=== PATIENT | male | born 1950 | race Caucasian/White ===

== ENCOUNTER 2017-09-22 14:00 | Outpatient (RCR) | payer MEDICARE, BC, SELFPAY ==
--- NOTE | 2017-08-24 14:53 | HP.PTEVAL_ITS ---
Patient's Visit Information EDWIN ODONNELL is a 66 year old M referred to Physical Therapy by Piyush LEDBETTER with a diagnosis of BACK PAIN. Date of Evaluation: 08/24/17 Physical Therapist: Edwin Cavazos, PT, - Visit Plan Frequency: 2x /Week Duration: 4 Weeks Plan: POSTURAL EX'S,DLS,LE STRENGTHENING,GENERAL CONDTIONING - Subjective Subjective: This 66 y/o male presents to physical therapy with back pain for about year ago. Patient lumbar pain and grossly pain in joints/muscles. Symptoms better with activity,moving ,walking,standing. Symptoms worse with inactivity, sitting. Patient pain affects symptoms at night. Denies parathesia/ tingling. Bowel/bladder. Patient pain control muscle atrophy. Patient has h/o being in PT due to pain. Then seen seen rheumotologist-methotraxate. Patient pain affects ADL'S and housework tasks.Bowel/bladder good.Patient has seen Dr Villarreal for pain injections hip /back. Patient states decrease endurance and fatigue. SOCAIL: . VOCATION: retired - Pain Bilateral Back Pain Intensity (Out of 10): 4 Pain Intensity Range: 10 - Objective POSTURE: mod thoracic kyphosis,trunk flexed foward. GAIT: foward posture trunk ,hips knee's slight flexed. NEURO: denies parathesia/tingling,redflexes L3-4, L4-5,L5-S1 1/3. MMT: quads/hams 4-/5,hip 3+/5,ankle 4/5. FLEXABILITY: hams min tight. LUMBAR ROM: flexion min/mod loss,extension severe,side glides mod. SYMMTRIES: align - Special Tests L/S Slump test left side: Negative L/S Slump test right side: Negative L/S Left Straight Leg Raise: Negative L/S Right Straight Leg Raise: Negative Lumbar Standing: Flexion - Mechanical Response: No effect Lumbar Standing: Flexion - Symptoms During Testing: Increases Lumbar Standing: Flexion - Symptoms After Testing: No worse Lumbar Standing: Extension - Mechanical Response: No effect Lumbar Standing: Extension - Symptoms During Testing: Increases Lumbar Standing: Extension - Symptoms After Testing: No worse - Goals Goal 1:: Patient to be Independant with HEP Goal Time Frame: 4-6 Weeks Goal 2:: Independant with posture for ADL'S Goal Time Frame: 4-6 Weeks Goal 3:: Decrease lumbar pain and pain grossly by 40 % or greater to improve function and ADL'S Goal Time Frame: 4-6 Weeks Goal 4:: Patient increase strength BLE by 1/2 grade to improve function with walking and stand. Goal Time Frame: 4-6 Weeks Goal 5:: Patient be able to perform ADL'S and housework tasks with min/mod limiations - Rehabilitation Potential Physical Therapy Diagnosis: This patient has multiple complexity issues with chronic lumbar pain and RA which has been recently diagnosed with pain grossly in joints/muscle along with atrophy . Pain affects daily activity and housework tasks with weakness. Rehabilitation Potential: Good - Anticipated Interventions Patient/Client Instruction: Educate patient on: Condition, Plan of Care For the Purpose of:: To decrease pain, To increase ROM, To improve muscle performance and motor function, To improve ability to perform ADL's, To increase tolerance to activity/condition/position, To improve performance and independence with ADL's, To improve ability of physical actions for home/ community/work/leisure, To improve gait and locomotor functions, To improve health of tissue, To decrease soft tissue restriction, To increase flexibility/ ROM, To improve health and function, To improve ability to perform tasks related to life management Therapeutic Exercise to Include: Strength training, Postural training, Flexibilty training, Dynamic Lumbar Stabilization Comment: BLE For the Purpose of:: To decrease pain, To increase ROM, To improve muscle performance and motor function, To improve ability to perform ADL's, To increase tolerance to activity/condition/position, To improve ability of physical actions for home/community/work/leisure, To improve health of tissue, To decrease soft tissue restriction, To increase flexibility/ROM, To improve health and function, To improve ability to perform tasks related to life management IF ES: Yes Cryotherapy (ice pack, ice massage): Yes Thermo therapy (hot pack): Yes Ultrasound (thermal/non thermal): Yes For the Purpose of:: To decrease pain, To improve nutrient delivery to tissue, To increase oxygenation perfusion, To improve health of tissue, To decrease soft tissue restriction Thank you for the opportunity to evaluate your patient. For Medicare and Medicare HMO plans, please review the plan of care and approve it. It will need to be FAXED BACK to us at [phone] for Medicare purposes. Please let me know if there are questions or concerns regarding this plan of care. Physician Signature: Date:
--- NOTE | 2017-09-22 14:26 | HP.PTDCSUM ---
HP - PT D/C Summary It has been my pleasure to treat EDWIN ODONNELL under orders from DR.ABASAL Leonides for the diagnosis of BACK PAIN for a total of 9 visit(s). Discharge Date: 09/22/17 Please see the following information for a summary of their discharge status. - Subjective Subjective: My symptoms have been missed .. Patient has lost weight passed month . Patient is on predisone. Patient ready to be d/c on own - Pain Bilateral Back Pain Intensity (Out of 10): 3 Bilateral Hip Pain Intensity (Out of 10): 1 Bilateral Shoulder Pain Intensity (Out of 10): 1 - Overall Improvement % Improvement: 30 - Objective Objective/Function: POSTURE: AMILD FOWARD POSTURE. GAIT: FOWARD POSTURE RECIPROCAL PATTERN ,. MMT: QUADS/HAMS 4/5,HIP 4-/5,ANKLE 4/5. LUMBAR ROM: FLEXION MIN LOSS,EXTENSION LOSS MOD /SEVERE,SIDE GLIDES MOD LOSS - Goals Goal 1:: Patient to be Independant with HEP Goal Progress: Goal Met Goal 2:: Independant with posture for ADL'S Goal Progress: Goal Met Goal 3:: Decrease lumbar pain and pain grossly by 40 % or greater to improve function and ADL'S Goal Progress: Progressing Goal 4:: Patient increase strength BLE by 1/2 grade to improve function with walking and stand. Goal Progress: Goal Met Goal 5:: Patient be able to perform ADL'S and housework tasks with min/mod limiations Goal Progress: Progressing - Plan Plan: D/C TO HOME - D/C Information Discharge Comments: HEP If there are questions or concerns regarding this patient's physical therapy, please feel free to call me at [phone]. Thank you for the referral of this patient. Sincerely, Edwin Cavazos, PT,
== END 2017-09-22 19:00 | disposition home or self-care (01) ==
LOC: PT 14:00
PROVIDERS: Family Provider Family Medicine; PCP Family Medicine; Visit Provider Anesthesiology Pain Medicine
DX: M54.9 Dorsalgia, unspecified (principal)
CPT/HCPCS: 97110; 97162

== ENCOUNTER → 2017-11-04 08:19 | Outpatient (CLI) | payer MEDICARE, BC, SELFPAY ==
[2017-11-04 11:24] LABS: Anion Gap 7 (5-15); BUN 15 mg/dL (7-18); BUN/Creat Ratio 15.8 RATIO (10-20); Calcium,Total 9.6 mg/dL (8.5-10.1); Chloride 100 mmol/L (98-107); Cholesterol 175 mg/dL (200); Creatinine, Serum 0.95 mg/dL (0.70-1.30); EST Glomerular Filtration Rate 84 mL/min (>60); Est Glom Filt Rate - Afr Amer 102 mL/min (>60); Glucose 100 mg/dL (74-106); High Density Lipoprotein 60 mg/dL; PSA,Total - Annual Screen 2.44 ng/mL (0.00-4.00); Potassium 4.2 mmol/L (3.5-5.1); Sodium Level 139 mmol/L (136-145); Thyroid Stim Hormone (TSH) 0.86 uIU/mL (0.358-3.74); Triglycerides 75 mg/dL; Very Low Density Lipoprotein 15 mg/dL (5-40)
== END ==
PROVIDERS: Family Provider Family Medicine; PCP Family Medicine; Visit Provider Family Medicine
DX: Z00.00 Encounter for general adult medical examination without abnormal findings (principal); Z12.5 Encounter for screening for malignant neoplasm of prostate
CPT/HCPCS: 36415; 80048; 80061; 82306; 84153; 84443; G0103

== ENCOUNTER → 2017-11-21 14:46 | Outpatient (CLI) | payer MEDICARE, BC, SELFPAY ==
[2017-11-21 15:37] LABS: Absolute Lymphocyte Count 1.18 X10^3/ul (0.83-4.51); Absolute Neutrophil Count 6.1 X10^3/uL (2.0-7.7); Basophil# 0.03 X10^3/uL; Basophil% 0.4 % (0-1); Eosinophils% 2.4 % (0-5); Hematocrit 45.1 % (40-54); Hemoglobin 14.7 g/dl (13.0-16.5); Lymphocyte # 1.18 X10^3/ul (4.0); Lymphocyte % 14.4 % (19-41); Mean Corp Hgb Conc 32.6 g/gl (32-36); Mean Corpuscular Volume 95.1 fL (80-94); Mean Platelet Vol. 9.4 fl (6.2-12.0); Monocyte# 0.68 X10^3/uL; Monocyte% 8.3 % (0-10); Neutrophil # 6.08 X10^3/uL (2.7-7.7); Neutrophil % 74.4 % (47-70); Platelet Count 267 K/mm3 (150-450); RBC Distribution Width CV 14.5 % (11.6-14.6); RBC Distribution Width SD 50.1 fl (35.1-43.9); Red Blood Count 4.74 M/mm3 (4.6-6.2); White Blood Count 8.2 K/mm3 (4.4-11.0)
[2017-11-21 15:45] LABS: POSITIVE COUNT NO; POSITIVE DIFFERENTIAL NO; POSITIVE MORPHOLOGY NO
[2017-11-21 16:06] LABS: BUN 16 mg/dL (7-18); Creatinine, Serum 0.98 mg/dL (0.70-1.30); Glucose 94 mg/dL (74-106)
[2017-11-21 16:07] LABS: ALB/GLOB Ratio 0.9 RATIO (0.9-2.4); AST(SGOT) 20 U/L (15-37); Alanine Aminotransfer ALT/SGPT 36 U/L (16-61); Albumin, Serum 3.7 g/dL (3.2-5.0); Alkaline Phosphatase 70 U/L (45-117); Anion Gap 7 (5-15); BUN/Creat Ratio 16.4 RATIO (10-20); Calcium,Total 9.4 mg/dL (8.5-10.1); Chloride 102 mmol/L (98-107); EST Glomerular Filtration Rate 81 mL/min (>60); Est Glom Filt Rate - Afr Amer 98 mL/min (>60); Globulin 3.9 g/dL (2.2-4.2); Potassium 4.2 mmol/L (3.5-5.1); Protein, Total 7.6 g/dL (6.4-8.2); Sodium Level 141 mmol/L (136-145)
== END ==
PROVIDERS: Family Provider Family Medicine; PCP Family Medicine; Visit Provider Internal Medicine Rheumatology
DX: M06.4 Inflammatory polyarthropathy (principal); Z79.899 Other long term (current) drug therapy; M21.40 Flat foot [pes planus] (acquired), unspecified foot; K58.9 Irritable bowel syndrome, unspecified; I10 Essential (primary) hypertension
CPT/HCPCS: 36415; 80053; 85025

== ENCOUNTER → 2018-01-03 15:37 | Outpatient (CLI) | payer MEDICARE, BC, SELFPAY ==
[2018-01-03 18:04] LABS: Amphetamine Urine VISTA NEGATIVE (<1000 ng/mL); Barbiturate Urine VISTA NEGATIVE (< 200 ng/mL); Benzodiazepine Urine VISTA NEGATIVE (< 200 ng/mL); Cocaine Urine VISTA NEGATIVE (< 300 ng/mL); Ecstacy Urine VISTA NEGATIVE (< 500 ng/mL); Methadone Urine VISTA NEGATIVE (< 300 ng/mL); PCP Urine VISTA NEGATIVE (< 25 ng/mL); THC Urine VISTA NEGATIVE (< 50 ng/mL); Vista UDS pH Range 6
== END ==
PROVIDERS: Family Provider Family Medicine; PCP Family Medicine; Visit Provider Anesthesiology Pain Medicine
DX: F11.20 Opioid dependence, uncomplicated (principal)
CPT/HCPCS: 80307

== ENCOUNTER → 2018-02-06 14:08 | Outpatient (CLI) | payer MEDICARE, BC, SELFPAY ==
[2018-02-06 16:00] LABS: Absolute Lymphocyte Count 1.17 X10^3/ul (0.83-4.51); Absolute Neutrophil Count 5.5 X10^3/uL (2.0-7.7); Basophil# 0.03 X10^3/uL; Basophil% 0.4 % (0-1); Eosinophil# 0.16 X10^3/uL; Eosinophils% 2.1 % (0-5); Hematocrit 44.3 % (40-54); Lymphocyte # 1.17 X10^3/ul (4.0); Lymphocyte % 15.6 % (19-41); Mean Corp Hgb Conc 33.9 g/gl (32-36); Mean Corpuscular Hgb 32.3 pg (27.0-32.0); Mean Corpuscular Volume 95.3 fL (80-94); Mean Platelet Vol. 9.6 fl (6.2-12.0); Monocyte# 0.65 X10^3/uL; Monocyte% 8.7 % (0-10); Neutrophil # 5.47 X10^3/uL (2.7-7.7); Neutrophil % 73.1 % (47-70); POSITIVE COUNT NO; POSITIVE DIFFERENTIAL NO; POSITIVE MORPHOLOGY NO; Platelet Count 282 K/mm3 (150-450); RBC Distribution Width SD 48.1 fl (35.1-43.9); Red Blood Count 4.65 M/mm3 (4.6-6.2); White Blood Count 7.5 K/mm3 (4.4-11.0)
[2018-02-06 16:13] LABS: AST(SGOT) 18 U/L (15-37); Alanine Aminotransfer ALT/SGPT 32 U/L (16-61); Albumin, Serum 3.8 g/dL (3.2-5.0); Alkaline Phosphatase 66 U/L (45-117); BUN 19 mg/dL (7-18); BUN/Creat Ratio 16.4 RATIO (10-20); Calcium,Total 9.2 mg/dL (8.5-10.1); Creatinine, Serum 1.16 mg/dL (0.70-1.30); EST Glomerular Filtration Rate 67 mL/min (>60); Est Glom Filt Rate - Afr Amer 80 mL/min (>60); Globulin 3.7 g/dL (2.2-4.2); Glucose 81 mg/dL (74-106); Protein, Total 7.5 g/dL (6.4-8.2)
[2018-02-06 16:14] LABS: Anion Gap 5 (5-15); Chloride 102 mmol/L (98-107); Potassium 4.2 mmol/L (3.5-5.1); Sodium Level 143 mmol/L (136-145)
== END ==
PROVIDERS: Family Provider Family Medicine; PCP Family Medicine; Visit Provider Internal Medicine Rheumatology
DX: M06.4 Inflammatory polyarthropathy (principal); Z79.899 Other long term (current) drug therapy; M21.40 Flat foot [pes planus] (acquired), unspecified foot; K58.9 Irritable bowel syndrome, unspecified; I10 Essential (primary) hypertension; M47.897 Other spondylosis, lumbosacral region
CPT/HCPCS: 36415; 80053; 85025

== ENCOUNTER 2018-03-14 06:57 | Day surgery (SDC) | payer MEDICARE, BC, SELFPAY ==
[2018-03-14] VITALS (7 sets, daily range): BP systolic 108–128; BP diastolic 57–79; PULSE 49–64; RESP 16; TEMP 36.6–37.3; O2SAT 97–100; BMI 20.2
--- NOTE | 2018-03-14 08:00 | COLBX_PTH ---
PATIENT: EDWIN ODONNELL LOC: EN U#:[id number] AGE/SX: 67/M ROOM: RE03/14/[address]: Dr. Munir Torres MD : 1950 BED: DIS: 03/14/2018 SPEC #: [id number] RECD: 03/14/18 12:23 STATUS: JERRY LEATHA #: [id number] ASH: 03/14/18 08:[address]: Munir Torres DEPT: SURGICAL PATHOLOGY RECD BY: Colt Hare ENTERED: 03/14/18 13:12 SP TYPE: COLON BX OTHR DR: Dr. Casimiro Duncan MD Tissues: Rectum, NOS Procedures: Surgery Specimen Level IV HEADER OPERATION: Colonoscopy, EGD PRE-OP DIAGNOSIS: Weight loss, constipation TISSUE SUBMITTED: Biopsy rectum MICROSCOPIC DIAGNOSIS Rectum, biopsy: Hyperplastic polyp. Additional fragments of colonic mucosa, no pathologic diagnosis. SJ:santino 03/15/18 MICROSCOPIC DESCRIPTION Slides are reviewed. GROSS DESCRIPTION Received in fixative is one container labeled with the patient's name and designated biopsy rectum. The specimen consists of multiple irregular fragments of light chicas soft tissue that in aggregate measure 0.8 x 0.3 x 0.1 cm. The specimen is totally submitted in one cassette. / SJ:santino 03/14/18 TC:1 CPT: 73467
--- NOTE | 2018-03-14 08:44 | OP.PCM_ITS ---
Problem List (1) Unintentional weight loss Status: Acute (2) Constipation Status: Acute Qualifiers: Constipation type: unspecified constipation type Qualified Code(s): K59.00 - Constipation, unspecified Report of Operation Date of Procedure: 03/14/18 Pre-Operative Diagnosis: 1. Constipation. 2 unintentional weight loss Post-Operative Diagnosis: 1. Normal EGD. 2. Irregular rectal mucosa Surgery/Procedure Performed:: 1. EGD. 2. Colonoscopy with biopsy Specimen's removed: Rectal biopsy Description of Procedure: The major risks and benefits associated with the procedure were explained to the patient in detail. The patient verbalized understanding and agreement with the same. The patient was then placed in the left lateral decubitus position. IV sedation was started by anesthesia. The endoscope was then advanced under direct visualization over the tongue, into the esophagus , stomach and duodenum. It was slowly withdrawn and the mucosa was carefully evaluated. Duodenal mucosal abnormalities were not visualized. Antegrade and retrograde views of the stomach were normal and did not reveal a hiatal hernia or ulceration. Gastric folds were normal. The scope was then withdrawn through the GE junction and careful examination did not demonstrate any mucosal abnormalities. No evidence of Perdomo's esophagus was apparent. Careful examination of the remainder of the esophagus was normal. The scope was then withdrawn from the patient. The patient was then turned for the colonoscopy portion of the procedure. A digital rectal exam was performed. This examination was within normal limits. A well-lubricated colonoscope was then inserted into the rectum and advanced under direct visualization to the level of the cecum. The bowel prep was good. The cecum was identified by both visual and anatomic landmarks. A photograph was taken of the end of the cecum. The scope was then fully withdrawn while examining the color, texture, anatomy and integrity of the mucosa from the cecum to the anal canal. The findings were consistent with normal colonic mucosa. Upon reaching the rectum the scope was retroflexed to examine the distal rectal vault. The patient's very distal end of the rectum appeared irregular and cold forceps biopsies were performed. The scope was then straightened and was completely retrieved upon exiting the anal canal and the procedure was terminated. The patient was then transferred to the recovery room in stable condition. Recommendations for follow up: 5 years due to family history
== END 2018-03-14 10:13 | disposition home or self-care (01) ==
LOC: EN 06:57 → AC 07:00
PROVIDERS: Family Provider Family Medicine; PCP Family Medicine; Visit Provider Surgery
PROC: 0DJD8ZZ Inspection of Lower Intestinal Tract, Via Natural or Artificial Opening Endoscopic (ICD-10-PCS; CPT 45378; principal; 2018-03-14 07:55)
DX: K62.1 Rectal polyp (principal); K58.1 Irritable bowel syndrome with constipation; R63.4 Abnormal weight loss; M10.9 Gout, unspecified; M06.9 Rheumatoid arthritis, unspecified; I10 Essential (primary) hypertension; F41.9 Anxiety disorder, unspecified; Z80.0 Family history of malignant neoplasm of digestive organs; Z79.82 Long term (current) use of aspirin; Z79.899 Other long term (current) drug therapy; Z87.891 Personal history of nicotine dependence
CPT/HCPCS: 43235; 45380; 88305; J7120

== ENCOUNTER → 2018-05-02 14:56 | Outpatient (CLI) | payer MEDICARE, BC, SELFPAY ==
[2018-05-02 16:25] LABS: Absolute Lymphocyte Count 1.07 X10^3/ul (0.83-4.51); Absolute Neutrophil Count 4.9 X10^3/uL (2.0-7.7); Basophil# 0.04 X10^3/uL; Basophil% 0.6 % (0-1); Eosinophil# 0.15 X10^3/uL; Eosinophils% 2.2 % (0-5); Lymphocyte # 1.07 X10^3/ul (4.0); Lymphocyte % 15.9 % (19-41); Mean Corp Hgb Conc 33.3 g/gl (32-36); Mean Corpuscular Hgb 32.5 pg (27.0-32.0); Mean Corpuscular Volume 97.6 fL (80-94); Mean Platelet Vol. 9.5 fl (6.2-12.0); Monocyte# 0.62 X10^3/uL; Monocyte% 9.2 % (0-10); Neutrophil # 4.85 X10^3/uL (2.7-7.7); Platelet Count 242 K/mm3 (150-450); RBC Distribution Width CV 14.4 % (11.6-14.6); RBC Distribution Width SD 51.2 fl (35.1-43.9); Red Blood Count 4.61 M/mm3 (4.6-6.2); White Blood Count 6.7 K/mm3 (4.4-11.0)
[2018-05-02 16:27] LABS: POSITIVE COUNT NO; POSITIVE DIFFERENTIAL NO; POSITIVE MORPHOLOGY NO
[2018-05-02 17:00] LABS: ALB/GLOB Ratio 1.1 RATIO (0.9-2.4); AST(SGOT) 21 U/L (15-37); Alanine Aminotransfer ALT/SGPT 35 U/L (16-61); Albumin, Serum 3.5 g/dL (3.2-5.0); Alkaline Phosphatase 52 U/L (45-117); Anion Gap 8 (5-15); BUN 17 mg/dL (7-18); Calcium,Total 9.2 mg/dL (8.5-10.1); Chloride 104 mmol/L (98-107); EST Glomerular Filtration Rate 79 mL/min (>60); Est Glom Filt Rate - Afr Amer 95 mL/min (>60); Globulin 3.3 g/dL (2.2-4.2); Glucose 79 mg/dL (74-106); Potassium 3.4 mmol/L (3.5-5.1); Protein, Total 6.8 g/dL (6.4-8.2); Sodium Level 144 mmol/L (136-145)
== END ==
PROVIDERS: Family Provider Family Medicine; PCP Family Medicine; Visit Provider Internal Medicine Rheumatology
DX: M06.4 Inflammatory polyarthropathy (principal); M21.40 Flat foot [pes planus] (acquired), unspecified foot; K58.9 Irritable bowel syndrome, unspecified; I10 Essential (primary) hypertension; M47.897 Other spondylosis, lumbosacral region; Z79.899 Other long term (current) drug therapy
CPT/HCPCS: 36415; 80053; 85025

== ENCOUNTER → 2018-05-08 13:33 | Outpatient (CLI) | payer MEDICARE, BC, SELFPAY ==
[2018-05-08 15:38] LABS: Absolute Lymphocyte Count 1.21 X10^3/ul (0.83-4.51); Basophil# 0.03 X10^3/uL; Basophil% 0.5 % (0-1); Eosinophil# 0.11 X10^3/uL; Eosinophils% 1.9 % (0-5); Hematocrit 44.5 % (40-54); Hemoglobin 15.7 g/dl (13.0-16.5); Lymphocyte # 1.21 X10^3/ul (4.0); Lymphocyte % 20.5 % (19-41); Mean Corp Hgb Conc 35.3 g/gl (32-36); Mean Corpuscular Hgb 34.1 pg (27.0-32.0); Mean Corpuscular Volume 96.5 fL (80-94); Mean Platelet Vol. 9.8 fl (6.2-12.0); Monocyte# 0.54 X10^3/uL; Monocyte% 9.1 % (0-10); Neutrophil # 4.01 X10^3/uL (2.7-7.7); Neutrophil % 67.8 % (47-70); Platelet Count 260 K/mm3 (150-450); RBC Distribution Width CV 14.4 % (11.6-14.6); RBC Distribution Width SD 49.2 fl (35.1-43.9); Red Blood Count 4.61 M/mm3 (4.6-6.2); White Blood Count 5.9 K/mm3 (4.4-11.0)
[2018-05-08 15:39] LABS: POSITIVE COUNT NO; POSITIVE MORPHOLOGY NO
[2018-05-08 15:48] LABS: Anion Gap 10 (5-15); BUN 14 mg/dL (7-18); BUN/Creat Ratio 14.8 RATIO (10-20); Calcium,Total 9.4 mg/dL (8.5-10.1); Chloride 101 mmol/L (98-107); Cholesterol 191 mg/dL (200); Creatinine, Serum 0.94 mg/dL (0.70-1.30); EST Glomerular Filtration Rate 84 mL/min (>60); Est Glom Filt Rate - Afr Amer 102 mL/min (>60); Glucose 81 mg/dL (74-106); High Density Lipoprotein 67 mg/dL; Potassium 3.9 mmol/L (3.5-5.1); Sodium Level 141 mmol/L (136-145); Triglycerides 93 mg/dL; Very Low Density Lipoprotein 19 mg/dL (5-40)
== END ==
PROVIDERS: Family Provider Family Medicine; PCP Family Medicine; Visit Provider Family Medicine
DX: I10 Essential (primary) hypertension (principal); R35.8 Other polyuria; M25.50 Pain in unspecified joint
CPT/HCPCS: 36415; 80048; 80061; 85025

== ENCOUNTER → 2018-07-25 13:05 | Outpatient (CLI) | payer MEDICARE, BC, SELFPAY ==
[2018-03-14 07:28] VITALS: BMI 20.2
[2018-07-25 13:48] LABS: Absolute Neutrophil Count 5.3 X10^3/uL (2.0-7.7); Basophil# 0.04 X10^3/uL; Basophil% 0.6 % (0-1); Eosinophil# 0.17 X10^3/uL; Eosinophils% 2.3 % (0-5); Hematocrit 46.1 % (40-54); Hemoglobin 15.7 g/dl (13.0-16.5); Lymphocyte % 16.6 % (19-41); Mean Corp Hgb Conc 34.1 g/gl (32-36); Mean Corpuscular Hgb 33.8 pg (27.0-32.0); Mean Corpuscular Volume 99.1 fL (80-94); Mean Platelet Vol. 9.2 fl (6.2-12.0); Monocyte# 0.54 X10^3/uL; Monocyte% 7.5 % (0-10); Neutrophil # 5.26 X10^3/uL (2.7-7.7); Neutrophil % 72.6 % (47-70); Platelet Count 253 K/mm3 (150-450); RBC Distribution Width CV 13.8 % (11.6-14.6); RBC Distribution Width SD 49.3 fl (35.1-43.9); Red Blood Count 4.65 M/mm3 (4.6-6.2); White Blood Count 7.2 K/mm3 (4.4-11.0)
[2018-07-25 13:49] LABS: POSITIVE COUNT NO; POSITIVE DIFFERENTIAL NO; POSITIVE MORPHOLOGY NO
[2018-07-25 14:14] LABS: ALB/GLOB Ratio 1.2 RATIO (0.9-2.4); AST(SGOT) 23 U/L (15-37); Alanine Aminotransfer ALT/SGPT 40 U/L (16-61); Albumin, Serum 4.1 g/dL (3.2-5.0); Alkaline Phosphatase 64 U/L (45-117); Anion Gap 5 (5-15); BUN 12 mg/dL (7-18); BUN/Creat Ratio 12.4 RATIO (10-20); Calcium,Total 9.4 mg/dL (8.5-10.1); Chloride 104 mmol/L (98-107); Creatinine, Serum 0.97 mg/dL (0.70-1.30); EST Glomerular Filtration Rate 82 mL/min (>60); Est Glom Filt Rate - Afr Amer 99 mL/min (>60); Globulin 3.4 g/dL (2.2-4.2); Glucose 99 mg/dL (74-106); Protein, Total 7.5 g/dL (6.4-8.2); Sodium Level 143 mmol/L (136-145)
== END ==
PROVIDERS: Family Provider Family Medicine; PCP Family Medicine; Referring Provider Internal Medicine Rheumatology; Visit Provider Internal Medicine Rheumatology
DX: M06.4 Inflammatory polyarthropathy (principal); Z79.899 Other long term (current) drug therapy; M21.40 Flat foot [pes planus] (acquired), unspecified foot; K58.9 Irritable bowel syndrome, unspecified; I10 Essential (primary) hypertension; M47.897 Other spondylosis, lumbosacral region
CPT/HCPCS: 36415; 80053; 85025

== ENCOUNTER → 2018-10-19 12:46 | Outpatient (CLI) | payer MEDICARE, BC, SELFPAY ==
[2018-10-19 14:07] LABS: Absolute Lymphocyte Count 1.06 X10^3/ul (0.83-4.51); Absolute Neutrophil Count 6.9 X10^3/uL (2.0-7.7); Basophil# 0.03 X10^3/uL; Basophil% 0.3 % (0-1); Eosinophil# 0.04 X10^3/uL; Eosinophils% 0.5 % (0-5); Hematocrit 48.5 % (40-54); Hemoglobin 16.4 g/dl (13.0-16.5); Lymphocyte # 1.06 X10^3/ul (4.0); Lymphocyte % 12.3 % (19-41); Mean Corp Hgb Conc 33.8 g/gl (32-36); Mean Corpuscular Hgb 32.8 pg (27.0-32.0); Mean Platelet Vol. 9.7 fl (6.2-12.0); Monocyte# 0.56 X10^3/uL; Monocyte% 6.5 % (0-10); Neutrophil % 80.2 % (47-70); Platelet Count 264 K/mm3 (150-450); RBC Distribution Width CV 13.5 % (11.6-14.6); RBC Distribution Width SD 46.3 fl (35.1-43.9); White Blood Count 8.6 K/mm3 (4.4-11.0)
[2018-10-19 14:08] LABS: POSITIVE COUNT NO; POSITIVE DIFFERENTIAL NO; POSITIVE MORPHOLOGY NO
[2018-10-19 14:30] LABS: ALB/GLOB Ratio 1.2 RATIO (0.9-2.4); AST(SGOT) 23 U/L (15-37); Alanine Aminotransfer ALT/SGPT 29 U/L (16-61); Alkaline Phosphatase 54 U/L (45-117); Anion Gap 8 (5-15); BUN 15 mg/dL (7-18); BUN/Creat Ratio 14.4 RATIO (10-20); Calcium,Total 9.1 mg/dL (8.5-10.1); Chloride 104 mmol/L (98-107); Creatinine, Serum 1.04 mg/dL (0.70-1.30); EST Glomerular Filtration Rate 75 mL/min (>60); Est Glom Filt Rate - Afr Amer 91 mL/min (>60); Globulin 3.2 g/dL (2.2-4.2); Glucose 94 mg/dL (74-106); Potassium 4.4 mmol/L (3.5-5.1); Protein, Total 7.2 g/dL (6.4-8.2); Sodium Level 141 mmol/L (136-145)
== END ==
PROVIDERS: Family Provider Family Medicine; PCP Family Medicine; Referring Provider Internal Medicine Rheumatology; Visit Provider Internal Medicine Rheumatology
DX: M06.4 Inflammatory polyarthropathy (principal); Z79.899 Other long term (current) drug therapy; M21.40 Flat foot [pes planus] (acquired), unspecified foot; K58.9 Irritable bowel syndrome, unspecified; I10 Essential (primary) hypertension; M47.897 Other spondylosis, lumbosacral region
CPT/HCPCS: 36415; 80053; 85025

== ENCOUNTER → 2019-01-05 12:24 | Outpatient (CLI) | payer MEDICARE, BC, SELFPAY ==
[2019-01-05 14:03] LABS: Absolute Lymphocyte Count 1.04 X10^3/ul (0.83-4.51); Absolute Neutrophil Count 4.6 X10^3/uL (2.0-7.7); Basophil# 0.03 X10^3/uL; Basophil% 0.5 % (0-1); Eosinophil# 0.09 X10^3/uL; Eosinophils% 1.4 % (0-5); Hematocrit 45.5 % (40-54); Hemoglobin 15.8 g/dl (13.0-16.5); Lymphocyte # 1.04 X10^3/ul (4.0); Lymphocyte % 16.5 % (19-41); Mean Corp Hgb Conc 34.7 g/gl (32-36); Mean Corpuscular Hgb 33.3 pg (27.0-32.0); Mean Corpuscular Volume 95.8 fL (80-94); Monocyte# 0.58 X10^3/uL; Monocyte% 9.2 % (0-10); Neutrophil # 4.55 X10^3/uL (2.7-7.7); Neutrophil % 72.2 % (47-70); RBC Distribution Width CV 13.5 % (11.6-14.6); RBC Distribution Width SD 47.1 fl (35.1-43.9); Red Blood Count 4.75 M/mm3 (4.6-6.2); White Blood Count 6.3 K/mm3 (4.4-11.0)
[2019-01-05 14:09] LABS: Mean Platelet Vol. 9.9 fl (6.2-12.0); POSITIVE COUNT NO; POSITIVE DIFFERENTIAL NO; POSITIVE MORPHOLOGY NO; Platelet Count 215 K/mm3 (150-450)
[2019-01-05 14:11] LABS: ALB/GLOB Ratio 1.1 RATIO (0.9-2.4); AST(SGOT) 20 U/L (15-37); Alanine Aminotransfer ALT/SGPT 26 U/L (16-61); Albumin, Serum 3.8 g/dL (3.2-5.0); Alkaline Phosphatase 58 U/L (45-117); Anion Gap 7 (5-15); BUN 16 mg/dL (7-18); BUN/Creat Ratio 14.8 RATIO (10-20); Calcium,Total 9.7 mg/dL (8.5-10.1); Chloride 102 mmol/L (98-107); Creatinine, Serum 1.08 mg/dL (0.70-1.30); EST Glomerular Filtration Rate 72 mL/min (>60); Est Glom Filt Rate - Afr Amer 87 mL/min (>60); Globulin 3.5 g/dL (2.2-4.2); Glucose 83 mg/dL (74-106); Potassium 4.2 mmol/L (3.5-5.1); Protein, Total 7.3 g/dL (6.4-8.2); Sodium Level 142 mmol/L (136-145)
== END ==
PROVIDERS: Family Provider Family Medicine; PCP Family Medicine; Referring Provider Internal Medicine Rheumatology; Visit Provider Internal Medicine Rheumatology
DX: M06.4 Inflammatory polyarthropathy (principal); Z79.899 Other long term (current) drug therapy; M21.40 Flat foot [pes planus] (acquired), unspecified foot; K58.9 Irritable bowel syndrome, unspecified; I10 Essential (primary) hypertension; M47.897 Other spondylosis, lumbosacral region
CPT/HCPCS: 36415; 80053; 85025

== ENCOUNTER → 2019-04-03 12:45 | Outpatient (CLI) | payer MEDICARE, BC, SELFPAY ==
[2018-03-14 07:28] VITALS: BMI 20.2
[2019-04-03 13:48] LABS: Absolute Neutrophil Count 4.8 X10^3/uL (2.0-7.7); Basophil# 0.05 X10^3/uL; Basophil% 0.7 % (0-1); Eosinophils% 1.4 % (0-5); Hematocrit 47.9 % (40-54); Hemoglobin 16.3 g/dL (13.0-16.5); Lymphocyte % 18.3 % (19-41); Mean Corpuscular Hgb 32.8 pg (27.0-32.0); Mean Corpuscular Volume 96.4 fL (80-94); Mean Platelet Vol. 9.3 fl (6.2-12.0); Monocyte# 0.81 X10^3/uL; Monocyte% 11.4 % (0-10); NRBC Flagged by Analyzer 0 % (0-5); Neutrophil % 67.8 % (47-70); Platelet Count 255 K/mm3 (150-450); RBC Distribution Width CV 13.4 % (11.6-14.6); RBC Distribution Width SD 47.3 fl (35.1-43.9); Red Blood Count 4.97 M/mm3 (4.6-6.2); White Blood Count 7.1 K/mm3 (4.4-11.0)
[2019-04-03 13:58] LABS: ALB/GLOB Ratio 1.1 RATIO (0.9-2.4); AST(SGOT) 21 U/L (15-37); Alanine Aminotransfer ALT/SGPT 29 U/L (16-61); Albumin, Serum 3.9 g/dL (3.2-5.0); Alkaline Phosphatase 59 U/L (45-117); Anion Gap 4 (5-15); BUN 15 mg/dL (7-18); BUN/Creat Ratio 14.3 RATIO (10-20); Calcium,Total 9.4 mg/dL (8.5-10.1); Chloride 106 mmol/L (98-107); Creatinine, Serum 1.05 mg/dL (0.70-1.30); EST Glomerular Filtration Rate 74 mL/min (>60); Est Glom Filt Rate - Afr Amer 90 mL/min (>60); Globulin 3.5 g/dL (2.2-4.2); Glucose 92 mg/dL (74-106); Potassium 3.9 mmol/L (3.5-5.1); Protein, Total 7.4 g/dL (6.4-8.2); Sodium Level 140 mmol/L (136-145)
== END ==
PROVIDERS: Family Provider Family Medicine; PCP Family Medicine; Referring Provider Internal Medicine Rheumatology; Visit Provider Internal Medicine Rheumatology
DX: M06.4 Inflammatory polyarthropathy (principal); Z79.899 Other long term (current) drug therapy; M21.40 Flat foot [pes planus] (acquired), unspecified foot; K58.9 Irritable bowel syndrome, unspecified; I10 Essential (primary) hypertension; M47.897 Other spondylosis, lumbosacral region
CPT/HCPCS: 36415; 80053; 85025

== ENCOUNTER → 2019-05-10 13:29 | Outpatient (CLI) | payer MEDICARE, BC, SELFPAY ==
[2018-03-14 07:28] VITALS: BMI 20.2
[2019-05-10 14:58] LABS: Cholesterol 181 mg/dL (200); High Density Lipoprotein 59 mg/dL; Triglycerides 71 mg/dL; Very Low Density Lipoprotein 14 mg/dL (5-40)
== END ==
PROVIDERS: Family Provider Family Medicine; PCP Family Medicine; Referring Provider Family Medicine; Visit Provider Family Medicine
DX: E55.9 Vitamin D deficiency, unspecified (principal); I10 Essential (primary) hypertension
CPT/HCPCS: 36415; 80061; 82306

== ENCOUNTER → 2019-07-02 13:24 | Outpatient (CLI) | payer MEDICARE, BC, SELFPAY ==
[2018-03-14 07:28] VITALS: BMI 20.2
[2019-07-02 14:34] LABS: Absolute Neutrophil Count 5.9 X10^3/uL (2.0-7.7); Basophil# 0.05 X10^3/uL; Basophil% 0.6 % (0-1); Eosinophil# 0.08 X10^3/uL; Hematocrit 47.2 % (40-54); Mean Corp Hgb Conc 33.9 g/dL (32-36); Mean Corpuscular Hgb 32.9 pg (27.0-32.0); Mean Corpuscular Volume 97.1 fL (80-94); Mean Platelet Vol. 9.6 fl (6.2-12.0); Monocyte# 0.79 X10^3/uL; Monocyte% 9.6 % (0-10); NRBC Flagged by Analyzer 0 % (0-5); Neutrophil # 5.89 X10^3/uL (2.7-7.7); Neutrophil % 71.4 % (47-70); Platelet Count 239 K/mm3 (150-450); RBC Distribution Width CV 13.3 % (11.6-14.6); RBC Distribution Width SD 47.4 fl (35.1-43.9); Red Blood Count 4.86 M/mm3 (4.6-6.2); White Blood Count 8.2 K/mm3 (4.4-11.0)
[2019-07-02 15:06] LABS: ALB/GLOB Ratio 1.2 RATIO (0.9-2.4); AST(SGOT) 22 U/L (15-37); Alanine Aminotransfer ALT/SGPT 39 U/L (16-61); Alkaline Phosphatase 52 U/L (45-117); Anion Gap 5 (5-15); BUN 14 mg/dL (7-18); Calcium,Total 9.2 mg/dL (8.5-10.1); Chloride 103 mmol/L (98-107); Creatinine, Serum 0.94 mg/dL (0.70-1.30); EST Glomerular Filtration Rate 85 mL/min (>60); Est Glom Filt Rate - Afr Amer 103 mL/min (>60); Globulin 3.3 g/dL (2.2-4.2); Glucose 90 mg/dL (74-106); Potassium 3.5 mmol/L (3.5-5.1); Protein, Total 7.3 g/dL (6.4-8.2); Sodium Level 138 mmol/L (136-145)
== END ==
PROVIDERS: Family Provider Family Medicine; PCP Family Medicine; Referring Provider Internal Medicine Rheumatology; Visit Provider Internal Medicine Rheumatology
DX: M06.4 Inflammatory polyarthropathy (principal); Z79.899 Other long term (current) drug therapy; M21.40 Flat foot [pes planus] (acquired), unspecified foot; K58.9 Irritable bowel syndrome, unspecified; I10 Essential (primary) hypertension; M47.897 Other spondylosis, lumbosacral region
CPT/HCPCS: 36415; 80053; 85025

== ENCOUNTER → 2019-09-25 12:45 | Outpatient (CLI) | payer MEDICARE, BC, SELFPAY ==
[2019-07-17 14:15] VITALS: BMI 20.2
[2019-09-25 14:00] LABS: Absolute Lymphocyte Count 1.35 X10^3/uL (0.83-4.51); Absolute Neutrophil Count 6.5 X10^3/uL (2.0-7.7); Basophil# 0.05 X10^3/uL; Basophil% 0.6 % (0-1); Eosinophil# 0.07 X10^3/uL; Eosinophils% 0.8 % (0-5); Hematocrit 49.4 % (40-54); Hemoglobin 16.9 g/dL (13.0-16.5); Lymphocyte # 1.35 X10^3/ul (4.0); Lymphocyte % 15.5 % (19-41); Mean Corp Hgb Conc 34.2 g/dL (32-36); Mean Corpuscular Hgb 33.3 pg (27.0-32.0); Mean Corpuscular Volume 97.4 fL (80-94); Mean Platelet Vol. 9.6 fl (6.2-12.0); NRBC Flagged by Analyzer 0 % (0-5); Neutrophil # 6.48 X10^3/uL (2.7-7.7); Neutrophil % 74.5 % (47-70); Platelet Count 252 K/mm3 (150-450); RBC Distribution Width CV 13.1 % (11.6-14.6); RBC Distribution Width SD 46.9 fl (35.1-43.9); Red Blood Count 5.07 M/mm3 (4.6-6.2); White Blood Count 8.7 K/mm3 (4.4-11.0)
[2019-09-25 14:37] LABS: ALB/GLOB Ratio 1.2 RATIO (0.9-2.4); AST(SGOT) 21 U/L (15-37); Alanine Aminotransfer ALT/SGPT 35 U/L (16-61); Albumin, Serum 4.1 g/dL (3.2-5.0); Alkaline Phosphatase 54 U/L (45-117); Anion Gap 4 (5-15); BUN 16 mg/dL (7-18); BUN/Creat Ratio 15.7 RATIO (10-20); Calcium,Total 9.8 mg/dL (8.5-10.1); Chloride 105 mmol/L (98-107); Creatinine, Serum 1.02 mg/dL (0.70-1.30); EST Glomerular Filtration Rate 77 mL/min (>60); Est Glom Filt Rate - Afr Amer 93 mL/min (>60); Globulin 3.3 g/dL (2.2-4.2); Glucose 88 mg/dL (74-106); Potassium 4.7 mmol/L (3.5-5.1); Protein, Total 7.4 g/dL (6.4-8.2); Sodium Level 142 mmol/L (136-145)
== END ==
PROVIDERS: PCP Family Medicine; Referring Provider Internal Medicine Rheumatology; Visit Provider Internal Medicine Rheumatology
DX: M06.4 Inflammatory polyarthropathy (principal); Z79.899 Other long term (current) drug therapy; M21.40 Flat foot [pes planus] (acquired), unspecified foot; K58.9 Irritable bowel syndrome, unspecified; I10 Essential (primary) hypertension; M47.897 Other spondylosis, lumbosacral region
CPT/HCPCS: 36415; 80053; 85025

== ENCOUNTER → 2019-12-19 13:08 | Outpatient (CLI) | payer MEDICARE, BC, SELFPAY ==
[2019-07-17 14:15] VITALS: BMI 20.2
[2019-12-19 15:36] LABS: Absolute Lymphocyte Count 1.03 X10^3/uL (0.83-4.51); Absolute Neutrophil Count 5.1 X10^3/uL (2.0-7.7); Basophil# 0.04 X10^3/uL; Basophil% 0.6 % (0-1); Eosinophil# 0.02 X10^3/uL; Eosinophils% 0.3 % (0-5); Hematocrit 49.4 % (40-54); Hemoglobin 16.4 g/dL (13.0-16.5); Lymphocyte # 1.03 X10^3/ul (4.0); Lymphocyte % 15.1 % (19-41); Mean Corp Hgb Conc 33.2 g/dL (32-36); Mean Corpuscular Hgb 32.3 pg (27.0-32.0); Mean Corpuscular Volume 97.2 fL (80-94); Mean Platelet Vol. 9.7 fl (6.2-12.0); Monocyte# 0.58 X10^3/uL; Monocyte% 8.5 % (0-10); NRBC Flagged by Analyzer 0 % (0-5); Neutrophil # 5.14 X10^3/uL (2.7-7.7); Neutrophil % 75.2 % (47-70); Platelet Count 262 K/mm3 (150-450); RBC Distribution Width CV 13.5 % (11.6-14.6); Red Blood Count 5.08 M/mm3 (4.6-6.2); White Blood Count 6.8 K/mm3 (4.4-11.0)
[2019-12-19 15:54] LABS: ALB/GLOB Ratio 1.2 RATIO (0.9-2.4); AST(SGOT) 24 U/L (15-37); Alanine Aminotransfer ALT/SGPT 37 U/L (16-61); Alkaline Phosphatase 54 U/L (45-117); Anion Gap 3 (5-15); BUN 19 mg/dL (7-18); BUN/Creat Ratio 18.1 RATIO (10-20); Calcium,Total 9.7 mg/dL (8.5-10.1); Chloride 105 mmol/L (98-107); Creatinine, Serum 1.05 mg/dL (0.70-1.30); EST Glomerular Filtration Rate 74 mL/min (>60); Est Glom Filt Rate - Afr Amer 90 mL/min (>60); Globulin 3.4 g/dL (2.2-4.2); Glucose 99 mg/dL (74-106); Potassium 4.8 mmol/L (3.5-5.1); Protein, Total 7.4 g/dL (6.4-8.2); Sodium Level 140 mmol/L (136-145)
== END ==
PROVIDERS: PCP Family Medicine; Referring Provider Internal Medicine Rheumatology; Visit Provider Internal Medicine Rheumatology
DX: M06.4 Inflammatory polyarthropathy (principal); Z79.899 Other long term (current) drug therapy; M21.40 Flat foot [pes planus] (acquired), unspecified foot; K58.9 Irritable bowel syndrome, unspecified; I10 Essential (primary) hypertension; M47.897 Other spondylosis, lumbosacral region
CPT/HCPCS: 36415; 80053; 85025

== ENCOUNTER → 2020-03-18 12:52 | Outpatient (CLI) | payer MEDICARE, BC, SELFPAY ==
[2019-07-17 14:15] VITALS: BMI 20.2
[2020-03-18 15:42] LABS: Absolute Lymphocyte Count 1.45 X10^3/uL (0.83-4.51); Absolute Neutrophil Count 4.5 X10^3/uL (2.0-7.7); Basophil# 0.05 X10^3/uL; Basophil% 0.7 % (0-1); Eosinophil# 0.11 X10^3/uL; Eosinophils% 1.6 % (0-5); Hematocrit 47.8 % (40-54); Hemoglobin 15.9 g/dL (13.0-16.5); Lymphocyte # 1.45 X10^3/ul (4.0); Lymphocyte % 20.9 % (19-41); Mean Corp Hgb Conc 33.3 g/dL (32-36); Mean Corpuscular Hgb 32.8 pg (27.0-32.0); Mean Corpuscular Volume 98.6 fL (80-94); Mean Platelet Vol. 9.9 fl (6.2-12.0); Monocyte% 11.5 % (0-10); NRBC Flagged by Analyzer 0 % (0-5); Neutrophil % 64.9 % (47-70); Platelet Count 267 K/mm3 (150-450); RBC Distribution Width CV 13.2 % (11.6-14.6); RBC Distribution Width SD 47.6 fl (35.1-43.9); Red Blood Count 4.85 M/mm3 (4.6-6.2); White Blood Count 6.9 K/mm3 (4.4-11.0)
[2020-03-18 16:22] LABS: ALB/GLOB Ratio 1.2 RATIO (0.9-2.4); AST(SGOT) 20 U/L (15-37); Alanine Aminotransfer ALT/SGPT 28 U/L (16-61); Alkaline Phosphatase 52 U/L (45-117); Anion Gap 4 (5-15); BUN 19 mg/dL (7-18); BUN/Creat Ratio 18.4 RATIO (10-20); Calcium,Total 9.1 mg/dL (8.5-10.1); Chloride 105 mmol/L (98-107); Creatinine, Serum 1.03 mg/dL (0.70-1.30); EST Glomerular Filtration Rate 76 mL/min (>60); Est Glom Filt Rate - Afr Amer 92 mL/min (>60); Globulin 3.3 g/dL (2.2-4.2); Glucose 86 mg/dL (74-106); Protein, Total 7.3 g/dL (6.4-8.2); Sodium Level 139 mmol/L (136-145)
== END ==
PROVIDERS: PCP Family Medicine; Referring Provider Internal Medicine Rheumatology; Visit Provider Internal Medicine Rheumatology
DX: M06.4 Inflammatory polyarthropathy (principal); Z79.899 Other long term (current) drug therapy; M21.40 Flat foot [pes planus] (acquired), unspecified foot; K58.9 Irritable bowel syndrome, unspecified; I10 Essential (primary) hypertension; M47.897 Other spondylosis, lumbosacral region
CPT/HCPCS: 36415; 80053; 85025

== ENCOUNTER → 2020-07-02 11:11 | Outpatient (CLI) | payer MEDICARE, BC, SELFPAY ==
[2019-07-17 14:15] VITALS: BMI 20.2
[2020-07-02 12:12] LABS: Absolute Lymphocyte Count 0.89 X10^3/uL (0.83-4.51); Absolute Neutrophil Count 4.7 X10^3/uL (2.0-7.7); Basophil# 0.04 X10^3/uL; Basophil% 0.6 % (0-1); Eosinophil# 0.08 X10^3/uL; Eosinophils% 1.3 % (0-5); Hematocrit 46.6 % (40-54); Hemoglobin 15.6 g/dL (13.0-16.5); Lymphocyte # 0.89 X10^3/ul (4.0); Mean Corp Hgb Conc 33.5 g/dL (32-36); Mean Corpuscular Hgb 32.8 pg (27.0-32.0); Mean Corpuscular Volume 97.9 fL (80-94); Mean Platelet Vol. 9.5 fl (6.2-12.0); Monocyte# 0.65 X10^3/uL; Monocyte% 10.2 % (0-10); NRBC Flagged by Analyzer 0 % (0-5); Neutrophil # 4.69 X10^3/uL (2.7-7.7); Neutrophil % 73.7 % (47-70); Platelet Count 247 K/mm3 (150-450); RBC Distribution Width CV 13.2 % (11.6-14.6); RBC Distribution Width SD 47.6 fl (35.1-43.9); Red Blood Count 4.76 M/mm3 (4.6-6.2); White Blood Count 6.4 K/mm3 (4.4-11.0)
[2020-07-02 13:04] LABS: ALB/GLOB Ratio 1.2 RATIO (0.9-2.4); AST(SGOT) 17 U/L (15-37); Alanine Aminotransfer ALT/SGPT 24 U/L (16-61); Albumin, Serum 3.8 g/dL (3.2-5.0); Alkaline Phosphatase 50 U/L (45-117); Anion Gap 4 (5-15); BUN 17 mg/dL (7-18); BUN/Creat Ratio 16.8 RATIO (10-20); Calcium,Total 9.5 mg/dL (8.5-10.1); Chloride 107 mmol/L (98-107); Creatinine, Serum 1.01 mg/dL (0.70-1.30); EST Glomerular Filtration Rate 77 mL/min (>60); Est Glom Filt Rate - Afr Amer 94 mL/min (>60); Globulin 3.1 g/dL (2.2-4.2); Glucose 90 mg/dL (74-106); Potassium 4.1 mmol/L (3.5-5.1); Protein, Total 6.9 g/dL (6.4-8.2); Sodium Level 141 mmol/L (136-145)
== END ==
PROVIDERS: PCP Family Medicine; Referring Provider Internal Medicine Rheumatology; Visit Provider Internal Medicine Rheumatology
DX: M06.4 Inflammatory polyarthropathy (principal); Z79.899 Other long term (current) drug therapy; M21.40 Flat foot [pes planus] (acquired), unspecified foot; K58.9 Irritable bowel syndrome, unspecified; I10 Essential (primary) hypertension; M47.897 Other spondylosis, lumbosacral region
CPT/HCPCS: 36415; 80053; 85025

== ENCOUNTER → 2020-09-29 13:38 | Outpatient (CLI) | payer MEDICARE, BC, SELFPAY ==
[2019-07-17 14:15] VITALS: BMI 20.2
[2020-09-29 15:13] LABS: Absolute Neutrophil Count 4.8 X10^3/uL (2.0-7.7); Basophil# 0.04 X10^3/uL; Basophil% 0.6 % (0-1); Eosinophil# 0.06 X10^3/uL; Eosinophils% 0.9 % (0-5); Hematocrit 48.8 % (40-54); Hemoglobin 16.3 g/dL (13.0-16.5); Lymphocyte % 14.2 % (19-41); Mean Corp Hgb Conc 33.4 g/dL (32-36); Mean Corpuscular Hgb 32.4 pg (27.0-32.0); Mean Platelet Vol. 9.6 fl (6.2-12.0); Monocyte# 0.59 X10^3/uL; Monocyte% 9.3 % (0-10); NRBC Flagged by Analyzer 0 % (0-5); Neutrophil # 4.75 X10^3/uL (2.7-7.7); Neutrophil % 74.7 % (47-70); Platelet Count 241 K/mm3 (150-450); RBC Distribution Width CV 12.9 % (11.6-14.6); RBC Distribution Width SD 46.1 fl (35.1-43.9); Red Blood Count 5.03 M/mm3 (4.6-6.2); White Blood Count 6.4 K/mm3 (4.4-11.0)
[2020-09-29 15:27] LABS: ALB/GLOB Ratio 1.2 RATIO (0.9-2.4); AST(SGOT) 21 U/L (15-37); Alanine Aminotransfer ALT/SGPT 29 U/L (16-61); Albumin, Serum 4.1 g/dL (3.2-5.0); Alkaline Phosphatase 58 U/L (45-117); Anion Gap 5 (5-15); BUN 16 mg/dL (7-18); BUN/Creat Ratio 16.1 RATIO (10-20); Calcium,Total 9.4 mg/dL (8.5-10.1); Chloride 105 mmol/L (98-107); Creatinine, Serum 0.99 mg/dL (0.70-1.30); EST Glomerular Filtration Rate 79 mL/min (>60); Est Glom Filt Rate - Afr Amer 96 mL/min (>60); Globulin 3.3 g/dL (2.2-4.2); Glucose 103 mg/dL (74-106); Potassium 4.6 mmol/L (3.5-5.1); Protein, Total 7.4 g/dL (6.4-8.2); Sodium Level 141 mmol/L (136-145)
== END ==
PROVIDERS: PCP Family Medicine; Referring Provider Internal Medicine Rheumatology; Visit Provider Internal Medicine Rheumatology
DX: M06.4 Inflammatory polyarthropathy (principal); Z79.899 Other long term (current) drug therapy; M21.40 Flat foot [pes planus] (acquired), unspecified foot; K58.9 Irritable bowel syndrome, unspecified; I10 Essential (primary) hypertension; M47.897 Other spondylosis, lumbosacral region
CPT/HCPCS: 36415; 80053; 85025

== ENCOUNTER → 2020-12-23 13:02 | Outpatient (CLI) | payer MEDICARE, BC, SELFPAY ==
[2019-07-17 14:15] VITALS: BMI 20.2
[2020-12-23 15:17] LABS: Absolute Lymphocyte Count 0.97 X10^3/uL (0.83-4.51); Absolute Neutrophil Count 4.3 X10^3/uL (2.0-7.7); Basophil# 0.06 X10^3/uL; Eosinophil# 0.08 X10^3/uL; Eosinophils% 1.3 % (0-5); Hematocrit 49.3 % (40-54); Hemoglobin 16.2 g/dL (13.0-16.5); Lymphocyte # 0.97 X10^3/ul (0.83-4.51); Lymphocyte % 16.2 % (19-41); Mean Corp Hgb Conc 32.9 g/dL (32-36); Mean Corpuscular Hgb 31.5 pg (27.0-32.0); Mean Corpuscular Volume 95.9 fL (80-94); Mean Platelet Vol. 9.7 fl (6.2-12.0); Monocyte# 0.58 X10^3/uL; Monocyte% 9.7 % (0-10); NRBC Flagged by Analyzer 0 % (0-5); Neutrophil # 4.27 X10^3/uL (2.7-7.7); Neutrophil % 71.6 % (47-70); Platelet Count 244 K/mm3 (150-450); Red Blood Count 5.14 M/mm3 (4.6-6.2)
[2020-12-23 16:32] LABS: ALB/GLOB Ratio 1.3 RATIO (0.9-2.4); AST(SGOT) 26 U/L (15-37); Alanine Aminotransfer ALT/SGPT 30 U/L (16-61); Albumin, Serum 4.1 g/dL (3.2-5.0); Alkaline Phosphatase 60 U/L (45-117); Anion Gap 7 (5-15); BUN 17 mg/dL (7-18); BUN/Creat Ratio 17.1 RATIO (10-20); Calcium,Total 9.3 mg/dL (8.5-10.1); Chloride 102 mmol/L (98-107); Creatinine, Serum 0.99 mg/dL (0.70-1.30); EST Glomerular Filtration Rate 79 mL/min (>60); Est Glom Filt Rate - Afr Amer 95 mL/min (>60); Globulin 3.2 g/dL (2.2-4.2); Glucose 95 mg/dL (74-106); Potassium 4.1 mmol/L (3.5-5.1); Protein, Total 7.3 g/dL (6.4-8.2); Sodium Level 139 mmol/L (136-145)
== END ==
PROVIDERS: PCP Family Medicine; Referring Provider Internal Medicine Rheumatology; Visit Provider Internal Medicine Rheumatology
DX: M06.4 Inflammatory polyarthropathy (principal); Z79.899 Other long term (current) drug therapy; M21.40 Flat foot [pes planus] (acquired), unspecified foot; K58.9 Irritable bowel syndrome, unspecified; I10 Essential (primary) hypertension; M47.897 Other spondylosis, lumbosacral region
CPT/HCPCS: 36415; 80053; 85025

== ENCOUNTER → 2021-03-26 14:44 | Outpatient (CLI) | payer MEDICARE, BC, SELFPAY ==
[2019-07-17 14:15] VITALS: BMI 20.2
[2021-03-26 18:39] LABS: Anion Gap 7 (5-15); BUN 19 mg/dL (7-18); BUN/Creat Ratio 17.9 RATIO (10-20); Calcium,Total 9.4 mg/dL (8.5-10.1); Chloride 102 mmol/L (98-107); Cholesterol 186 mg/dL (200); Creatinine, Serum 1.06 mg/dL (0.70-1.30); EST Glomerular Filtration Rate 73 mL/min (>60); Est Glom Filt Rate - Afr Amer 88 mL/min (>60); Glucose 92 mg/dL (74-106); High Density Lipoprotein 53 mg/dL; Potassium 4.4 mmol/L (3.5-5.1); Sodium Level 139 mmol/L (136-145); Triglycerides 128 mg/dL; Very Low Density Lipoprotein 26 mg/dL (5-40)
== END ==
PROVIDERS: PCP Family Medicine; Referring Provider Family Medicine; Visit Provider Family Medicine
DX: I10 Essential (primary) hypertension (principal)
CPT/HCPCS: 36415; 80048; 80061

== ENCOUNTER → 2021-03-30 12:04 | Outpatient (CLI) | payer MEDICARE, BC, SELFPAY ==
[2019-07-17 14:15] VITALS: BMI 20.2
[2021-03-30 15:33] LABS: Absolute Lymphocyte Count 1.37 X10^3/uL (0.83-4.51); Absolute Neutrophil Count 4.3 X10^3/uL (2.0-7.7); Basophil# 0.05 X10^3/uL; Basophil% 0.8 % (0-1); Eosinophils% 1.5 % (0-5); Hematocrit 47.7 % (40-54); Hemoglobin 16.3 g/dL (13.0-16.5); Lymphocyte # 1.37 X10^3/ul (0.83-4.51); Mean Corp Hgb Conc 34.2 g/dL (32-36); Mean Corpuscular Hgb 32.8 pg (27.0-32.0); Monocyte# 0.69 X10^3/uL; Monocyte% 10.6 % (0-10); NRBC Flagged by Analyzer 0 % (0-5); Neutrophil # 4.31 X10^3/uL (2.7-7.7); Neutrophil % 65.9 % (47-70); Platelet Count 251 K/mm3 (150-450); RBC Distribution Width CV 13.2 % (11.6-14.6); RBC Distribution Width SD 46.5 fl (35.1-43.9); Red Blood Count 4.97 M/mm3 (4.6-6.2); White Blood Count 6.5 K/mm3 (4.4-11.0)
[2021-03-30 15:48] LABS: ALB/GLOB Ratio 1.3 RATIO (0.9-2.4); AST(SGOT) 20 U/L (15-37); Alanine Aminotransfer ALT/SGPT 30 U/L (16-61); Albumin, Serum 4.1 g/dL (3.2-5.0); Alkaline Phosphatase 53 U/L (45-117); Anion Gap 6 (5-15); BUN 16 mg/dL (7-18); Calcium,Total 9.3 mg/dL (8.5-10.1); Chloride 103 mmol/L (98-107); Creatinine, Serum 0.94 mg/dL (0.70-1.30); EST Glomerular Filtration Rate 84 mL/min (>60); Est Glom Filt Rate - Afr Amer 101 mL/min (>60); Globulin 3.2 g/dL (2.2-4.2); Glucose 90 mg/dL (74-106); Potassium 3.7 mmol/L (3.5-5.1); Protein, Total 7.3 g/dL (6.4-8.2); Sodium Level 140 mmol/L (136-145)
== END ==
PROVIDERS: PCP Family Medicine; Referring Provider Internal Medicine Rheumatology; Visit Provider Internal Medicine Rheumatology
DX: M06.4 Inflammatory polyarthropathy (principal); Z79.899 Other long term (current) drug therapy; M21.40 Flat foot [pes planus] (acquired), unspecified foot; K58.9 Irritable bowel syndrome, unspecified; I10 Essential (primary) hypertension; M47.897 Other spondylosis, lumbosacral region; G30.9 Alzheimer's disease, unspecified
CPT/HCPCS: 36415; 80053; 85025

== ENCOUNTER → 2021-06-16 14:13 | Outpatient (CLI) | payer MEDICARE, BC, SELFPAY ==
[2021-06-16 17:34] LABS: Absolute Neutrophil Count 4.6 X10^3/uL (2.0-7.7); Basophil# 0.05 X10^3/uL; Basophil% 0.8 % (0-1); Eosinophil# 0.06 X10^3/uL; Hematocrit 46.1 % (40-54); Lymphocyte % 14.6 % (19-41); Mean Corp Hgb Conc 34.7 g/dL (32-36); Mean Corpuscular Hgb 33.8 pg (27.0-32.0); Mean Corpuscular Volume 97.3 fL (80-94); Monocyte# 0.56 X10^3/uL; Monocyte% 9.1 % (0-10); NRBC Flagged by Analyzer 0 % (0-5); Neutrophil # 4.58 X10^3/uL (2.7-7.7); Neutrophil % 74.3 % (47-70); Platelet Count 220 K/mm3 (150-450); RBC Distribution Width CV 12.9 % (11.6-14.6); RBC Distribution Width SD 45.8 fl (35.1-43.9); Red Blood Count 4.74 M/mm3 (4.6-6.2); White Blood Count 6.2 K/mm3 (4.4-11.0)
[2021-06-16 18:09] LABS: ALB/GLOB Ratio 1.2 RATIO (0.9-2.4); AST(SGOT) 21 U/L (15-37); Alanine Aminotransfer ALT/SGPT 27 U/L (16-61); Albumin, Serum 3.8 g/dL (3.2-5.0); Alkaline Phosphatase 47 U/L (45-117); Anion Gap 6 (5-15); BUN 18 mg/dL (7-18); BUN/Creat Ratio 17.5 RATIO (10-20); Calcium,Total 9.4 mg/dL (8.5-10.1); Chloride 102 mmol/L (98-107); Creatinine, Serum 1.03 mg/dL (0.70-1.30); EST Glomerular Filtration Rate 76 mL/min (>60); Est Glom Filt Rate - Afr Amer 91 mL/min (>60); Globulin 3.3 g/dL (2.2-4.2); Glucose 93 mg/dL (74-106); Potassium 5.1 mmol/L (3.5-5.1); Protein, Total 7.1 g/dL (6.4-8.2); Sodium Level 139 mmol/L (136-145)
== END ==
PROVIDERS: PCP Family Medicine; Referring Provider Internal Medicine Rheumatology; Visit Provider Internal Medicine Rheumatology
DX: M06.4 Inflammatory polyarthropathy (principal); Z79.899 Other long term (current) drug therapy; M21.40 Flat foot [pes planus] (acquired), unspecified foot; K58.9 Irritable bowel syndrome, unspecified; I10 Essential (primary) hypertension; M47.897 Other spondylosis, lumbosacral region; G30.9 Alzheimer's disease, unspecified
CPT/HCPCS: 36415; 80053; 85025

== ENCOUNTER 2021-09-21 13:46 | Outpatient (CLI) | payer MEDICARE, BC, SELFPAY ==
[2021-09-21 15:26] LABS: Absolute Lymphocyte Count 1.22 X10^3/uL (0.83-4.51); Absolute Neutrophil Count 5.1 X10^3/uL (2.0-7.7); Basophil# 0.05 X10^3/uL; Basophil% 0.7 % (0-1); Eosinophil# 0.05 X10^3/uL; Eosinophils% 0.7 % (0-5); Hematocrit 47.2 % (40-54); Hemoglobin 16.4 g/dL (13.0-16.5); Lymphocyte # 1.22 X10^3/ul (0.83-4.51); Lymphocyte % 17.5 % (19-41); Mean Corp Hgb Conc 34.7 g/dL (32-36); Mean Corpuscular Hgb 33.5 pg (27.0-32.0); Mean Corpuscular Volume 96.3 fL (80-94); Mean Platelet Vol. 9.8 fl (6.2-12.0); Monocyte% 8.6 % (0-10); NRBC Flagged by Analyzer 0 % (0-5); Neutrophil # 5.05 X10^3/uL (2.7-7.7); Neutrophil % 72.4 % (47-70); Platelet Count 277 K/mm3 (150-450); RBC Distribution Width CV 13.1 % (11.6-14.6); RBC Distribution Width SD 46.6 fl (35.1-43.9)
[2021-09-21 16:08] LABS: ALB/GLOB Ratio 1.2 RATIO (0.9-2.4); AST(SGOT) 22 U/L (15-37); Alanine Aminotransfer ALT/SGPT 31 U/L (16-61); Albumin, Serum 4.1 g/dL (3.2-5.0); Alkaline Phosphatase 55 U/L (45-117); Anion Gap 4 (5-15); BUN 17 mg/dL (7-18); Calcium,Total 9.5 mg/dL (8.5-10.1); Chloride 102 mmol/L (98-107); EST Glomerular Filtration Rate 78 mL/min (>60); Est Glom Filt Rate - Afr Amer 95 mL/min (>60); Globulin 3.3 g/dL (2.2-4.2); Glucose 104 mg/dL (74-106); Potassium 3.9 mmol/L (3.5-5.1); Protein, Total 7.4 g/dL (6.4-8.2); Sodium Level 137 mmol/L (136-145)
== END 2021-09-21 23:59 | disposition short-term general hospital (02) ==
PROVIDERS: PCP Family Medicine; Referring Provider Internal Medicine Rheumatology; Visit Provider Internal Medicine Rheumatology
DX: M06.4 Inflammatory polyarthropathy (principal); G30.9 Alzheimer's disease, unspecified; M21.40 Flat foot [pes planus] (acquired), unspecified foot; K58.9 Irritable bowel syndrome, unspecified; I10 Essential (primary) hypertension; M47.897 Other spondylosis, lumbosacral region; Z79.899 Other long term (current) drug therapy
CPT/HCPCS: 36415; 80053; 85025

== ENCOUNTER 2021-10-13 13:50 | Outpatient (CLI) | payer MEDICARE, BC, SELFPAY ==
[2021-10-13 17:44] LABS: Hematocrit 47.2 % (40-54); Hemoglobin 16.6 g/dL (13.0-16.5); Mean Corp Hgb Conc 35.2 g/dL (32-36); Mean Corpuscular Hgb 34.2 pg (27.0-32.0); Mean Corpuscular Volume 97.1 fL (80-94); Mean Platelet Vol. 9.6 fl (6.2-12.0); Platelet Count 238 K/mm3 (150-450); RBC Distribution Width CV 12.8 % (11.6-14.6); RBC Distribution Width SD 45.5 fl (35.1-43.9); Red Blood Count 4.86 M/mm3 (4.6-6.2); White Blood Count 5.6 K/mm3 (4.4-11.0)
[2021-10-13 18:25] LABS: ALB/GLOB Ratio 1.2 RATIO (0.9-2.4); AST(SGOT) 22 U/L (15-37); Alanine Aminotransfer ALT/SGPT 33 U/L (16-61); Alkaline Phosphatase 53 U/L (45-117); Anion Gap 5 (5-15); BUN 18 mg/dL (7-18); BUN/Creat Ratio 18.4 RATIO (10-20); Calcium,Total 9.3 mg/dL (8.5-10.1); Chloride 101 mmol/L (98-107); Creatinine, Serum 0.98 mg/dL (0.70-1.30); EST Glomerular Filtration Rate 80 mL/min (>60); Est Glom Filt Rate - Afr Amer 97 mL/min (>60); Globulin 3.2 g/dL (2.2-4.2); Glucose 95 mg/dL (74-106); Protein, Total 7.2 g/dL (6.4-8.2); Sodium Level 139 mmol/L (136-145); Thyroid Stim Hormone (TSH) 1.08 uIU/mL (0.358-3.74)
[2021-10-16 09:09] LABS: Endomysial Antibody IgA Negative (Negative)
[2021-10-16 10:09] LABS: Immunoglobulin A 113 mg/dL (61-437); t-Transglutaminase IgA <2 U/mL (0-3)
== END 2021-10-13 23:59 | disposition home or self-care (01) ==
LOC: MTLAB 13:55
PROVIDERS: PCP Family Medicine; Referring Provider Internal Medicine; Visit Provider Internal Medicine
DX: K52.9 Noninfective gastroenteritis and colitis, unspecified (principal); R63.4 Abnormal weight loss
CPT/HCPCS: 36415; 80053; 82784; 83516; 84443; 85027; 86255

== ENCOUNTER 2021-10-14 10:04 | Outpatient (CLI) | payer MEDICARE, BC, SELFPAY | END 2021-10-14 23:59 | disposition home or self-care (01) | PROVIDERS: PCP Family Medicine; Referring Provider Internal Medicine; Visit Provider Internal Medicine | DX: R63.4 Abnormal weight loss (principal) ==

== ENCOUNTER → 2021-10-22 16:42 | Outpatient (CLI) | payer MEDICARE, BC, SELFPAY ==
--- NOTE | 2021-10-22 16:54 | CT_ITS ---
EXAM: CT ABDOMEN AND PELVIS WITH INTRAVENOUS CONTRAST : 1950 CLINICAL INDICATION: ABN WT LOSS TECHNIQUE: Helically acquired images were obtained of the abdomen and pelvis with intravenous contrast. This CT exam was performed using one or more of the following dose reduction techniques: automated exposure control, adjustment of the mA and/or kV according to patient size, and/or use of iterative reconstruction technique. This report was created using [employer] report generation technology. CONTRAST: Oral Tamp; IV Readi-CAT Tamp; 100mL Isovue-300 COMPARISON: None. FINDINGS: LOWER THORAX: Unremarkable. Lung bases are clear. No cardiomegaly. No significant pericardial effusion. ABDOMEN: LIVER: Unremarkable. Homogeneous. No focal mass. GALLBLADDER AND BILE DUCTS: Unremarkable. No calcified gallstones. No gallbladder distention or wall edema. No intra- or extrahepatic biliary ductal dilation. PANCREAS: Unremarkable. No focal cystic or solid mass. SPLEEN: Unremarkable. Normal size without focal cystic or solid mass. ADRENALS: Unremarkable. No nodules. KIDNEYS AND URETERS: Nonobstructing calyceal stone in the right kidney. Normal renal size and position. STOMACH AND BOWEL: Unremarkable. No stomach or bowel distention. No focal inflammatory change. PELVIS: APPENDIX: No evidence of acute appendicitis. BLADDER: Unremarkable. REPRODUCTIVE: Unremarkable as visualized. No mass. ABDOMEN and PELVIS: INTRAPERITONEAL SPACE: Unremarkable. No ascites or other fluid collection. No free air. BONES/JOINTS: Unremarkable. No suspicious lytic or blastic abnormality. SOFT TISSUES: Unremarkable. No discrete abdominal or pelvic wall hernia. VASCULATURE: Unremarkable. Abdominal aorta is non-dilated. LYMPH NODES: Unremarkable. No enlarged lymph nodes. CT/Abdomen/Pelvis WITH Contrast IMPRESSION: No acute findings in the abdomen or pelvis. Individualized dose optimization techniques were used for this CT. at 0304 Reported and signed by: Edward Vincent MD Electronically Signed: Edward Vincent MD at 3:03 EST ,
== END ==
PROVIDERS: PCP Family Medicine
DX: R63.4 Abnormal weight loss (principal)
CPT/HCPCS: 74177; Q9967

== ENCOUNTER → 2021-12-16 | Outpatient (CLI) | payer MEDICARE, BC, SELFPAY ==
[2021-12-16 15:26] LABS: Absolute Lymphocyte Count 1.04 X10^3/uL (0.83-4.51); Absolute Neutrophil Count 3.9 X10^3/uL (2.0-7.7); Basophil# 0.05 X10^3/uL; Basophil% 0.9 % (0-1); Eosinophil# 0.08 X10^3/uL; Eosinophils% 1.4 % (0-5); Hematocrit 46.6 % (40-54); Hemoglobin 16.2 g/dL (13.0-16.5); Lymphocyte # 1.04 X10^3/ul (0.83-4.51); Lymphocyte % 18.2 % (19-41); Mean Corp Hgb Conc 34.8 g/dL (32-36); Mean Corpuscular Hgb 33.3 pg (27.0-32.0); Mean Corpuscular Volume 95.7 fL (80-94); Mean Platelet Vol. 9.8 fl (6.2-12.0); Monocyte% 10.5 % (0-10); NRBC Flagged by Analyzer 0 % (0-5); Neutrophil # 3.92 X10^3/uL (2.7-7.7); Neutrophil % 68.8 % (47-70); Platelet Count 241 K/mm3 (150-450); RBC Distribution Width CV 13.1 % (11.6-14.6); RBC Distribution Width SD 45.8 fl (35.1-43.9); Red Blood Count 4.87 M/mm3 (4.6-6.2); White Blood Count 5.7 K/mm3 (4.4-11.0)
[2021-12-16 15:40] LABS: ALB/GLOB Ratio 1.3 RATIO (0.9-2.4); AST(SGOT) 23 U/L (15-37); Alanine Aminotransfer ALT/SGPT 29 U/L (16-61); Albumin, Serum 4.1 g/dL (3.2-5.0); Alkaline Phosphatase 50 U/L (45-117); Anion Gap 4 (5-15); BUN 18 mg/dL (7-18); BUN/Creat Ratio 17.6 RATIO (10-20); Calcium,Total 9.2 mg/dL (8.5-10.1); Chloride 103 mmol/L (98-107); Creatinine, Serum 1.02 mg/dL (0.70-1.30); EST Glomerular Filtration Rate 76 mL/min (>60); Est Glom Filt Rate - Afr Amer 92 mL/min (>60); Globulin 3.1 g/dL (2.2-4.2); Glucose 103 mg/dL (74-106); Potassium 4.3 mmol/L (3.5-5.1); Protein, Total 7.2 g/dL (6.4-8.2); Sodium Level 139 mmol/L (136-145)
== END | disposition home or self-care (01) ==
LOC: MTLAB 11:24
PROVIDERS: PCP Family Medicine; Referring Provider Internal Medicine Rheumatology; Visit Provider Internal Medicine Rheumatology
DX: M06.4 Inflammatory polyarthropathy (principal); G30.9 Alzheimer's disease, unspecified; M21.40 Flat foot [pes planus] (acquired), unspecified foot; K58.9 Irritable bowel syndrome, unspecified; I10 Essential (primary) hypertension; M47.897 Other spondylosis, lumbosacral region
CPT/HCPCS: 36415; 80053; 85025

== ENCOUNTER → 2022-03-05 | Outpatient (CLI) | payer MEDICARE, BC, SELFPAY ==
[2022-03-05 15:18] LABS: Absolute Lymphocyte Count 1.18 X10^3/uL (0.83-4.51); Absolute Neutrophil Count 4.1 X10^3/uL (2.0-7.7); Basophil# 0.05 X10^3/uL; Basophil% 0.8 % (0-1); Eosinophil# 0.11 X10^3/uL; Eosinophils% 1.8 % (0-5); Hematocrit 45.9 % (40-54); Hemoglobin 15.8 g/dL (13.0-16.5); Lymphocyte # 1.18 X10^3/ul (0.83-4.51); Lymphocyte % 19.6 % (19-41); Mean Corp Hgb Conc 34.4 g/dL (32-36); Mean Corpuscular Hgb 33.9 pg (27.0-32.0); Mean Corpuscular Volume 98.5 fL (80-94); Mean Platelet Vol. 9.6 fl (6.2-12.0); Monocyte# 0.55 X10^3/uL; Monocyte% 9.1 % (0-10); NRBC Flagged by Analyzer 0 % (0-5); Neutrophil # 4.13 X10^3/uL (2.7-7.7); Neutrophil % 68.5 % (47-70); Platelet Count 226 K/mm3 (150-450); RBC Distribution Width CV 13.3 % (11.6-14.6); RBC Distribution Width SD 48.4 fl (35.1-43.9); Red Blood Count 4.66 M/mm3 (4.6-6.2)
[2022-03-05 15:42] LABS: ALB/GLOB Ratio 1.3 RATIO (0.9-2.4); AST(SGOT) 22 U/L (15-37); Alanine Aminotransfer ALT/SGPT 28 U/L (16-61); Albumin, Serum 3.9 g/dL (3.2-5.0); Alkaline Phosphatase 49 U/L (45-117); Anion Gap 5 (5-15); BUN 18 mg/dL (7-18); BUN/Creat Ratio 17.6 RATIO (10-20); Calcium,Total 9.5 mg/dL (8.5-10.1); Chloride 104 mmol/L (98-107); Creatinine, Serum 1.02 mg/dL (0.70-1.30); EST Glomerular Filtration Rate 76 mL/min (>60); Est Glom Filt Rate - Afr Amer 92 mL/min (>60); Glucose 88 mg/dL (74-106); Potassium 4.2 mmol/L (3.5-5.1); Protein, Total 6.9 g/dL (6.4-8.2); Sodium Level 140 mmol/L (136-145)
== END | disposition home or self-care (01) ==
LOC: MTLAB 12:34
PROVIDERS: PCP Family Medicine; Referring Provider Internal Medicine Rheumatology; Visit Provider Internal Medicine Rheumatology
DX: M06.4 Inflammatory polyarthropathy (principal); G30.9 Alzheimer's disease, unspecified; Z79.899 Other long term (current) drug therapy; M21.40 Flat foot [pes planus] (acquired), unspecified foot; K58.9 Irritable bowel syndrome, unspecified; I10 Essential (primary) hypertension; M47.897 Other spondylosis, lumbosacral region
CPT/HCPCS: 36415; 80053; 85025

== ENCOUNTER → 2022-05-19 | Outpatient (CLI) | payer MEDICARE, BC, SELFPAY ==
[2022-05-19 15:25] LABS: Absolute Lymphocyte Count 1.17 X10^3/uL (0.83-4.51); Basophil# 0.05 X10^3/uL; Basophil% 0.9 % (0-1); Eosinophil# 0.08 X10^3/uL; Eosinophils% 1.4 % (0-5); Hematocrit 47.1 % (40-54); Hemoglobin 16.4 g/dL (13.0-16.5); Lymphocyte # 1.17 X10^3/ul (0.83-4.51); Mean Corp Hgb Conc 34.8 g/dL (32-36); Mean Corpuscular Hgb 34.4 pg (27.0-32.0); Mean Corpuscular Volume 98.7 fL (80-94); Mean Platelet Vol. 9.6 fl (6.2-12.0); Monocyte# 0.51 X10^3/uL; Monocyte% 8.7 % (0-10); NRBC Flagged by Analyzer 0 % (0-5); Neutrophil # 4.03 X10^3/uL (2.7-7.7); Neutrophil % 68.7 % (47-70); Platelet Count 238 K/mm3 (150-450); RBC Distribution Width CV 13.2 % (11.6-14.6); Red Blood Count 4.77 M/mm3 (4.6-6.2); White Blood Count 5.9 K/mm3 (4.4-11.0)
[2022-05-19 15:51] LABS: ALB/GLOB Ratio 1.2 RATIO (0.9-2.4); AST(SGOT) 20 U/L (15-37); Alanine Aminotransfer ALT/SGPT 31 U/L (16-61); Albumin, Serum 3.9 g/dL (3.2-5.0); Alkaline Phosphatase 54 U/L (45-117); Anion Gap 6 (5-15); BUN 18 mg/dL (7-18); BUN/Creat Ratio 18.2 RATIO (10-20); Calcium,Total 9.6 mg/dL (8.5-10.1); Chloride 103 mmol/L (98-107); Creatinine, Serum 0.99 mg/dL (0.70-1.30); EST Glomerular Filtration Rate 79 mL/min (>60); Est Glom Filt Rate - Afr Amer 96 mL/min (>60); Globulin 3.3 g/dL (2.2-4.2); Glucose 100 mg/dL (74-106); Potassium 4.2 mmol/L (3.5-5.1); Protein, Total 7.2 g/dL (6.4-8.2); Sodium Level 140 mmol/L (136-145)
== END | disposition home or self-care (01) ==
PROVIDERS: PCP Family Medicine; Referring Provider Internal Medicine Rheumatology; Visit Provider Internal Medicine Rheumatology
DX: M06.4 Inflammatory polyarthropathy (principal); G30.9 Alzheimer's disease, unspecified; Z79.899 Other long term (current) drug therapy; M21.40 Flat foot [pes planus] (acquired), unspecified foot; K58.9 Irritable bowel syndrome, unspecified; I10 Essential (primary) hypertension; M47.897 Other spondylosis, lumbosacral region
CPT/HCPCS: 36415; 80053; 85025

== ENCOUNTER → 2022-07-28 | Outpatient (CLI) | payer MEDICARE, BC, SELFPAY ==
[2022-07-28 18:03] LABS: Anion Gap 3 (5-15); BUN 20 mg/dL (7-18); BUN/Creat Ratio 19.4 RATIO (10-20); Calcium,Total 9.9 mg/dL (8.5-10.1); Chloride 101 mmol/L (98-107); Cholesterol 207 mg/dL (200); Creatinine, Serum 1.03 mg/dL (0.70-1.30); EST Glomerular Filtration Rate 75 mL/min (>60); Est Glom Filt Rate - Afr Amer 91 mL/min (>60); Glucose 91 mg/dL (74-106); High Density Lipoprotein 84 mg/dL; Potassium 4.2 mmol/L (3.5-5.1); Sodium Level 140 mmol/L (136-145); Triglycerides 82 mg/dL; Very Low Density Lipoprotein 16 mg/dL (5-40)
== END | disposition home or self-care (01) ==
LOC: MTLAB 14:36
PROVIDERS: PCP Family Medicine; Referring Provider Family Medicine; Visit Provider Family Medicine
DX: I10 Essential (primary) hypertension (principal)
CPT/HCPCS: 36415; 80048; 80061

== ENCOUNTER → 2022-08-10 | Outpatient (CLI) | payer MEDICARE, BC, SELFPAY ==
[2022-08-10 15:29] LABS: Absolute Lymphocyte Count 1.29 X10^3/uL (0.83-4.51); Absolute Neutrophil Count 3.4 X10^3/uL (2.0-7.7); Basophil# 0.05 X10^3/uL; Basophil% 0.9 % (0-1); Eosinophil# 0.08 X10^3/uL; Eosinophils% 1.5 % (0-5); Hematocrit 47.2 % (40-54); Hemoglobin 16.6 g/dL (13.0-16.5); Lymphocyte # 1.29 X10^3/ul (0.83-4.51); Lymphocyte % 23.8 % (19-41); Mean Corp Hgb Conc 35.2 g/dL (32-36); Mean Corpuscular Hgb 33.7 pg (27.0-32.0); Mean Corpuscular Volume 95.9 fL (80-94); Mean Platelet Vol. 9.4 fl (6.2-12.0); Monocyte# 0.56 X10^3/uL; Monocyte% 10.3 % (0-10); NRBC Flagged by Analyzer 0 % (0-5); Neutrophil # 3.43 X10^3/uL (2.7-7.7); Neutrophil % 63.3 % (47-70); Platelet Count 231 K/mm3 (150-450); RBC Distribution Width CV 13.4 % (11.6-14.6); RBC Distribution Width SD 47.8 fl (35.1-43.9); Red Blood Count 4.92 M/mm3 (4.6-6.2); White Blood Count 5.4 K/mm3 (4.4-11.0)
[2022-08-10 15:43] LABS: ALB/GLOB Ratio 1.4 RATIO (0.9-2.4); AST(SGOT) 25 U/L (15-37); Alanine Aminotransfer ALT/SGPT 43 U/L (16-61); Alkaline Phosphatase 51 U/L (45-117); Anion Gap 7 (5-15); BUN 22 mg/dL (7-18); BUN/Creat Ratio 24.2 RATIO (10-20); Calcium,Total 9.6 mg/dL (8.5-10.1); Chloride 101 mmol/L (98-107); Creatinine, Serum 0.91 mg/dL (0.70-1.30); EST Glomerular Filtration Rate 87 mL/min (>60); Est Glom Filt Rate - Afr Amer 105 mL/min (>60); Globulin 2.9 g/dL (2.2-4.2); Glucose 78 mg/dL (74-106); Protein, Total 6.9 g/dL (6.4-8.2); Sodium Level 141 mmol/L (136-145)
== END | disposition home or self-care (01) ==
LOC: MTLAB 12:40
PROVIDERS: PCP Family Medicine; Referring Provider Internal Medicine Rheumatology; Visit Provider Internal Medicine Rheumatology
DX: M06.4 Inflammatory polyarthropathy (principal); I10 Essential (primary) hypertension; Z79.899 Other long term (current) drug therapy
CPT/HCPCS: 36415; 80053; 85025

== ENCOUNTER → 2022-11-02 | Outpatient (CLI) | payer MEDICARE, BC, SELFPAY ==
[2022-11-02 15:04] LABS: Absolute Lymphocyte Count 1.68 X10^3/uL (0.83-4.51); Absolute Neutrophil Count 4.2 X10^3/uL (2.0-7.7); Basophil# 0.06 X10^3/uL; Basophil% 0.9 % (0-1); Eosinophil# 0.08 X10^3/uL; Eosinophils% 1.2 % (0-5); Hematocrit 49.1 % (40-54); Hemoglobin 16.5 g/dL (13.0-16.5); Lymphocyte # 1.68 X10^3/ul (0.83-4.51); Lymphocyte % 24.9 % (19-41); Mean Corp Hgb Conc 33.6 g/dL (32-36); Mean Platelet Vol. 9.6 fl (6.2-12.0); Monocyte# 0.69 X10^3/uL; Monocyte% 10.2 % (0-10); NRBC Flagged by Analyzer 0 % (0-5); Neutrophil # 4.22 X10^3/uL (2.7-7.7); Neutrophil % 62.4 % (47-70); Platelet Count 229 K/mm3 (150-450); RBC Distribution Width CV 13.9 % (11.6-14.6); RBC Distribution Width SD 51.5 fl (35.1-43.9); Red Blood Count 4.86 M/mm3 (4.6-6.2); White Blood Count 6.8 K/mm3 (4.4-11.0)
[2022-11-02 15:35] LABS: ALB/GLOB Ratio 1.2 RATIO (0.9-2.4); AST(SGOT) 28 U/L (15-37); Alanine Aminotransfer ALT/SGPT 50 U/L (16-61); Albumin, Serum 3.9 g/dL (3.2-5.0); Alkaline Phosphatase 57 U/L (45-117); Anion Gap 4 (5-15); BUN 20 mg/dL (7-18); BUN/Creat Ratio 20.9 RATIO (10-20); Calcium,Total 9.9 mg/dL (8.5-10.1); Chloride 103 mmol/L (98-107); Creatinine, Serum 0.96 mg/dL (0.70-1.30); EST Glomerular Filtration Rate 82 mL/min (>60); Est Glom Filt Rate - Afr Amer 99 mL/min (>60); Globulin 3.3 g/dL (2.2-4.2); Glucose 89 mg/dL (74-106); Potassium 4.2 mmol/L (3.5-5.1); Protein, Total 7.2 g/dL (6.4-8.2); Sodium Level 140 mmol/L (136-145)
== END | disposition home or self-care (01) ==
LOC: MTLAB 13:34
PROVIDERS: PCP Family Medicine; Referring Provider Internal Medicine Rheumatology; Visit Provider Internal Medicine Rheumatology
DX: M06.4 Inflammatory polyarthropathy (principal); G30.9 Alzheimer's disease, unspecified; Z79.899 Other long term (current) drug therapy; M21.40 Flat foot [pes planus] (acquired), unspecified foot; K58.9 Irritable bowel syndrome, unspecified; I10 Essential (primary) hypertension; M47.897 Other spondylosis, lumbosacral region
CPT/HCPCS: 36415; 80053; 85025

== ENCOUNTER → 2023-01-26 | Outpatient (CLI) | payer MEDICARE, BC, SELFPAY ==
[2023-01-26 15:47] LABS: Absolute Lymphocyte Count 1.52 X10^3/uL (0.83-4.51); Basophil# 0.07 X10^3/uL; Basophil% 1.1 % (0-1); Eosinophil# 0.08 X10^3/uL; Eosinophils% 1.3 % (0-5); Hematocrit 49.8 % (40-54); Hemoglobin 16.4 g/dL (13.0-16.5); Lymphocyte # 1.52 X10^3/ul (0.83-4.51); Lymphocyte % 24.2 % (19-41); Mean Corp Hgb Conc 32.9 g/dL (32-36); Mean Corpuscular Hgb 33.1 pg (27.0-32.0); Mean Corpuscular Volume 100.6 fL (80-94); Mean Platelet Vol. 9.5 fl (6.2-12.0); Monocyte# 0.63 X10^3/uL; NRBC Flagged by Analyzer 0 % (0-5); Neutrophil # 3.96 X10^3/uL (2.7-7.7); Neutrophil % 62.9 % (47-70); Platelet Count 256 K/mm3 (150-450); RBC Distribution Width CV 13.2 % (11.6-14.6); RBC Distribution Width SD 48.9 fl (35.1-43.9); Red Blood Count 4.95 M/mm3 (4.6-6.2); White Blood Count 6.3 K/mm3 (4.4-11.0)
[2023-01-26 15:59] LABS: ALB/GLOB Ratio 1.2 RATIO (0.9-2.4); AST(SGOT) 26 U/L (15-37); Alanine Aminotransfer ALT/SGPT 34 U/L (16-61); Alkaline Phosphatase 55 U/L (45-117); Anion Gap 5 (5-15); BUN 20 mg/dL (7-18); BUN/Creat Ratio 18.2 RATIO (10-20); Calcium,Total 10.1 mg/dL (8.5-10.1); Chloride 105 mmol/L (98-107); EST Glomerular Filtration Rate 70 mL/min (>60); Est Glom Filt Rate - Afr Amer 84 mL/min (>60); Globulin 3.4 g/dL (2.2-4.2); Glucose 98 mg/dL (74-106); Potassium 4.2 mmol/L (3.5-5.1); Protein, Total 7.4 g/dL (6.4-8.2); Sodium Level 140 mmol/L (136-145)
== END | disposition home or self-care (01) ==
LOC: MTLAB 13:46
PROVIDERS: PCP Family Medicine; Referring Provider Internal Medicine Rheumatology; Visit Provider Internal Medicine Rheumatology
DX: M06.4 Inflammatory polyarthropathy (principal); Z79.899 Other long term (current) drug therapy
CPT/HCPCS: 36415; 80053; 85025

== ENCOUNTER → 2023-04-27 | Outpatient (CLI) | payer MEDICARE, BC, SELFPAY ==
[2023-04-27 15:17] LABS: Absolute Lymphocyte Count 1.53 X10^3/uL (0.83-4.51); Absolute Neutrophil Count 4.5 X10^3/uL (2.0-7.7); Basophil# 0.08 X10^3/uL; Basophil% 1.1 % (0-1); Eosinophils% 1.4 % (0-5); Hematocrit 47.4 % (40-54); Hemoglobin 15.7 g/dL (13.0-16.5); Lymphocyte # 1.53 X10^3/ul (0.83-4.51); Mean Corp Hgb Conc 33.1 g/dL (32-36); Mean Corpuscular Volume 105.6 fL (80-94); Mean Platelet Vol. 9.6 fl (6.2-12.0); Monocyte# 0.76 X10^3/uL; Monocyte% 10.9 % (0-10); NRBC Flagged by Analyzer 0 % (0-5); Neutrophil # 4.46 X10^3/uL (2.7-7.7); Neutrophil % 64.2 % (47-70); Platelet Count 264 K/mm3 (150-450); RBC Distribution Width CV 15.8 % (11.6-14.6); RBC Distribution Width SD 61.6 fl (35.1-43.9); Red Blood Count 4.49 M/mm3 (4.6-6.2)
[2023-04-27 16:39] LABS: ALB/GLOB Ratio 1.2 RATIO (0.9-2.4); AST(SGOT) 30 U/L (15-37); Alanine Aminotransfer ALT/SGPT 40 U/L (16-61); Alkaline Phosphatase 63 U/L (45-117); Anion Gap 8 (5-15); BUN 20 mg/dL (7-18); Calcium,Total 9.5 mg/dL (8.5-10.1); Chloride 103 mmol/L (98-107); EST Glomerular Filtration Rate 78 mL/min (>60); Est Glom Filt Rate - Afr Amer 94 mL/min (>60); Globulin 3.3 g/dL (2.2-4.2); Glucose 82 mg/dL (74-106); Potassium 3.5 mmol/L (3.5-5.1); Protein, Total 7.3 g/dL (6.4-8.2); Sodium Level 139 mmol/L (136-145)
== END | disposition home or self-care (01) ==
LOC: MTLAB 11:04
PROVIDERS: PCP Family Medicine; Referring Provider Internal Medicine Rheumatology; Visit Provider Internal Medicine Rheumatology
DX: M06.4 Inflammatory polyarthropathy (principal); Z79.899 Other long term (current) drug therapy
CPT/HCPCS: 36415; 80053; 85025

== ENCOUNTER → 2023-05-06 | Outpatient (CLI) | payer MEDICARE, BC, SELFPAY ==
[2023-05-06 17:42] LABS: Absolute Lymphocyte Count 1.11 X10^3/uL (0.83-4.51); Absolute Neutrophil Count 3.8 X10^3/uL (2.0-7.7); Basophil# 0.05 X10^3/uL; Basophil% 0.9 % (0-1); Eosinophil# 0.11 X10^3/uL; Hematocrit 45.3 % (40-54); Hemoglobin 15.1 g/dL (13.0-16.5); Lymphocyte # 1.11 X10^3/ul (0.83-4.51); Lymphocyte % 20.1 % (19-41); Mean Corp Hgb Conc 33.3 g/dL (32-36); Mean Corpuscular Volume 105.1 fL (80-94); Mean Platelet Vol. 9.1 fl (6.2-12.0); NRBC Flagged by Analyzer 0 % (0-5); Neutrophil # 3.75 X10^3/uL (2.7-7.7); Neutrophil % 67.8 % (47-70); Platelet Count 214 K/mm3 (150-450); RBC Distribution Width CV 14.9 % (11.6-14.6); RBC Distribution Width SD 58.7 fl (35.1-43.9); Red Blood Count 4.31 M/mm3 (4.6-6.2); White Blood Count 5.5 K/mm3 (4.4-11.0)
[2023-05-06 18:27] LABS: ALB/GLOB Ratio 1.2 RATIO (0.9-2.4); AST(SGOT) 28 U/L (15-37); Alanine Aminotransfer ALT/SGPT 43 U/L (16-61); Albumin, Serum 3.7 g/dL (3.2-5.0); Alkaline Phosphatase 62 U/L (45-117); Anion Gap 5 (5-15); BUN 18 mg/dL (7-18); BUN/Creat Ratio 21.5 RATIO (10-20); Calcium,Total 9.3 mg/dL (8.5-10.1); Chloride 105 mmol/L (98-107); Creatinine, Serum 0.84 mg/dL (0.70-1.30); EST Glomerular Filtration Rate 95 mL/min (>60); Est Glom Filt Rate - Afr Amer 115 mL/min (>60); Globulin 3.2 g/dL (2.2-4.2); Glucose 77 mg/dL (74-106); Potassium 4.2 mmol/L (3.5-5.1); Protein, Total 6.9 g/dL (6.4-8.2); Sodium Level 141 mmol/L (136-145)
== END | disposition home or self-care (01) ==
LOC: MTLAB 14:54
PROVIDERS: PCP Family Medicine; Referring Provider Family Medicine; Visit Provider Family Medicine
DX: K92.1 Melena (principal)
CPT/HCPCS: 36415; 80053; 85025

== ENCOUNTER → 2023-07-22 | Outpatient (CLI) | payer MEDICARE, BC, SELFPAY ==
[2023-07-22 15:29] LABS: Absolute Lymphocyte Count 1.56 X10^3/uL (0.83-4.51); Absolute Neutrophil Count 3.6 X10^3/uL (2.0-7.7); Basophil# 0.07 X10^3/uL; Basophil% 1.2 % (0-1); Eosinophil# 0.09 X10^3/uL; Eosinophils% 1.5 % (0-5); Hematocrit 47.2 % (40-54); Hemoglobin 15.5 g/dL (13.0-16.5); Lymphocyte # 1.56 X10^3/ul (0.83-4.51); Lymphocyte % 26.3 % (19-41); Mean Corp Hgb Conc 32.8 g/dL (32-36); Mean Corpuscular Hgb 33.4 pg (27.0-32.0); Mean Corpuscular Volume 101.7 fL (80-94); Mean Platelet Vol. 9.5 fl (6.2-12.0); Monocyte# 0.58 X10^3/uL; Monocyte% 9.8 % (0-10); NRBC Flagged by Analyzer 0 % (0-5); Neutrophil # 3.61 X10^3/uL (2.7-7.7); Neutrophil % 60.9 % (47-70); POSITIVE MORPHOLOGY YES; Platelet Count 246 K/mm3 (150-450); RBC Distribution Width CV 14.3 % (11.6-14.6); RBC Distribution Width SD 53.8 fl (35.1-43.9); Red Blood Count 4.64 M/mm3 (4.6-6.2); White Blood Count 5.9 K/mm3 (4.4-11.0)
[2023-07-22 15:36] LABS: Differential Indicated SCAN CRITERIA MET
[2023-07-22 15:48] LABS: ALB/GLOB Ratio 1.2 RATIO (0.9-2.4); AST(SGOT) 22 U/L (15-37); Alanine Aminotransfer ALT/SGPT 34 U/L (16-61); Albumin, Serum 3.6 g/dL (3.2-5.0); Alkaline Phosphatase 53 U/L (45-117); Anion Gap 2 (5-15); BUN 18 mg/dL (7-18); BUN/Creat Ratio 18.8 RATIO (10-20); Calcium,Total 9.4 mg/dL (8.5-10.1); Chloride 105 mmol/L (98-107); Creatinine, Serum 0.96 mg/dL (0.70-1.30); EST Glomerular Filtration Rate 82 mL/min (>60); Est Glom Filt Rate - Afr Amer 99 mL/min (>60); Globulin 3.1 g/dL (2.2-4.2); Glucose 78 mg/dL (74-106); Potassium 4.1 mmol/L (3.5-5.1); Protein, Total 6.7 g/dL (6.4-8.2); Sodium Level 140 mmol/L (136-145)
[2023-07-22 16:09] LABS: Atypical Lymphocyte 1+ %; Platelet Estimate ADEQUATE (ADEQ)
[2023-07-22 16:10] LABS: Anisocytosis 1+; Macrocytosis 1+; Red Cell Morphology N CHROM NORMAL (NORM C&C)
== END | disposition home or self-care (01) ==
LOC: MTLAB 13:21
PROVIDERS: PCP Family Medicine; Referring Provider Internal Medicine Rheumatology; Visit Provider Internal Medicine Rheumatology
DX: M06.4 Inflammatory polyarthropathy (principal); Z79.899 Other long term (current) drug therapy
CPT/HCPCS: 36415; 80053; 85025

== ENCOUNTER 2023-09-15 21:38 | Inpatient (IN) | payer MEDICARE, BC, SELFPAY ==
[2023-09-15] VITALS (10 sets, daily range): BP systolic 79–126; BP diastolic 54–69; PULSE 55–72; RESP 13–23; TEMP 37.1; O2SAT 93–98; BMI 19.8
--- NOTE | 2023-09-15 22:05 | EDS_ITS ---
HPI History of Present Illness Chief Complaint: Fall Detail of Chief Complaint: Right hip pain. Unable to ambulate. Onset/Context/Timing Onset: Today Mechanism/Context: Blunt Injury and Fall Location of pain/injuries: Right hip Quality of Pain: Sharp Current Severity: Moderate Maximum Severity: Moderate Associated Symptoms Associated Symptoms: Positive for Inability to ambulate; Negative for Parasthesias, Weakness, Loss of function, Loss of consciousness or Amnesia Narrative Narrative: 73-year-old male history of dementia, rheumatoid arthritis and hypertension. Today he was out doing something with his tractor and his snowplow when he fell injuring his right hip. He was found down on the ground by a neighbor. He was unable to stand. He does not believe he had any LOC or hit his head. He is on no blood thinners. And when he can eventually get him up to use the chair to move him and then brought him in the emergency department. He has no prior hip surgery or history. Also says he has some mild right parasternal chest discom fort from the fall. Was not having chest pain prior to the accident. Patient does have dementia and is somewhat a limited informant and no one else saw exactly what happened. He is accompanied by his . Prior similar symptoms: No Recent Illness/Hospitalization: No [facility] Medical History (Updated 09/16/23 @ 00:[address] Rick Munguia MD) Alzheimer disease COPD (chronic obstructive pulmonary disease) Gout Hemorrhoids HTN (hypertension) Rheumatoid arthritis Weight loss Home Medications aspirin 81 mg chewable tablet 81 mg PO DAILY@0800 03/24/14 [History Last Taken 03/08/18] metoprolol tartrate 25 mg tablet 25 mg PO BID 03/24/14 [History Last Taken 03/13/18 21:00 25 MG] cholecalciferol (vitamin D3) 25 mcg (1,000 unit) tablet 1,000 unit PO DAILY 10/29/16 [History Last Taken Unknown] docusate sodium 100 mg capsule 100 mg PO DAILY 06/17/17 [History Last Taken Unknown] folic acid 1 mg tablet 2 mg PO DAILY 06/17/17 [History Last Taken Unknown] leucovorin calcium 15 mg tablet 15 mg PO Q7D 06/17/17 [History Last Taken Unknown] methotrexate sodium 2.5 mg tablet 7.5 mg PO Q7D 06/17/17 [History Last Taken Unknown] hydroxychloroquine 200 mg tablet 200 mg PO QDAY 02/14/18 [History Last Taken Unknown] donepezil 23 mg tablet 23 mg PO DAILY 09/15/23 [History Last Taken Unknown] Allergy/AdvReac Type Severity Reaction Status Date / Time No Known Allergies Allergy Verified 09/15/23 22:10 Family History (Updated 09/15/23 @ 22:[address] Alma Alonzo MD) Father Colon cancer CVA (cerebral vascular accident) Hypertension Heart disease Sister CAD (coronary artery disease) Hypertension Heart disease Mother Cancer Surgical History Hx of tonsillectomy S/P colonoscopy Social History (Updated 09/15/23 @ 22:[address] Alma Alonzo MD) household members: spouse Smoking Status: Former smoker alcohol intake: never substance use type: does not use ROS ROS ED ROS Narrative Denies recent illness. Denies fever. Denies vomiting. Review of Systems ROS Unobtainable: Denies due to encephalopathy Constitutional Constitutional ED: Denies chills or fever(s) Eyes Eyes: Denies blurry vision ENT ENT ED: Denies ear pain Cardiovascular Cardiovascular: Denies chest pain or palpitations Respiratory/Chest Respiratory/Chest: Denies cough, dyspnea or dyspnea on exertion Gastrointestinal Gastrointestinal: Denies abdominal pain Genitourinary Genitourinary ED: Denies dysuria or hematuria Musculoskeletal Musculoskeletal: Denies arthralgias or back pain Integumentary Denies abscess Neurologic Neurologic: Denies headache(s) Psychiatric Psychiatric: Denies anxiety Endocrine Endocrinology: Denies cold intolerance Hematologic/Lymphatic Hematologic/Lymphatic: Denies easy bleeding or easy bruising Allergic/Immunologic Allergic/Immunologic ED: Denies mouth swelling EXAM Physical Exam Narrative Exam Narrative: Well-appearing 73-year-old male. bedside. Initial blood pressure 79/54 prior to receiving any treatment for that they rechecked in [facility] room was 119/62. H EENT exam pupils round reactive light. No signs of trauma to his face. Moist mucous membranes. Scalp nontender no hematoma. Neck and C-spine nontender. Lungs clear to auscultation bilaterally. Heart regular rhythm rate about 70 no murmur. Chest wall and ribs are nontender except for very defined area about the size of a dime just to the right parasternal area. There is no bruising there is no crepitance or subcu air. There is no signs of any trauma. Rib cage otherwise unremarkable. Abdomen soft nontender. Normal bowel sounds no peritoneal signs. No pulsatile mass. Pelvic girdle is intact. Right hip is shortened and tenderness to the right hip.Internally rotated. Minimal pain with range of motion. Right knee lower leg ankle foot nontender. Left lower extremity nontender. Back nontender no signs of trauma. Neurologically he is a little confused with dementia but he does know he is in the hospital he does know giving multiple-choice to the August. Also guessed it was 10/11/2023 and he knew the [facility]. Const Vital Signs: 09/15/23 21:40 09/15/23 22:21 09/15/23 22:34 Temperature 98.8 F Temperature Source Temporal Pulse Rate 72 65 Respiratory Rate 16 18 Respiratory Effort Normal Respiratory Depth Normal Respiratory Pattern Normal Blood Pressure 79/54 L 110/63 Blood Pressure Mean 62 78 Pulse Ox 93 94 Oxygen Delivery Method Room Air Room Air Room Air Positive well nourished and well developed; Negative for obese, cachectic, contractures or unkempt General Appearance ED: well developed and NAD; Negative for unkempt, cachectic or contractures Nutritional Appearance: Negative for cachectic or obese HEENT atraumatic; Negative for trauma or tenderness Eyes PERRL and EOMs intact bilaterally General Eye ED: Negative for other Neck full ROM General: Negative for tenderness Chest Wall inspection of chest normal; Negative for palpation of chest normal Chest Narrative: Minimal tenderness just to the right of the sternum. No signs of trauma or bruising. No subcu air or crepitance. No bony deformity. Resp normal respiratory effort and clear to auscultation bilaterally Effort and Inspection: Negative for pain with movement Auscultation: Negative for rales, rhonchi or wheezes Cardio regular rhythm, S1 normal heart sound, S2 normal heart sound and no murmurs Jugular Venous Distention: Negative for other Palpation: Negative for palpable S3 Rate: regular rate GI normal to inspection, nondistended, normoactive bowel sounds, non-tender, non- distended and no masses Inspection: Negative for abdominal distention Auscultation: normoactive bowel sounds Palpation: soft; Negative for tender or guarding Back/Spine normal to inspection and no thoracic nor lumbar tenderness General Back: Negative for CVA tenderness Thoracic Spine / Upper Back: Negative for thoracic spinal tenderness Extremity normal to inspection and full ROM Extremity Narrative: Except right hip tender. Right hip internally rotated and shortened. From the knee down is nontender. Left lower extremity is unremarkable. Upper extremities have normal range of motion and strength. General Extremety ED: Yes tenderness; Negative for deformity or edema General Extremity: Negative for deformity or edema Neuro oriented x3, moves all extremities and no focal motor deficits Swapna Coma Scale: document GCS findings Spontaneous Obeys Commands Oriented 15 Sensorium / Orientation: alert, oriented to person, oriented to place and oriented to time Motor Exam: strength 5/5 throughout Psych mental status grossly normal and thought process normal Appearance: Negative for unkempt Attitude: No agitated Mood & Affect: Negative for depressed, anxious or tearful Skin no rashes or lesions noted, no wounds, skin turgor normal and no jaundice Rashes: No rashes noted Trauma: Negative for abrasion Wounds: Negative for wounds noted MDM MDM MDM Narrative Medical decision making narrative: 73-year-old man fell using his tractor and his snowplow may have broken his right hip. X-rays and labs are being obtained. Repeat exam patient doing well at 12:05 AM. He is awake alert and talking. He can lift either leg. His both legs straight in bed. There is no longer any shortening or rotation of the right hip. Is no deformity. I have gone over his x-ray and labs of both he and his . CT of the hip shows inferior and superior pubic rami fractures on the right. Questionable acetabular fracture. A CT of the pelvis is being obtained. That be checked out to the overnight physician. Patient is good to be admitted by our hospitalist. He is unable to walk due to the discomfort in his right hip and pelvis. If the CAT scan would show an acetabular fracture that may cause a change in plan due to treatment options. History & Record Review Discussion w/independent historian: Patient Additional record(s) reviewed:: Prior inpatient record, Prior outpatient record, Prior ED visit, Prior labs and No prior records Lab Data Attestation: I reviewed the patient's lab results. Lab results narrative: CBC shows an elevated white count of 16.5. H&H of 15 and 44. Platelets 186. Chemistries show sodium 139 with a gap of 7. Normal BUN of 17 and creatinine of 1. Glucose 126. Chest, pelvis and right hip plain films are negative. Awaiting CT of the hip and femur. Labs: Laboratory Results - last 24 hr 09/15/23 09/15/23 09/15/23 22:13 22:50 23:22 WBC 16.5 H RBC 4.57 L Hgb 15.2 Hct 44.8 MCV 98.0 H MCH 33.3 H MCHC 33.9 RDW Std Deviation 50.7 H RDW Coeff of Narciso 14.2 Plt Count 186 MPV 10.0 Immature Gran % (Auto) 0.800 Neut % (Auto) 88.9 H Lymph % (Auto) 3.6 L Snyder % (Auto) 6.2 Eos % (Auto) 0.1 Baso % (Auto) 0.4 Absolute Neuts (auto) 14.7 H Absolute Lymphs (auto) 0.59 L Nucleated RBC % 0 Differential Comment SCANNED PT Cancelled Cancelled 14.4 INR Cancelled Cancelled 1.1 APTT Cancelled Cancelled 31.0 Sodium 139 Potassium 3.5 Chloride 103 Carbon Dioxide 29.0 Anion Gap 7 BUN 17 Creatinine 1.01 Estim Creat Clear Calc 62.08 Est GFR (MDRD) Af Amer 93 Est GFR (MDRD) Non-Af 77 BUN/Creatinine Ratio 16.8 Glucose 126 H Calcium 10.0 Blood Type Cancelled O POSITIVE Antibody Screen Cancelled NEGATIVE Radiography Chest X-Ray - ED: 1 View, 2 View and Read by ED Physician Diagnostic Testing: Clinical Impression(s) from Imaging Studies Chest X-Ray 09/15/23 22:30 IMPRESSION: There are findings consistent with COPD. There is no evidence of acute chest disease.. Electronically Signed: Renan Ravi MD at 22:49 EST , Hip/Pelvis X-Ray 09/15/23 22:30 IMPRESSION: Normal x-ray examination of the pelvis and hip. Electronically Signed: Renan Ravi MD at 22:50 EST , Lower Extremity CT 09/15/23 22:45 IMPRESSION: Acute pelvic fractures including the right superior and inferior pubic rami, which may extend to the acetabulum. Recommend dedicated CT pelvis with thin section images for complete evaluation. Electronically Signed: Shanon Lockett MD at 0:25 EST Reading Location ID and State: [address] [place] [address] Tel , Service support , Chest x-ray, 2 views, interpreted by myself and the radiologist shows no acute abnormality. Normal cardiac silhouette. Chronic changes. No pneumothorax. No effusions. Pelvis and right hip x-ray multiple views interpreted both by myself the radiologist shows no acute fracture or dislocation of either the hip nor the pelvis. Rhythm Strip Rhythm Strip: Sinus Rhythm Rate: 67 Ectopy: None EKG Initial EKG: Attestation: I personally reviewed and interpreted this EKG as follows: Interpretation: Sinus Rhythm and No Acute Injury Pattern Comments: Normal sinus rhythm rate of 67 no acute signs of AK or dysrhythmia. Low voltage. Prior EKG tracings: not available for review Discharge Plan Triage Chief Complaint: Fall ED Provider: Rick Munguia Dx/Rx/DC Orders Clinical Impression: History of dementia, Closed fracture of pubic ramus, Unable to ambulate, Fall Prescriptions: No Action hydroxychloroquine 200 mg tablet 200 mg PO QDAY aspirin 81 MG tablet,chewable 81 mg PO DAILY@0800 metoprolol tartrate 25 MG tablet 25 mg PO BID cholecalciferol (vitamin D3) 1,000 UNIT tablet 1,000 unit PO DAILY donepezil 23 mg tablet 23 mg PO DAILY Patient Comments: take 1 tablet by mouth once daily leucovorin calcium 15 MG tablet 15 mg PO Q7D methotrexate sodium 2.5 MG tablet 7.5 mg PO Q7D docusate sodium 100 MG capsule 100 mg PO DAILY folic acid 1 MG tablet 2 mg PO DAILY Primary Care Provider: Casimiro Duncan Referrals: Casimiro Duncan MD [Primary Care Provider] - Disposition Disposition: Acute Care Hospital [facility]
--- OUTSIDE RECORDS SUMMARY | 2023-09-15 22:08 | XMS RPT_ITS | CCD ---
Author Name Unknown Address [address] [place] [address] Organization [facility] Care Team Providers Care Lamp Replacer Name Role Phone Keli Young Unavailable Unavailable Munir Torres MD Unavailable [phone] Casimiro Duncan Unavailable Unavailable Unavailable Tom Muñoz Attending Unavailable Dakota, Dr. Casimiro Mathew Primary Care Unavail able Dakota, Dr. Casimiro Mathew Referring Unavail Tom Oropeza Admitting Unavailable Unavailable Unavailable Dr. Casimiro Duncan Primary Care Unavail able Dakota, Dr. Casimiro Mathew Referring Unavail able Wanda, Dr. Tom Giraldo Attending Unavailable Casmiiro Duncan MD Primary Care Provider Un available Medications Completed/Discontinued Medications Medication Drug Class(es) Dates Sig (Normalized) Sig (Original) amylase 162685 unt / lipase 36895 unt / protease 105154 unt delayed release oral capsule (4 sources) Start: 10-29-2021 Zenpep [id number] UNIT Oral Capsule Delayed Release Particles Take 1 capsules with meals and 1 with snacks Quantity: 120 Refills: 11 Ordered: 31-Dec-2022 Tom Muñoz DO Start : 29-Oct-2021 Active aspirin 81 mg oral tablet (7 sources) Platelet Aggregation Inhibitor, Nonsteroidal Anti-inflammatory Drug Start: 06-13-2017 take 1 tablet by mouth once daily ADULT ASPIRIN EC LOW STRENGTH 81 MG TBEC One tablet by mouth daily ASPIRIN [id number] Munir Torres MD Problems Active Problems Problem Classification Problem Date Documented Da te Episodic/Chronic Anal and rectal conditions (1 source) Rectal prolapse; Translations: [Rectal prolapse] Episodic Diverticulosis and diverticulitis (2 sources) Diverticulosis of large intestine without perforation or abscess without bleeding; Translations: [Diverticulosis of large intestine] Onset: 11-23-2022 11-26-2022 Chronic Essential hypertension (9 sources) Hypertensive disorder; Translations: [Benign essential hypertension] Onset: 06-13-2017 06-13-2017 Chronic Gastrointestinal hemorrhage (5 sources) Rectal hemorrhage; Translations: [Hemorrhage of rectum and anus] Episodic Gout and other crystal arthropathies (2 sources) Gout; Translations: [Gout, unspecified] Onset: 06-13-2017 06-13-2017 Chronic Noninfectious gastroenteritis (5 sources) Chronic diarrhea; Translations: [Diarrhea] Episodic Nutritional deficiencies (5 sources) Vitamin D deficiency; Translations: [Unspecified vitamin D deficiency] Chronic Other aftercare (1 source) 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; Translations: [FPC (current) use of aspirin] Onset: 11-23-2022 Episodic Other aftercare (1 source) Long-term current use of aspirin; Translations: [FPC (current) use of aspirin] 11-26-2022 Episodic Other and unspecified benign neoplasm (1 source) Personal history of colonic polyps; Translations: [Personal history of colonic polyps] Onset: 11-23-2022 Episodic Other and unspecified benign neoplasm (1 source) History of polyp of colon; Translations: [Personal history of colonic polyps] 11-26-2022 Episodic Other gastrointestinal disorders (6 sources) Irritable bowel syndrome; Translations: [Irritable bowel syndrome] 11-26-2022 Chronic Other gastrointestinal disorders (1 source) Irritable bowel syndrome without diarrhea; Translations: [Irritable bowel syndrome without diarrhea] Onset: 11-23-2022 Chronic Other nutritional; endocrine; and metabolic disorders (5 sources) Abnormal weight loss; Translations: [Loss of weight] Episodic Other screening for suspected conditions (not mental disorders or infectious disease) (3 sources) Encounter for screening for malignant neoplasm of colon; Translations: [Patient encounter status] Onset: 11-23-2022 11-26-2022 Episodic Pancreatic disorders (not diabetes) (4 sources) Secondary pancreatic insufficiency; Translations: [Other specified diseases of pancreas] Episodic Rheumatoid arthritis and related disease (4 sources) Rheumatoid arthritis; Translations: [Rheumatoid arthritis, unspecified] Onset: 06-13-2017 06-13-2017 Chronic Past or Other Problems Problem Classification Problem Date Documented Da te Episodic/Chronic Hemorrhoids (2 sources) Hemorrhoids; Translations: [Unspecified hemorrhoids] Onset: 06-13-2017 06-13-2017 Episodic Other gastrointestinal disorders (2 sources) Chronic constipation; Translations: [Other constipation] Onset: 06-13-2017 06-13-2017 Episodic Other nutritional; endocrine; and metabolic disorders (2 sources) Weight loss; Translations: [Abnormal weight loss] Onset: 06-13-2017 06-13-2017 Episodic Residual codes; unclassified (2 sources) Early satiety; Translations: [Early satiety] Onset: 06-13-2017 06-13-2017 Episodic Spondylosis; intervertebral disc disorders; other back problems (2 sources) Backache; Translations: [Dorsalgia, unspecified] Onset: 06-13-2017 06-13-2017 Episodic Results Test Name Value Interpretation Reference Range Facil ity Vital Signs Date Time Vital Sign Value Performing Clinician Facility 01-24-2023 13:30-0400 Body height 179.07 cm Casimiro Duncan Work Phone: [facility] Work Phone: 01-24-2023 13:30-0400 Body mass index (BMI) [Ratio] 20.69 kg/m2 Casimiro Duncan Work Phone: [facility] Work Phone: 01-24-2023 13:30-0400 Body surface area Derived from formula 1.84 m2 Casimiro Duncan Work Phone: [facility] Work Phone: 01-24-2023 13:30-0400 Body weight 66.34 kg Casimiro Duncan Work Phone: [facility] Work Phone: 10-12-2021 14:25-0500 Body height 179.07 cm Casimiro Duncan Work Phone: [facility] Work Phone: 10-12-2021 14:25-0500 Body mass index (BMI) [Ratio] 20.09 kg/m2 Casimiro Duncan Work Phone: [facility] Work Phone: 10-12-2021 14:25-0500 Body surface area Derived from formula 1.81 m2 Casimiro Pooja Duncan Work Phone: [facility] Work Phone: 10-12-2021 14:25-0500 Body weight 64.41 kg Casimiro Patton Duncan Work Phone: [facility] Work Phone: 10-12-2021 14:25-0500 Diastolic blood pressure 80 mm[Hg] Casimiro Pooja Duncan Work Phone: [facility] Work Phone: 10-12-2021 14:25-0500 Systolic blood pressure 120 mm[Hg] Casimiro Duncan Work Phone: [facility] Work Phone: 06-13-2017 15:57-0400 BMI (Body Mass Index) 19.7 kg/m2 Munir Torres MD [facility] Work Phone: 06-13-2017 15:57-0400 Body Temperature 97.9 [degF] Munir Torres MD [facility] Work Phone: 06-13-2017 15:57-0400 BP Diastolic 96 mm[Hg] Munir Torres MD [facility] Work Phone: 06-13-2017 15:57-0400 BP Systolic 153 mm[Hg] Munir Torres MD [facility] Work Phone: 06-13-2017 15:57-0400 Height 182.88 cm Munir Torres MD [facility] Work Phone: 06-13-2017 15:57-0400 Pulse (Heart Rate) 77 /min Munir Torres MD [facility] Work Phone: 06-13-2017 15:57-0400 Respiratory Rate 18 /min Munir Torres MD [facility] Work Phone: 06-13-2017 15:57-0400 Weight 65.91 kg Munir Torres MD [facility] Work Phone: Encounters Encounter Date Encounter Type Care Provider Facility Start: 04-21-2023 AUDIT Casimiro Duncan Work Phone: [facility] Work Phone: Start: 01-24-2023 Office outpatient vi sit 15 minutes Casimiro Duncan Work Phone: [facility] Work Phone: Start: 01-24-[address] Casimiro Duncan Facility:[id number] Start: 12-31-2022 AUDIT Casimiro Duncan Work Phone: [facility] Work Phone: Start: 11-23-2022 End: 11-23-2022 ambulatory Tom Muñoz Facility:[id number] Start: 11-23-2022 End: 11-23-2022 Subsequent hospital visit by physician Tom Muñoz DO Work Phone: [facility] Procedures Date Procedure Procedure Detail Performing Clinician Start: 11-23-2022 Colonoscopy stoma dx including collj spec spx Casimiro Duncan MD Start: 11-23-2022 Colonoscopy Tom rodrigues DO Work Phone: Colonoscopic polypectomy Yesika david Duncan Work Phone: Colonoscopy Casimiro Duncan Work Phone: Plan of Treatment Date Care Activity Detail Author Start: 11-23-2032 Screening for malignant neoplasm of colon [facility] Start: 04-22-2023 Influenza vaccination Influenza Vaccine (#1) [facility] Start: 01-24-2023 FUV, Provider: Tom Muñoz, Status: Pen, Time: 1:15 PM FUV, Provider: Tom Muñoz, Status: Pen, Time: 1:15 PM -[facility] Work Phone: Start: 06-24-2017 End: 06-24-2017 Appointment Appointment [facility] Work Phone: Start: 06-13-2017 End: 06-13-2017 Appointment Appointment [facility] Work Phone: Start: 06-13-2017 End: 06-14-2017 Colonoscopy flx dx w/collj spec when pfrmd Colonoscopy [facility] [employer] Work Phone: Start: 06-13-2017 End: 06-14-2017 Egd transoral biopsy single/multiple Upper gastrointestinal endoscopy; with biopsy [facility] [employer] Work Phone: Start: 2014 Pneumococcal Vaccine: 65+ Years (1 - PCV) Pneumococcal Vaccine: 65+ Years (1 - PCV) [facility] Start: 1999 Zoster Vaccines (1 of 2) Zoster Vaccines (1 of 2) [facility] Start: 1971 DTaP/Tdap/Td Vaccines (1 - Tdap) DTaP/Tdap/Td Vaccines (1 - Tdap) [facility] Start: 1967 Hepatitis C screening Hepatitis C Screening [facility] Start: 03[birth year]05-1950 COVID-19 Vaccine (#1) COVID-19 Vaccine (#1) [facility] Start: 1950 Lipid panel Lipid Panel [facility] Start: 1950 Screening for malignant neoplasm of colon [facility] Start: 1950 Yearly Adult Physical Yearly Adult Physical [facility] Payers Date Payer Category Payer Private Health Insurance [id number] 2014 Medicare [id number] 1950 Unknown [id number] 1950 Unknown [id number] Unknown Social History Date Type Detail Facility Never a smoker Never a smoker -[facility] Work Phone: Tobacco smoking status VTIS Tobacco smoking consumption unknown [facility] Work Phone: Start: 1950 Sex Assigned At Not on file [facility] Work Phone: Gender identity Not on file [facility] Work Phone: Colonoscopy 02-06-2023 Note Date & Type Note Facility 02-06-2023 Note Patient Name: Edwin Odonnell Procedure Date: 11/23/2022 8:41 AM Date of : 1950 Admit Type: Outpatient Site: [facility] Proc 1 Ethnicity: Not or Race: White Attending MD: Tom Muñoz DO, [id number] Procedure: Colonoscopy Indications: Surveillance: Personal history of colonic polyps (unknown histology) on last colonoscopy more than 5 years ago Providers: Tom Muñoz DO (Doctor), Kajal Lemon RN (Nurse), Kelsey Leal RN (Nurse), Ewa Maradiaga, [employer] Referring: Casimiro Duncan Medicines: Midazolam 2.5 mg IV, Meperidine 50 mg IV, Glucagon 1 mg IV Complications: No immediate complications. Procedure: Pre-Anesthesia Assessment: - Prior to the procedure, a History and Physical was performed, and patient medications and allergies were reviewed. The patient is competent. The risks and benefits of the procedure and the sedation options and risks were discussed with the patient. All questions were answered and informed consent was obtained. Patient identification and proposed procedure were verified by the physician in the pre-procedure area. Mental Status Examination: alert and oriented. Airway Examination: normal oropharyngeal airway and neck mobility. Respiratory Examination: clear to auscultation. CV Examination: normal. Prophylactic Antibiotics: The patient does not require prophylactic antibiotics. Prior Anticoagulants: The patient has taken no anticoagulant or antiplatelet agents. ASA Grade Assessment: II - A patient with mild systemic disease. After reviewing the risks and benefits, the patient was deemed in satisfactory condition to undergo the procedure. The anesthesia plan was to use moderate sedation / analgesia (conscious sedation). Immediately prior to administration of medications, the patient was re-assessed for adequacy to receive sedatives. The heart rate, respiratory rate, oxygen saturations, blood pressure, adequacy of pulmonary ventilation, and response to care were monitored throughout the procedure. The physical status of the patient was re-assessed after the procedure. After I obtained informed consent, the scope was passed under direct vision. Throughout the procedure, the patient's blood pressure, pulse, and oxygen saturations were monitored continuously. The pediatric colonoscope was introduced through the anus and advanced to the terminal ileum, with identification of the appendiceal orifice and IC valve. The colonoscopy was performed without difficulty. The patient tolerated the procedure well. The quality of the bowel preparation was excellent. The terminal ileum, ileocecal valve, appendiceal orifice, and rectum were photographed. Findings: The perianal and digital rectal examinations were normal. Pertinent negatives include normal sphincter tone and no palpable rectal lesions. The terminal ileum appeared normal. The sigmoid colon, descending colon and transverse colon revealed moderately excessive looping. Multiple small-mouthed diverticula were found in the sigmoid colon and descending colon. Moderate Sedation: Moderate (conscious) sedation was administered by the nurse and supervised by the endoscopist. The following parameters were monitored: oxygen saturation, heart rate, blood pressure, and response to care. Total physician intraservice time was 22 minutes. Estimated Blood Loss: Estimated blood loss: none. Impression: - The examined portion of the ileum was normal. - There was significant looping of the colon. - Diverticulosis in the sigmoid colon and in the descending colon. - No specimens collected. Recommendation: - Patient has a contact number available for (more content not included)... [employer]ATION - History of Present illness Narrative 11-20-2022 Note Date & Type Note Facility 11-20-2022 History of Present illness Narrative Dank is seen today in follow-up. He is known to me from prior evaluation underwent colonoscopy November of this year for polyp surveillance. After colonoscopy admits that his diarrhea was worsening. He states about 3-4 vertical bowel movements 30 to 40 minutes after meal the only way he can get out of the house with his if he does not eat weather outside. He denies any bloating no rectal bleeding colonoscopy was unremarkable however biopsies were not taken to exclude microscopic colitis.He denies any bloating no rectal bleeding weight is stable. He does have known pancreatic insufficiency for which she is currently taking Zenpep. He can identify no food triggers for his symptoms. 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 Resection was complete and performed on 1 past. He has had no rectal bleeding but has been suffering from chronic refractory diarrhea for approximately 18 months with a 24 pound weight loss in 2 years. He admits to wake up in the morning probably have to have a bowel movement and will have several more bowel movements throughout the morning by noon is better but if eats lunch she will have 2 or 3 more bowel movements. Until is having 8-12 bowel movements daily. Stool is loose foamy floats on top of the toilet but then at times is dense and sinks. He denies any rectal bleeding but has noticed some mucus. is began monitoring his diet and noticed that he was drinking whole milk since quitting whole milk his diarrhea is somewhat improved but is not put on any more weight. He continues to have 6-8 bowel movements daily again which are better by afternoon. He denies any fevers, chills or night sweats. He is on chronic immune suppression for arthritis with Humira. He follows with rheumatology in [place]. [facility] [address] Work Phone: Evaluation note Note Date & Type Note Facility documented in this encounter [facility] Work Phone: Chief Complaint FUV in office today for weight loss, fecal frequency after eating, patient states Dr. Sandoval wanted patient to be seen to discuss a possible diet.FUV for diarrhea/ loose stools at least 3 times daily x several years. Last colonoscopy was 11/23/2022. Family History Unknown Family Member Name Dates Details Family history of malignant neoplasm of colon: Father(V16.0, Z80.0) Status:Active Unknown Family Member Name Dates Details Family history of malignant neoplasm of colon: Father(V16.0, Z80.0) Status:Active Unknown Family Member Name Dates Details Family history of malignant neoplasm of colon: Father(V16.0, Z80.0) Status:Active Unknown Family Member Name Dates Details Family history of malignant neoplasm of colon: Father(V16.0, Z80.0) Status:Active Unknown Family Member Name Dates Details Family history of malignant neoplasm of colon: Father(V16.0, Z80.0) Status:Active Summary Purpose Advance Directives No Advanced Directives Records FoundNo Advanced Directives Records FoundNo Advanced Directives Records Found Additional Source Comments (unrecognized sect ion and content) No Status Records FoundNo Status Records FoundNo Status Records Found INFORMATION SOURCE (unrecogn ized section and content) DATE CREATED AUTHOR AUTHOR'S ORGANIZ ATION 01/31/2023 [facility] DATE CREATED AUTHOR AUTHOR'S ORGANIZ ATION 01/31/2023 [employer] Reason for Visit (unrecogniz ed section and content) Care Teams (unrecognized sec tion and content) FOR RECORDS PERTAINING TO PATIENTS WHO ARE OR HAVE BEEN ENROLLED IN A CHEMICAL DEPENDENCY/SUBSTANCEABUSE PROGRAM, SOME INFORMATION MAY BE OMITTED. This clinical summary was aggregated from multiple sources. Caution should be exercised in using it in the provision of clinical care. This summary normalizes information from multiple sources, and as a consequence, information in this document may materially change the coding, format and clinical context of patient data. In addition, data may be omitted in some cases. CLINICAL DECISIONS SHOULD BE BASED ON THE PRIMARY CLINICAL RECORDS. [facility] [employer] provides no warranty or guarantee of the accuracy or completeness of information in this document.
[2023-09-15 22:28] LABS: Absolute Lymphocyte Count 0.59 X10^3/uL (0.83-4.51); Absolute Neutrophil Count 14.7 X10^3/uL (2.0-7.7); Basophil# 0.06 X10^3/uL; Basophil% 0.4 % (0-1); Eosinophil# 0.01 X10^3/uL; Eosinophils% 0.1 % (0-5); Hematocrit 44.8 % (40-54); Hemoglobin 15.2 g/dL (13.0-16.5); Lymphocyte # 0.59 X10^3/ul (0.83-4.51); Lymphocyte % 3.6 % (19-41); Mean Corp Hgb Conc 33.9 g/dL (32-36); Mean Corpuscular Hgb 33.3 pg (27.0-32.0); Monocyte# 1.02 X10^3/uL; Monocyte% 6.2 % (0-10); NRBC Flagged by Analyzer 0 % (0-5); Neutrophil # 14.72 X10^3/uL (2.7-7.7); Neutrophil % 88.9 % (47-70); POSITIVE DIFFERENTIAL YES; Platelet Count 186 K/mm3 (150-450); RBC Distribution Width CV 14.2 % (11.6-14.6); RBC Distribution Width SD 50.7 fl (35.1-43.9); Red Blood Count 4.57 M/mm3 (4.6-6.2); White Blood Count 16.5 K/mm3 (4.4-11.0)
--- NOTE | 2023-09-15 22:30 | RAD_ITS ---
STUDY: X-RAY - PELVIS AND RIGHT HIP REASON FOR EXAM: Male, 73 years old. trauma TECHNIQUE: 3 views of the pelvis and hip. COMPARISON: None. FINDINGS: There is a non-specific bowel gas pattern. Normal visualized soft tissue structures. Normal bilateral iliac wings, sacroiliac joints and visualized sacrum. Normal bilateral superior and inferior pubic rami. Normal pubic symphysis. Normal bilateral ischial tuberosities. Normal visualized femoral head. Normal acetabulum. Normal hip joint. RAD/HIP, UNI W/ Pelvis 2-3 Views IMPRESSION: Normal x-ray examination of the pelvis and hip. Electronically Signed: Renan Ravi MD at 22:50 EST ,
--- NOTE | 2023-09-15 22:30 | RAD_ITS ---
STUDY: X-RAY CHEST REASON FOR EXAM: Male, 73 years old. trauma TECHNIQUE: Frontal and lateral views of the chest. COMPARISON: None. FINDINGS: There is hyperinflation of the lungs consistent with chronic obstructive lung disease (COPD). No infiltrates. No effusions. There is no demonstrated pleural abnormality. Normal size heart. Normal mediastinum and cheryl. Normal visualized pulmonary arteries. There is atherosclerotic calcification of the aortic arch with tortuosity. There are diffuse degenerative changes of the visualized thoracic spine. Mild levoconvex scoliosis. Normal visualized ribs, clavicles, and shoulders. There is no demonstrated abnormality of the visualized soft tissue structures of the upper abdomen. RAD/Chest PA and Lateral IMPRESSION: There are findings consistent with COPD. There is no evidence of acute chest disease.. Electronically Signed: Renan Ravi MD at 22:49 EST ,
--- NOTE | 2023-09-15 22:45 | CT_ITS ---
EXAM: CT Lower Extremity W/O Contrast Injection RIGHT HISTORY: right hip injury. NO fx seen on plain film TECHNIQUE: Axial images obtained from just above the hip through the knee without IV contrast. Sagittal and coronal reformats were provided. IV Contrast: None.. RADIATION DOSAGE (If Supplied By Facility): CTDIvol = ( 12.09 ) mGy, DLP = ( 751.85 ) mGycm Individualized dose optimization techniques were used for this CT. COMPARISON: X-rays right hip and pelvis earlier same day. LIMITATIONS: None. FINDINGS: Acute fracture of the right superior pubic ramus laterally, which may extend into the medial aspect of the acetabulum. Comminuted fracture of the right inferior pubic ramus nondisplaced. Associated soft tissue hematoma right obturator internus muscle and obturator externus muscle, and along the right pelvic sidewall. The right ilium/iliac wing and sacroiliac joint not completely included in the scan. No femur fracture. The femoral head and femoral neck appear intact. No dislocation at the hip or knee. CT/Extremity Lower without Contra IMPRESSION: Acute pelvic fractures including the right superior and inferior pubic rami, which may extend to the acetabulum. Recommend dedicated CT pelvis with thin section images for complete evaluation. Electronically Signed: Shanon Lockett MD at 0:25 EST ,
[2023-09-15 22:47] LABS: Differential Indicated SCAN CRITERIA MET
[2023-09-15 22:52] LABS: Anion Gap 7 (5-15); BUN 17 mg/dL (7-18); BUN/Creat Ratio 16.8 RATIO (10-20); Chloride 103 mmol/L (98-107); Creatinine, Serum 1.01 mg/dL (0.70-1.30); EST Glomerular Filtration Rate 77 mL/min (>60); Est Glom Filt Rate - Afr Amer 93 mL/min (>60); Estimated Creatinine Clearance 62.08 ml/min; Glucose 126 mg/dL (74-106); Potassium 3.5 mmol/L (3.5-5.1); Sodium Level 139 mmol/L (136-145)
[2023-09-15 23:06] LABS: Differential Comment SCANNED
[2023-09-15 23:52] LABS: International Normalized Ratio 1.1; Prothrombin Time (Protime)PT. 14.4 SECONDS (11.7-14.9)
[2023-09-16] VITALS (12 sets, daily range): BP systolic 88–127; BP diastolic 51–74; PULSE 55–66; RESP 16–28; TEMP 36.4–36.8; O2SAT 94–100; BMI 20.3; BMI 20.4
--- NOTE | 2023-09-16 00:32 | CT_ITS ---
EXAM: CT Pelvis W/O Contrast Injection HISTORY: Pubic rami fx eval for possible acetabular fx s/p TECHNIQUE: Axial images obtained through the pelvis without IV contrast. Sagittal and coronal reformats were provided. IV Contrast: None.. RADIATION DOSAGE (If Supplied By Facility): CTDIvol = ( 12.61 ) mGy, DLP = ( 393.50 ) mGycm Individualized dose optimization techniques were used for this CT. COMPARISON: CT right lower extremity earlier. LIMITATIONS: None. FINDINGS: Acute fracture of the right superior pubic ramus mid to lateral aspect, nondisplaced. The fracture does not appear to extend to the acetabulum. Comminuted fracture of the right inferior pubic ramus mildly displaced. The femoral heads are normal in contour. No dislocation of hips. No other fracture identified. The sacroiliac joints are symmetric. The pubic symphysis is not widened. Degenerative changes at the lower lumbar spine with minimal anterolisthesis at L4-5. Calculus in the right kidney lower pole partially included. There is mild hematoma along the right obturator internus muscle and pelvic sidewall, and right obturator externus muscle adjacent to the fractures. Small left inguinal hernia contains a short segment of small bowel. Small right inguinal hernia contains the superior lateral corner of the urinary bladder, and fat, no bowel. No associated stranding in the hernia sacs. CT/Pelvis without IV Contrast IMPRESSION: Acute right superior and inferior pubic rami fractures. No extension to the acetabulum. Associated mild hematoma along the right pelvis. Bilateral inguinal hernias containing bladder on the right, small bowel on the left, without evidence of complication. Electronically Signed: Shanon Lockett MD at 1:23 EST ,
--- NOTE | 2023-09-16 00:49 | HP.PCM.HOS_ITS ---
HPI - General General Date of Admission: 09/16/23 Date of Service: 09/16/23 Chief Complaint: Fall, R hip pain, unable to walk. HPI Narrative The patient is a 73 y/o M w/ PMHx: Alzheimer's dementia with unclear behavioral disturbance history, Rheumatoid arthritis on MTX/hydroxychloroquine, HTN, Gout, Former tobacco use who presents to the [facility] ED on 09/15/23 with history of unfortunate mechanical fall reportedly out working on his tractor with a snowplow when he unfortunately fell onto his right hip found down on the ground by his neighbor with inability to stand with no reported LOC and not on any blood thinners eventually able to be moved but was unable to bear weight with significant pain prompting ED evaluation. Patient prior to his mechanical fall was in stable health with no issues with any chest pain as he did report some ri ght parasternal discomfort following his fall but this is reproducible with palpation of the region and suspected secondary to injury with his fall. Workup in the ED included T98.8, heart rate 72, BP initially 79/54 with most recent repeat 110/63, respiratory rate 16, 94% on room air, CBC WBC 16.5, hemoglobin 15.2, platelet 196 with left shift and lymphopenia, coags unremarkable, BMP with glucose 126 otherwise unremarkable, type and screen already initiated per ED physician, chest x-ray with COPD type changes with no acute cardiopulmonary findings otherwise, plain film of the right hip and pelvi additional workup in the ED included CBC with WBC 3.3, M18.4, platelet 224 without differential performed, CT right lower extremity with an acute pelvic fracture including the 6 right superior and inferior pubic rami which extends into the acetabulum, pending CT pelvis upon evaluation, EKG with sinus rhythm with no acute evidence of ischemia. [facility] Medical History Alzheimer disease COPD (chronic obstructive pulmonary disease) Gout Hemorrhoids HTN (hypertension) Rheumatoid arthritis Weight loss Home Medications aspirin 81 mg chewable tablet 81 mg PO DAILY@0800 03/24/14 [History Last Taken 03/08/18] metoprolol tartrate 25 mg tablet 25 mg PO BID 03/24/14 [History Last Taken 03/13/18 21:00 25 MG] cholecalciferol (vitamin D3) 25 mcg (1,000 unit) tablet 1,000 unit PO DAILY 10/29/16 [History Last Taken Unknown] docusate sodium 100 mg capsule 100 mg PO DAILY 06/17/17 [History Last Taken Unknown] folic acid 1 mg tablet 2 mg PO DAILY 06/17/17 [History Last Taken Unknown] leucovorin calcium 15 mg tablet 15 mg PO Q7D 06/17/17 [History Last Taken Unknown] methotrexate sodium 2.5 mg tablet 7.5 mg PO Q7D 06/17/17 [History Last Taken U nknown] hydroxychloroquine 200 mg tablet 200 mg PO QDAY 02/14/18 [History Last Taken Unknown] donepezil 23 mg tablet 23 mg PO DAILY 09/15/23 [History Last Taken Unknown] Allergy/AdvReac Type Severity Reaction Status Date / Time No Known Allergies Allergy Verified 09/15/23 22:10 Family History Father Colon cancer CVA (cerebral vascular accident) Hypertension Heart disease Sister CAD (coronary artery disease) Hypertension Heart disease Mother Cancer Surgical History Hx of tonsillectomy S/P colonoscopy Social History household members: spouse Smoking Status: Former smoker alcohol intake: never substance use type: does not use ROS ROS Narrative Admission Review of Systems: CONSTITUTIONAL: No weight loss, fever, chills, + weakness or fatigue. HEENT: Eyes: No visual loss, blurred vision, double vision or yellow sclerae. Ears, Nose, Throat: No hearing loss, sneezing, congestion, runny nose or sore throat. SKIN: No rash or itching, lesions, wounds except + occasional abrasion, staged ecchymoses. CARDIOVASCULAR: + Reproducible discomfort in the chest status post fall otherwise no chest pressure or chest discomfort, palpitations, edema, orthopnea, syncopal events. RESPIRATORY: No shortness of breath, cough or sputum, wheezing, hemoptysis. GASTROINTESTINAL: No anorexia, nausea, vomiting or diarrhea, abdominal pain, melena, BRBPR. GENITOURINARY: No dysuria, frequency, urgency or retention. NEUROLOGICAL: + Chronic cognitive impairment with underlying Alzheimer's disease. No headache, dizziness, syncope, paralysis, ataxia, numbness or tingling in the extremities, focal weakness, change in bowel or bladder control, seizure. MUSCULOSKELETAL: + muscle, back pain, joint pain or stiffness. HEMATOLOGIC: No anemia. + Easy bleeding/bruising. LYMPHATICS: No enlarged nodes. No history of splenectomy. PSYCHIATRIC: No history of depression or anxiety. ENDOCRINOLOGIC: No reports of sweating, cold or heat intolerance. No polyuria or polydipsia. ALLERGIES: No history of asthma, hives, eczema or rhinitis. Vital Signs Vital Signs Vital Signs: 09/15/23 21:40 09/15/23 22:21 09/15/23 22:34 Temperature 98.8 F Temperature Source Temporal Pulse Rate 72 65 Respiratory Rate 16 18 Respiratory Effort Normal Respiratory Depth Normal Respiratory Pattern Normal Blood Pressure 79/54 L 110/63 Blood Pressure Mean 62 78 Pulse Ox 93 94 Oxygen Delivery Method Room Air Room Air Room Air 09/16/23 00:39 09/15/23 22:55 09/15/23 23:00 Temperature 98.2 F Temperature Source Pulse Rate 58 L 58 L Respiratory Rate 16 19 H Respiratory Effort Respiratory Depth Respiratory Pattern Blood Pressure 109/61 Blood Pressure Mean 76 Pulse Ox 95 98 Oxygen Delivery Method 09/15/23 23:10 09/15/23 23:15 09/15/23 23:20 Temperature Temperature Source Pulse Rate 62 55 L 59 L Respiratory Rate 20 H 13 18 Respiratory Effort Respiratory Depth Respiratory Pattern Blood Pressure 117/59 L Blood Pressure Mean 76 Pulse Ox 96 97 96 Oxygen Delivery Method 09/15/23 23:30 09/15/23 23:45 09/15/23 23:50 Temperature Temperature Source Pulse Rate 61 62 Respiratory Rate 23 H 19 H Respiratory Effort Respiratory Depth Respiratory Pattern Blood Pressure 120/63 126/69 H Blood Pressure Mean 79 86 Pulse Ox 98 96 Oxygen Delivery Method 09/16/23 00:00 09/16/23 00:10 09/16/23 00:15 Temperature Temperature Source Pulse Rate 62 58 L 59 L Respiratory Rate 22 H 19 H 17 Respiratory Effort Respiratory Depth Respiratory Pattern Blood Pressure 113/62 109/63 Blood Pressure Mean 69 72 Pulse Ox 94 95 Oxygen Delivery Method Room Air 09/16/23 00:20 09/16/23 00:30 Temperature Temperature Source Pulse Rate 62 Respiratory Rate 28 H Respiratory Effort Respiratory Depth Respiratory Pattern Blood Pressure 126/54 H Blood Pressure Mean 65 Pulse Ox 98 Oxygen Delivery Method Room Air Weight Weight: 150 lb 12.739 oz Body Mass Index (BMI) 19.8 Physical Exam Narrative Physical Examination: General: Awake, alert, oriented to self, place and recent events but is intermittently confused and this is likely chronic with underlying dementia, remains cooperative, laying in the ED bed, ongoing right hip discomfort status post recent fall. Skin: Normal color, normal turgor, no icterus, no cyanosis except for occasional abrasion, staged ecchymoses. HEENT: AT/NC, EOMI, PERRLA, mildly dry MM, no carotid bruits or JVD noted. Lungs: Mildly diminished, greater bases, appropriate effort, no rales, ronchi or wheezing. Heart: Regular rate and rhythm; no gallop, rub audible. Abdomen: Soft, NTTP, ND, mildly hyperactive BS, no HSM. Extremities: No cyanosis, no clubbing, see skin, status post fall with right hip fracture with right hip internally rotated and shortened. Neurological: Patient awake, alert, oriented as noted, cognitive function decreased baseline with underlying dementia and suspect he is currently baseline intact; pupils equally reactive to light and accommodation, cranial nerves grossly normal, moving all 4 extremities except expected limitation right lower extremity given recent fall with hip fracture, strength accordingly severely globally decreased. Psychiatric: Affect appears fatigued, no acute evidence of depressive or anxiety feelings. Results Lab / Micro Data 09/15/23 22:13 09/15/23 22:13 Labs: Laboratory Results - last 24 hr 09/15/23 22:13: WBC 16.5 H, RBC 4.57 L, Hgb 15.2, Hct 44.8, MCV 98.0 H, MCH 33.3 H, MCHC 33.9, RDW Std Deviation 50.7 H, RDW Coeff of Narciso 14.2, Plt Count 186, MPV 10.0, Immature Gran % (Auto) 0.800, Neut % (Auto) 88.9 H, Lymph % (Auto) 3.6 L, Terry % (Auto) 6.2, Eos % (Auto) 0.1, Baso % (Auto) 0.4, Absolute Neuts (auto) 14.7 H, Absolute Lymphs (auto) 0.59 L, Nucleated RBC % 0, Differential Comment SCANNED, PT Cancelled, INR Cancelled, APTT Cancelled, Sodium 139, Potassium 3.5, Chloride 103, Carbon Dioxide 29.0, Anion Gap 7, BUN 17, Creatinine 1.01, Estim Creat Clear Calc 62.08, Est GFR (MDRD) Af Amer 93, Est GFR (MDRD) Non-Af 77, BUN/Creatinine Ratio 16.8, Glucose 126 H, Calcium 10.0, Blood Type Cancelled, Antibody Screen Cancelled 09/15/23 22:50: PT Cancelled, INR Cancelled, APTT Cancelled 09/15/23 23:22: PT 14.4, INR 1.1, APTT 31.0, Blood Type O POSITIVE, Antibody Screen NEGATIVE Rhythm Strip Rhythm Strip: Sinus Rhythm Rate: 67 Ectopy: None Imagaing Radiology Impression Chest X-Ray 09/15/23 22:30 IMPRESSION: There are findings consistent with COPD. There is no evidence of acute chest disease.. Electronically Signed: Renan Ravi MD at 22:49 EST , Hip/Pelvis X-Ray 09/15/23 22:30 IMPRESSION: Normal x-ray examination of the pelvis and hip. Electronically Signed: Renan Ravi MD at 22:50 EST , Lower Extremity CT 09/15/23 22:45 IMPRESSION: Acute pelvic fractures including the right superior and inferior pubic rami, which may extend to the acetabulum. Recommend dedicated CT pelvis with thin section images for complete evaluation. Electronically Signed: Shanon Lockett MD at 0:25 EST , Assessment & Plan Assessment/Plan (1) Closed fracture of pubic ramus: (2) Unable to ambulate: (3) Fall: PLAN: Plan The patient is a 73 y/o M w/ PMHx: Alzheimer's dementia with unclear behavioral disturbance history, Rheumatoid arthritis on MTX/hydroxychloroquine, HTN, Gout, Former tobacco use who presents to the [facility] ED on 09/15/23 with history of unfortunate mechanical fall reportedly out working on his tractor with a snowplow when he unfortunately fell onto his right hip found down on the ground by his neighbor with inability to stand with no reported LOC and not on any blood thinners eventually able to be moved but was unable to bear weight with significant pain prompting ED evaluation. #1. General debility, right hip pain s/p mechanical fall w/ acute pelvic fractures including the right superior and inferior pubic rami possibly extending into the acetabulum: Pending CT pelvis upon admission with planned call to Orthopedic surgery per ED once obtained to assist in delineating surgical needs versus non-operative management. Will admit to MS, maintain NPO status until assure surgical needs, pre-operative espinosa placement if necessary, monitor I/Os, frequent positioning, fall precautions, pain, anti-emetic regimen. Given location of fracture unclear if surgical intervention will be an options, likely non-operable but will await surgery evaluation. Will continue bedrest pending CT pelvis and Orthopedic surgery evaluation/recommendations and if nonoperative and they are amenable then initiate PT/OT following evaluation. CM consulted for discharge planning. Per NSQIP patient with mild to moderate risk given underlying history for perioperative event but given health status prior to injury with no issues with chest discomfort or dyspnea and highly active despite underlying comorbidities agreed to progression to OR with labs and EKG reviewed with no concerning acute findings. Again, still uncertain if operative intervention will be needed, awaiting CT pelvis. #2. Alzheimer's dementia with unclear behavioral disturbance history: We will continue patient home donepezil regimen, complicates presentation, maintain on fall precautions, PT/OT/case management consulted for discharge planning. #3. Hypertension: Continue home regimen including metoprolol, PRN hydralazine. #4. Rheumatoid arthritis: Patient per previous records on methotrexate, hydroxychloroquine with continued folic acid supplementation and prednisone low- dose as needed, clarifying to be certain. #5. Gout: Per review of current list does not appear to be on any chronic regimen, continue to to evaluate outpatient. #6. Former tobacco use: Encourage continued tobacco cessation. #7. DVT prophylaxis: SCDs, hold chemoprophylaxis for planned operative intervention. #8. CODE status: Patient HCPOA is his who is present and living will is currently in place. Discussed CODE status at length including difference between FULL code, DNR-CCA and DNR-CC status. Following discussions about the differences in these status, requested Full Code status. Advanced Care Planning Face to Face Time: 16 minutes. Charges/Coding Visit Charges Inpatient E&M: 45465 Init Hosp L3 Procedures Hospitalists Procedures: 81944 Advncd Care Plan 30 Min
--- OUTSIDE RECORDS SUMMARY | 2023-09-16 00:55 | XMS RPT_ITS | CCD ---
Author Name Unknown Address [address] [place] [address] Organization [facility] Care Team Providers Care Migrant Leader Name Role Phone Keli Young Unavailable Unavailable Munir Torres MD Unavailable [phone] Casimiro Duncan Unavailable Unavailable Unavailable Tom Muñoz Attending Unavailable Dakota, Dr. Casimiro Mathew Primary Care Unavail able Dakota, Dr. Casimiro Mathew Referring Unavail Tom Oropeza Admitting Unavailable Unavailable Unavailable Dr. Casimiro Duncan Primary Care Unavail able Dakota, Dr. Casimiro Mathew Referring Unavail able Wanda, Dr. 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; Translations: [[facility] (current) use of aspirin] Onset: 11-23-2022 Episodic Other aftercare (1 source) Long-term current use of aspirin; Translations: [[facility] (current) use of aspirin] 11-26-2022 Episodic Other [...] height 179.07 cm Casimiro Duncan Work Phone: [facility] Work Phone: 01-24-2023 13:30-0400 Body mass index (BMI) [Ratio] 20.69 kg/m2 Casimiro Duncan Work Phone: [facility] Work Phone: 01-24-2023 13:30-0400 Body surface area Derived from formula 1.84 m2 Casimiro Duncan Work Phone: [facility] Work Phone: 01-24-2023 13:30-0400 Body weight 66.34 kg Casimiro Duncan Work Phone: [facility] Work Phone: 10-12-2021 14:25-0500 Body height 179.07 cm Casimiro Duncan Work Phone: [facility] Work Phone: 10-12-2021 14:25-0500 Body mass index (BMI) [Ratio] 20.09 kg/m2 Casimiro Duncan Work Phone: [facility] Work Phone: 10-12-2021 14:25-0500 Body surface area Derived from formula 1.81 m2 Casimiro Pooja Duncan Work Phone: [facility] Work Phone: 10-12-2021 14:25-0500 Body weight 64.41 kg Casimiro Patton Duncan Work Phone: [facility] Work Phone: 10-12-2021 14:25-0500 Diastolic blood pressure 80 mm[Hg] Casimiro Pooja Duncan Work Phone: [facility] Work Phone: 10-12-2021 14:25-0500 Systolic blood pressure 120 mm[Hg] Casimiro Duncan Work Phone: [facility] Work Phone: 06-13-2017 15:57-0400 BMI (Body Mass Index) 19.7 kg/m2 Munir Torres MD [facility] Work Phone: 06-13-2017 15:57-0400 Body Temperature 97.9 [degF] Munir Torres MD [facility] Work Phone: 06-13-2017 15:57-0400 BP Diastolic 96 mm[Hg] Munir Torres MD [facility] Work Phone: 06-13-2017 15:57-0400 BP Systolic 153 mm[Hg] Munir Torres MD [facility] Work Phone: 06-13-2017 15:57-0400 Height 182.88 cm Munir Torres MD [facility] Work Phone: 06-13-2017 15:57-0400 Pulse (Heart Rate) 77 /min Munir Torres MD [facility] [place] Work Phone: 06-13-2017 15:57-0400 Respiratory Rate 18 /min Munir Torres MD [facility] Work Phone: 06-13-2017 15:57-0400 Weight 65.91 kg Munir Torres MD [facility] Work Phone: Encounters Encounter Date Encounter Type Care Provider Facility Start: 04-21-2023 AUDIT Casimiro Duncan Work Phone: [facility] Work Phone: Start: 01-24-2023 Office outpatient vi sit 15 minutes Casimiro Duncan Work Phone: [facility] Work Phone: Start: 01-24-[address] Casimiro Duncan Facility:[id number] Start: 12-31-2022 AUDIT Casimiro Duncan Work Phone: [facility] Work Phone: Start: 11-23-2022 End: 11-23-2022 ambulatory Tom Muñoz Facility:[id number] Start: 11-23-2022 End: 11-23-2022 Subsequent hospital visit by physician Tom Muñoz DO Work Phone: [facility] Procedures Date Procedure Procedure Detail Performing Clinician Start: 11-23-2022 Colonoscopy stoma dx including collj spec spx Casimiro Duncan MD Start: 11-23-2022 Colonoscopy Tom rodrigues DO Work Phone: Colonoscopic polypectomy Yesika david Duncan Work Phone: Colonoscopy Casimiro Duncan Work Phone: Plan of Treatment Date Care Activity Detail Author Start: 11-23-2032 Screening for malignant neoplasm of colon [facility] Start: 04-22-2023 Influenza vaccination Influenza Vaccine (#1) [facility] Start: 01-24-2023 FUV, Provider: Tom Muñoz, Status: Pen, Time: 1:15 PM FUV, Provider: Tom Muñoz, Status: Pen, Time: 1:15 PM -[facility] Work Phone: Start: 06-24-2017 End: 06-24-2017 Appointment Appointment [facility] [place] Work Phone: Start: 06-13-2017 End: 06-13-2017 Appointment Appointment [facility] Work Phone: Start: 06-13-2017 End: 06-14-2017 Colonoscopy flx dx w/collj spec when pfrmd Colonoscopy [facility] [place] Work Phone: Start: 06-13-2017 End: 06-14-2017 Egd transoral biopsy single/multiple Upper gastrointestinal endoscopy; with biopsy [facility] [place] Work Phone: Start: 2014 Pneumococcal Vaccine: 65+ Years (1 - PCV) Pneumococcal Vaccine: 65+ Years (1 - PCV) [facility] Start: 1999 Zoster Vaccines (1 of 2) Zoster Vaccines (1 of 2) [facility] Start: 1971 DTaP/Tdap/Td Vaccines (1 - Tdap) DTaP/Tdap/Td Vaccines (1 - Tdap) [facility] Start: 1967 Hepatitis C screening Hepatitis C Screening [facility] Start: 03-05-1951 COVID-19 Vaccine (#1) COVID-19 Vaccine (#1) [facility] Start: 1950 Lipid panel Lipid Panel [facility] Start: 1950 Screening for malignant neoplasm of colon [facility] Start: 1950 Yearly Adult Physical Yearly Adult Physical [facility] Payers Date Payer Category Payer Private Health Insurance [id number] 2014 Medicare [id number] 1950 Unknown [id number] 1950 Unknown [id number] Unknown Social History Date Type Detail Facility Never a smoker Never a smoker -[facility] Work Phone: Tobacco smoking status ARIS Tobacco smoking consumption unknown [facility] Work Phone: Start: 1950 Sex Assigned At Not on file [facility] Work Phone: Gender identity Not on file [facility] Work Phone: Colonoscopy 02-06-2023 Note Date & Type Note Facility 02-06-2023 Note Patient Name: Edwin Odonnell Procedure Date: 11/23/2022 8:41 AM Date of : 1950 Admit Type: Outpatient Site: [facility] Proc 1 Ethnicity: Not or Race: White Attending MD: Tom Muñoz DO, [id number] Procedure: Colonoscopy Indications: Surveillance: Personal history of colonic polyps (unknown histology) on last colonoscopy more than 5 years ago Providers: Tom Muñoz DO (Doctor), Kajal Lemon RN (Nurse), Kelsey Lael RN (Nurse), Ewa Maradiaga, Senior Advisor Referring: Casimiro Duncan Medicines: Midazolam 2.5 mg [...] identify no food triggers for his symptoms. -[facility] [address] Work Phone: History of Present illness Narrative [...] with Humira. He follows with rheumatology in [place]. [facility] [address] Work Phone: Evaluation note Note Date & Type Note Facility documented in this encounter [facility] Work Phone: Chief Complaint [facility] in [...] DATE CREATED AUTHOR AUTHOR'S ORGANIZ ATION 01/31/2023 Advanced Patient Care Reason for Visit (unrecogniz ed section and [...] BE BASED ON THE PRIMARY CLINICAL RECORDS. [facility] provides no warranty or guarantee of the accuracy or completeness of information in this document.
--- OUTSIDE RECORDS SUMMARY | 2023-09-16 01:04 | XMS RPT_ITS | CCD ---
Author Name Unknown Address [address] [place] [address] Organization [facility] Care Team Providers Care C S S Representative Name Role Phone Keli Young Unavailable Unavailable Munir Torres MD Unavailable Casimiro Duncan Unavailable Unavailable Unavailable Tom Muñoz Attending Unavailable Dakota, Dr. Casimiro Mathew Primary Care Unavail able Dakota, Dr. Casimiro Mathew Referring Unavail Tom Oropeza Admitting Unavailable Unavailable Unavailable Dr. Casimiro Duncan Primary Care Unavail able Dakota, Dr. Casimiro Mathew Referring Unavail able Wanda, Dr. 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; Translations: [intermediate (current) use of aspirin] Onset: 11-23-2022 Episodic Other aftercare (1 source) Long-term current use of aspirin; Translations: [intermediate (current) use of aspirin] 11-26-2022 Episodic Other [...] height 179.07 cm Casimiro Duncan Work Phone: [facility] Work Phone: 01-24-2023 13:30-0400 Body mass index (BMI) [Ratio] 20.69 kg/m2 Casimiro Duncan Work Phone: [facility] Work Phone: 01-24-2023 13:30-0400 Body surface area Derived from formula 1.84 m2 Casimiro Duncan Work Phone: [facility] Work Phone: 01-24-2023 13:30-0400 Body weight 66.34 kg Casimiro Duncan Work Phone: [facility] Work Phone: 10-12-2021 14:25-0500 Body height 179.07 cm Casimiro Duncan Work Phone: [facility] Work Phone: 10-12-2021 14:25-0500 Body mass index (BMI) [Ratio] 20.09 kg/m2 Casimiro Duncan Work Phone: [facility] Work Phone: 10-12-2021 14:25-0500 Body surface area Derived from formula 1.81 m2 Casimiro Pooja Duncan Work Phone: [facility] Work Phone: 10-12-2021 14:25-0500 Body weight 64.41 kg Casimiro Patton Duncan Work Phone: [facility] Work Phone: 10-12-2021 14:25-0500 Diastolic blood pressure 80 mm[Hg] Casimiro Pooja Duncan Work Phone: [facility] Work Phone: 10-12-2021 14:25-0500 Systolic blood pressure 120 mm[Hg] Casimiro Duncan Work Phone: [facility] Work Phone: 06-13-2017 15:57-0400 BMI (Body Mass Index) 19.7 kg/m2 Munir Torres MD [facility] Work Phone: 06-13-2017 15:57-0400 Body Temperature 97.9 [degF] Munir Torres MD [facility] Work Phone: 06-13-2017 15:57-0400 BP Diastolic 96 mm[Hg] Munir Torres MD [facility] Work Phone: 06-13-2017 15:57-0400 BP Systolic 153 mm[Hg] Munir Torres MD [facility] Work Phone: 06-13-2017 15:57-0400 Height 182.88 cm Munir Torres MD [facility] Work Phone: 06-13-2017 15:57-0400 Pulse (Heart Rate) 77 /min Munir Torres MD [facility] Work Phone: 06-13-2017 15:57-0400 Respiratory Rate 18 /min Munir Torres MD [facility] Work Phone: 06-13-2017 15:57-0400 Weight 65.91 kg Munir Torres MD [facility] Work Phone: Encounters Encounter Date Encounter Type Care Provider Facility Start: 04-21-2023 AUDIT Casimiro Duncan Work Phone: [facility] Work Phone: Start: 01-24-2023 Office outpatient vi sit 15 minutes Casimiro Duncan Work Phone: [facility] Work Phone: Start: 01-24-[address] Casimiro Dnucan Facility:[id number] Start: 12-31-2022 AUDIT Casimiro Duncan Work Phone: [facility] Work Phone: Start: 11-23-2022 End: 11-23-2022 ambulatory Tom Muñoz Facility:[id number] Start: 11-23-2022 End: 11-23-2022 Subsequent hospital visit by physician Tom Muñoz DO Work Phone: [facility] Procedures Date Procedure Procedure Detail Performing Clinician Start: 11-23-2022 Colonoscopy stoma dx including collj spec spx Casimiro Duncan MD Start: 11-23-2022 Colonoscopy Tom rodrigues DO Work Phone: Colonoscopic polypectomy Yesika david Duncan Work Phone: Colonoscopy Casimiro Duncan Work Phone: Plan of Treatment Date Care Activity Detail Author Start: 11-23-2032 Screening for malignant neoplasm of colon [facility] Start: 04-22-2023 Influenza vaccination Influenza Vaccine (#1) [facility] Start: 01-24-2023 FUV, Provider: Tom Muñoz, Status: Pen, Time: 1:15 PM FUV, Provider: Tom Muñoz, Status: Pen, Time: 1:15 PM -[facility] Work Phone: Start: 06-24-2017 End: 06-24-2017 Appointment Appointment [facility] Work Phone: Start: 06-13-2017 End: 06-13-2017 Appointment Appointment [facility] Work Phone: Start: 06-13-2017 End: 06-14-2017 Colonoscopy flx dx w/collj spec when pfrmd Colonoscopy [facility] Work Phone: Start: 06-13-2017 End: 06-14-2017 Egd transoral biopsy single/multiple Upper gastrointestinal endoscopy; with biopsy [facility] Work Phone: Start: 2014 Pneumococcal Vaccine: 65+ Years (1 - PCV) Pneumococcal Vaccine: 65+ Years (1 - PCV) [facility] Start: 1999 Zoster Vaccines (1 of 2) Zoster Vaccines (1 of 2) [facility] Start: 1971 DTaP/Tdap/Td Vaccines (1 - Tdap) DTaP/Tdap/Td Vaccines (1 - Tdap) [facility] Start: 1967 Hepatitis C screening Hepatitis C Screening [facility] Start: 03-05-1951 COVID-19 Vaccine (#1) COVID-19 Vaccine (#1) [facility] Start: 1950 Lipid panel Lipid Panel [facility] Start: 1950 Screening for malignant neoplasm of colon [facility] Start: 1950 Yearly Adult Physical Yearly Adult Physical [facility] Payers Date Payer Category Payer Private Health Insurance [id number] 2014 Medicare [id number] 1950 Unknown [id number] 1950 Unknown [id number] Unknown Social History Date Type Detail Facility Never a smoker Never a smoker -[facility] Work Phone: Tobacco smoking status PRIS Tobacco smoking consumption unknown [facility] Work Phone: Start: 1950 Sex Assigned At Not on file [facility] Work Phone: Gender identity Not on file [facility] osCounts include [facility] beds at the [facility] Work Phone: Colonoscopy 02-06-2023 Note Date & Type Note Facility 02-06-2023 Note Patient Name: Edwin Odonnell Procedure Date: 11/23/2022 8:41 AM Date of : 1950 Admit Type: Outpatient Site: [facility] Proc 1 Ethnicity: Not or Race: White Attending MD: Tom Muñoz DO, [id number] Procedure: Colonoscopy Indications: Surveillance: Personal history of colonic polyps (unknown histology) on last colonoscopy more than 5 years ago Providers: Tom Muñoz DO (Doctor), Kajal Lemon RN (Nurse), Kelsey Leal RN (Nurse), Ewa Maradiaga, Media Producer Referring: Casimiro Duncan Medicines: Midazolam 2.5 mg [...] identify no food triggers for his symptoms. -[facility] [address] Work Phone: History of Present illness Narrative [...] with Humira. He follows with rheumatology in [place]. [facility] [address] Work Phone: Evaluation note Note Date & Type Note Facility documented in this encounter [facility] Work Phone: Chief Complaint FUV in [...] DATE CREATED AUTHOR AUTHOR'S ORGANIZ ATION 01/31/2023 [facility] DATE CREATED AUTHOR AUTHOR'S ORGANIZ ATION 01/31/2023 [employer] Reason for Visit (unrecogniz ed section and [...] BE BASED ON THE PRIMARY CLINICAL RECORDS. [facility] [employer] provides no warranty or guarantee of the accuracy or completeness of information in this document.
--- OUTSIDE RECORDS SUMMARY | 2023-09-16 01:11 | XMS RPT_ITS | CCD ---
Author Name Unknown Address [address] [place] [address] Organization [facility] Care Team Providers Care Geothermal Technician Name Role Phone Keli Young Unavailable Unavailable Munir Torres MD Unavailable [phone] Casimiro Duncan Unavailable Unavailable Unavailable Tom Muñoz [...] Class(es) Dates Sig (Normalized) Sig (Original) amylase 180550 unt / lipase 09012 unt / protease [id number] unt delayed release oral capsule (4 sources) Start: 10-29-2021 Zenpep [id number] UNIT Oral Capsule Delayed Release Particles Take [...] TBEC One tablet by mouth daily ASPIRIN [id number] Munir Torrse MD Problems Active Problems Problem Classification Problem [...] deficiency] Chronic Other aftercare (1 source) 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; Translations: [USP (current) use of aspirin] Onset: 11-23-2022 Episodic Other aftercare (1 source) Long-term current use of aspirin; Translations: [USP (current) use of aspirin] 11-26-2022 Episodic Other [...] height 179.07 cm Casimiro Duncan Work Phone: [facility] Work Phone: 01-24-2023 13:30-0400 Body mass index (BMI) [Ratio] 20.69 kg/m2 Casimiro Duncan Work Phone: [facility] Work Phone: 01-24-2023 13:30-0400 Body surface area Derived from formula 1.84 m2 Casimiro Duncan Work Phone: [facility] Work Phone: 01-24-2023 13:30-0400 Body weight 66.34 kg Casimiro Duncan Work Phone: [facility] Work Phone: 10-12-2021 14:25-0500 Body height 179.07 cm Casimiro Duncan Work Phone: [facility] Work Phone: 10-12-2021 14:25-0500 Body mass index (BMI) [Ratio] 20.09 kg/m2 Casimiro Duncan Work Phone: [facility] Work Phone: 10-12-2021 14:25-0500 Body surface area Derived from formula 1.81 m2 Casimiro Pooja Duncan Work Phone: [facility] Work Phone: 10-12-2021 14:25-0500 Body weight 64.41 kg Casimiro Patton Duncan Work Phone: [facility] Work Phone: 10-12-2021 14:25-0500 Diastolic blood pressure 80 mm[Hg] Casimiro Pooja Duncan Work Phone: [facility] Work Phone: 10-12-2021 14:25-0500 Systolic blood pressure 120 mm[Hg] Casimiro Duncan Work Phone: [facility] Work Phone: 06-13-2017 15:57-0400 BMI (Body Mass Index) 19.7 kg/m2 Munir Torres MD [facility] Work Phone: 06-13-2017 15:57-0400 Body Temperature 97.9 [degF] Munir Torres MD [facility] Work Phone: 06-13-2017 15:57-0400 BP Diastolic 96 mm[Hg] Munir Torres MD [facility] Work Phone: 06-13-2017 15:57-0400 BP Systolic 153 mm[Hg] Munir Torres MD [facility] Work Phone: 06-13-2017 15:57-0400 Height 182.88 cm Munir Torres MD [facility] Work Phone: 06-13-2017 15:57-0400 Pulse (Heart Rate) 77 /min Munir Torres MD [facility] Work Phone: 06-13-2017 15:57-0400 Respiratory Rate 18 /min Munir Torres MD [facility] Work Phone: 06-13-2017 15:57-0400 Weight 65.91 kg Munir Torres MD [facility] Work Phone: Encounters Encounter Date Encounter Type Care Provider Facility Start: 04-21-2023 AUDIT Casimiro Duncan Work Phone: [facility] Work Phone: Start: 01-24-2023 Office outpatient vi sit 15 minutes Casimiro Duncan Work Phone: [facility] Work Phone: Start: 01-24-[address] Casimiro Duncan Facility:[id number] Start: 12-31-2022 AUDIT Casimiro Duncan Work Phone: [facility] Work Phone: Start: 11-23-2022 End: 11-23-2022 ambulatory Tom Muñoz Facility:[id number] Start: 11-23-2022 End: 11-23-2022 Subsequent hospital visit by physician Tom Muñoz DO Work Phone: [facility] Procedures Date Procedure Procedure Detail Performing Clinician Start: 11-23-2022 Colonoscopy stoma dx including collj spec spx Casimiro Duncan MD Start: 11-23-2022 Colonoscopy Tom rodrigues DO Work Phone: Colonoscopic polypectomy Yesika david Duncan Work Phone: Colonoscopy Casimiro Duncan Work Phone: Plan of Treatment Date Care Activity Detail Author Start: 11-23-2032 Screening for malignant neoplasm of colon [facility] Start: 04-22-2023 Influenza vaccination Influenza Vaccine (#1) [facility] Start: 01-24-2023 FUV, Provider: Tom Muñoz, Status: Pen, Time: 1:15 PM FUV, Provider: Tom Muñoz, Status: Pen, Time: 1:15 PM -[facility] Work Phone: Start: 06-24-2017 End: 06-24-2017 Appointment Appointment [facility] Work Phone: Start: 06-13-2017 End: 06-13-2017 Appointment Appointment [facility] Work Phone: Start: 06-13-2017 End: 06-14-2017 Colonoscopy flx dx w/collj spec when pfrmd Colonoscopy [facility] Work Phone: Start: 06-13-2017 End: 06-14-2017 Egd transoral biopsy single/multiple Upper gastrointestinal endoscopy; with biopsy [facility] Work Phone: Start: 2014 Pneumococcal Vaccine: 65+ Years (1 - PCV) Pneumococcal Vaccine: 65+ Years (1 - PCV) [facility] Start: 1999 Zoster Vaccines (1 of 2) Zoster Vaccines (1 of 2) [facility] Start: 1971 DTaP/Tdap/Td Vaccines (1 - Tdap) DTaP/Tdap/Td Vaccines (1 - Tdap) [facility] Start: 1967 Hepatitis C screening Hepatitis C Screening [facility] Start: 03-05-1951 COVID-19 Vaccine (#1) COVID-19 Vaccine (#1) [facility] Start: 1950 Lipid panel Lipid Panel [facility] Start: 1950 Screening for malignant neoplasm of colon [facility] Start: 1949 Yearly Adult Physical Yearly Adult Physical [facility] Payers Date Payer Category Payer Private Health Insurance [id number] 2014 Medicare [id number] 1950 Unknown [id number] 1950 Unknown [id number] Unknown Social History Date Type Detail Facility Never a smoker Never a smoker -[facility] Work Phone: Tobacco smoking status VTIS Tobacco smoking consumption unknown [facility] Work Phone: Start: 1950 Sex Assigned At Not on file [facility] Work Phone: Gender identity Not on file [facility]: [facility]oscopy 02-06-2023 Note Date & Type Note Facility 02-06-2023 Note Patient Name: Edwin Odonnell Procedure Date: 11/23/2022 8:41 AM Date of : 1950 Admit Type: Outpatient Site: [facility] Proc 1 Ethnicity: Not or Race: White Attending MD: Tom Muñoz DO, [id number] Procedure: Colonoscopy Indications: Surveillance: Personal history of colonic polyps (unknown histology) on last colonoscopy more than 5 years ago Providers: Tom Muñoz DO (Doctor), Kajal Lemon RN (Nurse), Kelsey Leal RN (Nurse), Ewa Maradiaga, Outside Repairer Special Referring: Casimiro Duncan Medicines: Midazolam 2.5 mg [...] identify no food triggers for his symptoms. -[facility] [address] Work Phone: History of Present illness Narrative [...] with Humira. He follows with rheumatology in [place]. [facility] [place] [address] Work Phone: Evaluation note Note Date & Type Note Facility documented in this encounter [facility] Work Phone: Chief Complaint FUV in office [...] DATE CREATED AUTHOR AUTHOR'S ORGANIZ ATION 01/31/2023 [facility] DATE CREATED AUTHOR AUTHOR'S ORGANIZ ATION 01/31/2023 [facility] Reason for Visit (unrecogniz ed section and [...] BE BASED ON THE PRIMARY CLINICAL RECORDS. [facility] [employer] provides no warranty or guarantee of the accuracy or completeness of information in this document.
[2023-09-16] MEDS: Acetaminophen 325 MG Tablet 650 MG PO ×2 (02:34→14:37)
[2023-09-16] MEDS: oxyCODONE 5 MG Tablet PO ×2 (02:34→14:38)
[2023-09-16] MEDS: 0.9% Normal Saline (1000mL) 1,000 ML 75 ML IV (02:40)
[2023-09-16 04:58] LABS: Absolute Lymphocyte Count 0.58 X10^3/uL (0.83-4.51); Absolute Neutrophil Count 8.4 X10^3/uL (2.0-7.7); Basophil# 0.01 X10^3/uL; Basophil% 0.1 % (0-1); Hematocrit 38.7 % (40-54); Hemoglobin 13.2 g/dL (13.0-16.5); Lymphocyte # 0.58 X10^3/ul (0.83-4.51); Lymphocyte % 5.9 % (19-41); Mean Corp Hgb Conc 34.1 g/dL (32-36); Mean Corpuscular Volume 96.8 fL (80-94); Mean Platelet Vol. 9.3 fl (6.2-12.0); Monocyte# 0.73 X10^3/uL; Monocyte% 7.5 % (0-10); NRBC Flagged by Analyzer 0 % (0-5); POSITIVE DIFFERENTIAL YES; Platelet Count 158 K/mm3 (150-450); RBC Distribution Width CV 14.2 % (11.6-14.6); RBC Distribution Width SD 49.6 fl (35.1-43.9); White Blood Count 9.8 K/mm3 (4.4-11.0)
[2023-09-16 05:04] LABS: Differential Indicated SCAN CRITERIA MET
[2023-09-16 05:31] LABS: ALB/GLOB Ratio 1.2 RATIO (0.9-2.4); AST(SGOT) 30 U/L (15-37); Alanine Aminotransfer ALT/SGPT 39 U/L (16-61); Albumin, Serum 3.2 g/dL (3.2-5.0); Alkaline Phosphatase 54 U/L (45-117); Anion Gap 4 (5-15); BUN 18 mg/dL (7-18); BUN/Creat Ratio 20.1 RATIO (10-20); Calcium,Total 8.9 mg/dL (8.5-10.1); Chloride 105 mmol/L (98-107); EST Glomerular Filtration Rate 88 mL/min (>60); Est Glom Filt Rate - Afr Amer 107 mL/min (>60); Estimated Creatinine Clearance 63.76 ml/min; Globulin 2.7 g/dL (2.2-4.2); Glucose 143 mg/dL (74-106); Potassium 3.8 mmol/L (3.5-5.1); Protein, Total 5.9 g/dL (6.4-8.2); Sodium Level 140 mmol/L (136-145)
[2023-09-16 05:49] LABS: Differential Comment SCANNED
[2023-09-16] MEDS: Folic Acid 1 MG Tablet 2 MG PO (11:12)
[2023-09-16] MEDS: Hydroxychloroquine 200 MG Tablet PO (11:12)
[2023-09-16] MEDS: Docusate Sodium 100 MG Capsule PO (11:13)
[2023-09-16] MEDS: Cholecalciferol (VIT D3) 25 MCG TABLET (1,000 UNITS) PO (11:13)
--- NOTE | 2023-09-16 11:25 | CASEMGMT ---
Addendum entered by Perla Rios 09/16/23 14:55: A local list of in network [facility] agencies printed via [employer] and given to the pt incase the pt is able chooses to go this route vs SNF. Original Note: IRMA ROBB Assessment Face to Face with patient for initial transition planning/care coordination assessment. IRMA ROBB introduced self and role at [facility], pt voices understanding. Pt is A&Ox4 and is resting comfortably in chair and is calm. Pt at bedside. Care providers, pharmacy, and demographics verified. Admitting dx: Fall, Pubic Rami Fx LACE Strata: 2 PCP: Dakota Specialists: Lori () Preferred Pharmacy: [facility] Insurance: [facility] [place] Prescription Benefit: Denies LNOK: Namrata Jimenez (W) Living Arrangements: Pt lives with his in a 2 story home with a basement with 3 steps to enter. Pt states he stays on the main level as it is a FFSU. Handrails to upstairs and none to the basement. Pt states they are looking into getting a ramp built for entrance into the home. ADLs/IADLs: States normally ind with ADLs and the helps with IADLs Transportation: Pt normally drive and the drives DME: States uses a cane at home. Shower has grab bars. Lift chair. Denies all other DME. HHC/SNF: Denies history. Pt?s goal/ plan: Pt 6 click=8 at this time. Pt goal is to progress through therapy and get well enough to DC home with his . However he states he is would be willing to go to a SNF if needed. NITIN Rudolph updated. Will monitor progress with therapy to clarify needs. Maikol Rios RN, CM
[2023-09-16] MEDS: 0.9% Normal Saline (1000mL) 1,000 ML 125 ML IV (14:30)
--- NOTE | 2023-09-16 15:03 | PCM.PROGNOTE ---
Subjective Subjective Patient seen and examined. He had no active complaints. Pain was well controlled when he lay still. Review of systems is otherwise negative. Objective Data Objective Data Vital Signs: Vital Signs Temp Pulse Resp BP Pulse Ox O2 Del Method 98.1 F 66 18 127/65 H 100 Room Air 09/16/23 14:35 09/16/23 14:35 09/16/23 14:35 09/16/23 14:35 09/16/23 14:35 09/16/23 14:35 Oxygen Delivery Method Room Air Weight: 138 lb 0.15 oz Body Mass Index (BMI) 20.4 Intake & Output: Intake and Output for Last 24 Hours 09/14/23 09/15/23 09/16/23 23:59 23:59 23:59 Intake Total 1400.0 / 1400.0 Output Total 350 / 350 Balance 1050.0 / 1050.0 Lab / Micro Data 09/16/23 04:30 09/16/23 04:30 Labs: Laboratory Results - last 24 hr 09/15/23 22:13: WBC 16.5 H, RBC 4.57 L, Hgb 15.2, Hct 44.8, MCV 98.0 H, MCH 33.3 H, MCHC 33.9, RDW Std Deviation 50.7 H, RDW Coeff of Narciso 14.2, Plt Count 186, MPV 10.0, Immature Gran % (Auto) 0.800, Neut % (Auto) 88.9 H, Lymph % (Auto) 3.6 L, [place] % (Auto) 6.2, Eos % (Auto) 0.1, Baso % (Auto) 0.4, Absolute Neuts (auto) 14.7 H, Absolute Lymphs (auto) 0.59 L, Nucleated RBC % 0, Differential Comment SCANNED, PT Cancelled, INR Cancelled, APTT Cancelled, Sodium 139, Potassium 3.5, Chloride 103, Carbon Dioxide 29.0, Anion Gap 7, BUN 17, Creatinine 1.01, Estim Creat Clear Calc 62.08, Est GFR (MDRD) Af Amer 93, Est GFR (MDRD) Non-Af 77, BUN/Creatinine Ratio 16.8, Glucose 126 H, Calcium 10.0, Blood Type Cancelled, Antibody Screen Cancelled 09/15/23 22:50: PT Cancelled, INR Cancelled, APTT Cancelled 09/15/23 23:22: PT 14.4, INR 1.1, APTT 31.0, Blood Type O POSITIVE, Antibody Screen NEGATIVE 09/16/23 04:30: WBC 9.8, RBC 4.00 L, Hgb 13.2, Hct 38.7 L, MCV 96.8 H, MCH 33.0 H, MCHC 34.1, RDW Std Deviation 49.6 H, RDW Coeff of Narciso 14.2, Plt Count 158, MPV 9.3, Immature Gran % (Auto) 0.500, Neut % (Auto) 86.0 H, Lymph % (Auto) 5.9 L, [place] % (Auto) 7.5, Eos % (Auto) 0.0, Baso % (Auto) 0.1, Absolute Neuts (auto) 8.4 H, Absolute Lymphs (auto) 0.58 L, Nucleated RBC % 0, Differential Comment SCANNED, Sodium 140, Potassium 3.8, Chloride 105, Carbon Dioxide 31.0, Anion Gap 4 L, BUN 18, Creatinine 0.90, Estim Creat Clear Calc 63.76, Est GFR (MDRD) Af Amer 107, Est GFR (MDRD) Non-Af 88, BUN/Creatinine Ratio 20.1 H, Glucose 143 H, Calcium 8.9, Total Bilirubin 1.00, AST 30, ALT 39, Alkaline Phosphatase 54, Total Protein 5.9 L, Albumin 3.2, Globulin 2.7, Albumin/Globulin Ratio 1.2 Radiography Diagnostic Testing: Radiology Impression Chest X-Ray 09/15/23 22:30 IMPRESSION: There are findings consistent with COPD. There is no evidence of acute chest disease.. Electronically Signed: Renan Ravi MD at 22:49 EST , Hip/Pelvis X-Ray 09/15/23 22:30 IMPRESSION: Normal x-ray examination of the pelvis and hip. Electronically Signed: Renan Ravi MD at 22:50 EST , Lower Extremity CT 09/15/23 22:45 IMPRESSION: Acute pelvic fractures including the right superior and inferior pubic rami, which may extend to the acetabulum. Recommend dedicated CT pelvis with thin section images for complete evaluation. Electronically Signed: Shanon Lockett MD at 0:25 EST Reading Location ID and State: [facility] / [place] Tel , Service support , Pelvis CT 09/16/23 00:32 IMPRESSION: Acute right superior and inferior pubic rami fractures. No extension to the acetabulum. Associated mild hematoma along the right pelvis. Bilateral inguinal hernias containing bladder on the right, small bowel on the left, without evidence of complication. Electronically Signed: Shanon Lockett MD at 1:23 EST , Rhythm Strip Rhythm Strip: Sinus Rhythm Rate: 67 Ectopy: None Physical Exam Const alert, oriented x3 and no apparent distress General Appearance: cooperative HEENT normocephalic, head/scalp atraumatic, moist oral mucous membranes and oropharynx normal Eyes PERRL and EOMs intact bilaterally Neck no lymphadenopathy and supple Lymph Lymphatic: no lymphadenopathy noted and no lymphedema noted Resp normal respiratory effort, normal air movement and clear to auscultation bilaterally Cardio regular rate, regular rhythm, S1 normal heart sound, S2 normal heart sound and no murmurs GI normal to inspection, nondistended, normoactive bowel sounds, soft to palpation, non-tender and non-distended Extremity normal capillary refill, no clubbing, cyanosis or edema and no calf tenderness General Extremity: no tenderness to palpation of joints or extremities Skin General Skin Exam: no breakdown Neuro CN's II-XII intact bilaterally, no focal motor deficits, no sensory deficits noted and deep tendon reflexes 2+ bilaterally Motor Exam: strength 5/5 throughout Psych thought process normal Mood & Affect: flat affect Assessment & Plan Assessment/Plan (1) Fall: (2) Closed fracture of pubic ramus: PLAN: Plan #Pubic rami fracture due to mechanical fall Patient states he was trying to use a small plow and fell down with snowplow landing on him. He was unable to get up on his own. imaging showed acute pelvic fractures of the right superior and inferior pubic rami extending to the acetabulum Discussed with Dr. Rios of orthopedic surgery, no need for surgical intake. Patient for conservative management, to ambulate with a walker and to be seen by orthopedics in about 6 weeks. PT OT on board. On p.o. Tylenol and oxycodone as well as IV morphine as needed for pain. Fall precautions. 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 #Hypertension: On metoprolol. IV hydralazine as needed. #Rheumatoid arthritis: On methotrexate and hydroxychloroquine together with folic acid. DVT prophylaxis: SCDs Charges/Coding Visit Charges Inpatient E&M: 33133 Subs Hosp L2
--- NOTE | 2023-09-16 16:30 | CASEMGMT ---
Social Work SW received phone call from pt's Namrata who states pt is not able to return home at this time and feels pt will benefit from short term rehab. Pt's requesting TCU. A list of SNF providers including quality and resource use data and consistent with the patient?s preferred geographic region, medical needs, and insurance network were left in pt room from the [facility] Guide. Referral made to TCU. SW to follow up on Tuesday with determination of acceptance. Plan: TCU, pending acceptance [facility]
[2023-09-16] MEDS: Menthol/Lanolin/Calamine/Znox 113 GM Tube 1 APPLIC TOPICAL ×2 (18:38→20:03)
[2023-09-16] MEDS: DONEPEZIL HCL 23 MG PO (20:01)
[2023-09-17 02:00] VITALS: BP 123/63; PULSE 74; RESP 16; TEMP 37.1; O2SAT 94
[2023-09-17 06:00] VITALS: BMI 20.3
[2023-09-17 07:29] LABS: Absolute Lymphocyte Count 0.95 X10^3/uL (0.83-4.51); Absolute Neutrophil Count 6.6 X10^3/uL (2.0-7.7); Basophil# 0.02 X10^3/uL; Basophil% 0.2 % (0-1); Eosinophil# 0.04 X10^3/uL; Eosinophils% 0.5 % (0-5); Hematocrit 39.2 % (40-54); Hemoglobin 13.1 g/dL (13.0-16.5); Lymphocyte # 0.95 X10^3/ul (0.83-4.51); Lymphocyte % 11.3 % (19-41); Mean Corp Hgb Conc 33.4 g/dL (32-36); Mean Corpuscular Hgb 32.8 pg (27.0-32.0); Mean Platelet Vol. 9.8 fl (6.2-12.0); Monocyte# 0.74 X10^3/uL; Monocyte% 8.8 % (0-10); NRBC Flagged by Analyzer 0 % (0-5); Neutrophil # 6.61 X10^3/uL (2.7-7.7); Neutrophil % 78.7 % (47-70); Platelet Count 143 K/mm3 (150-450); RBC Distribution Width CV 14.2 % (11.6-14.6); RBC Distribution Width SD 51.6 fl (35.1-43.9); White Blood Count 8.4 K/mm3 (4.4-11.0)
[2023-09-17 07:59] LABS: Anion Gap 1 (5-15); BUN 16 mg/dL (7-18); BUN/Creat Ratio 22.1 RATIO (10-20); Chloride 108 mmol/L (98-107); Creatinine, Serum 0.72 mg/dL (0.70-1.30); EST Glomerular Filtration Rate 113 mL/min (>60); Est Glom Filt Rate - Afr Amer 136 mL/min (>60); Glucose 102 mg/dL (74-106); Potassium 3.3 mmol/L (3.5-5.1); Sodium Level 139 mmol/L (136-145)
[2023-09-17 08:12] VITALS: O2SAT 94
[2023-09-17 08:20] VITALS: BP 139/83; PULSE 78; RESP 16; TEMP 36.7; O2SAT 95
[2023-09-17] MEDS: Folic Acid 1 MG Tablet 2 MG PO (08:47)
[2023-09-17] MEDS: Ensure Plus High Protein 120 ML LIQUID PO (08:47)
[2023-09-17] MEDS: Docusate Sodium 100 MG Capsule PO (08:47)
[2023-09-17] MEDS: Cholecalciferol (VIT D3) 25 MCG TABLET (1,000 UNITS) PO (08:47)
[2023-09-17] MEDS: DONEPEZIL HCL 23 MG PO (08:47)
[2023-09-17] MEDS: Hydroxychloroquine 200 MG Tablet PO (08:47)
[2023-09-17] MEDS: Menthol/Lanolin/Calamine/Znox 113 GM Tube 1 APPLIC TOPICAL ×4 (08:47→23:00)
[2023-09-17] MEDS: Aspirin 81 MG TAB.CHEW PO (08:50)
[2023-09-17] MEDS: Enoxaparin 40 MG/0.4 ML Syringe SC (08:50)
[2023-09-17] MEDS: Acetaminophen 325 MG Tablet 650 MG PO (08:50)
[2023-09-17] MEDS: Potassium Chloride Oral Tablet 20 MEQ 40 MEQ PO (08:50)
--- NOTE | 2023-09-17 10:50 | PN_ITS ---
Subjective Subjective Patient seen and examined. He had no active complaints. Pain was well controlled when he was laying still. Review of systems is otherwise negative. He is awaiting placement. Objective Data Objective Data Vital Signs: Vital Signs Temp Pulse Resp BP Pulse Ox O2 Del Method 98.1 F 78 16 139/83 H 95 Room Air 09/17/23 08:20 09/17/23 08:20 09/17/23 08:20 09/17/23 08:20 09/17/23 08:20 09/17/23 08:20 Oxygen Delivery Method Room Air Weight: 137 lb 9.095 oz Body Mass Index (BMI) 20.3 Intake & Output: Intake and Output for Last 24 Hours 09/15/23 09/16/23 09/17/23 23:59 23:59 23:59 Intake Total 2750.0 / 2750.0 Output Total 550 / 550 Balance 2200.0 / 2200.0 Lab / Micro Data 09/17/23 06:17 09/17/23 06:17 Labs: Laboratory Results - last 24 hr 09/17/23 06:17: WBC 8.4, RBC 4.00 L, Hgb 13.1, Hct 39.2 L, MCV 98.0 H, MCH 32.8 H, MCHC 33.4, RDW Std Deviation 51.6 H, RDW Coeff of Narciso 14.2, Plt Count 143 L, MPV 9.8, Immature Gran % (Auto) 0.500, Neut % (Auto) 78.7 H, Lymph % (Auto) 11.3 L, [place] % (Auto) 8.8, Eos % (Auto) 0.5, Baso % (Auto) 0.2, Absolute Neuts (auto) 6.6, Absolute Lymphs (auto) 0.95, Nucleated RBC % 0, Sodium 139, Potassium 3.3 L , Chloride 108 H, Carbon Dioxide 30.0, Anion Gap 1 L, BUN 16, Creatinine 0.72, Estim Creat Clear Calc 71.50, Est GFR (MDRD) Af Amer 136, Est GFR (MDRD) Non-Af 113, BUN/Creatinine Ratio 22.1 H, Glucose 102, Calcium 9.0 Rhythm Strip Rhythm Strip: Sinus Rhythm Rate: 67 Ectopy: None Physical Exam Const alert, oriented x3 and no apparent distress General Appearance: cooperative HEENT normocephalic, head/scalp atraumatic, moist oral mucous membranes and oropharynx normal Eyes PERRL and EOMs intact bilaterally Neck no lymphadenopathy and supple Lymph Lymphatic: no lymphadenopathy noted and no lymphedema noted Resp normal respiratory effort, normal air movement and clear to auscultation bilaterally Cardio regular rate, regular rhythm, S1 normal heart sound, S2 normal heart sound and no murmurs GI normal to inspection, nondistended, normoactive bowel sounds, soft to palpation, non-tender and non-distended Extremity normal capillary refill, no clubbing, cyanosis or edema and no calf tenderness General Extremity: no tenderness to palpation of joints or extremities Skin General Skin Exam: no breakdown Neuro CN's II-XII intact bilaterally, no focal motor deficits, no sensory deficits noted and deep tendon reflexes 2+ bilaterally Motor Exam: strength 5/5 throughout and general weakness Psych thought process normal Mood & Affect: flat affect Assessment & Plan Assessment/Plan (1) Fall: (2) Closed fracture of pubic ramus: PLAN: Plan #Pubic rami fracture due to mechanical fall * Patient states he was trying to use a small plow and fell down with snowplow landing on him. * He was unable to get up on his own. * imaging showed acute pelvic fractures of the right superior and inferior pubic rami extending to the acetabulum * Discussed with Dr. Rios of orthopedic surgery, no need for surgical intake. Patient for conservative management, to ambulate with a walker and to be seen by orthopedics in about 6 weeks. * PT OT on board. On p.o. Tylenol and oxycodone as well as IV morphine as needed for pain. * Fall precautions. 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 #Hypertension: On metoprolol. IV hydralazine as needed. #Thrombocytopenia: platelets are 143 today. Was previously 158. Will monitor. If it drops any more, will consider deseeding Lovenox. #Rheumatoid arthritis: On methotrexate and hydroxychloroquine together with folic acid. DVT prophylaxis: SCDs Disposition: awaiting placement Charges/Coding Visit Charges Inpatient E&M: 45874 Subs Hosp L2
[2023-09-17] MEDS: 0.9% Saline Lock 10 ML Syringe IV (14:16)
[2023-09-17] MEDS: Ondansetron 4 MG/2 ML Vial IV (14:16)
[2023-09-17 16:00] VITALS: BP 136/78; PULSE 66; RESP 16; TEMP 36.5; O2SAT 97
[2023-09-17] MEDS: Folic Acid 1 MG Tablet PO (17:47)
[2023-09-17 20:35] VITALS: BP 149/76; PULSE 73; RESP 16; TEMP 36.8; O2SAT 97
[2023-09-18 04:30] VITALS: BP 144/72; PULSE 79; RESP 16; TEMP 36.8; O2SAT 97
[2023-09-18 06:00] VITALS: BMI 19.8
[2023-09-18 06:13] LABS: Absolute Lymphocyte Count 1.13 X10^3/uL (0.83-4.51); Absolute Neutrophil Count 5.6 X10^3/uL (2.0-7.7); Basophil# 0.04 X10^3/uL; Basophil% 0.5 % (0-1); Eosinophil# 0.06 X10^3/uL; Eosinophils% 0.8 % (0-5); Hematocrit 40.9 % (40-54); Hemoglobin 13.9 g/dL (13.0-16.5); Lymphocyte # 1.13 X10^3/ul (0.83-4.51); Lymphocyte % 14.9 % (19-41); Mean Corpuscular Hgb 33.7 pg (27.0-32.0); Mean Platelet Vol. 9.8 fl (6.2-12.0); Monocyte% 9.2 % (0-10); NRBC Flagged by Analyzer 0 % (0-5); Neutrophil # 5.63 X10^3/uL (2.7-7.7); Neutrophil % 74.1 % (47-70); Platelet Count 147 K/mm3 (150-450); RBC Distribution Width CV 14.2 % (11.6-14.6); RBC Distribution Width SD 51.2 fl (35.1-43.9); Red Blood Count 4.13 M/mm3 (4.6-6.2); White Blood Count 7.6 K/mm3 (4.4-11.0)
[2023-09-18 06:29] LABS: Anion Gap 1 (5-15); BUN 16 mg/dL (7-18); BUN/Creat Ratio 18.6 RATIO (10-20); Calcium,Total 9.1 mg/dL (8.5-10.1); Chloride 106 mmol/L (98-107); Creatinine, Serum 0.86 mg/dL (0.70-1.30); EST Glomerular Filtration Rate 93 mL/min (>60); Est Glom Filt Rate - Afr Amer 112 mL/min (>60); Estimated Creatinine Clearance 64.88 ml/min; Glucose 97 mg/dL (74-106); Potassium 3.3 mmol/L (3.5-5.1); Sodium Level 138 mmol/L (136-145)
[2023-09-18 07:33] VITALS: O2SAT 93
[2023-09-18] MEDS: Folic Acid 1 MG Tablet PO ×2 (09:51→16:51)
[2023-09-18] MEDS: Docusate Sodium 100 MG Capsule PO (09:52)
[2023-09-18] MEDS: Menthol/Lanolin/Calamine/Znox 113 GM Tube 1 APPLIC TOPICAL ×4 (09:52→20:02)
[2023-09-18] MEDS: Ensure Plus High Protein 120 ML LIQUID PO ×2 (09:52→13:21)
[2023-09-18] MEDS: Enoxaparin 40 MG/0.4 ML Syringe SC (09:52)
[2023-09-18] MEDS: Hydroxychloroquine 200 MG Tablet PO (09:53)
[2023-09-18] MEDS: Cholecalciferol (VIT D3) 25 MCG TABLET (1,000 UNITS) PO (09:53)
[2023-09-18] MEDS: DONEPEZIL HCL 23 MG PO (09:53)
[2023-09-18] MEDS: Potassium Chloride Oral Tablet 20 MEQ 60 MEQ PO (09:56)
[2023-09-18 09:58] VITALS: BP 150/87; PULSE 75; RESP 16; TEMP 36.6; O2SAT 99
--- NOTE | 2023-09-18 11:03 | PN_ITS ---
Subjective Subjective Patient seen and examined. He had no complaints. Review of systems is otherwise negative. He is awaiting placement. Objective Data Objective Data Vital Signs: Vital Signs Temp Pulse Resp BP Pulse Ox O2 Del Method 97.9 F 75 16 150/87 H 99 Room Air 09/18/23 09:58 09/18/23 09:58 09/18/23 09:58 09/18/23 09:58 09/18/23 09:58 09/18/23 09:58 Oxygen Delivery Method Room Air Weight: 134 lb 3.012 oz Body Mass Index (BMI) 19.8 Intake & Output: Intake and Output for Last 24 Hours 09/16/23 09/17/23 09/18/23 23:59 23:59 23:59 Intake Total 2750.0 / 2750.0 400 / 400 Output Total 550 / 550 Balance 2200.0 / 2200.0 400 / 400 Lab / Micro Data 09/18/23 05:34 09/18/23 05:34 Labs: Laboratory Results - last 24 hr 09/18/23 05:34: WBC 7.6, RBC 4.13 L, Hgb 13.9, Hct 40.9, MCV 99.0 H, MCH 33.7 H, MCHC 34.0, RDW Std Deviation 51.2 H, RDW Coeff of Narciso 14.2, Plt Count 147 L, MPV 9.8, Immature Gran % (Auto) 0.500, Neut % (Auto) 74.1 H, Lymph % (Auto) 14.9 L, [place] % (Auto) 9.2, Eos % (Auto) 0.8, Baso % (Auto) 0.5, Absolute Neuts (auto) 5.6, Absolute Lymphs (auto) 1.13, Nucleated RBC % 0, Sodium 138, Potassium 3.3 L , Chloride 106, Carbon Dioxide 31.0, Anion Gap 1 L, BUN 16, Creatinine 0.86, Estim Creat Clear Calc 64.88, Est GFR (MDRD) Af Amer 112, Est GFR (MDRD) Non-Af 93, BUN/Creatinine Ratio 18.6, Glucose 97, Calcium 9.1 Rhythm Strip Rhythm Strip: Sinus Rhythm Rate: 67 Ectopy: None Physical Exam Const alert and no apparent distress Constitutional Narrative: episodic confusion General Appearance: cooperative HEENT normocephalic, head/scalp atraumatic, moist oral mucous membranes and oropharynx normal Eyes PERRL and EOMs intact bilaterally Neck no lymphadenopathy and supple Lymph Lymphatic: no lymphadenopathy noted and no lymphedema noted Resp normal respiratory effort, normal air movement and clear to auscultation bilaterally Cardio regular rate, regular rhythm, S1 normal heart sound, S2 normal heart sound and no murmurs GI normal to inspection, nondistended, normoactive bowel sounds, soft to palpation, non-tender and non-distended Extremity normal capillary refill, no clubbing, cyanosis or edema and no calf tenderness General Extremity: no tenderness to palpation of joints or extremities Skin General Skin Exam: no breakdown Neuro CN's II-XII intact bilaterally, no focal motor deficits, no sensory deficits noted and deep tendon reflexes 2+ bilaterally Motor Exam: strength 5/5 throughout and general weakness Psych thought process normal Mood & Affect: flat affect Assessment & Plan Assessment/Plan (1) Fall: (2) Closed fracture of pubic ramus: PLAN: Plan #Pubic rami fracture due to mechanical fall * Patient states he was trying to use a small plow and fell down with snowplow landing on him. * imaging showed acute pelvic fractures of the right superior and inferior pubic rami extending to the acetabulum * Discussed with Dr. Rios of orthopedic surgery, no need for surgical intake. Patient for conservative management, to ambulate with a walker and to be seen by orthopedics in about 6 weeks. * PT OT on board. On p.o. Tylenol and oxycodone as well as IV morphine as needed for pain. * Fall precautions. 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 #Hypertension: On metoprolol. IV hydralazine as needed. #Thrombocytopenia: platelets are 147 today. Was previously 143 yesterday. Will monitor. #Rheumatoid arthritis: On methotrexate and hydroxychloroquine together with folic acid. DVT prophylaxis: SCDs Disposition: awaiting placement Charges/Coding Visit Charges Inpatient E&M: 14056 Subs Hosp L2
[2023-09-18 16:57] VITALS: BP 144/83; PULSE 64; RESP 16; TEMP 36.6; O2SAT 100
[2023-09-18 22:00] VITALS: BP 125/74; PULSE 66; RESP 16; TEMP 37.2; O2SAT 96
[2023-09-19 04:00] VITALS: BP 128/79; PULSE 74; RESP 15; TEMP 36.8; O2SAT 96
[2023-09-19 04:36] LABS: Absolute Lymphocyte Count 1.08 X10^3/uL (0.83-4.51); Absolute Neutrophil Count 5.1 X10^3/uL (2.0-7.7); Basophil# 0.06 X10^3/uL; Basophil% 0.9 % (0-1); Eosinophil# 0.09 X10^3/uL; Eosinophils% 1.3 % (0-5); Hematocrit 42.1 % (40-54); Hemoglobin 14.4 g/dL (13.0-16.5); Lymphocyte # 1.08 X10^3/ul (0.83-4.51); Lymphocyte % 15.3 % (19-41); Mean Corp Hgb Conc 34.2 g/dL (32-36); Mean Corpuscular Hgb 33.2 pg (27.0-32.0); Mean Platelet Vol. 9.4 fl (6.2-12.0); Monocyte# 0.65 X10^3/uL; Monocyte% 9.2 % (0-10); NRBC Flagged by Analyzer 0 % (0-5); Neutrophil # 5.12 X10^3/uL (2.7-7.7); Neutrophil % 72.7 % (47-70); POSITIVE MORPHOLOGY YES; Platelet Count 184 K/mm3 (150-450); RBC Distribution Width SD 49.2 fl (35.1-43.9); Red Blood Count 4.34 M/mm3 (4.6-6.2)
[2023-09-19 05:02] LABS: Differential Indicated SCAN CRITERIA MET
[2023-09-19 06:13] LABS: Anion Gap 1 (5-15); BUN 15 mg/dL (7-18); BUN/Creat Ratio 18.1 RATIO (10-20); Calcium,Total 9.7 mg/dL (8.5-10.1); Chloride 105 mmol/L (98-107); Creatinine, Serum 0.83 mg/dL (0.70-1.30); EST Glomerular Filtration Rate 97 mL/min (>60); Est Glom Filt Rate - Afr Amer 117 mL/min (>60); Estimated Creatinine Clearance 67.22 ml/min; Glucose 101 mg/dL (74-106); Potassium 4.1 mmol/L (3.5-5.1); Sodium Level 137 mmol/L (136-145)
[2023-09-19 07:12] LABS: Reactive Lymphocyte 1+
[2023-09-19] MEDS: Cholecalciferol (VIT D3) 25 MCG TABLET (1,000 UNITS) PO (09:25)
[2023-09-19] MEDS: Hydroxychloroquine 200 MG Tablet PO (09:25)
[2023-09-19] MEDS: DONEPEZIL HCL 23 MG PO (09:26)
[2023-09-19] MEDS: Menthol/Lanolin/Calamine/Znox 113 GM Tube 1 APPLIC TOPICAL ×3 (09:26→16:20)
[2023-09-19] MEDS: Enoxaparin 40 MG/0.4 ML Syringe SC (09:26)
[2023-09-19] MEDS: Docusate Sodium 100 MG Capsule PO (09:26)
[2023-09-19] MEDS: Aspirin 81 MG TAB.CHEW PO (09:26)
[2023-09-19 09:29] VITALS: BP 123/70; PULSE 88; RESP 16; TEMP 36.8; O2SAT 98
[2023-09-19] MEDS: Folic Acid 1 MG Tablet PO ×2 (09:34→16:21)
--- NOTE | 2023-09-19 11:51 | PN.HOSP_ITS ---
Subjective Subjective Doing well, no issues overnight Objective Data Objective Data Vital Signs: Vital Signs Temp Pulse Resp BP Pulse Ox O2 Del Method 98.2 F 88 16 123/70 H 98 Room Air 09/19/23 09:09/19/23 09:29 09/19/23 09:29 09/19/23 09:29 09/19/23 09:29 09/19/23 09:29 Oxygen Delivery Method Room Air Weight: 134 lb 3.012 oz Body Mass Index (BMI) 19.8 Intake & Output: Intake and Output for Last 24 Hours 09/18/23 09/19/23 09/20/23 03:59 03:59 03:59 Intake Total 400 / 400 Balance 400 / 400 Lab / Micro Data 09/19/23 04:08 09/19/23 04:08 Labs: Laboratory Results - last 24 hr 09/19/23 04:08: WBC 7.0, RBC 4.34 L, Hgb 14.4, Hct 42.1, MCV 97.0 H, MCH 33.2 H, MCHC 34.2, RDW Std Deviation 49.2 H, RDW Coeff of Narciso 14.0, Plt Count 184, MPV 9.4, Immature Gran % (Auto) 0.600, Neut % (Auto) 72.7 H, Lymph % (Auto) 15.3 L, [place] % (Auto) 9.2, Eos % (Auto) 1.3, Baso % (Auto) 0.9, Absolute Neuts (auto) 5.1, Absolute Lymphs (auto) 1.08, Nucleated RBC % 0, Reactive Lymphocytes 1+, Sodium 137, Potassium 4.1, Chloride 105, Carbon Dioxide 31.0, Anion Gap 1 L, BUN 15, Creatinine 0.83, Estim Creat Clear Calc 67.22, Est GFR (MDRD) Af Amer 117, Est GFR (MDRD) Non-Af 97, BUN/Creatinine Ratio 18.1, Glucose 101, Calcium 9.7 Rhythm Strip Rhythm Strip: Sinus Rhythm Rate: 67 Ectopy: None Physical Exam Narrative General: Alert, Cooperative, No apparent distress HEENT: Atraumatic, PERRLA, EOMI, Normocephalic Oral: Moist Mucosa Neck: Supple, No JVD Lungs: Diminished, Normal air movement, No rhonchi, No wheeze, No rales Cardiovascular: Regular rate, Regular Rhythm, Normal S1, Normal S2, No murmurs Abdomen: Soft, Non Tender, Non-Distended, No Hepato-splenomegaly Extremities: No edema, Capillary Refill Less than 3 Seconds Skin: No rashes, No breakdown Musculoskeletal: No Tenderness to Palpation of Joints or Extremities Neurological: No focal neurological deficits, Motor Exam 5/5 strength throughout, Sensory exam intact to light touch and pain Psych/Mental Status: Flat Assessment & Plan Assessment/Plan (1) Fall: (2) Closed fracture of pubic ramus: PLAN: Plan #Pubic rami fracture due to mechanical fall * Patient states he was trying to use a small plow and fell down with snowplow landing on him. * imaging showed acute pelvic fractures of the right superior and inferior pubic rami extending to the acetabulum * Discussed with Dr. Rios of orthopedic surgery, no need for surgical intake. Patient for conservative management, to ambulate with a walker and to be seen by orthopedics in about 6 weeks. * PT OT on board. On p.o. Tylenol and oxycodone as well as IV morphine as needed for pain. * Fall precautions. 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 #Hypertension: On metoprolol. IV hydralazine as needed. #Thrombocytopenia: platelets are 147 today. Was previously 143 yesterday. Will monitor. #Rheumatoid arthritis: On methotrexate and hydroxychloroquine together with folic acid. DVT: SCDs Charges/Coding Visit Charges Inpatient E&M: 24065 Subs Hosp L2
--- NOTE | 2023-09-19 14:24 | TREXTCAR_ITS ---
Diet Diet Order/Speech Therapy: 09/16/23 08:32 Diet: Regular - General Is pt able to select menu?: No Diet Comments: NPO except sip water with meds Routine Orders/Code Status Routine Lab Work: CBC and BMP Code Status: Full Code Wound(s) GENERALIZED: Wound Type: SCRATCHES & SCRAPES LUZ BUTTOCKS: Wound Type: Pressure Injury RIGHT FINGERS: Wound Type: SCABBED AREAS Therapies Weight Bearing: Weight bearing as tolerated Physical Therapy: Eval and Treat Occupational Therapy: Eval and Treat Problem/Diagnosis (1) Fall: Status: Acute Code(s): W19.XXXA - Unspecified fall, initial encounter (2) Closed fracture of pubic ramus: Status: Acute Code(s): S32.599A - Other specified fracture of unspecified pubis, initial encounter for closed fracture Plan #Pubic rami fracture due to mechanical fall * Patient states he was trying to use a small plow and fell down with snowplow landing on him. * imaging showed acute pelvic fractures of the right superior and inferior pubic rami extending to the acetabulum * Discussed with Dr. Rios of orthopedic surgery, no need for surgical intake. Patient for conservative management, to ambulate with a walker and to be seen by orthopedics in about 6 weeks. * PT OT on board. On p.o. Tylenol and oxycodone as well as IV morphine as needed for pain. * Fall precautions. 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 #Hypertension: On metoprolol. IV hydralazine as needed. #Thrombocytopenia: platelets are 147 today. Was previously 143 yesterday. Will monitor. #Rheumatoid arthritis: On methotrexate and hydroxychloroquine together with folic acid. DVT: SCDs Allergies/Procedures Done in Hospital Allergies No Known Allergies Allergy (Verified 09/15/23 22:10) Procedures: None Type of Care/Length of Stay Estimated LOS: Convalescent Care Less Than 30 days Type of Care Needed: Skilled Rehab Potential: Good Prognosis: Good Additional Orders/Day of Discharge Day of Discharge: 09/19/23 Discharge Plan Admission Admit Date/Time: 09/16/23 00:53 Attending Provider: Ranjit Gutierrez Primary Care Provider: Casimiro Duncan Consulting Providers: Alma Alonzo; Kindra Turner Discharge Orders/Prescriptions Prescriptions: Continued hydroxychloroquine 200 mg tablet 200 mg PO QDAY aspirin 81 MG tablet,chewable 81 mg PO QODAY metoprolol tartrate 25 MG tablet 25 mg PO BID cholecalciferol (vitamin D3) 1,000 UNIT tablet 1,000 unit PO DAILY donepezil 23 mg tablet 23 mg PO DAILY Patient Comments: take 1 tablet by mouth once daily leucovorin calcium 15 MG tablet 15 mg PO Q7D Patient Comments: TAKES ON TUESDAY MORNING methotrexate sodium 2.5 MG tablet 7.5 mg PO Q7D Patient Comments: TAKES ON TUESDAY WITH LUNCH docusate sodium 100 MG capsule 100 mg PO DAILY folic acid 1 MG tablet 1 mg PO BID Referrals / Follow Up: Casimiro Duncan MD [Primary Care Provider] - Disposition Disposition (needs filled in before D/C Order can be placed): Longterm Facility
--- NOTE | 2023-09-19 14:39 | DS.PCM_ITS ---
Providers Date of Admission: 09/16/23 Primary Care Physician: Dr. Casimiro Duncan MD Reason For Visit: FALL, PUBIC RAMI FX, ? ACETABULAR INVOLVEMENT Diagnosis Discharge Diagnosis (1) Fall: Status: Acute Code(s): W19.XXXA - Unspecified fall, initial encounter (2) Closed fracture of pubic ramus: Status: Acute Code(s): S32.599A - Other specified fracture of unspecified pubis, initial encounter for closed fracture Medications at Discharge Home Medications aspirin 81 mg chewable tablet 81 mg PO QODAY blood thinner 03/24/14 metoprolol tartrate 25 mg tablet 25 mg PO BID htn 03/24/14 cholecalciferol (vitamin D3) 25 mcg (1,000 unit) tablet 1,000 unit PO DAILY vitamin 10/29/16 docusate sodium 100 mg capsule 100 mg PO DAILY stool softener 06/17/17 folic acid 1 mg tablet 1 mg PO BID vitamin 06/17/17 leucovorin calcium 15 mg tablet 15 mg PO Q7D RA 06/17/17 methotrexate sodium 2.5 mg tablet 7.5 mg PO Q7D ra 06/17/17 hydroxychloroquine 200 mg tablet 200 mg PO QDAY ra 02/14/18 donepezil 23 mg tablet 23 mg PO DAILY dementia 09/15/23 Hospital Course Operations None Procedures None Summary of Care Provided Minutes Spent on Discharge: 34 Hospital Course: Per HPI: The patient is a 73 y/o M w/ PMHx: Alzheimer's dementia with unclear behavioral disturbance history, Rheumatoid arthritis on MTX/hydroxychloroquine, HTN, Gout, Former tobacco use who presents to the [facility] ED on 09/15/23 with history of unfortunate mechanical fall reportedly out working on his tractor with a snowplow when he unfortunately fell onto his right hip found down on the ground by his neighbor with inability to stand with no reported LOC and not on any blood thinners eventually able to be moved but was unable to bear weight with significant pain prompting ED evaluation. Patient prior to his mechanical fall was in stable health with no issues with any chest pain as he did report some right parasternal discomfort following his fall but this is reproducible with palpation of the region and suspected secondary to injury with his fall. Workup in the ED included T98.8, heart rate 72, BP initially 79/54 with most recent repeat 110/63, respiratory rate 16, 94% on room air, CBC WBC 16.5, hemoglobin 15.2, platelet 196 with left shift and lymphopenia, coags unremarkable, BMP with glucose 126 otherwise unremarkable, type and screen already initiated per ED physician, chest x-ray with COPD type changes with no acute cardiopulmonary findings otherwise, plain film of the right hip and pelvi additional workup in the ED included CBC with WBC 3.3, M18.4, platelet 224 without differential performed, CT right lower extremity with an acute pelvic fracture including the 6 right superior and inferior pubic rami which extends into the acetabulum, pending CT pelvis upon evaluation, EKG with sinus rhythm with no acute evidence of ischemia. Hospital course: 1. Pubic rami fracture secondary to mechanical fall?73-year-old male with a history of Alzheimer's dementia presented to the hospital after mechanical fall. He was found to have a pubic ramus fracture. This was nonoperative. PT/OT was consulted and recommended SNF on discharge. He has not been requiring any significant pain management while here and his last oral narcotic was on 16 September. I discussed with him and his the plan for discharge today his expressed understanding of the risk benefits of going to the [place] [facility] and would like to go today. 2. Alzheimer's dementia, hypertension, rheumatoid arthritis are chronic medical conditions which complicate his care. His home medications were continued where appropriate Weight / BMI Weight Weight: 134 lb 3.012 oz Body Mass Index (BMI) 19.8 ABG / Lab / Microbiology Data 09/19/23 04:08 09/19/23 04:08 Laboratory: Laboratory Results - last 24 hr 09/19/23 04:08: WBC 7.0, RBC 4.34 L, Hgb 14.4, Hct 42.1, MCV 97.0 H, MCH 33.2 H, MCHC 34.2, RDW Std Deviation 49.2 H, RDW Coeff of Narciso 14.0, Plt Count 184, MPV 9.4, Immature Gran % (Auto) 0.600, Neut % (Auto) 72.7 H, Lymph % (Auto) 15.3 L, Don[place]han % (Auto) 9.2, Eos % (Auto) 1.3, Baso % (Auto) 0.9, Absolute Neuts (auto) 5.1, Absolute Lymphs (auto) 1.08, Nucleated RBC % 0, Reactive Lymphocytes 1+, Sodium 137, Potassium 4.1, Chloride 105, Carbon Dioxide 31.0, Anion Gap 1 L, BUN 15, Creatinine 0.83, Estim Creat Clear Calc 67.22, Est GFR (MDRD) Af Amer 117, Est GFR (MDRD) Non-Af 97, BUN/Creatinine Ratio 18.1, Glucose 101, Calcium 9.7 Meaningful Use Info Meaningful Use Diagnoses (Choose all that apply): None applicable Discharge Plan Admission Admit Date/Time: 09/16/23 00:53 Attending Provider: Ranjit Gutierrez Primary Care Provider: Casimiro Duncan Consulting Providers: Alma Alonzo; Kindra Turner Discharge Orders/Prescriptions Prescriptions: Continued hydroxychloroquine 200 mg tablet 200 mg PO QDAY aspirin 81 MG tablet,chewable 81 mg PO QODAY metoprolol tartrate 25 MG tablet 25 mg PO BID cholecalciferol (vitamin D3) 1,000 UNIT tablet 1,000 unit PO DAILY donepezil 23 mg tablet 23 mg PO DAILY Patient Comments: take 1 tablet by mouth once daily leucovorin calcium 15 MG tablet 15 mg PO Q7D Patient Comments: TAKES ON TUESDAY MORNING methotrexate sodium 2.5 MG tablet 7.5 mg PO Q7D Patient Comments: TAKES ON TUESDAY WITH LUNCH docusate sodium 100 MG capsule 100 mg PO DAILY folic acid 1 MG tablet 1 mg PO BID Referrals / Follow Up: Casimiro Duncan MD [Primary Care Provider] - Disposition Disposition (needs filled in before D/C Order can be placed): [facility] Facility Charges/Coding Visit Charges Inpatient E&M: 26167 Disch Hosp >30min
--- NOTE | 2023-09-19 14:41 | PHA.DC.MR.R ---
Pharmacy [place] Med Reconciliation Pharmacy Service has performed discharge medication reconciliation for this patient. The patient's discharge medication list was reviewed for discrepancies and discrepancies were resolved. Medications at Discharge Home Medications aspirin 81 mg chewable tablet 81 mg PO QODAY blood thinner 03/24/14 metoprolol tartrate 25 mg tablet 25 mg PO BID htn 03/24/14 cholecalciferol (vitamin D3) 25 mcg (1,000 unit) tablet 1,000 unit PO DAILY vitamin 10/29/16 docusate sodium 100 mg capsule 100 mg PO DAILY stool softener 06/17/17 folic acid 1 mg tablet 1 mg PO BID vitamin 06/17/17 leucovorin calcium 15 mg tablet 15 mg PO Q7D RA 06/17/17 methotrexate sodium 2.5 mg tablet 7.5 mg PO Q7D ra 06/17/17 hydroxychloroquine 200 mg tablet 200 mg PO QDAY ra 02/14/18 donepezil 23 mg tablet 23 mg PO DAILY dementia 09/15/23
[2023-09-19 16:00] VITALS: BP 124/82; PULSE 83; RESP 16; TEMP 36.8; O2SAT 96
== END 2023-09-19 17:56 | disposition skilled nursing facility (03) | DRG 536 ==
LOC: ED 09-16 00:43 → MS3 09-16 01:00
PROVIDERS: Student in an Organized Health Care Education/Training Program; Admitting Provider Family Medicine; Emergency Provider Emergency Medicine; PCP Family Medicine; Visit Provider Family Medicine
DX: S32.82XA Multiple fractures of pelvis without disruption of pelvic ring, initial encounter for closed fracture (principal); F02.818 Dementia in other diseases classified elsewhere, unspecified severity, with other behavioral disturbance; D69.6 Thrombocytopenia, unspecified; G30.9 Alzheimer's disease, unspecified; J44.9 Chronic obstructive pulmonary disease, unspecified; M06.9 Rheumatoid arthritis, unspecified; I10 Essential (primary) hypertension; K40.20 Bilateral inguinal hernia, without obstruction or gangrene, not specified as recurrent; M10.9 Gout, unspecified; W19.XXXA Unspecified fall, initial encounter; Z87.891 Personal history of nicotine dependence; Z80.0 Family history of malignant neoplasm of digestive organs; N50.1 Vascular disorders of male genital organs; Z79.82 Long term (current) use of aspirin
CPT/HCPCS: 36415; 71046; 72192; 73502; 73700; 80048; 80053; 85025; 85610; 85730; 86850; 86900; 86901; 93005; 94668; 97116; 97162; 97166; 97530; 97535; 99284; J7030; A4216; J2405

== ENCOUNTER 2023-09-19 18:00 | Inpatient (IN) | payer MEDICARE, BC, SELFPAY ==
--- OUTSIDE RECORDS SUMMARY | 2023-09-19 18:09 | XMS RPT_ITS | CCD ---
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) use of aspirin; Translations: [assisted (current) use of aspirin] Onset: 11-23-2022 Episodic Other aftercare (1 source) Long-term current use of aspirin; Translations: [assisted (current) use of aspirin] 11-26-2022 Episodic Other [...] height 179.07 cm Casimiro Duncan Work Phone: [facility] [place] Work Phone: 01-24-2023 13:30-0400 Body mass index (BMI) [Ratio] 20.69 kg/m2 Casimiro Duncan Work Phone: [facility] [place] Work Phone: 01-24-2023 13:30-0400 Body surface area Derived from formula 1.84 m2 Casimiro Duncan Work Phone: [facility] Work Phone: 01-24-2023 13:30-0400 Body weight 66.34 kg Casimiro Duncan Work Phone: [facility] [facility] Work Phone: 10-12-2021 14:25-0500 Body height 179.07 cm Casimiro Duncan Work Phone: [facility] Work Phone: 10-12-2021 14:25-0500 Body mass index (BMI) [Ratio] 20.09 kg/m2 Casimiro Duncan Work Phone: [facility] [facility] Work Phone: 10-12-2021 14:25-0500 Body surface area Derived from formula 1.81 m2 Casimiro Pooja Duncan Work Phone: [facility] Work Phone: 10-12-2021 14:25-0500 Body weight 64.41 kg Casimiro Patton Duncan Work Phone: [facility] Work Phone: 10-12-2021 14:25-0500 Diastolic blood pressure 80 mm[Hg] Casimiro Pooja Duncan Work Phone: [facility] Work Phone: 10-12-2021 14:25-0500 Systolic blood pressure 120 mm[Hg] Casimiro Duncan Work Phone: [facility] Work Phone: 06-13-2017 15:57-0400 BMI (Body Mass Index) 19.7 kg/m2 Munir Torres MD [facility] Work Phone: 06-13-2017 15:57-0400 Body Temperature 97.9 [degF] Munir Torres MD [facility] Work Phone: 06-13-2017 15:57-0400 BP Diastolic 96 mm[Hg] Munir Torres MD [facility] Work Phone: 06-13-2017 15:57-0400 BP Systolic 153 mm[Hg] Munir Torres MD [facility] Work Phone: 06-13-2017 15:57-0400 Height 182.88 cm Munir Torres MD [facility] Work Phone: 06-13-2017 15:57-0400 Pulse (Heart Rate) 77 /min Munir Torres MD [facility] Work Phone: 06-13-2017 15:57-0400 Respiratory Rate 18 /min Munir Torres MD [facility] Work Phone: 06-13-2017 15:57-0400 Weight 65.91 kg Munir Torres MD [facility] Work Phone: Encounters Encounter Date Encounter Type Care Provider Facility Start: 04-21-2023 AUDIT Casimiro Duncan Work Phone: [facility] Work Phone: Start: 01-24-2023 Office outpatient vi sit 15 minutes Casimiro Duncan Work Phone: [facility] Work Phone: Start: 01-24-[address] Casimiro Duncan Facility:[id number] Start: 12-31-2022 AUDIT Casimiro Duncan Work Phone: [facility] Work Phone: Start: 11-23-2022 End: 11-23-2022 ambulatory Tom Muñoz Facility:[id number] Start: 11-23-2022 End: 11-23-2022 Subsequent hospital visit by physician Tom Muñoz DO Work Phone: [facility] Procedures Date Procedure Procedure Detail Performing Clinician Start: 11-23-2022 Colonoscopy stoma dx including collj spec spx Casimiro Duncan MD Start: 11-23-2022 Colonoscopy Tom rodrigues DO Work Phone: Colonoscopic polypectomy Yesika david Duncan Work Phone: Colonoscopy Casimiro Duncan Work Phone: Plan of Treatment Date Care Activity Detail Author Start: 11-23-2032 Screening for malignant neoplasm of colon [facility] Start: 04-22-2023 Influenza vaccination Influenza Vaccine (#1) [facility] Start: 01-24-2023 FUV, Provider: Tom Muñoz, Status: Pen, Time: 1:15 PM FUV, Provider: Tom Muñoz, Status: Pen, Time: 1:15 PM -[facility] [facility] Work Phone: Start: 06-24-2017 End: 06-24-2017 Appointment Appointment [facility] Work Phone: Start: 06-13-2017 End: 06-13-2017 Appointment Appointment [facility] Work Phone: Start: 06-13-2017 End: 06-14-2017 Colonoscopy flx dx w/collj spec when pfrmd Colonoscopy [facility] Work Phone: Start: 06-13-2017 End: 06-14-2017 Egd transoral biopsy single/multiple Upper gastrointestinal endoscopy; with biopsy [facility] Work Phone: Start: 2014 Pneumococcal Vaccine: 65+ Years (1 - PCV) Pneumococcal Vaccine: 65+ Years (1 - PCV) [facility] Start: 1999 Zoster Vaccines (1 of 2) Zoster Vaccines (1 of 2) [facility] Start: 1971 DTaP/Tdap/Td Vaccines (1 - Tdap) DTaP/Tdap/Td Vaccines (1 - Tdap) [facility] Start: 1967 Hepatitis C screening Hepatitis C Screening [facility] Start: 03[birth year]05-1950 COVID-19 Vaccine (#1) COVID-19 Vaccine (#1) [facility] Start: 1950 Lipid panel Lipid Panel [facility] Start: 1950 Screening for malignant neoplasm of colon [facility] Start: 1950 Yearly Adult Physical Yearly Adult Physical [facility] Payers Date Payer Category Payer Private Health Insurance [id number] 2014 Medicare [id number] 1950 Unknown [id number] 1950 Unknown [id number] Unknown Social History Date Type Detail Facility Never a smoker Never a smoker -[facility] Work Phone: Tobacco smoking status VTIS Tobacco smoking consumption unknown [facility] Work Phone: Start: 1950 Sex Assigned At Not on file [facility] Work Phone: Gender identity Not on file [facility] Work Phone: Colonoscopy 02-06-2023 Note Date & Type Note Facility 02-06-2023 Note Patient Name: Edwin Odonnell Procedure Date: 11/23/2022 8:41 AM Date of : 1950 Admit Type: Outpatient Site: [facility] Proc 1 Ethnicity: Not or Race: White Attending MD: Tom Muñoz DO, [id number] Procedure: Colonoscopy Indications: Surveillance: Personal history of colonic polyps (unknown histology) on last colonoscopy more than 5 years ago Providers: Tom Muñoz DO (Doctor), Kajal Lemon RN (Nurse), Kelsey Leal RN (Nurse), Ewa Maradiaga, Door Captain Referring: Casimiro Duncan Medicines: Midazolam 2.5 mg [...] triggers for his symptoms. -[facility] [address] Work Phone: History of Present illness Narrative [...] with Humira. He follows with rheumatology in [place]. [facility] [address] Work Phone: Evaluation note Note Date & Type Note Facility documented in this encounter [facility] Work Phone: Chief Complaint [facility]UV [...] DATE CREATED AUTHOR AUTHOR'S ORGANIZ ATION 01/31/2023 [facility] DATE CREATED AUTHOR AUTHOR'S ORGANIZ ATION 01/31/2023 [employer] Reason for Visit (unrecogniz ed section and [...] BE BASED ON THE PRIMARY CLINICAL RECORDS. [facility] [employer] provides no warranty or guarantee of the accuracy or completeness of information in this document.
[2023-09-19 18:29] VITALS: BP 111/62; PULSE 74; PULSE 78; RESP 18; TEMP 36.1; O2SAT 95; O2SAT 98; BMI 19.5
--- NOTE | 2023-09-19 19:41 | HP.PCM_ITS ---
HPI - General General Date of Admission: 09/19/23 Date of Service: 09/20/23 Chief Complaint: Here for rehabilitation. HPI Narrative 09/15/2023 EDWIN ODONNELL, is a 73 Male who presents to [facility] ED with fall, right hip pain, unable to walk. 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 Found down by neighbor, unable to stand, no LOC, no head injury. Right hip pain, right chest pain. CT hip shows inferior, superior pubic rami fracture on right. Unable to walk. CT negative for right hip fracture. 09/16/2023 Admit to Hospital. Consult Orthopedics, PT/OT, for right pelvic fracture. 09/16/2023 Pain controlled at rest. Dr. Rios recommended no surgery for right pelvic fracture. PT/OT for debility. Tylenol, Oxycodone, Morphine IV for pain. 09/17/2023 Pain well controlled. Await placement. 09/18/2023, Await placement. 09/19/2023 No new issues. 09/19/2023 Admit to TCU with debility, here for rehabilitation, strengthening, prior to discharge home with . [facility] Medical History (Updated 09/19/23 @ 19:[address] Chon Zaman MD) Alzheimer disease COPD (chronic obstructive pulmonary disease) Gout Hemorrhoids HTN (hypertension) Rheumatoid arthritis Weight loss Home Medications aspirin 81 mg chewable tablet 81 mg PO QODAY blood thinner 03/24/14 [History Last Taken 09/17/23] metoprolol tartrate 25 mg tablet 25 mg PO BID htn 03/24/14 [History Last Taken 03/13/18 21:00 25 MG] cholecalciferol (vitamin D3) 25 mcg (1,000 unit) tablet 1,000 unit PO DAILY vitamin 10/29/16 [History Last Taken Unknown] docusate sodium 100 mg capsule 100 mg PO DAILY stool softener 06/17/17 [History Last Taken Unknown] folic acid 1 mg tablet 1 mg PO BID vitamin 06/17/17 [History Last Taken 09/17/23] leucovorin calcium 15 mg tablet 15 mg PO Q7D RA 06/17/17 [History Last Taken Unknown] methotrexate sodium 2.5 mg tablet 7.5 mg PO Q7D ra 06/17/17 [History Last Taken Unknown] hydroxychloroquine 200 mg tablet 200 mg PO QDAY ra 02/14/18 [History Last Taken Unknown] donepezil 23 mg tablet 23 mg PO DAILY dementia 09/15/23 [History Last Taken Unknown] Allergy/AdvReac Type Severity Reaction Status Date / Time No Known Allergies Allergy Verified 09/15/23 22:10 Family History Father Colon cancer CVA (cerebral vascular accident) Hypertension Heart disease Sister CAD (coronary artery disease) Hypertension Heart disease Mother Cancer Surgical History Hx of tonsillectomy S/P colonoscopy Social History household members: spouse Smoking Status: Former smoker alcohol intake: never substance use type: does not use ROS Constitutional Constitutional: Denies chills, fever(s) or weight gain ENT HEENT: Denies headache(s), nasal congestion or nasal discharge Cardiovascular Cardiovascular: Denies chest pain or palpitations Respiratory/Chest Respiratory/Chest: Denies cough, excessive phlegm production or shortness of breath with exertion Gastrointestinal Gastrointestinal: Denies abdominal pain, nausea or vomiting Genitourinary Genitourinary: Denies dysuria Musculoskeletal Musculoskeletal: Denies joint pain or joint swelling Integumentary Integumentary: Denies rash or wounds Neurologic Neurologic: Denies focal weakness, numbness or tingling Psychiatric Psychiatric: Denies anxiety, auditory hallucinations, depression, homicidal ideation or suicidal ideation Vital Signs Vital Signs Vital Signs: 09/19/23 18:29 Temperature 97 F L Temperature Source Temporal Pulse Rate 78 Respiratory Rate 18 Blood Pressure 111/62 Blood Pressure Mean 78 Blood Pressure Source Monitor Blood Pressure Position Semi-Fowlers Blood Pressure Location Right Arm Pulse Ox 98 Oxygen Delivery Method Room Air Weight Weight: 63.503 kg Body Mass Index (BMI) 19.5 Physical Exam Const alert General Appearance: cooperative HEENT normocephalic Eyes PERRL and EOMs intact bilaterally Neck supple, no JVD and no carotid bruits Resp normal respiratory effort, normal air movement and clear to auscultation bila terally Cardio regular rate and regular rhythm GI normal to inspection, nondistended, normoactive bowel sounds, non-tender and non-distended Extremity normal capillary refill General Extremity: Negative for edema Skin no rashes or lesions noted General Skin Exam: no breakdown Psych affect normal Appearance: appropriate Results Lab / Micro Data 09/20/23 05:29 09/20/23 05:29 Assessment & Plan Assessment/Plan (1) Debility: (2) Fall: (3) Closed fracture of pubic ramus: (4) Alzheimer disease: (5) Rheumatoid arthritis: (6) HTN (hypertension): (7) COPD (chronic obstructive pulmonary disease): (8) Gout: PLAN: Plan 73 year old male with below past medical history hospitalized for right pelvic fracture after fall, no surgery recommended, admitted to TCU with debility, here for rehabilitation, strengthening, prior to discharge home with . * Debility - PT/OT. * Pain - Tylenol 1000mg q6 prn pain (1-3), Tramadol 50mg q6 prn pain (4-5), Oxycodone 5mg q4 prn pain (6-10). * Bowel - Miralax 17gm daily, senna/colace 2 tablets bid, Magnesium citrate 300ml daily prn. * Adult immunization - Administer pneumonia vaccine, covid vaccine, flu vaccine as appropriate. * DVT prophylaxis - Lovenox 40mg sc daily. * CV prophylaxis - Aspirin 81mg every other day. * Vitamin D deficiency - D3 25mcg daily. * Alzheimer Disease - Donepezil 10mg daily. * Rheumatoid arthritis - Plaquenil 200mg daily, MTX 20mg qweek, Leucovorin 15mg qweek, Plaquenil 200mg daily, Folic acid 1mg bid. * Hypertension - Metoprolol 25mg bid.
[2023-09-19 22:08] VITALS: BP 123/68; PULSE 74
[2023-09-19] MEDS: Senna/Docusate Sodium 1 Tablet 2 TABLET PO (22:08)
[2023-09-19] MEDS: Metoprolol Tartrate 25 MG Tablet PO (22:08)
[2023-09-19] MEDS: Polyethylene Glycol 3350 17 GM PACKET PO (22:08)
[2023-09-20] MEDS: traMADol 50 MG Tablet PO (00:19)
[2023-09-20 05:51] LABS: Absolute Lymphocyte Count 1.51 X10^3/uL (0.83-4.51); Absolute Neutrophil Count 4.4 X10^3/uL (2.0-7.7); Basophil# 0.06 X10^3/uL; Basophil% 0.9 % (0-1); Eosinophils% 1.4 % (0-5); Hematocrit 40.8 % (40-54); Hemoglobin 13.7 g/dL (13.0-16.5); Lymphocyte # 1.51 X10^3/ul (0.83-4.51); Lymphocyte % 21.6 % (19-41); Mean Corp Hgb Conc 33.6 g/dL (32-36); Mean Corpuscular Hgb 33.3 pg (27.0-32.0); Mean Platelet Vol. 9.3 fl (6.2-12.0); Monocyte# 0.91 X10^3/uL; NRBC Flagged by Analyzer 0 % (0-5); Neutrophil # 4.38 X10^3/uL (2.7-7.7); Neutrophil % 62.5 % (47-70); POSITIVE MORPHOLOGY YES; Platelet Count 183 K/mm3 (150-450); RBC Distribution Width CV 14.3 % (11.6-14.6); RBC Distribution Width SD 51.1 fl (35.1-43.9); Red Blood Count 4.12 M/mm3 (4.6-6.2)
--- NOTE | 2023-09-20 06:14 | NURSING ---
Pt had multiple episodes of agitation this shift confused about where he is at and what he is doing here. It is difficult to redirect pt; multiple interventions attempted with effective result for short period of time only. Pt was awake for most of the shift.
[2023-09-20 06:19] LABS: Anion Gap 3 (5-15); BUN 21 mg/dL (7-18); BUN/Creat Ratio 30.1 RATIO (10-20); Calcium,Total 9.1 mg/dL (8.5-10.1); Chloride 103 mmol/L (98-107); EST Glomerular Filtration Rate 118 mL/min (>60); Est Glom Filt Rate - Afr Amer 142 mL/min (>60); Estimated Creatinine Clearance 72.76 ml/min; Glucose 101 mg/dL (74-106); Sodium Level 135 mmol/L (136-145)
[2023-09-20 06:21] LABS: Differential Indicated SCAN CRITERIA MET
[2023-09-20 08:44] LABS: Differential Comment SCANNED; Reactive Lymphocyte 1+
[2023-09-20 08:54] VITALS: BP 125/56; PULSE 75
[2023-09-20] MEDS: Metoprolol Tartrate 25 MG Tablet PO ×2 (08:54→23:06)
[2023-09-20] MEDS: Enoxaparin 40 MG/0.4 ML Syringe SC (08:54)
[2023-09-20] MEDS: Hydroxychloroquine 200 MG Tablet PO (08:54)
[2023-09-20] MEDS: Polyethylene Glycol 3350 17 GM PACKET PO (08:55)
[2023-09-20] MEDS: Senna/Docusate Sodium 1 Tablet 2 TABLET PO ×2 (08:55→23:06)
[2023-09-20] MEDS: Cholecalciferol (VIT D3) 25 MCG TABLET (1,000 UNITS) PO (08:55)
[2023-09-20] MEDS: Folic Acid 1 MG Tablet PO ×2 (08:58→17:05)
--- NOTE | 2023-09-20 09:14 | NURSING ---
Spoke with Dr. Duncan's office. All vaccines they have on file are already in chart. Patient confused, will ask about patient getting pneumonia and covid vaccines when she comes to visit.
--- NOTE | 2023-09-20 09:24 | PCM.PN.DRR ---
Documented by User: Román Britton 09/20/23 09:51 TCU RX Drug Regimen Review Subjective/Objective Subjective/Objective: Subjective: TCU admission note. 73 year old male with below past medical history hospitalized for right pelvic fracture after fall, no surgery recommended, admitted to TCU with debility, here for rehabilitation, strengthening, prior to discharge home with . Objective: Allergies No Known Allergies Allergy (Verified 09/15/23 22:10) Current Medications Generic Name Dose Route Start Last Admin Trade Name Freq PRN Reason Stop Dose Admin Acetaminophen 1,000 mg 09/19/23 19:51 Acetaminophen 500 Mg Tablet PO Q6H PRN PRN Pain Score 1-3 Aspirin 81 mg 09/21/23 08:00 Aspirin 81 Mg Tab.Chew PO QODAY@0800 [facility] Cholecalciferol 25 mcg 09/20/23 10:00 09/20/23 08:55 Cholecalciferol (Vit D3) 25 Mcg Tablet (1,000 Units) PO 25 mcg DAILY ISAIAS Administration Donepezil HCl 10 mg 09/19/23 22:00 Donepezil Hcl 10 Mg Tablet PO QHS [facility] Enoxaparin Sodium 40 mg 09/20/23 08:00 09/20/23 08:54 Enoxaparin 40 Mg/0.4 Ml Syringe SC 40 mg DAILY@0800 [facility] Administration Folic Acid 1 mg 09/20/23 08:00 09/20/23 08:58 Folic Acid 1 Mg [facility] Administration Hydroxychloroquine Sulfate 200 mg 09/20/23 08:00 09/20/23 08:54 Hydroxychloroquine 200 Mg Tablet PO [facility] Administration Leucovorin Calcium 15 mg 09/22/23 10:00 Leucovorin 15 Mg Tablet PO Q7D [facility] Lorazepam 0.5 mg 09/20/23 07:40 Lorazepam 0.5 Mg Tablet PO Q6H PRN PRN ANXIETY/RESTLESSNESS/SLEEP Magnesium Citrate 300 ml 09/19/23 19:51 Magnesium Citrate 300 Ml PO DAILY PRN Constipation Methotrexate 20 mg 09/21/23 10:00 Methotrexate 2.5 Mg Tablet PO Q7D [facility] Metoprolol Tartrate 25 mg 09/19/23 22:00 09/20/23 08:54 Metoprolol Tartrate 25 Mg Tablet PO 25 mg BID [facility] Administration Protocol Oxycodone HCl 5 mg 09/19/23 19:51 Oxycodone 5 Mg Tablet PO Q4H PRN PRN Pain Score 6-10 Polyethylene Glycol 17 gm 09/19/23 20:00 09/20/23 08:55 Polyethylene Glycol 3350 17 Gm Packet PO 17 gm DAILY ISAIAS Administration Senna/Docusate Sodium 2 tablet 09/19/23 22:00 09/20/23 08:55 Senna/Docusate Sodium 1 Tablet PO 2 tablet BID ISAIAS Administration Tramadol HCl 50 mg 09/19/23 19:51 09/20/23 00:19 Tramadol 50 Mg Tablet PO 50 mg Q6H PRN PRN Administration Pain Score 4-5 Tuberculin PPD 0.1 ml 09/27/23 10:00 Tuberculin,Purif.Prot.Deriv. 50 Tu/Ml Vial ID 09/27/23 10:01 X1 ONE Tuberculin PPD 0.1 ml 09/20/23 10:00 Tuberculin,Purif.Prot.Deriv. 50 Tu/Ml Vial ID 09/20/23 10:01 X1 ONE Problem List (Updated 09/19/23 @ 19:[address] Chon Zaman MD) Gout (Acute) COPD (chronic obstructive pulmonary disease) (Chronic) HTN (hypertension) (Chronic) Rheumatoid arthritis (Acute) Alzheimer disease (Acute) Debility (Acute) Fall (Acute) Closed fracture of pubic ramus (Acute) Vital Signs Temp Pulse Resp BP Pulse Ox O2 Del Method 97 F L 75 18 125/56 H 95 Room Air 09/19/23 18:29 09/20/23 08:54 09/19/23 18:29 09/20/23 08:54 09/19/23 18:29 09/19/23 18:29 Oxygen Delivery Method Room Air Weight: 63.503 kg Body Mass Index (BMI) 19.5 Sodium 135 mmol/L (136-145) L 09/20/23 05:29 Potassium 4.0 mmol/L (3.5-5.1) 09/20/23 05:29 Chloride 103 mmol/L (98-107) 09/20/23 05:29 Carbon Dioxide 29.0 mmol/L (21.0-32.0) 09/20/23 05:29 Anion Gap 3 (5-15) L 09/20/23 05:29 BUN 21 mg/dL (7-18) H 09/20/23 05:29 Creatinine 0.70 mg/dL (0.70-1.30) 09/20/23 05:29 Est GFR (MDRD) Af Amer 142 mL/min (>60) 09/20/23 05:29 Est GFR (MDRD) Non-Af 118 mL/min (>60) 09/20/23 05:29 BUN/Creatinine Ratio 30.1 RATIO (10-20) H 09/20/23 05:29 Glucose 101 mg/dL (74-106) 09/20/23 05:29 Assessment/Plan: 1. Pain: acetaminophen 1000 mg PO Q6H PRN pain (1-3), tramadol 50 mg PO Q6H PRN pain (4-5), oxycodone 5 mg PO Q4H PRN pain (6-10). The patient has used 1 dose of PRN tramadol and no doses of PRN acetaminophen or oxycodone so far this admission. Please continue to monitor for pain, LFTs (AST/ALT = 30/39 U/L on 09/16/23), renal function (serum creatinine = 0.70 mg/dL with creatinine clearance ~ 73 mL/min on 09/20/23), for respiratory depression, drowsiness, dizziness, syncope/ataxia/falls, and for constipation. 2. Bowel: polyethylene glycol 17 grams PO daily, senna/docusate 2 tabs PO BID, magnesium citrate 300 mL PO daily PRN constipation. The patient has not received any doses of PRN magnesium citrate so far this admission and the patient's last bowel movement was 09/20/23. Please continue to monitor for diarrhea, constipation, PRN medication usage, and bowel movements. 3. DVT prophylaxis: enoxaparin 40 mg SC daily. Please continue to monitor for s/s of a DVT such as pain/erythema/swelling in an extremity, for s/s of bleeding/excessive bruising, renal function (serum creatinine = 0.70 mg/dL with creatinine clearance ~ 73 mL/min on 09/20/23), hemoglobin levels (Hgb = 13.7 g/dL on 09/20/23), platelet count (plt = 183 K/mm3 on 09/20/23). 4. CV prophylaxis: aspirin 81 mg PO every other day. Please continue to monitor for chest pain, GI distress with aspirin administration, for bleeding/excessive bruising, and platelet count (plt = 183 K/mm3 on 09/20/23). 5. Rheumatoid arthritis: folic acid 1 mg PO BID with meals, hydroxychloroquine 200 mg PO daily, leucovorin 15 mg every week, methotrexate 20 mg every week. Please continue to monitor for pain in joints, blood glucose readings (BG = 101 mg/dL on 09/20/23), retinopathy, for fatigue, lethargy, alopecia, dermatitis, nausea, diarrhea, anorexia, constipation, for s/s of SJS or TENs, hemoglobin levels (Hgb = 13.7 g/dL on 09/20/23), white blood cell counts (WBC = 7.0 K/mm3 on 09/20/23), platelet count (Plt = 183 K/mm3 on 09/20/23), renal function (serum creatinine = 0.70 mg/dL with creatinine clearance ~ 73 mL/min on 09/20/23), and hepatotoxicity (AST/ALT = 30/39 U/L on 09/16/23). 6. Hypertension: metoprolol tartrate 25 mg PO BID. Please continue to monitor blood pressures (recent range = 111-150/56-87 mmHg), heart rates (recent range = 66-88 beats/min), and for fatigue. The patient's blood pressures have been a bit elevated over the past several days, please consider either increasing the patient's metoprolol tartrate to 37.5 mg PO BID, or consider changing the patient to carvedilol 6.25 mg PO BID, as the alpha blocking component of carvedilol will likely do a better job of controlling the patients blood pressures. 7. Vitamin D deficiency: cholecalciferol 25 mcg PO daily. Please continue to monitor for s/s of vitamin D deficiency, as well as vitamin D levels (vitamin D = 46.0 on 05/10/19). Please consider ordering a vitamin D level as the patient has not had one for several years. 8. Alzheimer disease: donepezil 23 mg PO daily. Please continue to monitor for dementia, for diarrhea, nausea, insomnia, and hypertension. Assessment/Plan for indications treated with psychotropic medications: 1. Agitation/anxiety/restlessness/sleep (per nursing notes and PRN reason): lorazepam 0.5 mg PO Q6H PRN. Please continue to monitor for agitation/insomnia, as well as drowsiness, syncope/ataxia/falls, and respiratory depression. Medical chart and medication regimen reviewed. The following medication irregularities or issues were identified: 1. Hypertension: metoprolol tartrate 25 mg PO BID. The patient's blood pressures have been a bit elevated over the past several days, please consider either increasing the patient's metoprolol tartrate to 37.5 mg PO BID, or consider changing the patient to carvedilol 6.25 mg PO BID, as the alpha blocking component of carvedilol will likely do a better job of controlling the patients blood pressures. 2. Vitamin D deficiency: cholecalciferol 25 mcg PO daily. Please consider ordering a vitamin D level as the patient has not had one for several years. Date Date of Note:: 09/20/23 Documented by User: Dr. Chon Zaman MD 09/20/23 09:54 TCU RX Drug Regimen Review Provider Comments Provider responsibility Provider Comments to Recommendations by Pharmacy: Agree
[2023-09-20] MEDS: Tuberculin,Purif.prot.deriv. 50 TU/ML Vial 0.100000000000000006 ML ID (10:51)
[2023-09-20 13:27] VITALS: BMI 18.6
--- NOTE | 2023-09-20 14:30 | CHAPLAIN ---
Type of Pastoral Visit _x__ Initial Visit ___ Follow-up Visit ___ On-call Visit ___ General Patient Visit ___ Spiritual Assessment ___ Family Conference ___ Bereavement ___ Rapid Response ___ Code Blue ___ Other (describe below) Pastoral Care Referral From _x__ Patient _x__ Family ___ Nurse ___ Physician ___ Infrastructure Solutions Architect ___ Hplc Chemist ___ Other (describe below) Sacrament/Intervention _x__ Active listening ___ Anointing ___ Confucianist ___ Bereavement ___ Communion _x__ Savanna exploration ___ _x__ Life review _x__ Prayer ___ Reconciliation ___ Sacrament of Sick _x__ Supportive presence ___ Wedding ___ Other (describe below) Pastoral Comments patient is eating his lunch but continues during conversation; spouse is also in the room and interactive in conversation with pt and this coiler; pt describes what happened that he was injured; pt reports on progress and current status; pt hopes to be able to go home within a reasonable time; pt and spouse are both positive about the experience so far; pt welcomes a prayer and says that is what I need ;
[2023-09-20 15:28] VITALS: BP 122/66; PULSE 70; RESP 12; TEMP 36.5; O2SAT 97
--- NOTE | 2023-09-20 18:07 | NURSING ---
Namrata request no PN vaccine given during stay on TCU.
[2023-09-20 20:36] VITALS: RESP 17
[2023-09-20 23:06] VITALS: BP 132/76; PULSE 69
[2023-09-20] MEDS: DONEPEZIL HCL 23 MG PO (23:06)
--- NOTE | 2023-09-21 07:54 | NS ---
MST score = 6
[2023-09-21] MEDS: Aspirin 81 MG TAB.CHEW PO (07:57)
[2023-09-21] MEDS: Folic Acid 1 MG Tablet PO ×2 (07:57→17:01)
[2023-09-21] MEDS: Hydroxychloroquine 200 MG Tablet PO (07:57)
[2023-09-21] MEDS: Enoxaparin 40 MG/0.4 ML Syringe SC (07:57)
[2023-09-21 07:58] VITALS: BP 140/71; PULSE 74
[2023-09-21] MEDS: Methotrexate 2.5 MG Tablet 20 MG PO (07:58)
[2023-09-21] MEDS: Metoprolol Tartrate 25 MG Tablet PO ×2 (07:58→20:53)
[2023-09-21] MEDS: Polyethylene Glycol 3350 17 GM PACKET PO (07:59)
[2023-09-21] MEDS: Cholecalciferol (VIT D3) 25 MCG TABLET (1,000 UNITS) PO (07:59)
[2023-09-21] MEDS: Senna/Docusate Sodium 1 Tablet 2 TABLET PO ×2 (07:59→20:53)
[2023-09-21 08:44] LABS: Vitamin D,25 Hydroxy 40.8 ng/mL
--- NOTE | 2023-09-21 11:32 | NURSING ---
Tufting Machine Fixer Note; Activity Asset: Zainab Tobin has stated he has Alzheimer and needs reminders of daily activities and when having a conversation to give him time to get out what he wants to say. He prefers to be called Dank . When talking with Dank he was not aware of what was currently going on but was able to recall a lot of his time in the and meeting his . He enjoys reading the newspaper and visiting w/others. He did want word search and other things to help keep his mind from wonder so I gave him a bunch of things he can work on, on his own time. His will visit daily and staff will remind him of daily activities and respect hi right to say no. He also welcomes visits from the physician pediatrician and therapy dog.
[2023-09-21 14:10] VITALS: BP 127/83; PULSE 59; RESP 14; TEMP 36.7; O2SAT 98
--- NOTE | 2023-09-21 16:38 | NURSING ---
Patient and Namrata made aware of positive Covid patient and that patient will be tested in the AM of 09/22. and patient request he does receive covid booster while on TCU. Deny further questions at this time.
[2023-09-21 20:53] VITALS: BP 144/78; PULSE 76
[2023-09-21] MEDS: DONEPEZIL HCL 23 MG PO (20:53)
[2023-09-21] MEDS: Menthol/Lanolin/Calamine/Znox 113 GM Tube 1 APPLIC TOPICAL (21:01)
[2023-09-22] MEDS: Folic Acid 1 MG Tablet PO ×2 (08:29→16:31)
[2023-09-22] MEDS: Enoxaparin 40 MG/0.4 ML Syringe SC (08:29)
[2023-09-22] MEDS: Menthol/Lanolin/Calamine/Znox 113 GM Tube 1 APPLIC TOPICAL ×2 (08:29→20:29)
[2023-09-22] MEDS: Hydroxychloroquine 200 MG Tablet PO (08:29)
[2023-09-22 08:30] VITALS: PULSE 68
[2023-09-22] MEDS: leucovorin 15 MG Tablet PO (08:30)
[2023-09-22] MEDS: Metoprolol Tartrate 25 MG Tablet PO ×2 (08:30→20:27)
[2023-09-22] MEDS: Cholecalciferol (VIT D3) 25 MCG TABLET (1,000 UNITS) PO (08:31)
--- NOTE | 2023-09-22 08:37 | CASEMGMT ---
Addendum entered by Rhea Kasper 09/23/23 09:38: returned call. SW completed assessment. Educated to Medicare benefit. confirmed pt's cognition has declined and has become agitated. SW noted a ST order was entered to see if pt would be agreeable to work with ST on cognitive tasks. appreciative. SW noted, depending on physical abilities, for pt to DC home sooner than later d/t change of environment. Inquired about support system. stated son lives in [place] and dtr lives in [place], however, both are aware of pt's condition and dtr might be in town next week. SW encouraged their support and participation in next week's POC mtg. Suggested have additional assistance in the home for the transition home at DC. educated to nonskilled BEADER TENDER and skilled HHC. agreeable. SW to provide further details and resources in the POC mtg, per 's request. also stated pt should no longer be driving, as pt was driving months prior. SW confirmed, the Dr is restricting further driving privileges. became emotional but agrees. SW assured this worker will assist during pt's stay and for DC planning. appreciative. Original Note: Social Work Pt is poor historian and not oriented - cannot complete initial assessment with pt. Multiple attempts to complete with while visiting pt, but unsuccessful. SW left VM with . Rhea Kasper, LISHA SURGICAL ELASTIC KNITTER
[2023-09-22] MEDS: COVID VAC 23-24(12UP)(ANDU)/PF 50 MCG/0.5 ML SYRINGE IM (12:44)
[2023-09-22 16:00] VITALS: BP 136/73; PULSE 70; RESP 15; TEMP 36.8; O2SAT 97
[2023-09-22] MEDS: LORazepam 0.5 MG Tablet PO (20:26)
[2023-09-22 20:27] VITALS: BP 121/72; PULSE 75
[2023-09-22] MEDS: DONEPEZIL HCL 23 MG PO (20:28)
[2023-09-22] MEDS: Senna/Docusate Sodium 1 Tablet 2 TABLET PO (20:28)
[2023-09-22 20:36] VITALS: BP 121/72; PULSE 75; RESP 16
[2023-09-23] MEDS: Hydroxychloroquine 200 MG Tablet PO (09:32)
[2023-09-23] MEDS: Enoxaparin 40 MG/0.4 ML Syringe SC (09:32)
[2023-09-23] MEDS: Aspirin 81 MG TAB.CHEW PO (09:32)
[2023-09-23] MEDS: Folic Acid 1 MG Tablet PO ×2 (09:32→17:00)
[2023-09-23] MEDS: Cholecalciferol (VIT D3) 25 MCG TABLET (1,000 UNITS) PO (09:33)
[2023-09-23] MEDS: Polyethylene Glycol 3350 17 GM PACKET PO (09:33)
[2023-09-23] MEDS: Senna/Docusate Sodium 1 Tablet 2 TABLET PO ×2 (09:33→21:16)
[2023-09-23] MEDS: Menthol/Lanolin/Calamine/Znox 113 GM Tube 1 APPLIC TOPICAL ×2 (09:33→21:15)
[2023-09-23 09:36] VITALS: BP 115/73; PULSE 79
[2023-09-23] MEDS: Metoprolol Tartrate 25 MG Tablet PO ×2 (09:36→21:18)
[2023-09-23 16:00] VITALS: BP 116/76; PULSE 78; RESP 16; TEMP 36.8; O2SAT 93
[2023-09-23] MEDS: Doxepin Hydrochloride 10 MG Capsule PO (21:16)
[2023-09-23] MEDS: DONEPEZIL HCL 23 MG PO (21:16)
[2023-09-23 21:18] VITALS: PULSE 78
[2023-09-23] MEDS: LORazepam 0.5 MG Tablet PO (21:30)
[2023-09-23] MEDS: Acetaminophen 500 MG Tablet 1000 MG PO (21:36)
[2023-09-24 09:28] VITALS: BP 131/66; PULSE 84; RESP 16; O2SAT 97
[2023-09-24 09:30] VITALS: PULSE 84
[2023-09-24] MEDS: Enoxaparin 40 MG/0.4 ML Syringe SC (09:30)
[2023-09-24] MEDS: Metoprolol Tartrate 25 MG Tablet PO ×2 (09:30→23:06)
[2023-09-24] MEDS: Folic Acid 1 MG Tablet PO ×2 (09:31→17:53)
[2023-09-24] MEDS: Cholecalciferol (VIT D3) 25 MCG TABLET (1,000 UNITS) PO (09:31)
[2023-09-24] MEDS: Hydroxychloroquine 200 MG Tablet PO (09:31)
[2023-09-24] MEDS: Senna/Docusate Sodium 1 Tablet 2 TABLET PO ×2 (09:31→23:05)
[2023-09-24] MEDS: Polyethylene Glycol 3350 17 GM PACKET PO (09:32)
[2023-09-24] MEDS: Menthol/Lanolin/Calamine/Znox 113 GM Tube 1 APPLIC TOPICAL ×2 (09:34→23:07)
[2023-09-24 13:31] VITALS: TEMP 36.7
[2023-09-24] MEDS: DONEPEZIL HCL 23 MG PO (23:04)
[2023-09-24 23:06] VITALS: BP 130/74; PULSE 67
[2023-09-24] MEDS: Doxepin Hydrochloride 10 MG Capsule PO (23:06)
--- NOTE | 2023-09-25 05:48 | NURSING ---
Donepezil sent from pharmacy after supply received. Pt's personal supply will need to be sent home w/ spouse. Will report to oncoming nurse.
[2023-09-25] MEDS: Cholecalciferol (VIT D3) 25 MCG TABLET (1,000 UNITS) PO (08:08)
[2023-09-25] MEDS: Senna/Docusate Sodium 1 Tablet 2 TABLET PO ×2 (08:08→22:10)
[2023-09-25] MEDS: Aspirin 81 MG TAB.CHEW PO (08:08)
[2023-09-25 08:09] VITALS: PULSE 85
[2023-09-25] MEDS: Hydroxychloroquine 200 MG Tablet PO (08:09)
[2023-09-25] MEDS: Folic Acid 1 MG Tablet PO ×2 (08:09→16:39)
[2023-09-25] MEDS: Metoprolol Tartrate 25 MG Tablet PO ×2 (08:09→22:09)
[2023-09-25] MEDS: Polyethylene Glycol 3350 17 GM PACKET PO (08:09)
[2023-09-25] MEDS: Menthol/Lanolin/Calamine/Znox 113 GM Tube 1 APPLIC TOPICAL ×2 (08:10→22:10)
[2023-09-25] MEDS: Enoxaparin 40 MG/0.4 ML Syringe SC (08:10)
[2023-09-25 08:17] VITALS: BP 123/68; PULSE 85; RESP 16; O2SAT 99
[2023-09-25 10:00] VITALS: PULSE 69; RESP 16; O2SAT 98
[2023-09-25 11:20] VITALS: TEMP 36.5
[2023-09-25 22:09] VITALS: BP 126/70; PULSE 66
[2023-09-25] MEDS: DONEPEZIL HCL 23 MG PO (22:09)
[2023-09-25 23:00] VITALS: BP 146/75; PULSE 66; RESP 16; TEMP 36.4
[2023-09-25] MEDS: LORazepam 0.5 MG Tablet PO (23:58)
--- NOTE | 2023-09-26 08:57 | NURSING ---
Gas Leak Tester Note; MDS for 09/26/2023 Complete
[2023-09-26] MEDS: Cholecalciferol (VIT D3) 25 MCG TABLET (1,000 UNITS) PO (09:00)
[2023-09-26] MEDS: Polyethylene Glycol 3350 17 GM PACKET PO (09:00)
[2023-09-26] MEDS: Hydroxychloroquine 200 MG Tablet PO (09:00)
[2023-09-26] MEDS: Senna/Docusate Sodium 1 Tablet 2 TABLET PO ×2 (09:00→22:00)
[2023-09-26 09:01] VITALS: BP 114/63; PULSE 76
[2023-09-26] MEDS: Folic Acid 1 MG Tablet PO ×2 (09:01→18:37)
[2023-09-26] MEDS: Enoxaparin 40 MG/0.4 ML Syringe SC (09:01)
[2023-09-26] MEDS: Metoprolol Tartrate 25 MG Tablet PO ×2 (09:01→22:04)
[2023-09-26] MEDS: Menthol/Lanolin/Calamine/Znox 113 GM Tube 1 APPLIC TOPICAL ×2 (09:02→22:00)
--- NOTE | 2023-09-26 15:59 | NURSING ---
Pt chair alarm sounded and this nurse, RUBBER TESTER and BACK LINE COOK's ran to pt's room and pt found on floor with foot of chair up. Call light was within reach and not used. Per pt he was looking at the window then hit his head. Pt A&Ox1 at baseline. VS BP 148/64 Pulse 72 SpO2 99% RA Temp 98.0 temporal. Pt LEFT PEERL 3mm Right eye Sluggish and 2mm. Right side of cheek noted to be red and swollen. Pt transferred by this nurse, RUBBER TESTER and 2 BACK LINE COOK's back in to chair. Ice given to pt. Pt brought out to nursing station. Dr. Zaman updated N.O. for CT of head without contrast and Neuro Checks added. Pt's called and updated. Dysem added to chair. JEANNETTE updated.
[2023-09-26 16:00] VITALS: BP 121/73; PULSE 79; RESP 16; TEMP 37.1; O2SAT 97
--- NOTE | 2023-09-26 16:49 | CASEMGMT ---
Social Work BIMS (10/06) and PHQ-2 had no responses. Rhea Kasper. COOK HOUSE LABORER BUS PERSON DISHWASHER
[2023-09-26] MEDS: LORazepam 0.5 MG Tablet PO (21:59)
[2023-09-26] MEDS: Doxepin Hydrochloride 10 MG Capsule PO (22:00)
[2023-09-26] MEDS: DONEPEZIL HCL 23 MG PO (22:01)
[2023-09-26 22:04] VITALS: BP 124/66; PULSE 62
[2023-09-26 22:08] VITALS: BP 124/66; PULSE 62
[2023-09-27 06:02] LABS: Absolute Lymphocyte Count 1.25 X10^3/uL (0.83-4.51); Absolute Neutrophil Count 3.2 X10^3/uL (2.0-7.7); Basophil# 0.05 X10^3/uL; Basophil% 0.9 % (0-1); Eosinophil# 0.15 X10^3/uL; Eosinophils% 2.8 % (0-5); Hematocrit 37.2 % (40-54); Hemoglobin 12.5 g/dL (13.0-16.5); Lymphocyte # 1.25 X10^3/ul (0.83-4.51); Lymphocyte % 23.6 % (19-41); Mean Corp Hgb Conc 33.6 g/dL (32-36); Mean Corpuscular Hgb 33.3 pg (27.0-32.0); Mean Corpuscular Volume 99.2 fL (80-94); Mean Platelet Vol. 8.9 fl (6.2-12.0); Monocyte# 0.57 X10^3/uL; Monocyte% 10.8 % (0-10); NRBC Flagged by Analyzer 0 % (0-5); Neutrophil # 3.24 X10^3/uL (2.7-7.7); Neutrophil % 61.1 % (47-70); POSITIVE MORPHOLOGY YES; Platelet Count 345 K/mm3 (150-450); RBC Distribution Width CV 14.9 % (11.6-14.6); RBC Distribution Width SD 53.7 fl (35.1-43.9); Red Blood Count 3.75 M/mm3 (4.6-6.2); White Blood Count 5.3 K/mm3 (4.4-11.0)
[2023-09-27 06:26] LABS: Anion Gap 1 (5-15); BUN 20 mg/dL (7-18); BUN/Creat Ratio 17.9 RATIO (10-20); Calcium,Total 9.1 mg/dL (8.5-10.1); Chloride 102 mmol/L (98-107); Creatinine, Serum 1.12 mg/dL (0.70-1.30); EST Glomerular Filtration Rate 68 mL/min (>60); Est Glom Filt Rate - Afr Amer 82 mL/min (>60); Estimated Creatinine Clearance 49.67 ml/min; Glucose 89 mg/dL (74-106); Potassium 4.1 mmol/L (3.5-5.1); Sodium Level 136 mmol/L (136-145)
[2023-09-27 07:13] LABS: Differential Comment SCANNED; Differential Indicated SCAN CRITERIA MET; Reactive Lymphocyte 1+
[2023-09-27] MEDS: Hydroxychloroquine 200 MG Tablet PO (07:45)
[2023-09-27] MEDS: Cholecalciferol (VIT D3) 25 MCG TABLET (1,000 UNITS) PO (07:45)
[2023-09-27] MEDS: Aspirin 81 MG TAB.CHEW PO (07:45)
[2023-09-27] MEDS: Folic Acid 1 MG Tablet PO ×2 (07:45→18:25)
[2023-09-27 07:46] VITALS: PULSE 81
[2023-09-27] MEDS: Polyethylene Glycol 3350 17 GM PACKET PO (07:46)
[2023-09-27] MEDS: Metoprolol Tartrate 25 MG Tablet PO ×2 (07:46→22:23)
[2023-09-27] MEDS: Senna/Docusate Sodium 1 Tablet 2 TABLET PO ×2 (07:46→22:23)
[2023-09-27] MEDS: Menthol/Lanolin/Calamine/Znox 113 GM Tube 1 APPLIC TOPICAL ×2 (07:47→22:24)
[2023-09-27] MEDS: Enoxaparin 40 MG/0.4 ML Syringe SC (07:47)
[2023-09-27] MEDS: Tuberculin,Purif.prot.deriv. 50 TU/ML Vial 0.100000000000000006 ML ID (09:59)
[2023-09-27 10:34] VITALS: BP 127/74; PULSE 81; RESP 18; TEMP 36.5; O2SAT 98
[2023-09-27] MEDS: LORazepam 0.5 MG Tablet PO ×2 (14:20→22:22)
[2023-09-27 16:35] VITALS: BMI 18.6
[2023-09-27 22:23] VITALS: BP 123/71; PULSE 64
[2023-09-27] MEDS: DONEPEZIL HCL 23 MG PO (22:23)
[2023-09-27] MEDS: Doxepin Hydrochloride 10 MG Capsule PO (22:24)
[2023-09-27 22:36] VITALS: BP 123/71; PULSE 64
[2023-09-27 23:49] VITALS: RESP 15
[2023-09-28 07:56] VITALS: BP 121/74; PULSE 70; RESP 20; TEMP 36.5; O2SAT 99
[2023-09-28] MEDS: Folic Acid 1 MG Tablet PO ×2 (08:41→17:43)
[2023-09-28] MEDS: Enoxaparin 40 MG/0.4 ML Syringe SC (08:42)
[2023-09-28] MEDS: Hydroxychloroquine 200 MG Tablet PO (08:43)
[2023-09-28] MEDS: Menthol/Lanolin/Calamine/Znox 113 GM Tube 1 APPLIC TOPICAL ×2 (08:44→20:20)
[2023-09-28 08:46] VITALS: BP 121/74; PULSE 70
[2023-09-28] MEDS: Metoprolol Tartrate 25 MG Tablet PO ×2 (08:46→20:17)
[2023-09-28] MEDS: Methotrexate 2.5 MG Tablet 20 MG PO (08:47)
[2023-09-28] MEDS: Senna/Docusate Sodium 1 Tablet 2 TABLET PO ×2 (08:48→20:17)
[2023-09-28] MEDS: Polyethylene Glycol 3350 17 GM PACKET PO (08:48)
[2023-09-28] MEDS: Cholecalciferol (VIT D3) 25 MCG TABLET (1,000 UNITS) PO (08:49)
--- NOTE | 2023-09-28 09:10 | CASEMGMT ---
Social Work IDT met with patient, and dtr for care plan meeting. Discussed patient's progress in PT/OT/ST/SN. Educated to Medicare benefit and copay coverage. IDT recommending hands-on 24/7 care and concerned about pt returning home without that additional professional assistance. The is unable to care for pt at this LOC. Stressed the importance of hiring additional assistance. did state she volunteers and Tuesday mornings, which she can stop. SW noted should be able to do extracurricular activities at her leisure. Offered [place] or SNF, but acknowledged pt may improve returning to his own environment. Pt and want to pt at home as well. SW provided and educated resources for TRAVELING AUDITOR list and [place] services. Dtr expressed understanding and will assist with DC planning. SW recommended contacting agencies and will plan for DC in the next week or two, to have pt return home without delay. Pt is using a FWW that he was not using prior and does not own one. SW offered to coordinate at [place]. stated her friend may have one and will let this worker know. SW to also coordinate skilled HHC services at [place]. Will continue to follow for DC planning. Rhea Kasper, LISHA DRUG REGULATORY AFFAIRS SPECIALIST
[2023-09-28 15:38] VITALS: BP 113/60; PULSE 72; RESP 16; TEMP 36.6; O2SAT 96
[2023-09-28] MEDS: Ensure Plus High Protein 120 ML LIQUID PO ×2 (17:43→20:16)
[2023-09-28 20:17] VITALS: BP 137/69; PULSE 70
[2023-09-28] MEDS: DONEPEZIL HCL 23 MG PO (20:17)
[2023-09-28] MEDS: Doxepin Hydrochloride 10 MG Capsule PO (20:18)
[2023-09-29] MEDS: Ensure Plus High Protein 120 ML LIQUID PO ×4 (05:01→20:25)
[2023-09-29 05:57] LABS: Hematocrit 38.9 % (40-54); Hemoglobin 12.8 g/dL (13.0-16.5)
[2023-09-29 08:28] VITALS: BP 106/60; PULSE 68; RESP 15; TEMP 36.8; O2SAT 98
[2023-09-29] MEDS: Aspirin 81 MG TAB.CHEW PO (08:31)
[2023-09-29] MEDS: Folic Acid 1 MG Tablet PO ×2 (08:31→17:18)
[2023-09-29] MEDS: Enoxaparin 40 MG/0.4 ML Syringe SC (08:31)
[2023-09-29] MEDS: Menthol/Lanolin/Calamine/Znox 113 GM Tube 1 APPLIC TOPICAL ×2 (08:32→20:32)
[2023-09-29] MEDS: leucovorin 15 MG Tablet PO (08:32)
[2023-09-29] MEDS: Hydroxychloroquine 200 MG Tablet PO (08:32)
[2023-09-29 08:33] VITALS: PULSE 68
[2023-09-29] MEDS: Metoprolol Tartrate 25 MG Tablet PO ×2 (08:33→20:25)
[2023-09-29] MEDS: Senna/Docusate Sodium 1 Tablet 2 TABLET PO ×2 (08:33→20:25)
[2023-09-29] MEDS: Polyethylene Glycol 3350 17 GM PACKET PO (08:33)
[2023-09-29] MEDS: Cholecalciferol (VIT D3) 25 MCG TABLET (1,000 UNITS) PO (08:33)
--- NOTE | 2023-09-29 08:42 | MDS.RN ---
Information for the mds was obtained from review of the clinical record, interview of resident, staff, and direct observation of resident's care.
[2023-09-29 20:25] VITALS: BP 115/66; PULSE 65
[2023-09-29] MEDS: Doxepin Hydrochloride 10 MG Capsule PO (20:25)
[2023-09-29] MEDS: DONEPEZIL HCL 23 MG PO (20:25)
[2023-09-30] MEDS: Ensure Plus High Protein 120 ML LIQUID PO ×3 (06:07→16:40)
[2023-09-30 08:38] VITALS: BP 123/61; PULSE 67
[2023-09-30] MEDS: Polyethylene Glycol 3350 17 GM PACKET PO (08:38)
[2023-09-30] MEDS: Folic Acid 1 MG Tablet PO ×2 (08:38→16:40)
[2023-09-30] MEDS: Metoprolol Tartrate 25 MG Tablet PO ×2 (08:38→21:38)
[2023-09-30] MEDS: Hydroxychloroquine 200 MG Tablet PO (08:38)
[2023-09-30] MEDS: Senna/Docusate Sodium 1 Tablet 2 TABLET PO ×2 (08:38→21:39)
[2023-09-30] MEDS: Cholecalciferol (VIT D3) 25 MCG TABLET (1,000 UNITS) PO (08:39)
[2023-09-30] MEDS: Enoxaparin 40 MG/0.4 ML Syringe SC (08:39)
[2023-09-30] MEDS: Menthol/Lanolin/Calamine/Znox 113 GM Tube 1 APPLIC TOPICAL ×2 (08:39→22:53)
--- NOTE | 2023-09-30 12:18 | CASEMGMT ---
Social Work SW phoned to follow up on DC plans. Dtr answered home phone as is volunteering this morning. Dtr unsure of final plan, but knows will most likely take pt home. noted she is not comfortable with having someone in her home 14/03, but is agreeable to hiring some help. SW expressed understanding and noted these are IDTs recommendations. SW answered dtrs questions. to attend therapy sessions as routinely scheduled. SW requested contact his worker early next week to finalize DC plans. dtr agreeable. SW will continue to follow. Rhea Kasper, LISHA ALLENW
[2023-09-30 15:17] VITALS: BP 111/62; PULSE 70; RESP 16; TEMP 37.1; O2SAT 96
[2023-09-30 21:38] VITALS: BP 127/71; PULSE 70
[2023-09-30] MEDS: Doxepin Hydrochloride 10 MG Capsule PO (21:39)
[2023-09-30] MEDS: DONEPEZIL HCL 23 MG PO (21:39)
[2023-10-01] MEDS: Ensure Plus High Protein 120 ML LIQUID PO ×4 (04:54→21:04)
[2023-10-01 08:12] LABS: Hematocrit 41.5 % (40-54); Hemoglobin 13.9 g/dL (13.0-16.5)
[2023-10-01] MEDS: Hydroxychloroquine 200 MG Tablet PO (09:19)
[2023-10-01] MEDS: Aspirin 81 MG TAB.CHEW PO (09:19)
[2023-10-01] MEDS: Folic Acid 1 MG Tablet PO ×2 (09:19→17:10)
[2023-10-01] MEDS: Enoxaparin 40 MG/0.4 ML Syringe SC (09:19)
[2023-10-01] MEDS: Menthol/Lanolin/Calamine/Znox 113 GM Tube 1 APPLIC TOPICAL ×2 (09:19→21:04)
[2023-10-01 09:20] VITALS: BP 119/72; PULSE 67
[2023-10-01] MEDS: Polyethylene Glycol 3350 17 GM PACKET PO (09:20)
[2023-10-01] MEDS: Metoprolol Tartrate 25 MG Tablet PO ×2 (09:20→21:05)
[2023-10-01] MEDS: Senna/Docusate Sodium 1 Tablet 2 TABLET PO ×2 (09:20→21:05)
[2023-10-01] MEDS: Cholecalciferol (VIT D3) 25 MCG TABLET (1,000 UNITS) PO (09:20)
[2023-10-01 15:44] VITALS: BP 126/79; PULSE 71; RESP 16; TEMP 36.6; O2SAT 99
[2023-10-01 21:05] VITALS: BP 118/68; PULSE 61
[2023-10-01] MEDS: DONEPEZIL HCL 23 MG PO (21:06)
[2023-10-01] MEDS: Doxepin Hydrochloride 10 MG Capsule PO (21:06)
[2023-10-02] MEDS: Folic Acid 1 MG Tablet PO ×2 (08:42→17:09)
[2023-10-02] MEDS: Enoxaparin 40 MG/0.4 ML Syringe SC (08:42)
[2023-10-02] MEDS: Hydroxychloroquine 200 MG Tablet PO (08:43)
[2023-10-02 08:44] VITALS: BP 109/59; PULSE 60
[2023-10-02] MEDS: Cholecalciferol (VIT D3) 25 MCG TABLET (1,000 UNITS) PO (08:44)
[2023-10-02] MEDS: Polyethylene Glycol 3350 17 GM PACKET PO (08:44)
[2023-10-02] MEDS: Senna/Docusate Sodium 1 Tablet 2 TABLET PO ×2 (08:44→22:58)
[2023-10-02] MEDS: Metoprolol Tartrate 25 MG Tablet PO ×2 (08:44→22:58)
[2023-10-02] MEDS: Menthol/Lanolin/Calamine/Znox 113 GM Tube 1 APPLIC TOPICAL ×2 (08:54→22:57)
[2023-10-02] MEDS: Ensure Plus High Protein 120 ML LIQUID PO ×3 (12:13→22:57)
[2023-10-02 14:55] VITALS: BP 111/62; PULSE 68; RESP 20; TEMP 36.6; O2SAT 98
[2023-10-02 22:58] VITALS: BP 130/67; PULSE 69
[2023-10-02] MEDS: DONEPEZIL HCL 23 MG PO (22:59)
[2023-10-02] MEDS: Doxepin Hydrochloride 10 MG Capsule PO (22:59)
[2023-10-03 08:52] VITALS: BP 100/67; PULSE 71
[2023-10-03 09:56] VITALS: PULSE 60
[2023-10-03] MEDS: Cholecalciferol (VIT D3) 25 MCG TABLET (1,000 UNITS) PO (09:56)
[2023-10-03] MEDS: Metoprolol Tartrate 25 MG Tablet PO ×2 (09:56→21:04)
[2023-10-03] MEDS: Hydroxychloroquine 200 MG Tablet PO (09:56)
[2023-10-03] MEDS: Enoxaparin 40 MG/0.4 ML Syringe SC (09:56)
[2023-10-03] MEDS: Polyethylene Glycol 3350 17 GM PACKET PO (09:56)
[2023-10-03] MEDS: Aspirin 81 MG TAB.CHEW PO (09:56)
[2023-10-03] MEDS: Senna/Docusate Sodium 1 Tablet 2 TABLET PO ×2 (09:56→21:04)
[2023-10-03] MEDS: Menthol/Lanolin/Calamine/Znox 113 GM Tube 1 APPLIC TOPICAL ×2 (09:57→21:06)
[2023-10-03] MEDS: Folic Acid 1 MG Tablet PO ×2 (10:00→17:14)
[2023-10-03] MEDS: Ensure Plus High Protein 120 ML LIQUID PO ×3 (12:50→21:04)
[2023-10-03 13:03] VITALS: BP 106/60; PULSE 60; RESP 18; TEMP 36.2; O2SAT 97
--- NOTE | 2023-10-03 15:46 | CASEMGMT ---
Addendum entered by Rhea Kasper 10/04/23 09:40: provided choices of HHC: 1. [facility], 2. [facility], 3. [facility] SW phoned referral to [facility]. Original Note: Social Work SW spoke with pt's present in room. stated she has hired an THEATRE MANAGER 8a-11a 3-5 days/wk. Discussed setting DC date. agreeable to DC 10/08. stated pt has FWW and no preference for skilled HHC agency. SW offered printed list of skilled HHC agencies with quality and resource data via [employer] guide. accepted list and will notify this worker of choices. IDT updated. Plan: DC home with and THEATRE MANAGER 10/08, HHC PT/OT/ST/NITIN. LISHA HorneW
--- NOTE | 2023-10-03 19:08 | PCM.DC.SUM ---
Providers Date of Admission: 09/19/23 Primary Care Physician: Dr. Casimiro Duncan MD Reason For Visit: FALL/PUBIC RAMI FRACTURE Diagnosis Discharge Diagnosis (1) Debility: Status: Acute Code(s): R53.81 - Other malaise (2) Fall: Status: Acute Code(s): W19.XXXA - Unspecified fall, initial encounter (3) Closed fracture of pubic ramus: Status: Acute Code(s): S32.599A - Other specified fracture of unspecified pubis, initial encounter for closed fracture (4) Alzheimer disease: Status: Acute Code(s): G30.9 - Alzheimer's disease, unspecified; F02.80 - Dementia in other diseases classified elsewhere, unspecified severity, without behavioral disturbance, psychotic disturbance, mood disturbance, and anxiety (5) Rheumatoid arthritis: Status: Acute Code(s): M06.9 - Rheumatoid arthritis, unspecified (6) HTN (hypertension): Status: Chronic Code(s): I10 - Essential (primary) hypertension (7) COPD (chronic obstructive pulmonary disease): Status: Chronic Code(s): J44.9 - Chronic obstructive pulmonary disease, unspecified (8) Gout: Status: Acute Code(s): M10.9 - Gout, unspecified Plan 73 year old male with below past medical history hospitalized for right pelvic fracture after fall, no surgery recommended, admitted to TCU with debility, here for rehabilitation, strengthening, prior to discharge home with . Debility - PT/OT. Pain - Tylenol 1000mg q6 prn pain (1-3), Tramadol 50mg q6 prn pain (4-5), Oxycodone 5mg q4 prn pain (6-10). Bowel - Miralax 17gm daily, senna/colace 2 tablets bid, Magnesium citrate 300ml daily prn. Adult immunization - Administer pneumonia vaccine, covid vaccine, flu vaccine as appropriate. DVT prophylaxis - Lovenox 40mg sc daily. CV prophylaxis - Aspirin 81mg every other day. Vitamin D deficiency - D3 25mcg daily. Alzheimer Disease - Donepezil 10mg daily. Rheumatoid arthritis - Plaquenil 200mg daily, MTX 20mg qweek, Leucovorin 15mg qweek, Plaquenil 200mg daily, Folic acid 1mg bid. Hypertension - Metoprolol 25mg bid. Medications at Discharge Home Medications metoprolol tartrate 25 mg tablet 25 mg PO BID htn 03/24/14 cholecalciferol (vitamin D3) 25 mcg (1,000 unit) tablet 1,000 unit PO DAILY vitamin 10/29/16 folic acid 1 mg tablet 1 mg PO BID vitamin 06/17/17 leucovorin calcium 15 mg tablet 15 mg PO Q7D RA 06/17/17 donepezil 23 mg tablet 23 mg PO DAILY dementia 09/15/23 aspirin 81 mg chewable tablet 81 mg PO QODAY@0800 #0 tabs 10/03/23 hydroxychloroquine 200 mg tablet 200 mg PO DAILYCM #0 tabs 10/03/23 methotrexate sodium 2.5 mg tablet 20 mg (8 x 2.5 mg) PO Q7D #0 tabs 10/03/23 Hospital Course Operations None Procedures None Summary of Care Provided Minutes Spent on Discharge: 35 Hospital Course: 73 year old male with below past medical history hospitalized for right pelvic fracture after fall, no surgery recommended, admitted to TCU with debility, here for rehabilitation, strengthening, prior to discharge home with . DC home with and [facility] 10/08, [facility] PT/OT/ST/SW. Physical Exam Const alert General Appearance: cooperative HEENT normocephalic Eyes PERRL and EOMs intact bilaterally Neck supple, no JVD and no carotid bruits Resp normal respiratory effort, normal air movement and clear to auscultation bilaterally Cardio regular rate and regular rhythm GI normal to inspection, nondistended, normoactive bowel sounds, non-tender and non-distended Extremity normal capillary refill General Extremity: Negative for edema Skin no rashes or lesions noted General Skin Exam: no breakdown Psych affect normal Appearance: appropriate Weight / BMI Weight Weight: 60.237 kg Body Mass Index (BMI) 18.6 ABG / Lab / Microbiology Data 10/01/23 06:59 09/27/23 05:29 Microbiology: Microbiology 10/03/23 08:10 Nasal Secretion SARS-CoV-2 Antigen (Rapid) - Final 09/29/23 04:55 Nasal Secretion SARS-CoV-2 Antigen (Rapid) - Final 09/26/23 02:00 Nasal Secretion SARS-CoV-2 Antigen (Rapid) - Final 09/22/23 06:03 Nasal Secretion SARS-CoV-2 Antigen (Rapid) - Final D/C Instructions Discharge Diet: No restrictions Discharge Activity: Return to Normal Activity, May Shower and Use Walker Weight Bearing Status: Weight bearing as tolerated Call your doctor if you observe: Fever of 101 or Higher, Inability to urinate, Inability to have a bowel movement, Shortness of breath, Dizziness, Fainting spells, Swelling in the ankles, Chest pain and Uncontrolled pain Additional Instructions: DC home with and [employer] 10/08, [facility] PT/OT/ST/SW. Please Follow Up With: [facility] When: As scheduled. Meaningful Use Info Meaningful Use Diagnoses (Choose all that apply): None applicable Discharge Plan Admission Admit Date/Time: 09/19/23 18:00 Primary Reason for Your Visit: Debility. Attending Provider: Chon Zaman Chi Primary Care Provider: Casimiro Duncan Instructions Additional Instructions / Restrictions: DC home with and [facility] 10/08, [facility] PT/OT/ST/SW. Discharge Orders/Prescriptions Prescriptions: New methotrexate sodium 2.5 mg Tablet 20 mg PO Q7D Qty: 0 0RF aspirin 81 mg Tablet,Chewable 81 mg PO QODAY@0800 Qty: 0 0RF hydroxychloroquine 200 mg Tablet 200 mg PO DAILYCM Qty: 0 0RF Continued metoprolol tartrate 25 MG tablet 25 mg PO BID cholecalciferol (vitamin D3) 1,000 UNIT tablet 1,000 unit PO DAILY donepezil 23 mg tablet 23 mg PO DAILY Patient Comments: take 1 tablet by mouth once daily leucovorin calcium 15 MG tablet 15 mg PO Q7D Patient Comments: TAKES ON TUESDAY MORNING folic acid 1 MG tablet 1 mg PO BID Discontinued hydroxychloroquine 200 mg tablet 200 mg PO QDAY aspirin 81 MG tablet,chewable 81 mg PO QODAY methotrexate sodium 2.5 MG tablet 7.5 mg PO Q7D Patient Comments: TAKES ON TUESDAY WITH LUNCH docusate sodium 100 MG capsule 100 mg PO DAILY Referrals / Follow Up: Casimiro Duncan MD [Primary Care Provider] - 10/14/23 2:30 pm Bobby Rios MD [Med Staff - Active Staff] - ( to schedule appointment) Disposition Disposition (needs filled in before D/C Order can be placed): Home Health Service
[2023-10-03 21:04] VITALS: BP 127/64; PULSE 67
[2023-10-03] MEDS: Doxepin Hydrochloride 10 MG Capsule PO (21:04)
[2023-10-03] MEDS: DONEPEZIL HCL 23 MG PO (21:28)
[2023-10-04] MEDS: Ensure Plus High Protein 120 ML LIQUID PO ×4 (05:33→20:12)
[2023-10-04 06:02] LABS: Absolute Lymphocyte Count 1.33 X10^3/uL (0.83-4.51); Absolute Neutrophil Count 3.1 X10^3/uL (2.0-7.7); Basophil# 0.08 X10^3/uL; Basophil% 1.5 % (0-1); Eosinophil# 0.17 X10^3/uL; Eosinophils% 3.3 % (0-5); Hematocrit 40.8 % (40-54); Hemoglobin 13.4 g/dL (13.0-16.5); Lymphocyte # 1.33 X10^3/ul (0.83-4.51); Lymphocyte % 25.4 % (19-41); Mean Corp Hgb Conc 32.8 g/dL (32-36); Mean Corpuscular Hgb 33.3 pg (27.0-32.0); Mean Corpuscular Volume 101.5 fL (80-94); Mean Platelet Vol. 8.8 fl (6.2-12.0); Monocyte# 0.58 X10^3/uL; Monocyte% 11.1 % (0-10); NRBC Flagged by Analyzer 0 % (0-5); Neutrophil # 3.05 X10^3/uL (2.7-7.7); Neutrophil % 58.3 % (47-70); POSITIVE MORPHOLOGY YES; Platelet Count 350 K/mm3 (150-450); RBC Distribution Width CV 15.3 % (11.6-14.6); RBC Distribution Width SD 56.6 fl (35.1-43.9); Red Blood Count 4.02 M/mm3 (4.6-6.2); White Blood Count 5.2 K/mm3 (4.4-11.0)
[2023-10-04 06:07] LABS: Differential Indicated SCAN CRITERIA MET
[2023-10-04 06:34] LABS: Reactive Lymphocyte 2+
[2023-10-04 06:39] LABS: Anion Gap 4 (5-15); BUN 16 mg/dL (7-18); Chloride 105 mmol/L (98-107); EST Glomerular Filtration Rate 78 mL/min (>60); Est Glom Filt Rate - Afr Amer 94 mL/min (>60); Estimated Creatinine Clearance 55.22 ml/min; Glucose 88 mg/dL (74-106); Sodium Level 141 mmol/L (136-145)
[2023-10-04] MEDS: Hydroxychloroquine 200 MG Tablet PO (08:04)
[2023-10-04] MEDS: Enoxaparin 40 MG/0.4 ML Syringe SC (08:04)
[2023-10-04] MEDS: Folic Acid 1 MG Tablet PO ×2 (08:04→17:20)
[2023-10-04] MEDS: Menthol/Lanolin/Calamine/Znox 113 GM Tube 1 APPLIC TOPICAL ×2 (08:04→20:16)
[2023-10-04 08:05] VITALS: BP 127/68; PULSE 63
[2023-10-04] MEDS: Senna/Docusate Sodium 1 Tablet 2 TABLET PO ×2 (08:05→20:12)
[2023-10-04] MEDS: Cholecalciferol (VIT D3) 25 MCG TABLET (1,000 UNITS) PO (08:05)
[2023-10-04] MEDS: Metoprolol Tartrate 25 MG Tablet PO ×2 (08:05→20:12)
[2023-10-04] MEDS: Polyethylene Glycol 3350 17 GM PACKET PO (08:05)
[2023-10-04 14:56] VITALS: BP 118/63; PULSE 56; RESP 16; TEMP 36.7; O2SAT 96
[2023-10-04 15:02] VITALS: BMI 42.0
[2023-10-04 19:56] VITALS: PULSE 66; RESP 16; O2SAT 96
[2023-10-04 20:12] VITALS: BP 112/62; PULSE 66
[2023-10-04] MEDS: DONEPEZIL HCL 23 MG PO (20:12)
[2023-10-04] MEDS: Doxepin Hydrochloride 10 MG Capsule PO (20:12)
[2023-10-05] MEDS: Ensure Plus High Protein 120 ML LIQUID PO ×4 (05:49→20:09)
[2023-10-05 06:00] VITALS: RESP 16
[2023-10-05] MEDS: Aspirin 81 MG TAB.CHEW PO (08:40)
[2023-10-05] MEDS: Enoxaparin 40 MG/0.4 ML Syringe SC (08:40)
[2023-10-05] MEDS: Folic Acid 1 MG Tablet PO ×2 (08:40→17:31)
[2023-10-05] MEDS: Hydroxychloroquine 200 MG Tablet PO (08:41)
[2023-10-05] MEDS: Menthol/Lanolin/Calamine/Znox 113 GM Tube 1 APPLIC TOPICAL ×2 (08:43→20:18)
[2023-10-05] MEDS: Polyethylene Glycol 3350 17 GM PACKET PO (08:43)
[2023-10-05 08:46] VITALS: PULSE 68
[2023-10-05] MEDS: Cholecalciferol (VIT D3) 25 MCG TABLET (1,000 UNITS) PO (08:46)
[2023-10-05] MEDS: Senna/Docusate Sodium 1 Tablet 2 TABLET PO ×2 (08:46→20:09)
[2023-10-05] MEDS: Metoprolol Tartrate 25 MG Tablet PO ×2 (08:46→20:09)
[2023-10-05] MEDS: Methotrexate 2.5 MG Tablet 20 MG PO (08:47)
[2023-10-05 14:18] VITALS: BMI 19.2
[2023-10-05 20:09] VITALS: BP 120/61; PULSE 65
[2023-10-05] MEDS: Doxepin Hydrochloride 10 MG Capsule PO (20:10)
[2023-10-05] MEDS: DONEPEZIL HCL 23 MG PO (20:10)
[2023-10-06] MEDS: Ensure Plus High Protein 120 ML LIQUID PO ×3 (05:45→17:09)
--- NOTE | 2023-10-06 08:35 | RAD_ITS ---
STUDY: X-RAY - PELVIS AND RIGHT HIP REASON FOR EXAM: Male, 73 years old. R hip pain TECHNIQUE: 3 views of the pelvis and hip. COMPARISON: Comparison is made with prior study dated March 15, 2024. FINDINGS: There is a non-specific bowel gas pattern. Normal visualized soft tissue structures. Normal bilateral iliac wings, sacroiliac joints and visualized sacrum. Normal bilateral superior and inferior pubic rami. There is narrowing with sclerosis of the pubic symphysis. Normal bilateral ischial tuberosities. Normal visualized femoral head. Normal acetabulum. There is mild articular joint space narrowing of the hip. RAD/HIP, UNI W/ Pelvis 2-3 Views IMPRESSION: Mild degree of the joint space narrowing of the right hip. Electronically Signed: Aman Rollins MD at 12:15 EST ,
[2023-10-06 09:09] VITALS: PULSE 69
[2023-10-06] MEDS: Hydroxychloroquine 200 MG Tablet PO (09:09)
[2023-10-06] MEDS: Metoprolol Tartrate 25 MG Tablet PO ×2 (09:09→21:20)
[2023-10-06] MEDS: Senna/Docusate Sodium 1 Tablet 2 TABLET PO ×2 (09:09→21:19)
[2023-10-06] MEDS: Folic Acid 1 MG Tablet PO ×2 (09:09→17:09)
[2023-10-06] MEDS: Menthol/Lanolin/Calamine/Znox 113 GM Tube 1 APPLIC TOPICAL ×2 (09:10→21:18)
[2023-10-06] MEDS: Cholecalciferol (VIT D3) 25 MCG TABLET (1,000 UNITS) PO (09:10)
[2023-10-06] MEDS: leucovorin 15 MG Tablet PO (09:10)
[2023-10-06] MEDS: Enoxaparin 40 MG/0.4 ML Syringe SC (09:10)
[2023-10-06] MEDS: Polyethylene Glycol 3350 17 GM PACKET PO (09:11)
[2023-10-06 13:58] VITALS: BP 109/60; PULSE 65; RESP 16; TEMP 37.1; O2SAT 98
--- NOTE | 2023-10-06 15:02 | MDS.RN ---
Pain interview for mds completed.
[2023-10-06 20:06] VITALS: PULSE 80; RESP 18; O2SAT 96
[2023-10-06] MEDS: DONEPEZIL HCL 23 MG PO (21:19)
[2023-10-06] MEDS: Doxepin Hydrochloride 10 MG Capsule PO (21:19)
[2023-10-06 21:20] VITALS: BP 121/61; PULSE 61
--- NOTE | 2023-10-07 03:52 | NURSING ---
Written communication left for Dr. Zaman review this AM regarding CT scan results. Patient denies pain this shift, no distress observed or reported. No c/o GI distress. Call light in reach. Personal alarm in place and functioning properly per order.
[2023-10-07 04:29] VITALS: PULSE 71; RESP 14; O2SAT 99
[2023-10-07] MEDS: 0.9% Saline Lock 10 ML Syringe IV (05:41)
[2023-10-07] MEDS: Aspirin 81 MG TAB.CHEW PO (08:06)
[2023-10-07] MEDS: Folic Acid 1 MG Tablet PO ×2 (08:06→17:05)
[2023-10-07] MEDS: Polyethylene Glycol 3350 17 GM PACKET PO (08:07)
[2023-10-07] MEDS: Senna/Docusate Sodium 1 Tablet 2 TABLET PO ×2 (08:07→22:05)
[2023-10-07] MEDS: Menthol/Lanolin/Calamine/Znox 113 GM Tube 1 APPLIC TOPICAL ×2 (08:07→22:08)
[2023-10-07] MEDS: Cholecalciferol (VIT D3) 25 MCG TABLET (1,000 UNITS) PO (08:07)
[2023-10-07] MEDS: Hydroxychloroquine 200 MG Tablet PO (08:07)
[2023-10-07] MEDS: Enoxaparin 40 MG/0.4 ML Syringe SC (08:07)
[2023-10-07 09:19] VITALS: BP 94/57; PULSE 62
[2023-10-07 10:00] VITALS: BP 94/57; PULSE 62
[2023-10-07] MEDS: Ensure Plus High Protein 120 ML LIQUID PO ×2 (11:39→17:05)
--- NOTE | 2023-10-07 18:08 | CASEMGMT ---
Social Work BIMS (10/06) and PHQ-2 () completed for MDS assessment LISHA Horne WELLNESS NURSE
[2023-10-07] MEDS: Doxepin Hydrochloride 10 MG Capsule PO (22:05)
[2023-10-07 22:07] VITALS: BP 119/68; PULSE 64
[2023-10-07] MEDS: Metoprolol Tartrate 25 MG Tablet PO (22:07)
[2023-10-07] MEDS: DONEPEZIL HCL 23 MG PO (22:08)
[2023-10-08 06:02] VITALS: PULSE 60; RESP 16; O2SAT 97
[2023-10-08] MEDS: Hydroxychloroquine 200 MG Tablet PO (09:27)
[2023-10-08] MEDS: Folic Acid 1 MG Tablet PO (09:27)
[2023-10-08] MEDS: Menthol/Lanolin/Calamine/Znox 113 GM Tube 1 APPLIC TOPICAL (09:27)
[2023-10-08] MEDS: Enoxaparin 40 MG/0.4 ML Syringe SC (09:27)
[2023-10-08 09:28] VITALS: BP 113/70; PULSE 73
[2023-10-08] MEDS: Metoprolol Tartrate 25 MG Tablet PO (09:28)
[2023-10-08] MEDS: Senna/Docusate Sodium 1 Tablet 2 TABLET PO (09:28)
[2023-10-08] MEDS: Polyethylene Glycol 3350 17 GM PACKET PO (09:28)
[2023-10-08] MEDS: Cholecalciferol (VIT D3) 25 MCG TABLET (1,000 UNITS) PO (09:28)
== END 2023-10-08 11:20 | disposition home health service (06) | DRG 561 ==
PROVIDERS: Admitting Provider Family Medicine Geriatric Medicine; PCP Family Medicine; Referring Provider Family Medicine Geriatric Medicine; Visit Provider Family Medicine Geriatric Medicine
DX: S32.511D Fracture of superior rim of right pubis, subsequent encounter for fracture with routine healing (principal); E55.9 Vitamin D deficiency, unspecified; F02.80 Dementia in other diseases classified elsewhere, unspecified severity, without behavioral disturbance, psychotic disturbance, mood disturbance, and anxiety; J44.9 Chronic obstructive pulmonary disease, unspecified; G30.9 Alzheimer's disease, unspecified; M06.9 Rheumatoid arthritis, unspecified; I10 Essential (primary) hypertension; F32.A Depression, unspecified; W19.XXXD Unspecified fall, subsequent encounter; F41.9 Anxiety disorder, unspecified; Z87.891 Personal history of nicotine dependence; Z79.82 Long term (current) use of aspirin; Z79.899 Other long term (current) drug therapy; G47.00 Insomnia, unspecified; Z23 Encounter for immunization
CPT/HCPCS: 36415; 73502; 80048; 82306; 85014; 85018; 85025; 87811; 90480; 92507; 92523; 97110; 97116; 97129; 97130; 97162; 97166; 97530; 97535; 97802; 91322; A4216; J8610

== ENCOUNTER → 2023-09-26 | Outpatient (CLI) | payer MEDICARE, BC, SELFPAY ==
--- NOTE | 2023-09-26 16:35 | CT_ITS ---
INDICATION: Trauma, head injury EXAMINATION: CT BRAIN - CT Head or Brain W/O Contrast Injection TECHNIQUE: Multiple axial images were obtained of the head without intravenous contrast. A radiation dose optimization technique was used for this scan. IV Contrast dosage and agent: None. COMPARISON: 03/24/2014 FINDINGS: BRAIN PARENCHYMA: No intra- or extra-axial hemorrhage. No evidence of acute infarct. No intracranial mass or mass effect. There is preservation of the peraza/white matter interface. Posterior fossa structures are unremarkable. Volume loss with low attenuation of the periventricular white matter typical of chronic small vessel disease. CSF SPACES: Appropriate for age. No hydrocephalus. Basal cisterns are patent. CALVARIUM, SKULL BASE, PARANASAL SINUSES AND MASTOID AIR CELLS: Clear. No discrete lytic or blastic abnormalities. CT/Brain/Head without Contrast IMPRESSION: Volume loss with chronic white matter changes. No acute intracranial findings. Electronically Signed: Andrez Alvarado MD at 17:31 EST ,
--- NOTE | 2023-09-26 18:41 | MRI_ITS ---
STUDY: MRI BRAIN WITHOUT CONTRAST REASON FOR EXAM: Male, 73 years old. Trauma, fell, hit head TECHNIQUE: Multiplanar multisequence imaging of the brain was performed without the administration of intravenous contrast. COMPARISON: Noncontrast head CT same date FINDINGS: The ventricles, cisterns, and sulci are prominent consistent with age-related volume loss. There is no restricted diffusion to suggest acute ischemia or infarction. No succeptibility artifict to suggest intracranial hemorrhage or mineralization. Major intracranial signal voids are preserved. There is scattered high T2/FLAIR signal seen in the periventricular deep white matter. There is no midline shift, mass effect, or extra axial fluid collections are seen. No CP angle or IAC mass is seen. The orbits are unremarkable. The sella turcica and craniovertebral junction are within normal limits. The visualized paranasal sinuses are clear. Right otomastoiditis. MRI/Brain without Contrast IMPRESSION: Volume loss with chronic microvascular ischemic changes. No intracranial hemorrhage, acute infarct, or space occupying lesion seen on this noncontrast MRI of the brain. Electronically Signed: Andrez Alvarado MD at 20:15 EST ,
== END | disposition home or self-care (01) ==
PROVIDERS: PCP Family Medicine; Referring Provider Family Medicine Geriatric Medicine; Visit Provider Family Medicine Geriatric Medicine
DX: S09.90XA Unspecified injury of head, initial encounter (principal); W17.89XA Other fall from one level to another, initial encounter
CPT/HCPCS: 70450; 70551

== ENCOUNTER → 2023-10-06 | Outpatient (CLI) | payer MEDICARE, BC, SELFPAY ==
--- NOTE | 2023-10-06 21:10 | CT_ITS ---
EXAM: CT ABDOMEN AND PELVIS WITH INTRAVENOUS CONTRAST CLINICAL INDICATION: left inguinal hernia TECHNIQUE: Helically acquired images were obtained of the abdomen and pelvis with intravenous contrast. CTDIvol = ( 12.56 ) mGy, DLP = ( 463.13 ) mGycm This CT exam was performed using one or more of the following dose reduction techniques: automated exposure control, adjustment of the mA and/or kV according to patient size, and/or use of iterative reconstruction technique. CONTRAST: IV 100mL Isovue-370 COMPARISON: No relevant prior studies available. FINDINGS: LOWER THORAX: Mild subsegmental atelectasis in the posterior lower lobes, right worse than left. No cardiomegaly. No significant pericardial effusion. ABDOMEN: LIVER: Unremarkable. Homogeneous. No focal mass. GALLBLADDER AND BILE DUCTS: Unremarkable. No calcified gallstones. No gallbladder distention or wall edema. No intra- or extrahepatic biliary ductal dilation. PANCREAS: Unremarkable. No focal cystic or solid mass. SPLEEN: Unremarkable. Normal size without focal cystic or solid mass. ADRENALS: Unremarkable. No nodules. KIDNEYS AND URETERS: Small renal cysts bilaterally. No obstructive uropathy. No other renal abnormalities. Normal renal size and position. STOMACH AND BOWEL: Small left inguinal hernia with a knuckle of small bowel extending into the hernia defect. No associated ischemic change. Stool throughout the colon but no colitis or diverticulitis or bowel obstruction. PELVIS: APPENDIX: No evidence of acute appendicitis. BLADDER: Unremarkable. REPRODUCTIVE: Unremarkable as visualized. No mass. ABDOMEN and PELVIS: INTRAPERITONEAL SPACE: Unremarkable. No ascites or other fluid collection. No free air. BONES/JOINTS: Healing superior and inferior right pubic rami fractures and healing fracture of the right anterior acetabulum. Grade 1 degenerative anterolisthesis of L4 on L5. Moderate anterior wedge compression fracture of the L1 vertebral body appears acute or subacute. There is associated mild retropulsion of the posterior superior wall into the central canal resulting in mild central canal narrowing. No suspicious lytic or blastic abnormality. No significant foraminal stenosis. SOFT TISSUES: Small fat-containing right inguinal hernia. VASCULATURE: Unremarkable. Abdominal aorta is non-dilated. LYMPH NODES: Unremarkable. No enlarged lymph nodes. CT/Abdomen/Pelvis WITH Contrast IMPRESSION: 1. Small left inguinal hernia with a knuckle of small bowel extending into the hernia defect. No associated ischemic change. 2. Healing superior and inferior right pubic rami fractures and healing fracture of the right anterior acetabulum. Electronically Signed: Enrrique Barry MD at 22:58 EST ,
== END | disposition home or self-care (01) ==
LOC: CT 18:41
PROVIDERS: PCP Family Medicine; Visit Provider Family Medicine Geriatric Medicine
DX: K40.90 Unilateral inguinal hernia, without obstruction or gangrene, not specified as recurrent (principal)
CPT/HCPCS: 74177; Q9967; A4216

== ENCOUNTER → 2023-10-24 | Outpatient (CLI) | payer MEDICARE, BC, SELFPAY ==
[2023-10-24 17:34] LABS: Absolute Lymphocyte Count 1.45 X10^3/uL (0.83-4.51); Absolute Neutrophil Count 4.1 X10^3/uL (2.0-7.7); Basophil# 0.09 X10^3/uL; Basophil% 1.4 % (0-1); Eosinophil# 0.17 X10^3/uL; Eosinophils% 2.6 % (0-5); Hematocrit 45.3 % (40-54); Hemoglobin 14.9 g/dL (13.0-16.5); Lymphocyte # 1.45 X10^3/ul (0.83-4.51); Lymphocyte % 22.3 % (19-41); Mean Corp Hgb Conc 32.9 g/dL (32-36); Mean Corpuscular Hgb 33.2 pg (27.0-32.0); Mean Corpuscular Volume 100.9 fL (80-94); Mean Platelet Vol. 9.2 fl (6.2-12.0); Monocyte# 0.64 X10^3/uL; Monocyte% 9.8 % (0-10); NRBC Flagged by Analyzer 0 % (0-5); Neutrophil # 4.12 X10^3/uL (2.7-7.7); Neutrophil % 63.3 % (47-70); POSITIVE MORPHOLOGY YES; Platelet Count 228 K/mm3 (150-450); RBC Distribution Width CV 14.6 % (11.6-14.6); RBC Distribution Width SD 54.5 fl (35.1-43.9); Red Blood Count 4.49 M/mm3 (4.6-6.2); White Blood Count 6.5 K/mm3 (4.4-11.0)
[2023-10-24 17:40] LABS: Differential Indicated SCAN CRITERIA MET
[2023-10-24 18:06] LABS: Differential Comment SCANNED
[2023-10-24 18:37] LABS: ALB/GLOB Ratio 1.1 RATIO (0.9-2.4); AST(SGOT) 19 U/L (15-37); Alanine Aminotransfer ALT/SGPT 33 U/L (16-61); Albumin, Serum 3.4 g/dL (3.2-5.0); Alkaline Phosphatase 115 U/L (45-117); Anion Gap 5 (5-15); BUN 15 mg/dL (7-18); BUN/Creat Ratio 15.7 RATIO (10-20); Calcium,Total 9.3 mg/dL (8.5-10.1); Chloride 104 mmol/L (98-107); Creatinine, Serum 0.95 mg/dL (0.70-1.30); EST Glomerular Filtration Rate 82 mL/min (>60); Est Glom Filt Rate - Afr Amer 99 mL/min (>60); Globulin 3.2 g/dL (2.2-4.2); Glucose 78 mg/dL (74-106); Potassium 3.9 mmol/L (3.5-5.1); Protein, Total 6.6 g/dL (6.4-8.2); Sodium Level 139 mmol/L (136-145)
--- OUTSIDE RECORDS SUMMARY | 2023-10-24 19:53 | XMS RPT_ITS | CCD ---
Author Name Unknown Address [address] [place] [address] Organization [facility] Care Team Providers Care Compensation Consultant Name Role Phone Keli Young Unavailable Unavailable [...] Class(es) Dates Sig (Normalized) Sig (Original) amylase 795419 unt / lipase 71206 unt / protease 148728 unt delayed release oral capsule (4 sources) Start: 10-29-2021 Zenpep [id number] UNIT Oral Capsule Delayed Release Particles Take [...] TBEC One tablet by mouth daily ASPIRIN [id number] Munir Torres MD Problems Active Problems Problem [...] D deficiency] Chronic Other aftercare (1 source) detention (current) use of aspirin; Translations: [roasterman (current) use of aspirin] Onset: 11-23-2022 Episodic Other aftercare (1 source) Long-term current use of aspirin; Translations: [roasterman (current) use of aspirin] 11-26-2022 Episodic Other [...] height 179.07 cm Casimiro Duncan Work Phone: [facility] [facility] Work Phone: 01-24-2023 13:30-0400 Body mass index (BMI) [Ratio] 20.69 kg/m2 Casimiro Duncan Work Phone: [facility] [facility] Work Phone: 01-24-2023 13:30-0400 Body surface area Derived from formula 1.84 m2 Casimiro Duncan Work Phone: [facility] [facility] Work Phone: 01-24-2023 13:30-0400 Body weight 66.34 kg Casimiro Duncan Work Phone: [facility] [facility] Work Phone: 10-12-2021 14:25-0500 Body height 179.07 cm Casimiro Duncan Work Phone: [facility] [facility] Work Phone: 10-12-2021 14:25-0500 Body mass index (BMI) [Ratio] 20.09 kg/m2 Casimiro Duncan Work Phone: [facility] [facility] Work Phone: 10-12-2021 14:25-0500 Body surface area Derived from formula 1.81 m2 Casimiro Pooja Duncan Work Phone: [facility] [facility] Work Phone: 10-12-2021 14:25-0500 Body weight 64.41 kg Casimiro Patton Duncan Work Phone: [facility] [facility] Work Phone: 10-12-2021 14:25-0500 Diastolic blood pressure 80 mm[Hg] Casimiro Pooja Duncan Work Phone: [facility] [facility] Work Phone: 10-12-2021 14:25-0500 Systolic blood pressure 120 mm[Hg] Casimiro Duncan Work Phone: [facility] [facility] Work Phone: [...] Munir Torres MD [facility] Work Phone: 06-13-2017 15:57-0400 Respiratory Rate 18 /min Munir Torres MD [facility] Work Phone: 06-13-2017 15:57-0400 Weight 65.91 kg Munir Torres MD [facility] Work Phone: Encounters Encounter Date Encounter Type Care Provider Facility Start: 04-21-2023 AUDIT Casimiro Duncan Work Phone: [facility] [facility] Work Phone: Start: 01-24-2023 Office outpatient vi sit 15 minutes Casimiro Duncan Work Phone: [facility] [facility] Work Phone: Start: 01-24-[address] Casimiro Duncan Facility:[id number] Start: 12-31-2022 AUDIT Casimiro Duncan Work Phone: [facility] [facility] Work Phone: Start: 11-23-2022 End: 11-23-2022 ambulatory Tom Muñoz Facility:[id number] Start: 11-23-2022 End: 11-23-2022 Subsequent hospital visit by physician Tom Muñoz DO Work Phone: [facility] Procedures Date Procedure Procedure Detail Performing Clinician Start: 11-23-2022 Colonoscopy stoma dx including collj spec spx Casimiro Duncan MD Start: 11-23-2022 Colonoscopy Tom rodrigues DO Work Phone: Colonoscopic polypectomy Yesika david Duncan Work Phone: Colonoscopy Casimiro Duncan Work Phone: Plan of Treatment Date Care Activity Detail Author Start: 11-23-2032 Screening for malignant neoplasm of colon [facility] Start: 04-22-2023 Influenza vaccination Influenza Vaccine (#1) [facility] Start: 01-24-2023 FUV, Provider: Tom Muñoz, Status: Pen, Time: 1:15 PM FUV, Provider: Tom Muñoz, Status: Pen, Time: 1:15 PM -[facility] [facility] Work Phone: Start: 06-24-2017 End: 06-24-2017 Appointment Appointment [facility] Work Phone: Start: 06-13-2017 End: 06-13-2017 Appointment Appointment [facility] Work Phone: Start: 06-13-2017 End: 06-14-2017 Colonoscopy flx dx w/collj spec when pfrmd Colonoscopy [facility] Work Phone: Start: 06-13-2017 End: 06-14-2017 Egd transoral biopsy single/multiple Upper gastrointestinal endoscopy; with biopsy [facility] Work Phone: Start: 2014 Pneumococcal Vaccine: 65+ Years (1 - PCV) Pneumococcal Vaccine: 65+ Years (1 - PCV) [facility] Start: 1999 Zoster Vaccines (1 of 2) Zoster Vaccines (1 of 2) [facility] Start: 1971 DTaP/Tdap/Td Vaccines (1 - Tdap) DTaP/Tdap/Td Vaccines (1 - Tdap) [facility] Start: 1967 Hepatitis C screening Hepatitis C Screening [facility] Start: 03-05-1950 COVID-19 Vaccine (#1) COVID-19 Vaccine (#1) [facility] Start: 1950 Lipid panel Lipid Panel [facility] Start: 1950 Screening for malignant neoplasm of colon [facility] Start: 1950 Yearly Adult Physical Yearly Adult Physical [facility] Payers Date Payer Category Payer Private Health Insurance [id number] 2014 Medicare [id number] 1950 Unknown [id number] 1950 Unknown [id number] Unknown Social History Date Type Detail Facility Never a smoker Never a smoker -[facility] Work Phone: Tobacco smoking status VTIS Tobacco smoking consumption unknown [facility] Work Phone: Start: 1950 Sex Assigned At Not on file [facility] Work Phone: Gender identity Not on file [facility] Work Phone: Colonoscopy 02-06-2023 Note Date & Type Note Facility 02-06-2023 Note Patient Name: Edwin Odonnell Procedure Date: 11/23/2022 8:41 AM Date of : 1950 Admit Type: Outpatient Site: [facility] Proc 1 Ethnicity: Not or Race: White Attending MD: Tom Muñoz DO, [id number] Procedure: Colonoscopy Indications: Surveillance: Personal history of colonic polyps (unknown histology) on last colonoscopy more than 5 years ago Providers: Tom Muñoz DO (Doctor), Kajal Lemon RN (Nurse), Kelsey Leal RN (Nurse), Ewa Maradiaga, Building Maintenance Worker Referring: Casimiro Duncan Medicines: Midazolam 2.5 mg [...] identify no food triggers for his symptoms. -[facility] [address] Work Phone: History of Present illness Narrative [...] with Humira. He follows with rheumatology in [place]. [facility] [place] [address] Work Phone: Evaluation note Note Date & Type Note Facility documented in this encounter [facility] Work Phone: Chief Complaint FUV in office [...] DATE CREATED AUTHOR AUTHOR'S ORGANIZ ATION 01/31/2023 [facility] DATE CREATED AUTHOR AUTHOR'S ORGANIZ ATION 01/31/2023 [employer] Reason for Visit (unrecogniz ed section and [...] BE BASED ON THE PRIMARY CLINICAL RECORDS. [facility] [employer] provides no warranty or guarantee of the accuracy or completeness of information in this document.
== END | disposition home or self-care (01) ==
LOC: MTLAB 16:22
PROVIDERS: PCP Family Medicine; Referring Provider Internal Medicine Rheumatology; Visit Provider Internal Medicine Rheumatology
DX: M06.4 Inflammatory polyarthropathy (principal); Z79.899 Other long term (current) drug therapy
CPT/HCPCS: 36415; 80053; 85025

== ENCOUNTER → 2023-11-14 | Outpatient (CLI) | payer MEDICARE, BC, SELFPAY ==
--- NOTE | 2023-11-14 16:01 | RAD_ITS ---
INDICATION: RIB PAIN EXAMINATION/TECHNIQUE: X-RAY - XR Ribs Unilateral Min 2 Views COMPARISON: No relevant prior comparison study available FINDINGS: SOFT TISSUES: No soft tissue swelling or gas. BONES: No displaced fracture. No sclerotic or destructive changes observed. VISUALIZED LUNGS: Clear. No pneumothorax. RAD/Ribs Unil 2V No CXR IMPRESSION: No evidence of displaced rib fracture. Electronically Signed: Dick Woods MD at 12:26 EDT ,
--- NOTE | 2023-11-14 16:15 | RAD_ITS ---
STUDY: X-RAY CHEST REASON FOR EXAM: Male, 73 years old. RIGHT RIB PAIN TECHNIQUE: PA and lateral views of the chest. COMPARISON: 09/15/2023 FINDINGS: The lungs are clear and expanded. There is no demonstrated pleural abnormality. Normal size heart. Normal mediastinum and cheryl. Normal visualized pulmonary arteries. Normal visualized aortic arch and descending thoracic aorta. There is a levoscoliosis of the thoracic spine. Normal visualized ribs, clavicles, and shoulders. There is no demonstrated abnormality of the visualized soft tissue structures of the upper abdomen. RAD/Chest PA and Lateral IMPRESSION: No active disease. Electronically Signed: Jeremías Forbes MD at 0:04 EDT ,
== END | disposition home or self-care (01) ==
LOC: MTRAD 16:00
PROVIDERS: PCP Family Medicine; Referring Provider Family Medicine; Visit Provider Family Medicine
DX: R07.81 Pleurodynia (principal)
CPT/HCPCS: 71046; 71100

== ENCOUNTER 2023-12-05 09:42 | Inpatient (IN) | payer MEDICARE, BC, SELFPAY ==
[2023-12-05] VITALS (7 sets, daily range): BP systolic 134–148; BP diastolic 64–90; PULSE 64–87; RESP 14–18; TEMP 21.2–37; O2SAT 95–99; BMI 21.6; BMI 20.8
--- NOTE | 2023-12-05 10:05 | EKG12_ITS ---
Test Reason : FALL Blood Pressure : / mmHG Vent. Rate : 067 BPM Atrial Rate : 067 BPM P-R Int : 166 ms QRS Dur : 082 ms QT Int : 406 ms P-R-T Axes : 058 007 073 degrees QTc Int : 429 ms Normal sinus rhythm Low voltage QRS Septal infarct (cited on or before 15-SEP-2023) Abnormal ECG Confirmed by NATE POTTS, JENNA ([id number]), senior editor DASIA MAJANO ([id number]) on 12/06/2023 8:22:08 AM Referred By: Confirmed By:JENNA SULLIVAN MD
--- NOTE | 2023-12-05 10:06 | CT_ITS ---
STUDY: CT ABDOMEN AND PELVIS WITH CONTRAST REASON FOR EXAM: Male, 73 years old. Abdominal pain, distention. Decreased appetite. RADIATION DOSAGE (If Supplied By Facility): CTDIvol = ( 11.33 ) mGy, DLP = ( 678.68 ) mGycm TECHNIQUE: Transaxial images were obtained from the dome of the diaphragm to the symphysis pubis without oral contrast. IV 100mL Isovue-300 was administered. Sagittal and coronal images were reconstructed. Individualized dose optimization techniques were used for this CT. COMPARISON: Comparison is made with prior study dated October 06, 2023. FINDINGS: Small bilateral pleural effusions with bibasilar atelectasis and/or infiltrates more prominent on the right side. Coronary artery calcification. 8 mm cyst seen in the anterior right lobe of the liver. The gallbladder is contracted. Normal spleen. Normal pancreas. Normal bilateral adrenal glands. 1.6 cm cyst in the upper lateral aspect of the right kidney. There is a 5.9 mm nonobstructive calculus in the lower pole calyx. Moderate degree of right hydronephrosis. Moderate hydronephrosis of the left kidney. Normal visualized stomach. Normal small intestine. Normal colon. The appendix is visualized and appears normal. There is diffuse atherosclerotic calcification of the abdominal aorta and its major visceral branches, without a demonstrated aneurysm. Normal inferior vena cava. Normal retroperitoneum. There is a markedly distended urinary bladder. There is enlargement of the prostate gland. The prostate measures 4.8 cm x 4.3 cm. Small right hydrocele. Normal abdominal wall. 50% loss of height of the superior endplate of the L1 vertebrae. CT/Abdomen/Pelvis W IV Cont ONLY IMPRESSION: Marked degree of distention of the urinary bladder with bilateral hydronephrosis. Nonobstructive calculus in the lower pole calyx of the right kidney. Electronically Signed: Aman Rollins MD at 11:20 EDT ,
--- NOTE | 2023-12-05 10:07 | EDS_ITS ---
HPI History of Present Illness Chief Complaint: General Illness Detail of Chief Complaint: Decreased p.o. intake and frequent falls, weakness Informant: patient and spouse/S.O. Narrative Narrative: Patient presents via EMS from home. Patient has had frequent falls last week fell 3 times. Last fall was 2 days ago when try to get him off the toilet and he fell onto the ground so she had to call the squad help him back up. Patient also not able to eat. States that he has not had much in the way of solid food for about a week. He ate small amount of salmon 2 days ago. Try to eat some yogurt and was spitting it up. also noted that his abdomen is bloated. Patient does complain of abdominal pain. Patient is a poor historian given his history of dementia so gives most of the history. [facility] Medical History Alzheimer disease COPD (chronic obstructive pulmonary disease) Gout Hemorrhoids HTN (hypertension) Rheumatoid arthritis Weight loss Home Medications metoprolol tartrate 25 mg tablet 25 mg PO BID htn 03/24/14 [History Last Taken 12/04/23] cholecalciferol (vitamin D3) 25 mcg (1,000 unit) tablet 1,000 unit PO DAILY vitamin 10/29/16 [History Last Taken 12/04/23] folic acid 1 mg tablet 1 mg PO BID vitamin 06/17/17 [History Last Taken 12/04/23] leucovorin calcium 15 mg tablet 15 mg PO Q7D RA 06/17/17 [History Last Taken 12/01/23] donepezil 23 mg tablet 23 mg PO DAILY dementia 09/15/23 [History Last Taken 12/04/23] aspirin 81 mg chewable tablet 81 mg PO QODAY@0800 #0 tabs 10/03/23 [Rx Last Taken 12/04/23] methotrexate sodium 2.5 mg tablet 20 mg (8 x 2.5 mg) PO Q7D #0 tabs 10/03/23 [Rx Last Taken 11/30/23] hydroxychloroquine 200 mg tablet 200 mg PO DAILY 12/05/23 [History Last Taken 12/03/23] Allergy/AdvReac Type Severity Reaction Status Date / Time No Known Allergies Allergy Verified 12/05/23 09:49 Family History Father Colon cancer CVA (cerebral vascular accident) Hypertension Heart disease Sister CAD (coronary artery disease) Hypertension Heart disease Mother Cancer Surgical History Hx of tonsillectomy S/P colonoscopy Social History household members: spouse Smoking Status: Former smoker alcohol intake: never substance use type: does not use ROS ROS ED Review of Systems ROS Unobtainable: other Constitutional Constitutional ED: Reports lethargy; Denies chills, fever(s), sweats or weight loss Eyes Eyes: Denies blurry vision, change in vision or diplopia ENT ENT ED: Denies rhinorrhea or sore throat Cardiovascular Cardiovascular: Denies chest pain, orthopnea or racing heartbeat Respiratory/Chest Respiratory/Chest: Denies cough, dyspnea, dyspnea on exertion, orthopnea or sputum Gastrointestinal Gastrointestinal: Reports abdominal pain and other Details: Decreased p.o. inta ke ; Denies diarrhea, nausea or vomiting Genitourinary Genitourinary ED: Denies dysuria, hematuria or urinary frequency Musculoskeletal Musculoskeletal: Denies arthralgias, back pain, myalgias or neck pain Integumentary Denies abscess, Abrasions or rash Neurologic Neurologic: Denies headache(s) or weakness Psychiatric Psychiatric: Denies anxiety, depression or suicidal thoughts Endocrine Endocrinology: Denies polydipsia, polyphagia or polyuria Hematologic/Lymphatic Hematologic/Lymphatic: Denies easy bleeding, easy bruising or lymphadenopathy Allergic/Immunologic Allergic/Immunologic ED: Denies mouth swelling, tongue swelling or urticaria EXAM Physical Exam Const Vital Signs: 12/05/23 09:43 12/05/23 09:43 12/05/23 11:43 Temperature 70.2 F L Temperature Source Temporal Pulse Rate 67 78 Respiratory Rate 18 16 Respiratory Effort Normal Non-Labored Respiratory Pattern Normal Blood Pressure 146/71 H 148/64 H Blood Pressure Mean 96 92 Pulse Ox 99 99 Oxygen Delivery Method Room Air Room Air Positive well nourished and well developed General Appearance ED: well developed and NAD HEENT Reports TM's clear and moist mucous membranes normocephalic and atraumatic; Negative for trauma or tenderness Tympanic Membrane ED: Yes TM's clear Eyes PERRL and EOMs intact bilaterally General Eye ED: Negative for pale conjunctiva or scleral icterus Neck no lymphadenopathy, supple and no JVD General: Negative for tenderness Chest Wall inspection of chest normal and palpation of chest normal Chest: Negative for tenderness Resp normal respiratory effort and clear to auscultation bilaterally Effort and Inspection: Negative for respiratory distress or pain with movement Auscultation: Negative for rhonchi, wheezes or diminished lung sounds Cardio regular rate, regular rhythm, S1 normal heart sound, S2 normal heart sound and no murmurs Peripheral Pulses: pulses 2+ throughout GI normal to inspection, nondistended, normoactive bowel sounds and no masses; Negative for soft to palpation or non-distended GI Narrative: Abdomen distended and tender to palpation with guarding. There is rebound. Back/Spine no CVA tenderness and no thoracic nor lumbar tenderness Extremity Extremity Narrative: Diffuse erythema from distal third of tib-fib bilaterally to the feet. states his feet are always a little bit red. General Extremety ED: Negative for edema General Extremity: Negative for edema Neuro oriented x3, CN's II-XII intact bilaterally, no sensory deficits noted and gait normal Sensorium / Orientation: awake, alert, oriented to person, oriented to place and oriented to time Motor Exam: strength 5/5 throughout and strength abnormal Psych mental status grossly normal Skin no rashes or lesions noted and no wounds MDM MDM MDM Narrative Medical decision making narrative: Patient presents with generalized weakness decreased p.o. intake. states he has been falling more. Recently admitted to transitional care unit. IV line established. CBC with differential obtained showed a white count of 13.8 with hemoglobin 13.4 and platelet count of 208. Patient had a CT scan of the abdomen pelvis obtained given the significant exam. He was noted to have a severely enlarged bladder with hydronephrosis. Chemistries returned that showed a BUN of 125 and creatinine 11. But sodium was 121 potassium 4.9. Chloride 86. CO2 was 14. Case discussed with hospitalist will evaluate patient for admission. He will likely require evaluation by nephrology and urology. Lactate elevated 2.3. Lab Data Attestation: I reviewed the patient's lab results. Labs: Laboratory Results - last 24 hr 12/05/23 12/05/23 11:30 11:35 WBC 13.8 H RBC 4.04 L Hgb 13.4 Hct 37.2 L MCV 92.1 MCH 33.2 H MCHC 36.0 RDW Std Deviation 45.5 H RDW Coeff of Narciso 13.4 Plt Count 208 MPV 8.5 Immature Gran % (Auto) 0.800 Neut % (Auto) 93.3 H Lymph % (Auto) 4.[address] [place] % (Auto) 0.9 Eos % (Auto) 0.3 Baso % (Auto) 0.1 Absolute Neuts (auto) 12.9 H Absolute Lymphs (auto) 0.64 L Nucleated RBC % 0 Sodium 121 L Potassium 4.9 Chloride 86 L Carbon Dioxide 14.0 L Anion Gap 21 H BUN 125 H* Creatinine 11.80 H* Estim Creat Clear Calc 5.45 Est GFR (MDRD) Af Amer 5 L Est GFR (MDRD) Non-Af 5 L BUN/Creatinine Ratio 10.6 Glucose 65 L Lactic Acid 2.3 H* Calcium 8.9 Total Bilirubin 0.70 AST 76 H ALT 125 H Alkaline Phosphatase 71 Troponin I High Sens 8 Total Protein 5.9 L Albumin 2.7 L Globulin 3.2 Albumin/Globulin Ratio 0.8 L Lipase TNP Urine Color Yellow Urine Clarity Clear Urine pH 5.0 Ur Specific [place] 1.010 Urine Protein Negative Urine Glucose (UA) Normal Urine Ketones Negative Urine Occult Blood 10 H Urine Nitrite Negative Urine Bilirubin Negative Urine Urobilinogen Normal Ur Leukocyte Esterase 100 H Urine RBC 0 SEEN Urine WBC 0-5 SEEN Ur Squamous Epith Cells 0 SEEN Urine Bacteria 0 SEEN Urine Mucus 0 SEEN Radiography Diagnostic Testing: Clinical Impression(s) from Imaging Studies Abdomen/Pelvis CT 12/05/23 10:06 IMPRESSION: Marked degree of distention of the urinary bladder with bilateral hydronephrosis. Nonobstructive calculus in the lower pole calyx of the right kidney. Electronically Signed: Aman Rollins MD at 11:20 EDT , EKG Initial EKG: Attestation: I personally reviewed and interpreted this EKG as follows: Comments: Sinus rhythm with rate of 67 bpm with old septal infarct Critical Care Time Critical Care Time: Yes Critical care time (excluding procedures): 30-74 minutes, Including time spent:, Discussing w/Patient &/or Family/Operator Bearer Systems, Discussing w/Consultants, Arranging Admission or Transfer, Performing Direct Patient Care at Bedside and - (35 minutes) Discharge Plan Dx/Rx/DC Orders Clinical Impression: Acute renal failure, Weakness, Acute urinary retention, Acute hyponatremia Disposition Disposition: Acute Care Hospital [facility] Discharge Date/Time: 12/05/23 13:11
[2023-12-05] MEDS: 0.9% Normal Saline (1000mL) 1,000 ML 150 ML IV ×2 (10:15→14:58)
[2023-12-05 11:45] LABS: Absolute Lymphocyte Count 0.64 X10^3/uL (0.83-4.51); Absolute Neutrophil Count 12.9 X10^3/uL (2.0-7.7); Basophil# 0.01 X10^3/uL; Basophil% 0.1 % (0-1); Eosinophil# 0.04 X10^3/uL; Eosinophils% 0.3 % (0-5); Hematocrit 37.2 % (40-54); Hemoglobin 13.4 g/dL (13.0-16.5); Lymphocyte # 0.64 X10^3/ul (0.83-4.51); Lymphocyte % 4.6 % (19-41); Mean Corpuscular Hgb 33.2 pg (27.0-32.0); Mean Corpuscular Volume 92.1 fL (80-94); Mean Platelet Vol. 8.5 fl (6.2-12.0); Monocyte# 0.12 X10^3/uL; Monocyte% 0.9 % (0-10); NRBC Flagged by Analyzer 0 % (0-5); Neutrophil # 12.86 X10^3/uL (2.7-7.7); Neutrophil % 93.3 % (47-70); Platelet Count 208 K/mm3 (150-450); RBC Distribution Width CV 13.4 % (11.6-14.6); RBC Distribution Width SD 45.5 fl (35.1-43.9); Red Blood Count 4.04 M/mm3 (4.6-6.2); White Blood Count 13.8 K/mm3 (4.4-11.0)
[2023-12-05 12:09] LABS: ALB/GLOB Ratio 0.8 RATIO (0.9-2.4); AST(SGOT) 76 U/L (15-37); Alanine Aminotransfer ALT/SGPT 125 U/L (16-61); Albumin, Serum 2.7 g/dL (3.2-5.0); Alkaline Phosphatase 71 U/L (45-117); Anion Gap 21 (5-15); BUN 125 mg/dL (7-18); BUN/Creat Ratio 10.6 RATIO (10-20); Calcium,Total 8.9 mg/dL (8.5-10.1); Chloride 86 mmol/L (98-107); EST Glomerular Filtration Rate 5 mL/min (>60); Est Glom Filt Rate - Afr Amer 5 mL/min (>60); Estimated Creatinine Clearance 5.45 ml/min; Globulin 3.2 g/dL (2.2-4.2); Glucose 65 mg/dL (74-106); Potassium 4.9 mmol/L (3.5-5.1); Protein, Total 5.9 g/dL (6.4-8.2); Sodium Level 121 mmol/L (136-145); Troponin-I HS 8 pg/mL (3.0-78.0)
[2023-12-05 12:19] LABS: Lactic Acid 2.3 mmol/L (0.4-1.9)
--- NOTE | 2023-12-05 12:24 | PCM.HP.STD ---
HPI - General General Date of Admission: 12/05/23 Date of Service: 12/05/23 Chief Complaint: Generalized weakness HPI Narrative EDWIN ODONNELL, is a 73 M with past medical history is known for dementia who was brought to the emergency department by the on account of generalized weakness. Patient could not contribute much to the history given his underlying dementia history was therefore provided by the . Per patient's patient has experienced progressive generalized weakness over the past 4 days. He has also experienced decreased appetite and has been hiccuping a lot. On the morning of his admission did notice significant distention of the abdomen which resulted in patient being brought to the emergency department. Patient was found to have distended bladder on the CAT scan obtained Marina catheter was placed and admitted to a monitored bed for further management [facility] Medical History Alzheimer disease COPD (chronic obstructive pulmonary disease) Gout Hemorrhoids HTN (hypertension) Rheumatoid arthritis Weight loss Home Medications metoprolol tartrate 25 mg tablet 25 mg PO BID htn 03/24/14 [History Last Taken 12/04/23] cholecalciferol (vitamin D3) 25 mcg (1,000 unit) tablet 1,000 unit PO DAILY vitamin 10/29/16 [History Last Taken 12/04/23] folic acid 1 mg tablet 1 mg PO BID vitamin 06/17/17 [History Last Taken 12/04/23] leucovorin calcium 15 mg tablet 15 mg PO Q7D RA 06/17/17 [History Last Taken 12/01/23] donepezil 23 mg tablet 23 mg PO DAILY dementia 09/15/23 [History Last Taken 12/04/23] aspirin 81 mg chewable tablet 81 mg PO QODAY@0800 #0 tabs 10/03/23 [Rx Last Taken 12/04/23] methotrexate sodium 2.5 mg tablet 20 mg (8 x 2.5 mg) PO Q7D #0 tabs 10/03/23 [Rx Last Taken 11/30/23] hydroxychloroquine 200 mg tablet 200 mg PO DAILY 12/05/23 [History Last Taken 12/03/23] Allergy/AdvReac Type Severity Reaction Status Date / Time No Known Allergies Allergy Verified 12/05/23 09:49 Family History Father Colon cancer CVA (cerebral vascular accident) Hypertension Heart disease Sister CAD (coronary artery disease) Hypertension Heart disease Mother Cancer Surgical History Hx of tonsillectomy S/P colonoscopy Social History household members: spouse Smoking Status: Former smoker alcohol intake: never substance use type: does not use ROS ROS Narrative GENERAL: weight loss, anorexia HEENT: denies headache, sinus congestion, RESPIRATORY: denies cough, sputum production, CARDIAC: denies chest pain, palpitations, orthopnea, PND GASTROINTESTINAL: abdominal pain, nausea, vomiting, melena, GENITOURINARY: denies dysuria, urgency, frequency, heamaturia EXTREMITY: denies swelling MUSCULOSKELETAL: denies current joint pain or tenderness NEUROLOGIC: denies focal numbness, weakness, tingling HEMATOLOGIC: denies easy bruising and/or hemorrhage INTEGUMENT: denies rashes PSYCHIATRIC: denies suicidal or homicidal ideation Vital Signs Vital Signs Vital Signs: 12/05/23 09:43 12/05/23 09:43 12/05/23 11:43 Temperature 70.2 F L Temperature Source Temporal Pulse Rate 67 78 Respiratory Rate 18 16 Respiratory Effort Normal Non-Labored Respiratory Pattern Normal Blood Pressure 146/71 H 148/64 H Blood Pressure Mean 96 92 Pulse Ox 99 99 Oxygen Delivery Method Room Air Room Air Weight Weight: 70.2 kg Body Mass Index (BMI) 21.6 Physical Exam Narrative GENERAL: Frail looking HEENT: Atraumatic; normocephalic EYES; Anicteric, Normal Conjunctiva NECK; supple, normal thyroid, RESPIRATORY: Diminished to auscultation CARDIOVASCULAR: Regular S1 S2, GI: soft, normoactive bowel sounds, : No Renal angle tenderness; EXTREMITIES: No edema, no clubbing, MUSCULOSKELETAL: no muscle wasting NEURO: Awake; no lateralizing signs. SKIN: No Rash PSYCH; Flat affect Results Lab / Micro Data 12/05/23 11:35 12/05/23 11:35 Labs: Laboratory Results - last 24 hr 12/05/23 11:35: WBC 13.8 H, RBC 4.04 L, Hgb 13.4, Hct 37.2 L, MCV 92.1, MCH 33.2 H, MCHC 36.0, RDW Std Deviation 45.5 H, RDW Coeff of Narciso 13.4, Plt Count 208, MPV 8.5, Immature Gran % (Auto) 0.800, Neut % (Auto) 93.3 H, Lymph % (Auto) 4.6 L, [place] % (Auto) 0.9, Eos % (Auto) 0.3, Baso % (Auto) 0.1, Absolute Neuts (auto) 12.9 H, Absolute Lymphs (auto) 0.64 L, Nucleated RBC % 0, Sodium 121 L, Potassium 4.9, Chloride 86 L, Carbon Dioxide 14.0 L, Anion Gap 21 H, BUN 125 H*, Creatinine 11.80 H*, Estim Creat Clear Calc 5.45, Est GFR (MDRD) Af Amer 5 L, Est GFR (MDRD) Non-Af 5 L, BUN/Creatinine Ratio 10.6, Glucose 65 L, Lactic Acid 2.3 H*, Calcium 8.9, Total Bilirubin 0.70, AST 76 H, ALT 125 H, Alkaline Phosphatase 71, Troponin I High Sens 8, Total Protein 5.9 L, Albumin 2.7 L, Globulin 3.2, Albumin/Globulin Ratio 0.8 L, Lipase TNP Imaging Radiology Impression Abdomen/Pelvis CT 12/05/23 10:06 IMPRESSION: Marked degree of distention of the urinary bladder with bilateral hydronephrosis. Nonobstructive calculus in the lower pole calyx of the right kidney. Electronically Signed: Aman Rollins MD at 11:20 EDT , Assessment & Plan Assessment/Plan (1) Acute urinary retention: (2) Acute renal failure: PLAN: Plan Patient is a 73-year-old gentleman presenting with progressive generalized weakness 1. Acute kidney injury ? Secondary to obstructive uropathy. Patient had a Marina catheter placed admitted to monitored bed as part of his management consult was placed to nephrology 2. Obstructive uropathy ? CT of the abdomen and pelvis obtained did show Marked degree of distention of the urinary bladder with bilateral hydronephrosis. Nonobstructive calculus in the lower pole calyx of the right kidney. Marina catheter was placed admitted to monitored bed consult placed to Dr Parker Case discussed with him 3. Hyponatremia ? Suspected to be secondary to patient renal failure on saline with subsequent monitoring of electrolytes ordered 4. Acute cystitis ? Urine culture sent patient started on Rocephin 5. Suspected malnutrition ? Consult placed to dietitian 6. Hypertension - Blood pressure controlled, home medications continued with dose adjustment as needed 7. Rheumatoid arthritis ? Patient is on methotrexate and hydroxychloroquine 8. Dementia ? With albuminuria agitation we will continue supportive care 9. Physical deconditioning - Requested for PT OT eval and social work supervisor to assist with discharge planning 10. DVT prophylaxis ? SC heparin Time spent in the patient's overall evaluation,decision-making process, review of diagnostic data, adjustment of management, discussion with other providers, nursing nursing and ancillary staff involved in patient's care documentation, 76 minutes Advance planning; did discuss with the patient and family regarding advanced directives as well as CODE STATUS. Did explain the various scenarios involved ( FULL CODE, DNR CCA, DNR CCA with no intubation, and DNR CC and what each meant) patient's elected for patient to be DNR CCA no intubation. Order was placed. Time spent on discussion 18 minutes. Charges/Coding Visit Charges Inpatient E&M: 70683 Init Hosp L3 Procedures Hospitalists Procedures: 79441 Advncd Care Plan 30 Min
[2023-12-05 12:42] LABS: Bacteria 0 SEEN /hpf (None Seen); Mucous, Urine 0 SEEN /hpf (<or=2+); Red Blood Cells-Urine 0 SEEN /hpf (0-5); Squamous Epithelial Cells - UA 0 SEEN /hpf (0-5)
[2023-12-05 12:46] LABS: Color, Urine Yellow (Yellow); Glucose, Dipstick Normal (Normal); Ketone-Dipstick Negative (Negative); Leukocyte Esterase-Dipstick 100 /ul (Negative); Nitrite-Dipstick Negative (Negative); Occult Blood-Urine 10 /ul (Negative); Protein-Dipstick Negative (Negative); Urine Bilirubin Dipstick Negative (Negative); Urine Clarity Clear (Clear); Urine Urobilinogen Normal (Normal)
[2023-12-05 13:10] LABS: White Blood Cells 0-5 SEEN /hpf (0-5)
--- NOTE | 2023-12-05 14:09 | PCM.CONS.R ---
Assessment & Plan Assessment/Plan (1) RICO (acute kidney injury): (2) Acute metabolic acidosis: (3) Hyponatremia: PLAN: Plan Impression/Plan: The patient is a 73-year-old man with past history of hypertension, COPD, rheumatoid arthritis, gout, and Alzheimer's dementia. The patient presents to the hospital on 12/05/2023 with a 4-day history of progressive generalized weakness. The patient is found to have IRCO with serum creatinine of 11.80 mg/dL. Nephrology is following for RICO, acute metabolic acidosis and hyponatremia. Acute kidney injury. The patient has normal baseline renal function. Serum creatinine was 0.95 mg/dL on 10/24/2023. Patient presents with serum creatinine of 11.80 mg/dL today. RICO is likely due to obstructive uropathy with urinary retention/bladder outlet obstruction. There is likely additional RICO from volume depletion since oral intake has been poor. Marina catheter has been placed. Postobstructive polyuria is expected, so I agree with volume expansion with IV fluid. I will check urine indices to be complete. I will recheck renal function later today to determine trajectory of RICO with decompression of bladder. Recheck renal function again tomorrow as well. There is no urgent need for kidney replacement therapy. I am optimistic for renal recovery given suddenness of RICO. Will continue to monitor closely. Hyponatremia. The patient presents with serum sodium of 121 mmol/L. I suspect hyponatremia secondary to RICO along with poor solute intake prior to admission. Will check urine osmolality, urine sodium and potassium. Encourage oral solute intake. Volume expansion with IV normal saline should also help. Will follow serum sodium. Rechecking sodium again later tonight and tomorrow. Acute metabolic acidosis. The patient presents with serum bicarbonate level of 14 mmol/L. Historically, serum bicarbonate level has been around 30 to 33 mmol/L. Acute metabolic acidosis is likely due to RICO. There is no prior history of diarrhea. Metabolic acidosis should improve as renal function recovers. There is no emergent need to add sodium bicarbonate. Will follow serum bicarbonate level closely. HPI Consult Data Date of Consult: 12/05/23 HPI Narrative Reason for Consultation: Acute kidney injury HPI Narrative: The patient is a 73-year-old man with past history of hypertension, COPD, rheumatoid arthritis, gout, and Alzheimer's dementia. The patient presents to the hospital on 12/05/2023 with a 7-day history of progressive generalized weakness. The patient has had decreased oral intake during this period of time. During the workup in ED, patient was found to have serum creatinine of 11.80 mg/dL and hyponatremia with serum sodium of 121 mmol/L. He is also acidotic with serum bicarbonate level of 14 mmol/L. CT of the abdomen/pelvis showed markedly distended bladder with bilateral hydronephrosis. There is a nonobstructing kidney stone in the lower pole of right kidney. Nephrology is asked see the patient because of RICO, hyponatremia and acute metabolic acidosis. Baseline serum creatinine has been around 0.90 to 1.10 mg/dL as recently as October 2023. The patient denies headache, nausea, or vomiting. He has intermittent shortness of breath, but he denies dyspnea currently. The patient denies chest pain. Because of his Alzheimer's dementia, additional history was obtained from the patient's , Namrata. As far as she knows, the patient does not have any history of BPH. She does report that the patient is incontinent and uses adult diaper. She has not noticed any significant change in urine output over the past week. Namrata also reports that oral intake has been poor for the last week especially the past few days prior to presentation. There has been no diarrhea. She has also noticed increasing lower extremity edema. [facility] Medical History Alzheimer disease COPD (chronic obstructive pulmonary disease) Gout Hemorrhoids HTN (hypertension) Rheumatoid arthritis Weight loss Home Medications metoprolol tartrate 25 mg tablet 25 mg PO BID htn 03/24/14 [History Last Taken 12/04/23] cholecalciferol (vitamin D3) 25 mcg (1,000 unit) tablet 1,000 unit PO DAILY vitamin 10/29/16 [History Last Taken 12/04/23] folic acid 1 mg tablet 1 mg PO BID vitamin 06/17/17 [History Last Taken 12/04/23] leucovorin calcium 15 mg tablet 15 mg PO Q7D RA 06/17/17 [History Last Taken 12/01/23] donepezil 23 mg tablet 23 mg PO DAILY dementia 09/15/23 [History Last Taken 12/04/23] aspirin 81 mg chewable tablet 81 mg PO QODAY@0800 #0 tabs 10/03/23 [Rx Last Taken 12/04/23] methotrexate sodium 2.5 mg tablet 20 mg (8 x 2.5 mg) PO Q7D #0 tabs 10/03/23 [Rx Last Taken 11/30/23] hydroxychloroquine 200 mg tablet 200 mg PO DAILY 12/05/23 [History Last Taken 12/03/23] Allergy/AdvReac Type Severity Reaction Status Date / Time No Known Allergies Allergy Verified 12/05/23 09:49 Family History Father Colon cancer CVA (cerebral vascular accident) Hypertension Heart disease Sister CAD (coronary artery disease) Hypertension Heart disease Mother Cancer Surgical History Hx of tonsillectomy S/P colonoscopy Social History household members: spouse Smoking Status: Former smoker alcohol intake: never substance use type: does not use ROS ROS Narrative As per HPI. ROS was done but is otherwise noncontributory. Physical Exam Narrative General: Alert and oriented x3, NAD. HEENT: Normocephalic, atraumatic. Mucous membrane moist without erythema. PERRLA, EOMI. Hearing is intact. Neck: Supple, no JVD. Trachea is midline. No thyromegaly or lymphadenopathy. Cardiovascular: Normal S1, S2. No rubs, murmurs, or gallops. Respiratory: Lungs are clear to auscultation bilaterally. No wheezing, rhonchi, or rales. Abdomen: Normal bowel sounds, soft, nontender, no guarding or rebound, no organomegaly. Extremities: No clubbing, cyanosis, or edema. Musculoskeletal: Full passive range of motion, no joint swelling. Psychiatric: Normal mood and affect. Skin: Warm and dry, no rash. Neurologic: Cranial nerve II to XII are grossly intact. No focal neurologic deficits. Lab / Micro Data 12/05/23 11:35 12/05/23 11:35 Labs: Laboratory Results - last 24 hr 12/05/23 11:30: Urine Color Yellow, Urine Clarity Clear, Urine pH 5.0, Ur Specific [place] 1.010, Urine Protein Negative, Urine Glucose (UA) Normal, Urine Ketones Negative, Urine Occult Blood 10 H, Urine Nitrite Negative, Urine Bilirubin Negative, Urine Urobilinogen Normal, Ur Leukocyte Esterase 100 H, Urine RBC 0 SEEN, Urine WBC 0-5 SEEN, Ur Squamous Epith Cells 0 SEEN, Urine Bacteria 0 SEEN, Urine Mucus 0 SEEN 12/05/23 11:35: WBC 13.8 H, RBC 4.04 L, Hgb 13.4, Hct 37.2 L, MCV 92.1, MCH 33.2 H, MCHC 36.0, RDW Std Deviation 45.5 H, RDW Coeff of Narciso 13.4, Plt Count 208, MPV 8.5, Immature Gran % (Auto) 0.800, Neut % (Auto) 93.3 H, Lymph % (Auto) 4.6 L, [place] % (Auto) 0.9, Eos % (Auto) 0.3, Baso % (Auto) 0.1, Absolute Neuts (auto) 12.9 H, Absolute Lymphs (auto) 0.64 L, Nucleated RBC % 0, Sodium 121 L, Potassium 4.9, Chloride 86 L, Carbon Dioxide 14.0 L, Anion Gap 21 H, BUN 125 H*, Creatinine 11.80 H*, Estim Creat Clear Calc 5.45, Est GFR (MDRD) Af Amer 5 L, Est GFR (MDRD) Non-Af 5 L, BUN/Creatinine Ratio 10.6, Glucose 65 L, Lactic Acid 2.3 H*, Calcium 8.9, Total Bilirubin 0.70, AST 76 H, ALT 125 H, Alkaline Phosphatase 71, Troponin I High Sens 8, Total Protein 5.9 L, Albumin 2.7 L, Globulin 3.2, Albumin/Globulin Ratio 0.8 L, Lipase TNP Imaging Radiology Impression Abdomen/Pelvis CT 12/05/23 10:06 IMPRESSION: Marked degree of distention of the urinary bladder with bilateral hydronephrosis. Nonobstructive calculus in the lower pole calyx of the right kidney. Electronically Signed: Aman Rollins MD at 11:20 EDT ,
[2023-12-05] MEDS: Ceftriaxone 1 GM/50 ML BAG IV (15:00)
[2023-12-05 15:42] LABS: Reflex Lactate? Y
[2023-12-05] MEDS: Dextrose 5%/0.9% NaCl 1,000 ML 150 ML IV ×2 (16:59→23:26)
[2023-12-05 17:11] LABS: Lactic Acid 2.4 mmol/L (0.4-1.9)
[2023-12-05] MEDS: Tamsulosin HCl 0.4 MG Capsule PO (17:24)
[2023-12-05 18:48] LABS: Albumin, Serum 2.8 g/dL (3.2-5.0); BUN 82 mg/dL (7-18); BUN/Creat Ratio 13.1 RATIO (10-20); Calcium,Total 9.3 mg/dL (8.5-10.1); Chloride 101 mmol/L (98-107); Creatinine, Serum 6.24 mg/dL (0.70-1.30); EST Glomerular Filtration Rate 9 mL/min (>60); Est Glom Filt Rate - Afr Amer 11 mL/min (>60); Estimated Creatinine Clearance 9.92 ml/min; Glucose 94 mg/dL (74-106); Potassium 3.7 mmol/L (3.5-5.1); Sodium Level 134 mmol/L (136-145)
[2023-12-05] MEDS: Heparin Injection (Vial) 5,000 UNIT/ML VIAL 5000 UNIT SC (20:01)
[2023-12-06 02:00] VITALS: BP 154/67; PULSE 75; RESP 14; TEMP 36.6; O2SAT 98
[2023-12-06] MEDS: Dextrose 5%/0.9% NaCl 1,000 ML 150 ML IV (06:07)
--- NOTE | 2023-12-06 07:06 | CON.PCM.UR_ITS ---
Assessment & Plan Assessment/Plan (1) Acute urinary retention: PLAN: Extremely distended bladder he will have to go home with a Marina catheter I seriously doubt surgical intervention is going alleviate his obstruction and might probably need long-term catheter management not sure if he is can be able to learn how to do self intermittent catheterization so for now we will continue with catheter drainage. (2) Acute renal failure: HPI Consult Data Date of Consult: 12/06/23 HPI Narrative HPI Narrative: EDWIN ODONNELL, is a 73 M who presents to the hospital with extremely distended urinary bladder bilateral hydronephrosis and acute kidney injury. Marina catheter has been placed. Unclear if surgical interventions really can help with his urinary retention since the bladder so stretched out very likely has an atonic bladder for now he will to just manage with a Marina catheter he had to go home with a catheter he can follow-up in the office to discuss options we could consider transurethral section of prostate but it is very likely may not work since he probably has such a stretched out bladder. [facility] Medical History Alzheimer disease COPD (chronic obstructive pulmonary disease) Gout Hemorrhoids HTN (hypertension) Rheumatoid arthritis Weight loss Home Medications metoprolol tartrate 25 mg tablet 25 mg PO BID htn 03/24/14 [History Last Taken 12/04/23] cholecalciferol (vitamin D3) 25 mcg (1,000 unit) tablet 1,000 unit PO DAILY vitamin 10/29/16 [History Last Taken 12/04/23] folic acid 1 mg tablet 1 mg PO BID vitamin 06/17/17 [History Last Taken 12/04/23] leucovorin calcium 15 mg tablet 15 mg PO Q7D RA 06/17/17 [History Last Taken 12/01/23] donepezil 23 mg tablet 23 mg PO DAILY dementia 09/15/23 [History Last Taken 12/04/23] aspirin 81 mg chewable tablet 81 mg PO QODAY@0800 #0 tabs 10/03/23 [Rx Last Take n 12/04/23] methotrexate sodium 2.5 mg tablet 20 mg (8 x 2.5 mg) PO Q7D #0 tabs 10/03/23 [Rx Last Taken 11/30/23] hydroxychloroquine 200 mg tablet 200 mg PO DAILY 12/05/23 [History Last Taken 12/03/23] Allergy/AdvReac Type Severity Reaction Status Date / Time No Known Allergies Allergy Verified 12/05/23 09:49 Family History Father Colon cancer CVA (cerebral vascular accident) Hypertension Heart disease Sister CAD (coronary artery disease) Hypertension Heart disease Mother Cancer Surgical History Hx of tonsillectomy S/P colonoscopy Social History household members: spouse Smoking Status: Former smoker alcohol intake: never substance use type: does not use Physical Exam Const alert and oriented x3 General Appearance: cooperative HEENT normocephalic, head/scalp atraumatic, EAC's normal and TM's normal bilaterally Eyes PERRL and EOMs intact bilaterally Pupil: sluggish Neck no lymphadenopathy, supple and no JVD General: trachea midline Lymph Lymphatic: no lymphadenopathy noted, lymphedema and lymphadenopathy Resp normal respiratory effort, normal air movement and clear to auscultation bilaterally Cardio regular rate, regular rhythm and peripheral pulses 2+ throughout GI soft to palpation, non-tender and non-distended Extremity normal capillary refill and no clubbing, cyanosis or edema General Extremity: no tenderness to palpation of joints or extremities Skin no rashes or lesions noted General Skin Exam: turgor normal Lesions: no lesions Rashes: no rashes Neuro CN's II-XII intact bilaterally Speech: speech normal Motor Exam: strength 5/5 throughout; Negative for general weakness Psych thought process normal, cooperative and affect normal Appearance: appropriate Medical Records Data Attestation: I reviewed the patient's medical records Lab / Micro Data 12/05/23 11:35 12/05/23 18:12 Labs: Laboratory Results - last 24 hr 12/05/23 11:30: Urine Color Yellow, Urine Clarity Clear, Urine pH 5.0, Ur Specific [place] 1.010, Urine Protein Negative, Urine Glucose (UA) Normal, Urine Ketones Negative, Urine Occult Blood 10 H, Urine Nitrite Negative, Urine Bilirubin Negative, Urine Urobilinogen Normal, Ur Leukocyte Esterase 100 H, Urine RBC 0 SEEN, Urine WBC 0-5 SEEN, Ur Squamous Epith Cells 0 SEEN, Urine Bacteria 0 SEEN, Urine Mucus 0 SEEN 12/05/23 11:35: WBC 13.8 H, RBC 4.04 L, Hgb 13.4, Hct 37.2 L, MCV 92.1, MCH 33.2 H, MCHC 36.0, RDW Std Deviation 45.5 H, RDW Coeff of Narciso 13.4, Plt Count 208, MPV 8.5, Immature Gran % (Auto) 0.800, Neut % (Auto) 93.3 H, Lymph % (Auto) 4.6 L, [place] % (Auto) 0.9, Eos % (Auto) 0.3, Baso % (Auto) 0.1, Absolute Neuts (auto) 12.9 H, Absolute Lymphs (auto) 0.64 L, Nucleated RBC % 0, Sodium 121 L, Potassium 4.9, Chloride 86 L, Carbon Dioxide 14.0 L, Anion Gap 21 H, BUN 125 H*, Creatinine 11.80 H*, Estim Creat Clear Calc 5.45, Est GFR (MDRD) Af Amer 5 L, Est GFR (MDRD) Non-Af 5 L, BUN/Creatinine Ratio 10.6, Glucose 65 L, Lactic Acid 2.3 H*, Calcium 8.9, Total Bilirubin 0.70, AST 76 H, ALT 125 H, Alkaline Phosphatase 71, Troponin I High Sens 8, Total Protein 5.9 L, Albumin 2.7 L, Globulin 3.2, Albumin/Globulin Ratio 0.8 L, Lipase TNP 12/05/23 16:16: Lactic Acid 2.4 H* 12/05/23 18:12: Sodium 134 L, Potassium 3.7, Chloride 101, Carbon Dioxide 18.0 L , BUN 82 H, Creatinine 6.24 H, Estim Creat Clear Calc 9.92, Est GFR (MDRD) Af Amer 11 L, Est GFR (MDRD) Non-Af 9 L, BUN/Creatinine Ratio 13.1, Glucose 94, Calcium 9.3, Phosphorus 4.0, Albumin 2.8 L Imaging Radiology Impression Abdomen/Pelvis CT 12/05/23 10:06 IMPRESSION: Marked degree of distention of the urinary bladder with bilateral hydronephrosis. Nonobstructive calculus in the lower pole calyx of the right kidney. Electronically Signed: Aman Rollins MD at 11:20 EDT ,
[2023-12-06 07:26] LABS: Absolute Lymphocyte Count 0.93 X10^3/uL (0.83-4.51); Absolute Neutrophil Count 6.8 X10^3/uL (2.0-7.7); Basophil# 0.01 X10^3/uL; Basophil% 0.1 % (0-1); Eosinophil# 0.03 X10^3/uL; Eosinophils% 0.4 % (0-5); Hematocrit 36.1 % (40-54); Hemoglobin 12.8 g/dL (13.0-16.5); Lymphocyte # 0.93 X10^3/ul (0.83-4.51); Lymphocyte % 11.6 % (19-41); Mean Corp Hgb Conc 35.5 g/dL (32-36); Mean Corpuscular Hgb 32.7 pg (27.0-32.0); Mean Corpuscular Volume 92.3 fL (80-94); Mean Platelet Vol. 8.5 fl (6.2-12.0); Monocyte# 0.21 X10^3/uL; Monocyte% 2.6 % (0-10); NRBC Flagged by Analyzer 0 % (0-5); Neutrophil # 6.77 X10^3/uL (2.7-7.7); Neutrophil % 84.4 % (47-70); POSITIVE MORPHOLOGY YES; Platelet Count 192 K/mm3 (150-450); RBC Distribution Width CV 13.4 % (11.6-14.6); RBC Distribution Width SD 45.1 fl (35.1-43.9); Red Blood Count 3.91 M/mm3 (4.6-6.2)
[2023-12-06 07:29] LABS: Differential Indicated SCAN CRITERIA MET
[2023-12-06 08:00] VITALS: BP 153/73; PULSE 82; RESP 16; TEMP 36.6; O2SAT 98
[2023-12-06 08:01] LABS: Differential Comment SCANNED; Reactive Lymphocyte 1+
[2023-12-06 08:02] LABS: Anion Gap 6 (5-15); BUN 29 mg/dL (7-18); BUN/Creat Ratio 17.4 RATIO (10-20); Calcium,Total 8.8 mg/dL (8.5-10.1); Chloride 111 mmol/L (98-107); Creatinine, Serum 1.67 mg/dL (0.70-1.30); EST Glomerular Filtration Rate 43 mL/min (>60); Est Glom Filt Rate - Afr Amer 52 mL/min (>60); Estimated Creatinine Clearance 37.05 ml/min; Glucose 142 mg/dL (74-106); Magnesium 1.8 mg/dL (1.6-2.6); Potassium 3.4 mmol/L (3.5-5.1); Sodium Level 143 mmol/L (136-145)
--- NOTE | 2023-12-06 09:18 | PCM.PN.HOSP ---
Reason for Visit Reason for Visit: Diagnoses Hypo-osmolality and hyponatremia (12/05/23) Acute metabolic acidosis (12/05/23) Acute kidney failure, unspecified (12/05/23) Other retention of urine (12/05/23) Subjective Subjective Patient is a 73-year-old gentleman presenting with progressive generalized weakness. Patient was diagnosed with acute kidney injury secondary to obstructive uropathy Marnia catheter was placed admitted to monitored bed. Objective Data Objective Data Vital Signs: Vital Signs Temp Pulse Resp BP Pulse Ox O2 Del Method 97.9 F 75 14 154/67 H 98 Room Air 12/06/23 02:00 12/06/23 02:00 12/06/23 02:00 12/06/23 02:00 12/06/23 02:00 12/06/23 02:00 Oxygen Delivery Method Room Air Weight: 67.5 kg Body Mass Index (BMI) 20.8 Intake & Output: Intake and Output for Last 24 Hours 12/04/23 12/05/23 12/06/23 23:59 23:59 23:59 Intake Total 2332.5 / 2332.5 1000 / 1000 Output Total 6650 / 6650 1000 / 1000 Balance -4317.5 / -4317.5 0 / 0 Lab / Micro Data 12/06/23 07:14 12/06/23 07:14 Labs: Laboratory Results - last 24 hr 12/05/23 11:30: Urine Color Yellow, Urine Clarity Clear, Urine pH 5.0, Ur Specific [place] 1.010, Urine Protein Negative, Urine Glucose (UA) Normal, Urine Ketones Negative, Urine Occult Blood 10 H, Urine Nitrite Negative, Urine Bilirubin Negative, Urine Urobilinogen Normal, Ur Leukocyte Esterase 100 H, Urine RBC 0 SEEN, Urine WBC 0-5 SEEN, Ur Squamous Epith Cells 0 SEEN, Urine Bacteria 0 SEEN, Urine Mucus 0 SEEN 12/05/23 11:35: WBC 13.8 H, RBC 4.04 L, Hgb 13.4, Hct 37.2 L, MCV 92.1, MCH 33.2 H, MCHC 36.0, RDW Std Deviation 45.5 H, RDW Coeff of Narciso 13.4, Plt Count 208, MPV 8.5, Immature Gran % (Auto) 0.800, Neut % (Auto) 93.3 H, Lymph % (Auto) 4.6 L, [place] % (Auto) 0.9, Eos % (Auto) 0.3, Baso % (Auto) 0.1, Absolute Neuts (auto) 12.9 H, Absolute Lymphs (auto) 0.64 L, Nucleated RBC % 0, Sodium 121 L, Potassium 4.9, Chloride 86 L, Carbon Dioxide 14.0 L, Anion Gap 21 H, BUN 125 H*, Creatinine 11.80 H*, Estim Creat Clear Calc 5.45, Est GFR (MDRD) Af Amer 5 L, Est GFR (MDRD) Non-Af 5 L, BUN/Creatinine Ratio 10.6, Glucose 65 L, Lactic Acid 2.3 H*, Calcium 8.9, Total Bilirubin 0.70, AST 76 H, ALT 125 H, Alkaline Phosphatase 71, Troponin I High Sens 8, Total Protein 5.9 L, Albumin 2.7 L, Globulin 3.2, Albumin/Globulin Ratio 0.8 L, Lipase TNP 12/05/23 16:16: Lactic Acid 2.4 H* 12/05/23 18:12: Sodium 134 L, Potassium 3.7, Chloride 101, Carbon Dioxide 18.0 L, BUN 82 H, Creatinine 6.24 H, Estim Creat Clear Calc 9.92, Est GFR (MDRD) Af Amer 11 L, Est GFR (MDRD) Non-Af 9 L, BUN/Creatinine Ratio 13.1, Glucose 94, Calcium 9.3, Phosphorus 4.0, Albumin 2.8 L 12/06/23 07:14: WBC 8.0, RBC 3.91 L, Hgb 12.8 L, Hct 36.1 L, MCV 92.3, MCH 32.7 H, MCHC 35.5, RDW Std Deviation 45.1 H, RDW Coeff of Narciso 13.4, Plt Count 192, MPV 8.5, Immature Gran % (Auto) 0.900, Neut % (Auto) 84.4 H, Lymph % (Auto) 11.6 L, [place] % (Auto) 2.6, Eos % (Auto) 0.4, Baso % (Auto) 0.1, Absolute Neuts (auto) 6.8, Absolute Lymphs (auto) 0.93, Nucleated RBC % 0, Differential Comment SCANNED, Reactive Lymphocytes 1+, Sodium 143, Potassium 3.4 L, Chloride 111 H, Carbon Dioxide 26.0, Anion Gap 6, BUN 29 H, Creatinine 1.67 H, Estim Creat Clear Calc 37.05, Est GFR (MDRD) Af Amer 52 L, Est GFR (MDRD) Non-Af 43 L, BUN/Creatinine Ratio 17.4, Glucose 142 H, Calcium 8.8, Phosphorus 2.0 L, Magnesium 1.8 Radiography Diagnostic Testing: Radiology Impression Abdomen/Pelvis CT 12/05/23 10:06 IMPRESSION: Marked degree of distention of the urinary bladder with bilateral hydronephrosis. Nonobstructive calculus in the lower pole calyx of the right kidney. Electronically Signed: Aman Rollins MD at 11:20 EDT , Physical Exam Narrative GENERAL: Frail looking HEENT: Atraumatic; normocephalic EYES; Anicteric, Normal Conjunctiva NECK; supple, normal thyroid, RESPIRATORY: Diminished to auscultation CARDIOVASCULAR: Regular S1 S2, GI: soft, normoactive bowel sounds, : No Renal angle tenderness; EXTREMITIES: No edema, no clubbing, MUSCULOSKELETAL: no muscle wasting NEURO: Awake; no lateralizing signs. SKIN: No Rash PSYCH; Flat affect Assessment & Plan Assessment/Plan (1) Acute urinary retention: (2) Acute renal failure: PLAN: Plan Patient is a 73-year-old gentleman presenting with progressive generalized weakness 1. Acute kidney injury ? Secondary to obstructive uropathy. Patient had a Marina catheter placed admitted to monitored bed as part of his management consult was placed to nephrology ? 12/06/2023 significant improvement in patient kidney function following insertion of Marina catheter.Patient was also seen in consultation byBy both urology as well as nephrology. Notes and recommendations reviewed 2. Obstructive uropathy ? CT of the abdomen and pelvis obtained did show Marked degree of distention of the urinary bladder with bilateral hydronephrosis. Nonobstructive calculus in the lower pole calyx of the right kidney. Marina catheter was placed admitted to monitored bed consult placed to Dr Parker Case discussed with him ? 12/06/2023 patient was started on Flomax and currently has a Marina catheter 3. Hyponatremia ? Suspected to be secondary to patient renal failure on saline with subsequent monitoring of electrolytes ordered ? 12/06/2023 sodium levels up to 143 4. Acute cystitis ? Urine culture sent patient started on Rocephin 5. Suspected malnutrition ? Consult placed to dietitian 6. Hypertension - Blood pressure controlled, home medications continued with dose adjustment as needed 7. Rheumatoid arthritis ? Patient is on methotrexate and hydroxychloroquine 8. Dementia ? With albuminuria agitation we will continue supportive care 9. Physical deconditioning - Requested for PT OT eval and secondary social studies teacher to assist with discharge planning 10. DVT prophylaxis ? SC heparin 11. Hypokalemia ? Corrected per protocol repeat labs ordered for a.m. Time spent in the patient's overall evaluation,decision-making process, review of diagnostic data, adjustment of management, discussion with other providers, nursing nursing and ancillary staff involved in patient's care documentation, 52 minutes Charges/Coding Visit Charges Inpatient E&M: 95056 [facility] L3
--- NOTE | 2023-12-06 09:28 | PCM.PN.REN ---
Subjective Subjective Following for RICO Sitting up in bed eating breakfast. Denies any nausea or vomiting. No complaints this morning. No overnight events. Objective Data Objective Data Vital Signs: Vital Signs Temp Pulse Resp BP Pulse Ox O2 Del Method 97.9 F 75 14 154/67 H 98 Room Air 12/06/23 02:00 12/06/23 02:00 12/06/23 02:00 12/06/23 02:00 12/06/23 02:00 12/06/23 02:00 Oxygen Delivery Method Room Air Weight: 67.5 kg Body Mass Index (BMI) 20.8 Intake & Output: Intake and Output for Last 24 Hours 12/04/23 12/05/23 12/06/23 23:59 23:59 23:59 Intake Total 2332.5 / 2332.5 1000 / 1000 Output Total 6650 / 6650 1000 / 1000 Balance -4317.5 / -4317.5 0 / 0 Lab / Micro Data 12/06/23 07:14 12/06/23 07:14 Labs: Laboratory Results - last 24 hr 12/05/23 11:30: Urine Color Yellow, Urine Clarity Clear, Urine pH 5.0, Ur Specific Fred 1.010, Urine Protein Negative, Urine Glucose (UA) Normal, Urine Ketones Negative, Urine Occult Blood 10 H, Urine Nitrite Negative, Urine Bilirubin Negative, Urine Urobilinogen Normal, Ur Leukocyte Esterase 100 H, Urine RBC 0 SEEN, Urine WBC 0-5 SEEN, Ur Squamous Epith Cells 0 SEEN, Urine Bacteria 0 SEEN, Urine Mucus 0 SEEN 12/05/23 11:35: WBC 13.8 H, RBC 4.04 L, Hgb 13.4, Hct 37.2 L, MCV 92.1, MCH 33.2 H, MCHC 36.0, RDW Std Deviation 45.5 H, RDW Coeff of Narciso 13.4, Plt Count 208, MPV 8.5, Immature Gran % (Auto) 0.800, Neut % (Auto) 93.3 H, Lymph % (Auto) 4.6 L, [place] % (Auto) 0.9, Eos % (Auto) 0.3, Baso % (Auto) 0.1, Absolute Neuts (auto) 12.9 H, Absolute Lymphs (auto) 0.64 L, Nucleated RBC % 0, Sodium 121 L, Potassium 4.9, Chloride 86 L, Carbon Dioxide 14.0 L, Anion Gap 21 H, BUN 125 H*, Creatinine 11.80 H*, Estim Creat Clear Calc 5.45, Est GFR (MDRD) Af Amer 5 L, Est GFR (MDRD) Non-Af 5 L, BUN/Creatinine Ratio 10.6, Glucose 65 L, Lactic Acid 2.3 H*, Calcium 8.9, Total Bilirubin 0.70, AST 76 H, ALT 125 H, Alkaline Phosphatase 71, Troponin I High Sens 8, Total Protein 5.9 L, Albumin 2.7 L, Globulin 3.2, Albumin/Globulin Ratio 0.8 L, Lipase TNP 12/05/23 16:16: Lactic Acid 2.4 H* 12/05/23 18:12: Sodium 134 L, Potassium 3.7, Chloride 101, Carbon Dioxide 18.0 L, BUN 82 H, Creatinine 6.24 H, Estim Creat Clear Calc 9.92, Est GFR (MDRD) Af Amer 11 L, Est GFR (MDRD) Non-Af 9 L, BUN/Creatinine Ratio 13.1, Glucose 94, Calcium 9.3, Phosphorus 4.0, Albumin 2.8 L 12/06/23 07:14: WBC 8.0, RBC 3.91 L, Hgb 12.8 L, Hct 36.1 L, MCV 92.3, MCH 32.7 H, MCHC 35.5, RDW Std Deviation 45.1 H, RDW Coeff of Narciso 13.4, Plt Count 192, MPV 8.5, Immature Gran % (Auto) 0.900, Neut % (Auto) 84.4 H, Lymph % (Auto) 11.6 L, [place] % (Auto) 2.6, Eos % (Auto) 0.4, Baso % (Auto) 0.1, Absolute Neuts (auto) 6.8, Absolute Lymphs (auto) 0.93, Nucleated RBC % 0, Differential Comment SCANNED, Reactive Lymphocytes 1+, Sodium 143, Potassium 3.4 L, Chloride 111 H, Carbon Dioxide 26.0, Anion Gap 6, BUN 29 H, Creatinine 1.67 H, Estim Creat Clear Calc 37.05, Est GFR (MDRD) Af Amer 52 L, Est GFR (MDRD) Non-Af 43 L, BUN/Creatinine Ratio 17.4, Glucose 142 H, Calcium 8.8, Phosphorus 2.0 L, Magnesium 1.8 Radiography Diagnostic Testing: Radiology Impression Abdomen/Pelvis CT 12/05/23 10:06 IMPRESSION: Marked degree of distention of the urinary bladder with bilateral hydronephrosis. Nonobstructive calculus in the lower pole calyx of the right kidney. Electronically Signed: Aman Rollins MD at 11:20 EDT , Physical Exam Narrative Alert and orient x 3, no acute distress S1, S2, RRR Lungs clear anteriorly and posteriorly. No wheezes, rhonchi rales noted Abdomen soft, nontender, positive bowel sounds No pitting edema Indwelling Marina with ~50ml clear yellow urine noted in bag Assessment & Plan Assessment/Plan (1) RICO (acute kidney injury): (2) Acute metabolic acidosis: (3) Hyponatremia: PLAN: Plan Impression/Plan: The patient is a 73-year-old man with past history of hypertension, COPD, rheumatoid arthritis, gout, and Alzheimer's dementia. The patient presents to the hospital on 12/05/2023 with a 4-day history of progressive generalized weakness. The patient is found to have RICO with serum creatinine of 11.80 mg/dL. Nephrology is following for RICO, acute metabolic acidosis and hyponatremia. Acute kidney injury. The patient has normal baseline renal function. Serum creatinine was 0.95 mg/dL on 10/24/2023. Patient presented with serum creatinine of 11.80 mg/dL--> Marina catheter was placed and repeat labs last evening creatinine 6.24 mg/dL. This morning patient's creatinine is 1.67 mg/dL. Patient did not require any renal replacement therapy. RICO is likely due to obstructive uropathy with urinary retention/bladder outlet obstruction. There is likely additional RICO from volume depletion since oral intake is poor. Postobstructive polyuria is expected, will continue with IV fluids but will switch to half-normal saline with decreased rate of 75 mL/h Hyponatremia. The patient presented with serum sodium of 121 mmol/L--> Na 134 last evening and this morning sodium level is 143. Suspect hyponatremia secondary to RICO along with poor solute intake prior to admission. We encouraged increase oral solute intake. We ordered urine osmolality, urine sodium and potassium. Acute metabolic acidosis. The patient presented with serum bicarbonate level of 14 mmol/L. Acute metabolic acidosis is likely due to RICO. No diarrhea. Metabolic acidosis improved as renal function improves, today bicarb level is 26 mmol/L. Acute urinary retention Patient was seen by urology. No surgical intervention at this time. Patient is to be discharged home with catheter and or self catheterizations.
[2023-12-06] MEDS: 0.45% Normal Saline 1,000 ML 75 ML IV ×2 (10:16→22:26)
[2023-12-06] MEDS: Heparin Injection (Vial) 5,000 UNIT/ML VIAL 5000 UNIT SC ×2 (10:16→21:20)
[2023-12-06] MEDS: Ceftriaxone 1 GM/50 ML BAG IV (10:17)
[2023-12-06 11:29] VITALS: BP 153/73; PULSE 82
[2023-12-06] MEDS: Folic Acid 1 MG Tablet PO ×2 (11:29→18:33)
[2023-12-06] MEDS: Cholecalciferol (VIT D3) 25 MCG TABLET (1,000 UNITS) PO (11:29)
[2023-12-06] MEDS: Hydroxychloroquine 200 MG Tablet PO (11:29)
[2023-12-06] MEDS: Metoprolol Tartrate 25 MG Tablet PO ×2 (11:29→21:19)
[2023-12-06] MEDS: Aspirin 81 MG TAB.CHEW PO (11:29)
--- NOTE | 2023-12-06 13:04 | CHAPLAIN ---
Type of Pastoral Visit _x__ Initial Visit ___ Follow-up Visit ___ On-call Visit ___ General Patient Visit ___ Spiritual Assessment ___ Family Conference ___ Bereavement ___ Rapid Response ___ Code Blue ___ Other (describe below) Pastoral Care Referral From _x__ Patient ___ Family ___ Nurse ___ Physician ___ Stopping Builder ___ Polymerization Engineer ___ Other (describe below) Sacrament/Intervention _x__ Active listening ___ Anointing ___ Hoahaoism ___ Bereavement ___ Communion _x__ [place]anna exploration ___ ___ Life review _x__ Prayer ___ Reconciliation ___ Sacrament of Sick _x__ Supportive presence ___ Wedding ___ Other (describe below) Pastoral Comments patient is welcoming and speaks of his illness, weakness, and lack of appetite; pt is slow to answer some questions and appears that he has some difficulty getting thoughts and words to be expressed; pt admits that he hasn't been active in roman catholic in recent years due to health but still spiritually minded; pt is focused on food and how it is too much, and I can't eat it all; assured pt about his food anxiety; pt welcomes 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
[2023-12-06 14:22] LABS: Urine Sodium 35 mmol/L (Not Establ.)
[2023-12-06 14:57] LABS: Osmolality, Urine 529 mOsm/KG
--- NOTE | 2023-12-06 15:02 | CASEMGMT ---
NITIN was informed that therapy is recommending patient go to a [facility] facility for rehab. NITIN called patient's Namrata. NITIN introduced self and role at [facility]. NITIN explained therapy's recommendations. Namrata said she is in agreement, but she would like to talk with patient. Namrata said she knows patient has dementia, but she likes to include him on decision making. Namrata said she was going to [place] tomorrow. She is thinking about the future as she knows eventually she won't be able to care for patient. NITIN told Namrata SW will follow up with her tomorrow. Nara Ross ZIPPER MACHINE OPERATOR BRANDYN
--- NOTE | 2023-12-06 15:55 | CASEMGMT ---
RN CM NOTE: RN CM to room x 3 today to complete initial RN CM assessment. Pt has dementia and only oriented to self. not at bedside when RN CM to room. Call placed to at 1150 today. No answer. RN CM called again @ 1530 and message left for to return call. Per NITIN Bains, she has spoken w/ and plan is for SNF @ discharge. Tavares AMINN RN CM
[2023-12-06 16:00] VITALS: BP 129/63; PULSE 77; RESP 16; TEMP 37; O2SAT 99
[2023-12-06] MEDS: Potassium Chloride Oral Tablet 20 MEQ PO (18:33)
[2023-12-06] MEDS: Tamsulosin HCl 0.4 MG Capsule PO (18:33)
[2023-12-06 21:13] VITALS: BP 148/70; PULSE 84; RESP 18; TEMP 36.9; O2SAT 98
[2023-12-06 21:19] VITALS: PULSE 84
[2023-12-06] MEDS: Donepezil HCl 10 MG Tablet 20 MG PO (21:19)
[2023-12-07] MEDS: MELATONIN 3 MG TABLET PO (01:35)
[2023-12-07 03:09] VITALS: BP 145/63; PULSE 65; RESP 18; TEMP 36.8; O2SAT 100
[2023-12-07 07:40] LABS: Absolute Lymphocyte Count 1.24 X10^3/uL (0.83-4.51); Absolute Neutrophil Count 3.5 X10^3/uL (2.0-7.7); Basophil# 0.04 X10^3/uL; Basophil% 0.7 % (0-1); Eosinophils% 3.7 % (0-5); Hematocrit 32.4 % (40-54); Lymphocyte # 1.24 X10^3/ul (0.83-4.51); Lymphocyte % 23.2 % (19-41); Mean Corpuscular Hgb 32.7 pg (27.0-32.0); Mean Corpuscular Volume 96.4 fL (80-94); Mean Platelet Vol. 8.3 fl (6.2-12.0); Monocyte% 5.6 % (0-10); NRBC Flagged by Analyzer 0 % (0-5); Neutrophil # 3.48 X10^3/uL (2.7-7.7); Neutrophil % 65.3 % (47-70); POSITIVE MORPHOLOGY YES; Platelet Count 152 K/mm3 (150-450); RBC Distribution Width CV 13.2 % (11.6-14.6); RBC Distribution Width SD 47.1 fl (35.1-43.9); Red Blood Count 3.36 M/mm3 (4.6-6.2); White Blood Count 5.3 K/mm3 (4.4-11.0)
[2023-12-07 07:41] LABS: Differential Indicated SCAN CRITERIA MET
[2023-12-07 08:11] LABS: Anion Gap 2 (5-15); BUN 10 mg/dL (7-18); BUN/Creat Ratio 19.2 RATIO (10-20); Chloride 109 mmol/L (98-107); Creatinine, Serum 0.52 mg/dL (0.70-1.30); EST Glomerular Filtration Rate 164 mL/min (>60); Est Glom Filt Rate - Afr Amer 199 mL/min (>60); Estimated Creatinine Clearance 77.34 ml/min; Glucose 102 mg/dL (74-106); Magnesium 1.5 mg/dL (1.6-2.6); Potassium 3.3 mmol/L (3.5-5.1); Sodium Level 141 mmol/L (136-145)
[2023-12-07] MEDS: Potassium Chloride Oral Tablet 20 MEQ PO ×2 (08:17→17:58)
[2023-12-07] MEDS: Folic Acid 1 MG Tablet PO ×2 (08:17→17:58)
[2023-12-07] MEDS: Heparin Injection (Vial) 5,000 UNIT/ML VIAL 5000 UNIT SC ×2 (08:17→21:50)
[2023-12-07 08:18] VITALS: PULSE 85
[2023-12-07] MEDS: Metoprolol Tartrate 25 MG Tablet PO ×2 (08:18→21:50)
[2023-12-07] MEDS: Hydroxychloroquine 200 MG Tablet PO (08:19)
[2023-12-07] MEDS: Cholecalciferol (VIT D3) 25 MCG TABLET (1,000 UNITS) PO (08:19)
[2023-12-07 09:00] VITALS: BP 132/62; PULSE 85; RESP 16; TEMP 36.7; O2SAT 98
--- NOTE | 2023-12-07 09:57 | PN.HOSP_ITS ---
Reason for Visit Reason for Visit: Diagnoses Hypo-osmolality and hyponatremia (12/05/23) Acute metabolic acidosis (12/05/23) Acute kidney failure, unspecified (12/05/23) Other retention of urine (12/05/23) Subjective Subjective Patient seen had a relatively uneventful night kidney function continues to improve Objective Data Objective Data Vital Signs: Vital Signs Temp Pulse Resp BP Pulse Ox O2 Del Method 98.2 F 85 18 145/63 H 100 Room Air 12/07/23 03:09 12/07/23 08:18 12/07/23 03:09 12/07/23 03:09 12/07/23 03:09 12/07/23 03:09 Oxygen Delivery Method Room Air Weight: 67.5 kg Body Mass Index (BMI) 20.8 Intake & Output: Intake and Output for Last 24 Hours 12/05/23 12/06/23 12/07/23 23:59 23:59 23:59 Intake Total 2332.5 / 2332.5 2872.5 / 2872.5 150 / 150 Output Total 6650 / 6650 1925 / 1925 600 / 600 Balance -4317.5 / -4317.5 947.5 / 947.5 -450 / -450 Lab / Micro Data 12/07/23 07:15 12/07/23 07:15 Labs: Laboratory Results - last 24 hr 12/06/23 11:30: Urine Osmolality 529, Ur Random Sodium 35, Urine Creatinine 85.80, Urine Potassium 20.0 12/07/23 07:15: WBC 5.3, RBC 3.36 L, Hgb 11.0 L, Hct 32.4 L, MCV 96.4 H, MCH 32.7 H, MCHC 34.0, RDW Std Deviation 47.1 H, RDW Coeff of Narciso 13.2, Plt Count 1 52, MPV 8.3, Immature Gran % (Auto) 1.500 H, Neut % (Auto) 65.3, Lymph % (Auto) 23.2, [place] % (Auto) 5.6, Eos % (Auto) 3.7, Baso % (Auto) 0.7, Absolute Neuts (auto) 3.5, Absolute Lymphs (auto) 1.24, Nucleated RBC % 0, Sodium 141, Potassium 3.3 L, Chloride 109 H, Carbon Dioxide 30.0, Anion Gap 2 L, BUN 10, Creatinine 0.52 L, Estim Creat Clear Calc 77.34, Est GFR (MDRD) Af Amer 199, Est GFR (MDRD) Non-Af 164, BUN/Creatinine Ratio 19.2, Glucose 102, Calcium 8.0 L, Magnesium 1.5 L Physical Exam Narrative GENERAL: Frail looking HEENT: Atraumatic; normocephalic EYES; Anicteric, Normal Conjunctiva NECK; supple, normal thyroid, RESPIRATORY: Diminished to auscultation CARDIOVASCULAR: Regular S1 S2, GI: soft, normoactive bowel sounds, : No Renal angle tenderness; EXTREMITIES: No edema, no clubbing, MUSCULOSKELETAL: no muscle wasting NEURO: Awake; no lateralizing signs. SKIN: No Rash PSYCH; Flat affect Assessment & Plan Assessment/Plan (1) Acute urinary retention: (2) Acute renal failure: PLAN: Plan Patient is a 73-year-old gentleman presenting with progressive generalized weakness 1. Acute kidney injury ? Secondary to obstructive uropathy. Patient had a Marina catheter placed admitted to monitored bed as part of his management consult was placed to nephrology ? 12/06/2023 significant improvement in patient kidney function following i nsertion of Marina catheter.Patient was also seen in consultation byBy both urology as well as nephrology. Notes and recommendations reviewed ? 12/07/2023 acute kidney injury resolved 2. Obstructive uropathy ? CT of the abdomen and pelvis obtained did show Marked degree of distention of the urinary bladder with bilateral hydronephrosis. Nonobstructive calculus in the lower pole calyx of the right kidney. Marina catheter was placed admitted to monitored bed consult placed to Dr Parker Case discussed with him ? 12/06/2023 patient was started on Flomax and currently has a Marina catheter 3. Hyponatremia ? Suspected to be secondary to patient renal failure on saline with subsequent monitoring of electrolytes ordered ? 12/06/2023 sodium levels up to 143 4. Acute cystitis ? Urine culture sent patient started on Rocephin 5. Suspected malnutrition ? Consult placed to dietitian 6. Hypertension - Blood pressure controlled, home medications continued with dose adjustment as needed 7. Rheumatoid arthritis ? Patient is on methotrexate and hydroxychloroquine 8. Dementia ? With albuminuria agitation we will continue supportive care 9. Physical deconditioning - Requested for PT OT eval and social worker psychiatric to assist with discharge planning 10. DVT prophylaxis ? SC heparin 11. Hypokalemia ? Corrected per protocol repeat labs ordered for a.m. Time spent in the patient's overall evaluation,decision-making process, review of diagnostic data, adjustment of management, discussion with other providers, nursing nursing and ancillary staff involved in patient's care documentation, 35 minutes Charges/Coding Visit Charges Inpatient E&M: 85647 [facility] L2
[2023-12-07] MEDS: Ceftriaxone 1 GM/50 ML BAG IV (11:07)
[2023-12-07] MEDS: Methotrexate 2.5 MG Tablet 20 MG PO (11:08)
--- NOTE | 2023-12-07 11:11 | PCM.PN.REN ---
Subjective Subjective Sitting up in bed. Denies any complaints. More alert and oriented today. Objective Data Objective Data Vital Signs: Vital Signs Temp Pulse Resp BP Pulse Ox O2 Del Method 98.2 F 85 18 145/63 H 100 Room Air 12/07/23 03:09 12/07/23 08:18 12/07/23 03:09 12/07/23 03:09 12/07/23 03:09 12/07/23 03:09 Oxygen Delivery Method Room Air Weight: 67.5 kg Body Mass Index (BMI) 20.8 Intake & Output: Intake and Output for Last 24 Hours 12/05/23 12/06/23 12/07/23 23:59 23:59 23:59 Intake Total 2332.5 / 2332.5 2872.5 / 2872.5 150 / 150 Output Total 6650 / 6650 1925 / 1925 600 / 600 Balance -4317.5 / -4317.5 947.5 / 947.5 -450 / -450 Lab / Micro Data 12/07/23 07:15 12/07/23 07:15 Labs: Laboratory Results - last 24 hr 12/06/23 11:30: Urine Osmolality 529, Ur Random Sodium 35, Urine Creatinine 85.80, Urine Potassium 20.0 12/07/23 07:15: WBC 5.3, RBC 3.36 L, Hgb 11.0 L, Hct 32.4 L, MCV 96.4 H, MCH 32.7 H, MCHC 34.0, RDW Std Deviation 47.1 H, RDW Coeff of Narciso 13.2, Plt Count 152, MPV 8.3, Immature Gran % (Auto) 1.500 H, Neut % (Auto) 65.3, Lymph % (Auto) 23.2, [place] % (Auto) 5.6, Eos % (Auto) 3.7, Baso % (Auto) 0.7, Absolute Neuts (auto) 3.5, Absolute Lymphs (auto) 1.24, Nucleated RBC % 0, Sodium 141, Potassium 3.3 L, Chloride 109 H, Carbon Dioxide 30.0, Anion Gap 2 L, BUN 10, Creatinine 0.52 L, Estim Creat Clear Calc 77.34, Est GFR (MDRD) Af Amer 199, Est GFR (MDRD) Non-Af 164, BUN/Creatinine Ratio 19.2, Glucose 102, Calcium 8.0 L, Magnesium 1.5 L Physical Exam Narrative Alert and orient x 3, no acute distress S1, S2, RRR Lungs clear anteriorly and posteriorly. No wheezes, rhonchi rales noted Abdomen soft, nontender, positive bowel sounds No pitting edema Indwelling Marina with clear yellow urine noted in bag Assessment & Plan Assessment/Plan (1) RICO (acute kidney injury): (2) Acute metabolic acidosis: (3) Hyponatremia: PLAN: Plan Impression/Plan: The patient is a 73-year-old man with past history of hypertension, COPD, rheumatoid arthritis, gout, and Alzheimer's dementia. The patient presents to the hospital on 12/05/2023 with a 4-day history of progressive generalized weakness. The patient is found to have RICO with serum creatinine of 11.80 mg/dL. Nephrology is following for RICO, acute metabolic acidosis and hyponatremia. Acute kidney injury. The patient has normal baseline renal function. Serum creatinine was 0.95 mg/dL on 10/24/2023. Patient presented with serum creatinine of 11.80 mg/dL--> Marina catheter was placed and repeat labs later in the evening creatinine 6.24 mg/dL--> 1.67 mg/dL--> today 0.52mg/dL. Patient did not require any renal replacement therapy. RICO is likely due to obstructive uropathy with urinary retention/bladder outlet obstruction. There is likely additional RICO from volume depletion since oral intake is poor. Postobstructive polyuria is expected and therefore patient was on IV fluids. Urine output on 12/04 was around 6.7 L, urine output slowed down yesterday to ~ 2 L. Yesterday we switched IV fluids to 1/2 NS with decreased fluid rate. Today we will stop IVF altogether. Appetite has improved. Hyponatremia. The patient presented with serum sodium of 121 mmol/L--> Na 134 --> sodium level is 141. Suspect hyponatremia secondary to RICO along with poor solute intake prior to admission. We encouraged increase oral solute intake. Urine Osmo 529, urine sodium 35, urine potassium 20 Acute metabolic acidosis. The patient presented with serum bicarbonate level of 14 mmol/L. Acute metabolic acidosis is likely due to RICO. No diarrhea. Metabolic acidosis improved as renal function improves, today bicarb level is 30 mmol/L. Acute urinary retention Patient was seen by urology. No surgical intervention at this time. Patient is to be discharged home with catheter and or self catheterizations. - Discharge planning in progress, patient possibly to go to rehab unit
[2023-12-07] MEDS: Menthol/Lanolin/Calamine/Znox 113 GM Tube 1 APPLIC TOPICAL ×2 (11:14→21:49)
[2023-12-07 13:08] LABS: PSA, Free 0.27 ng/mL; PSA, Free % 10.5 % (.)
[2023-12-07] MEDS: QUEtiapine 25 MG Tablet PO ×2 (14:23→21:50)
[2023-12-07] MEDS: Magnesium Chloride 64 MG Delay Rel.Tablet 128 MG PO (14:27)
[2023-12-07 15:00] VITALS: BP 136/57; PULSE 66; RESP 16; TEMP 36.7; O2SAT 100
--- NOTE | 2023-12-07 15:15 | CASEMGMT ---
Addendum entered by Nara Ross 12/08/23 08:58: Patient's declined a list of facilities as she had tours set up with the places she was interested in prior to patient's hospitalization. NITIN received a voice mail from patient's Namrata. Namrata said she is going to tour [facility] today at 9a. Namrata asked that if TCU cannot take patient SW hold off on sending a referral to [facility] until she talks with SW. Nara AHUMADA Original Note: NITIN spoke with patient's when she arrived at [facility]. Her first choice for SNF would be [facility] and second would be [facility]. NITIN asked Samantha in TCU to review patient. Nara AHUMADA
[2023-12-07] MEDS: Tamsulosin HCl 0.4 MG Capsule PO (17:58)
[2023-12-07 21:47] VITALS: BP 124/94; PULSE 76; RESP 18; TEMP 36.7; O2SAT 95
[2023-12-07 21:50] VITALS: PULSE 76
[2023-12-07] MEDS: Donepezil HCl 10 MG Tablet 20 MG PO (21:51)
[2023-12-08 03:19] VITALS: BP 138/64; PULSE 74; RESP 18; TEMP 36.4; O2SAT 95
[2023-12-08] MEDS: Menthol/Lanolin/Calamine/Znox 113 GM Tube 1 APPLIC TOPICAL (05:16)
[2023-12-08 08:23] LABS: Absolute Neutrophil Count 3.9 X10^3/uL (2.0-7.7); Basophil# 0.02 X10^3/uL; Basophil% 0.4 % (0-1); Eosinophil# 0.08 X10^3/uL; Eosinophils% 1.4 % (0-5); Hematocrit 35.2 % (40-54); Hemoglobin 11.9 g/dL (13.0-16.5); Lymphocyte % 23.2 % (19-41); Mean Corp Hgb Conc 33.8 g/dL (32-36); Mean Corpuscular Hgb 32.4 pg (27.0-32.0); Mean Corpuscular Volume 95.9 fL (80-94); Mean Platelet Vol. 8.4 fl (6.2-12.0); Monocyte# 0.26 X10^3/uL; Monocyte% 4.6 % (0-10); NRBC Flagged by Analyzer 0 % (0-5); Neutrophil # 3.87 X10^3/uL (2.7-7.7); POSITIVE MORPHOLOGY YES; Platelet Count 156 K/mm3 (150-450); RBC Distribution Width CV 13.3 % (11.6-14.6); RBC Distribution Width SD 47.1 fl (35.1-43.9); Red Blood Count 3.67 M/mm3 (4.6-6.2); White Blood Count 5.6 K/mm3 (4.4-11.0)
[2023-12-08 08:37] LABS: Differential Indicated SCAN CRITERIA MET
[2023-12-08 09:02] LABS: Differential Comment SCANNED; Reactive Lymphocyte 1+
--- NOTE | 2023-12-08 09:16 | TREXTCAR_ITS ---
Diet Diet Order/Speech Therapy: 12/05/23 14:15 Diet: Regular - General Food consistency:: Soft & Bite Sized Liquid Consistency:: Regular/Thin Diet Comments: Direct Supervision Problem/Diagnosis (1) RICO (acute kidney injury): Status: Acute Code(s): N17.9 - Acute kidney failure, unspecified (2) Acute metabolic acidosis: Status: Acute Code(s): E87.21 - Acute metabolic acidosis (3) Hyponatremia: Status: Acute Code(s): E87.1 - Hypo-osmolality and hyponatremia Plan Patient is a 73-year-old gentleman presenting with progressive generalized weakness 1. Acute kidney injury ? Secondary to obstructive uropathy. Patient had a Marina catheter placed admitted to monitored bed as part of his management consult was placed to nephrology ? 12/06/2023 significant improvement in patient kidney function following insertion of Marina catheter.Patient was also seen in consultation byBy both urology as well as nephrology. Notes and recommendations reviewed ? 12/07/2023 acute kidney injury resolved 2. Obstructive uropathy ? CT of the abdomen and pelvis obtained did show Marked degree of distention of the urinary bladder with bilateral hydronephrosis. Nonobstructive calculus in the lower pole calyx of the right kidney. Marina catheter was placed admitted to monitored bed consult placed to Dr Parker Case discussed with him ? 12/06/2023 patient was started on Flomax and currently has a Marina catheter 3. Hyponatremia ? Suspected to be secondary to patient renal failure on saline with subsequent monitoring of electrolytes ordered ? 12/06/2023 sodium levels up to 143 4. Acute cystitis ? Urine culture sent patient started on Rocephin 5. Suspected malnutrition ? Consult placed to dietitian 6. Hypertension - Blood pressure controlled, home medications continued with dose adjustment as needed 7. Rheumatoid arthritis ? Patient is on methotrexate and hydroxychloroquine 8. Dementia ? With albuminuria agitation we will continue supportive care 9. Physical deconditioning - Requested for PT OT eval and social worker assistant to assist with discharge planning 10. DVT prophylaxis ? SC heparin 11. Hypokalemia ? Corrected per protocol repeat labs ordered for a.m. Time spent in the patient's overall evaluation,decision-making process, review of diagnostic data, adjustment of management, discussion with other providers, nursing nursing and ancillary staff involved in patient's care documentation, 35 minutes Allergies/Procedures Done in Hospital Allergies No Known Allergies Allergy (Verified 12/05/23 09:49) Procedures: None Type of Care/Length of Stay Estimated LOS: Convalescent Care Less Than 30 days Type of Care Needed: Skilled Rehab Potential: Good Prognosis: Good Additional Orders/Day of Discharge Day of Discharge: 12/08/23 Dietary and Speech Recommendations Dietitian Recommendations/Changes: Continue Regular diet to optimize oral intakes, will adjust diet as needed for RICO if renal labs don't improve. Will hold off on ONS at this time due to renal labs. Discharge Plan Admission Admit Date/Time: 12/05/23 12:25 Attending Provider: Dirk Ennis Primary Care Provider: Casimiro Duncan Consulting Providers: Ariella Pastrana; Obey Parker Discharge Orders/Prescriptions Prescriptions: New quetiapine 25 mg Tablet 25 mg PO BID Qty: 0 0RF acetaminophen 325 mg Tablet 650 mg PO Q6H PRN PRN (Reason: Pain 1-10 Or Fever>100.7) Qty: 0 0RF sennosides-docusate sodium [Stool Softener-Stimulant Laxat] 8.6-50 mg Tablet 2 tab PO BID PRN PRN (Reason: Constipation) Qty: 0 0RF melatonin 3 mg Tablet 3 mg PO QHS PRN PRN (Reason: Insomnia) Qty: 0 0RF potassium chloride 20 mEq Tablet,Er Particles/Crystals 20 meq PO BIDCM Qty: 0 0RF tamsulosin 0.4 mg Capsule 0.4 mg PO DAILY@1730 Qty: 0 0RF Mag 64 64 mg Tablet,Delayed Release (Dr/Ec) 128 mg PO DAILY Qty: 0 0RF menthol-zinc oxide [Calmoseptine] 0.44-20.6 % Ointment 1 applic topical TID Qty: 0 0RF Protocol: *Topical Application Instructions APPLICATION INSTRUCTIONS: Apply to coccyx and buttox Continued metoprolol tartrate 25 MG tablet 25 mg PO BID cholecalciferol (vitamin D3) 1,000 UNIT tablet 1,000 unit PO DAILY methotrexate sodium 2.5 mg Tablet 20 mg PO Q7D Qty: 0 0RF aspirin 81 mg Tablet,Chewable 81 mg PO QODAY@0800 Qty: 0 0RF donepezil 23 mg tablet 23 mg PO DAILY Patient Comments: take 1 tablet by mouth once daily hydroxychloroquine 200 mg Tablet 200 mg PO DAILY leucovorin calcium 15 MG tablet 15 mg PO Q7D Patient Comments: TAKES ON TUESDAY MORNING folic acid 1 MG tablet 1 mg PO BID Referrals / Follow Up: Obey Parker MD [Med Staff - Active Staff] - Within 1 Week Casimiro Duncan MD [Primary Care Provider] - Within 2 Weeks Disposition Disposition (needs filled in before D/C Order can be placed): [facility]
--- NOTE | 2023-12-08 09:20 | PCM.DC.SUM ---
Providers Date of Admission: 12/05/23 Date of Discharge: 12/08/23 Primary Care Physician: Dr. Casimiro Duncan MD Consultations 12/05/23 14:14 Consult: Nephrology Routine Consulting Provider: Ariella Pastrana Reason for Consult: rico EMERGENT Consult: No Notified: Yes Date Notified: 12/05/23 Time Notified: 12:46 Method of Notification: Text Consult: Urology Routine Consulting Provider: Obey Parker Reason for Consult: Obstructive uropathy EMERGENT Consult: No Notified: Yes Date Notified: 12/05/23 Time Notified: 12:46 Method of Notification: Verbal Reason For Visit: RICO Diagnosis Discharge Diagnosis (1) RICO (acute kidney injury): Status: Acute Code(s): N17.9 - Acute kidney failure, unspecified (2) Acute metabolic acidosis: Status: Acute Code(s): E87.21 - Acute metabolic acidosis (3) Hyponatremia: Status: Acute Code(s): E87.1 - Hypo-osmolality and hyponatremia Plan Patient is a 73-year-old gentleman presenting with progressive generalized weakness 1. Acute kidney injury ? Secondary to obstructive uropathy. Patient had a Marina catheter placed admitted to monitored bed as part of his management consult was placed to nephrology ? 12/06/2023 significant improvement in patient kidney function following insertion of Marina catheter.Patient was also seen in consultation byBy both urology as well as nephrology. Notes and recommendations reviewed ? 12/07/2023 acute kidney injury resolved ? Patient was discharged with a Marina catheter 2. Obstructive uropathy ? CT of the abdomen and pelvis obtained did show Marked degree of distention of the urinary bladder with bilateral hydronephrosis. Nonobstructive calculus in the lower pole calyx of the right kidney. Marina catheter was placed admitted to monitored bed consult placed to Dr Parker Case discussed with him ? 12/06/2023 patient was started on Flomax and currently has a Marina catheter 3. Hyponatremia ? Suspected to be secondary to patient renal failure on saline with subsequent monitoring of electrolytes ordered ? 12/06/2023 sodium levels up to 143 4. Acute cystitis ? Urine culture sent patient started on Rocephin 5. Suspected malnutrition ? Consult placed to dietitian 6. Hypertension - Blood pressure controlled, home medications continued with dose adjustment as needed 7. Rheumatoid arthritis ? Patient is on methotrexate and hydroxychloroquine 8. Dementia ? With albuminuria agitation we will continue supportive care 9. Physical deconditioning - Requested for PT OT eval and social sciences professor to assist with discharge planning 10. DVT prophylaxis ? SC heparin 11. Hypokalemia ? Corrected per protocol repeat labs ordered for a.m. Time spent in the patient's overall evaluation,decision-making process, review of diagnostic data, adjustment of management, discussion with other providers, nursing nursing and ancillary staff involved in patient's care documentation, 35 minutes Medications at Discharge Home Medications metoprolol tartrate 25 mg tablet 25 mg PO BID htn 03/24/14 cholecalciferol (vitamin D3) 25 mcg (1,000 unit) tablet 1,000 unit PO DAILY vitamin 10/29/16 folic acid 1 mg tablet 1 mg PO BID vitamin 06/17/17 leucovorin calcium 15 mg tablet 15 mg PO Q7D RA 06/17/17 donepezil 23 mg tablet 23 mg PO DAILY dementia 09/15/23 aspirin 81 mg chewable tablet 81 mg PO QODAY@0800 #0 tabs 10/03/23 methotrexate sodium 2.5 mg tablet 20 mg (8 x 2.5 mg) PO Q7D #0 tabs 10/03/23 hydroxychloroquine 200 mg tablet 200 mg PO DAILY 12/05/23 acetaminophen 325 mg tablet 650 mg (2 x 325 mg) PO Q6H PRN PRN Pain 1-10 Or Fever>100.7 #0 tabs 12/08/23 magnesium chloride 64 mg (magnesium chloride) tablet,delayed release (Mag 64) 128 mg (2 x 64 mg) PO DAILY #0 tabs 12/08/23 melatonin 3 mg tablet 3 mg PO QHS PRN PRN Insomnia #0 tabs 12/08/23 menthol 0.44 %-zinc oxide 20.6 % topical ointment (Calmoseptine) 1 applic topical TID #0 grams 12/08/23 potassium chloride 20 mEq tablet,extended release(part/cryst) 20 meq PO BIDCM #0 tabs 12/08/23 quetiapine 25 mg tablet 25 mg PO BID #0 tabs 12/08/23 sennosides 8.6 mg-docusate sodium 50 mg tablet (Stool Softener-Stimulant Laxative) 2 tab PO BID PRN PRN Constipation #0 tabs 12/08/23 tamsulosin 0.4 mg capsule 0.4 mg PO DAILY@1730 #0 caps 12/08/23 Physical Exam Narrative GENERAL: Frail looking HEENT: Atraumatic; normocephalic EYES; Anicteric, Normal Conjunctiva NECK; supple, normal thyroid, RESPIRATORY: Diminished to auscultation CARDIOVASCULAR: Regular S1 S2, GI: soft, normoactive bowel sounds, : No Renal angle tenderness; EXTREMITIES: No edema, no clubbing, MUSCULOSKELETAL: no muscle wasting NEURO: Awake; no lateralizing signs. SKIN: No Rash PSYCH; Flat affect Weight / BMI Weight Weight: 67.5 kg Body Mass Index (BMI) 20.8 ABG / Lab / Microbiology Data 12/08/23 07:10 12/07/23 07:15 Laboratory: Laboratory Results - last 24 hr 12/06/23 07:14: Free PSA 10.5, % Free PSA 0.27, PSA Ultra-Sensitive 2.580 12/08/23 07:10: WBC 5.6, RBC 3.67 L, Hgb 11.9 L, Hct 35.2 L, MCV 95.9 H, MCH 32.4 H, MCHC 33.8, RDW Std Deviation 47.1 H, RDW Coeff of Narciso 13.3, Plt Count 156, MPV 8.4, Immature Gran % (Auto) 1.400 H, Neut % (Auto) 69.0, Lymph % (Auto) 23.2, [place] % (Auto) 4.6, Eos % (Auto) 1.4, Baso % (Auto) 0.4, Absolute Neuts (auto) 3.9, Absolute Lymphs (auto) 1.30, Nucleated RBC % 0, Differential Comment SCANNED, Reactive Lymphocytes 1+ D/C Instructions Discharge Diet: No restrictions Discharge Activity: Return to Normal Activity Call your doctor if you observe: Fever of 101 or Higher, Shortness of breath, Fainting spells and Chest pain Meaningful Use Info Meaningful Use Meaningful Use Diagnoses (Choose all that apply): None applicable Ischemic Stroke Statin Dosing Therapy Reference: STATIN DOSE THERAPY REFERENCE: * Patients > 75 years receive moderate or high dose statin therapy. * Patients 75 years or YOUNGER should receive HIGH intensity statin dose unless contraindicated. You will be required to document reason for non-treatment if statin daily dose does not meet guidelines. HIGH DOSE STATIN THERAPY DAILY Atorvastatin > than or = to 40 mg Rosuvastatin > than or = to 20 mg Amlodipine + Atorvastatin > than or = to 2.5/40 mg Ezetimibe + Simvastatin 10/80 mg Simvastatin 80mg Discharge Plan Admission Admit Date/Time: 12/05/23 12:25 Attending Provider: Dirk Ennis Primary Care Provider: Casimiro Duncan Consulting Providers: Ariella Pastrana; Obey Parker Discharge Orders/Prescriptions Prescriptions: New quetiapine 25 mg Tablet 25 mg PO BID Qty: 0 0RF acetaminophen 325 mg Tablet 650 mg PO Q6H PRN PRN (Reason: Pain 1-10 Or Fever>100.7) Qty: 0 0RF sennosides-docusate sodium [Stool Softener-Stimulant Laxat] 8.6-50 mg Tablet 2 tab PO BID PRN PRN (Reason: Constipation) Qty: 0 0RF melatonin 3 mg Tablet 3 mg PO QHS PRN PRN (Reason: Insomnia) Qty: 0 0RF potassium chloride 20 mEq Tablet,Er Particles/Crystals 20 meq PO BIDCM Qty: 0 0RF tamsulosin 0.4 mg Capsule 0.4 mg PO DAILY@1730 Qty: 0 0RF magnesium chloride [Mag 64] 64 mg Tablet,Delayed Release (Dr/Ec) 128 mg PO DAILY Qty: 0 0RF menthol-zinc oxide [Calmoseptine] 0.44-20.6 % Ointment 1 applic topical TID Qty: 0 0RF Protocol: *Topical Application Instructions APPLICATION INSTRUCTIONS: Apply to coccyx and buttox Continued metoprolol tartrate 25 MG tablet 25 mg PO BID cholecalciferol (vitamin D3) 1,000 UNIT tablet 1,000 unit PO DAILY methotrexate sodium 2.5 mg Tablet 20 mg PO Q7D Qty: 0 0RF aspirin 81 mg Tablet,Chewable 81 mg PO QODAY@0800 Qty: 0 0RF donepezil 23 mg tablet 23 mg PO DAILY Patient Comments: take 1 tablet by mouth once daily hydroxychloroquine 200 mg Tablet 200 mg PO DAILY leucovorin calcium 15 MG tablet 15 mg PO Q7D Patient Comments: TAKES ON TUESDAY MORNING folic acid 1 MG tablet 1 mg PO BID Referrals / Follow Up: Obey Parker MD [Med Staff - Active Staff] - Within 1 Week Casimiro Duncan MD [Primary Care Provider] - Within 2 Weeks Disposition Disposition (needs filled in before D/C Order can be placed[facility] Charges/Coding Visit Charges Inpatient E&M: 52870 Disch Hosp >30min
[2023-12-08 09:32] LABS: Anion Gap 6 (5-15); BUN 9 mg/dL (7-18); BUN/Creat Ratio 18.1 RATIO (10-20); Calcium,Total 8.3 mg/dL (8.5-10.1); Chloride 106 mmol/L (98-107); EST Glomerular Filtration Rate 174 mL/min (>60); Est Glom Filt Rate - Afr Amer 210 mL/min (>60); Estimated Creatinine Clearance 77.34 ml/min; Glucose 88 mg/dL (74-106); Potassium 3.9 mmol/L (3.5-5.1); Sodium Level 138 mmol/L (136-145)
[2023-12-08 09:39] VITALS: BP 155/71; PULSE 69; RESP 16; TEMP 35.8; O2SAT 99
[2023-12-08 09:44] VITALS: PULSE 69
[2023-12-08] MEDS: Metoprolol Tartrate 25 MG Tablet PO (09:44)
[2023-12-08] MEDS: QUEtiapine 25 MG Tablet PO (09:45)
[2023-12-08] MEDS: Folic Acid 1 MG Tablet PO (09:45)
[2023-12-08] MEDS: Potassium Chloride Oral Tablet 20 MEQ PO (09:45)
[2023-12-08] MEDS: Aspirin 81 MG TAB.CHEW PO (09:45)
[2023-12-08] MEDS: leucovorin 15 MG Tablet PO (09:45)
[2023-12-08] MEDS: Magnesium Chloride 64 MG Delay Rel.Tablet 128 MG PO (09:45)
[2023-12-08] MEDS: Hydroxychloroquine 200 MG Tablet PO (09:45)
[2023-12-08] MEDS: Cholecalciferol (VIT D3) 25 MCG TABLET (1,000 UNITS) PO (09:46)
[2023-12-08] MEDS: Heparin Injection (Vial) 5,000 UNIT/ML VIAL 5000 UNIT SC (09:46)
[2023-12-08] MEDS: Ceftriaxone 1 GM/50 ML BAG IV (09:50)
--- NOTE | 2023-12-08 09:53 | CASEMGMT ---
TCU is not going to have a bed available for patient today. SW awaiting 's input on which facility, [facility] or [facility]. Nara Ross TRAM DRIVER BRANDYN
--- NOTE | 2023-12-08 10:31 | PCM.PN.REN ---
Subjective Subjective Patient is sitting up in bed. No overnight events. Denies any complaints Objective Data Objective Data Vital Signs: Vital Signs Temp Pulse Resp BP Pulse Ox O2 Del Method 96.5 F L 69 16 155/71 H 99 Room Air 12/08/23 09:39 12/08/23 09:44 12/08/23 09:39 12/08/23 09:39 12/08/23 09:39 12/08/23 09:39 Oxygen Delivery Method Room Air Weight: 67.5 kg Body Mass Index (BMI) 20.8 Intake & Output: Intake and Output for Last 24 Hours 12/06/23 12/07/23 12/08/23 23:59 23:59 23:59 Intake Total 2872.5 / 2872.5 1320 / 1320 250 / 250 Output Total 1925 / 1925 1600 / 1600 350 / 350 Balance 947.5 / 947.5 -280 / -280 -100 / -100 Lab / Micro Data 12/08/23 07:10 12/08/23 07:10 Labs: Laboratory Results - last 24 hr 12/06/23 07:14: Free PSA 10.5, % Free PSA 0.27, PSA Ultra-Sensitive 2.580 12/08/23 07:10: WBC 5.6, RBC 3.67 L, Hgb 11.9 L, Hct 35.2 L, MCV 95.9 H, MCH 32.4 H, MCHC 33.8, RDW Std Deviation 47.1 H, RDW Coeff of Narciso 13.3, Plt Count 156, MPV 8.4, Immature Gran % (Auto) 1.400 H, Neut % (Auto) 69.0, Lymph % (Auto) 23.2, [place] % (Auto) 4.6, Eos % (Auto) 1.4, Baso % (Auto) 0.4, Absolute Neuts (auto) 3.9, Absolute Lymphs (auto) 1.30, Nucleated RBC % 0, Differential Comment SCANNED, Reactive Lymphocytes 1+, Sodium 138, Potassium 3.9, Chloride 106, Carbon Dioxide 26.0, Anion Gap 6, BUN 9, Creatinine 0.50 L, Estim Creat Clear Calc 77.34, Est GFR (MDRD) Af Amer 210, Est GFR (MDRD) Non-Af 174, BUN/Creatinine Ratio 18.1, Glucose 88, Calcium 8.3 L Physical Exam Narrative Alert and orient x 3, no acute distress S1, S2, RRR Lungs clear anteriorly and posteriorly. No wheezes, rhonchi rales noted Abdomen soft, nontender, positive bowel sounds No pitting edema Indwelling Marina with clear yellow urine noted in bag Assessment & Plan Assessment/Plan (1) RICO (acute kidney injury): (2) Acute metabolic acidosis: (3) Hyponatremia: PLAN: Plan Impression/Plan: The patient is a 73-year-old man with past history of hypertension, COPD, rheumatoid arthritis, gout, and Alzheimer's dementia. The patient presents to the hospital on 12/05/2023 with a 4-day history of progressive generalized weakness. The patient is found to have RICO with serum creatinine of 11.80 mg/dL. Nephrology is following for RICO, acute metabolic acidosis and hyponatremia. Acute kidney injury. The patient has normal baseline renal function. Serum creatinine was 0.95 mg/dL on 10/24/2023. Patient presented with serum creatinine of 11.80 mg/dL--> Marina catheter was placed and repeat labs later in the evening creatinine 6.24 mg/dL--> 1.67 mg/dL--> today 0.50mg/dL. Patient did not require any renal replacement therapy. RICO is likely due to obstructive uropathy with urinary retention/bladder outlet obstruction. There is likely additional RICO from volume depletion since oral intake is poor. Postobstructive polyuria is expected and therefore patient was on IV fluids. Urine output on 12/04 was around 6.7 L, urine output slowed down to ~ 2 L. Currently off IV fluids. Hyponatremia. The patient presented with serum sodium of 121 mmol/L--> Na 134 --> sodium level is 138. Suspect hyponatremia secondary to RICO along with poor solute intake prior to admission. We encouraged increase oral solute intake. Urine Osmo 529, urine sodium 35, urine potassium 20 Acute metabolic acidosis. The patient presented with serum bicarbonate level of 14 mmol/L. Acute metabolic acidosis is likely due to RICO. No diarrhea. Metabolic acidosis improved as renal function improved Acute urinary retention Patient was seen by urology. No surgical intervention at this time. Patient is to be discharged home with catheter and or self catheterizations. - Discharge planning in progress, patient possibly to go to rehab unit today
--- NOTE | 2023-12-08 11:02 | PHA.DC.MR.R ---
Pharmacy [place] Med Reconciliation Pharmacy Service has performed discharge medication reconciliation for this patient upon transfer to [facility]. The patient's discharge medication list was reviewed for discrepancies and discrepancies were resolved. Medications at Discharge Home Medications metoprolol tartrate 25 mg tablet 25 mg PO BID htn 03/24/14 cholecalciferol (vitamin D3) 25 mcg (1,000 unit) tablet 1,000 unit PO DAILY vitamin 10/29/16 folic acid 1 mg tablet 1 mg PO BID vitamin 06/17/17 leucovorin calcium 15 mg tablet 15 mg PO Q7D RA 06/17/17 donepezil 23 mg tablet 23 mg PO DAILY dementia 09/15/23 aspirin 81 mg chewable tablet 81 mg PO QODAY@0800 #0 tabs 10/03/23 methotrexate sodium 2.5 mg tablet 20 mg (8 x 2.5 mg) PO Q7D #0 tabs 10/03/23 hydroxychloroquine 200 mg tablet 200 mg PO DAILY 12/05/23 acetaminophen 325 mg tablet 650 mg (2 x 325 mg) PO Q6H PRN PRN Pain 1-10 Or Fever>100.7 #0 tabs 12/08/23 magnesium chloride 64 mg (magnesium chloride) tablet,delayed release (Mag 64) 128 mg (2 x 64 mg) PO DAILY #0 tabs 12/08/23 melatonin 3 mg tablet 3 mg PO QHS PRN PRN Insomnia #0 tabs 12/08/23 menthol 0.44 %-zinc oxide 20.6 % topical ointment (Calmoseptine) 1 applic topical TID #0 grams 12/08/23 potassium chloride 20 mEq tablet,extended release(part/cryst) 20 meq PO BIDCM #0 tabs 12/08/23 quetiapine 25 mg tablet 25 mg PO BID #0 tabs 12/08/23 sennosides 8.6 mg-docusate sodium 50 mg tablet (Stool Softener-Stimulant Laxative) 2 tab PO BID PRN PRN Constipation #0 tabs 12/08/23 tamsulosin 0.4 mg capsule 0.4 mg PO DAILY@1730 #0 caps 12/08/23
--- NOTE | 2023-12-08 12:01 | CASEMGMT ---
NITIN spoke with patient's Namrata and she said if TCU does not have a bed she would prefer [facility]. SW had sent a referral to [facility] and they can accept patient. NITIN sent d/c orders to [facility] via [facility]. NITIN called Physicians and arranged for patient to get picked up at 15:00 as the room at [facility] won't be available until later. NITIN asked RN to get a Covid test. NITIN notified Namrata that [facility] accepted and patient will be picked up at 15:00. NITIN notified membership secretary and [facility]. NITIN will also notify RN. NITIN completed a 7000 in [employer] system. Plan: d/c to [facility] under skilled level of care on a convalescent stay. Physicians will transport via cot. Nara AHUMADA
[2023-12-08 14:58] VITALS: BP 160/73; PULSE 70; RESP 16; TEMP 36.1; O2SAT 97
== END 2023-12-08 15:57 | disposition skilled nursing facility (03) | DRG 683 ==
LOC: ED 12:28 → PCU 12:56
PROVIDERS: Internal Medicine Nephrology; Admitting Provider Internal Medicine; Emergency Provider Emergency Medicine; PCP Family Medicine; Visit Provider Internal Medicine
DX: N17.9 Acute kidney failure, unspecified (principal); E87.1 Hypo-osmolality and hyponatremia; E87.21 Acute metabolic acidosis; N30.00 Acute cystitis without hematuria; F02.80 Dementia in other diseases classified elsewhere, unspecified severity, without behavioral disturbance, psychotic disturbance, mood disturbance, and anxiety; J44.9 Chronic obstructive pulmonary disease, unspecified; G30.9 Alzheimer's disease, unspecified; M06.9 Rheumatoid arthritis, unspecified; I10 Essential (primary) hypertension; E87.6 Hypokalemia; N13.2 Hydronephrosis with renal and ureteral calculous obstruction; Z79.82 Long term (current) use of aspirin; R33.9 Retention of urine, unspecified; Z87.891 Personal history of nicotine dependence; Z79.899 Other long term (current) drug therapy; R53.81 Other malaise
CPT/HCPCS: 36415; 51702; 74177; 80048; 80053; 80069; 81001; 82570; 83605; 83690; 83735; 83935; 84100; 84133; 84153; 84154; 84300; 84484; 85025; 87086; 87426; 92610; 93005; 97162; 97166; 97530; 97535; 99285; J7030; Q9967; A4216; J8610

== ENCOUNTER → 2024-01-27 | Outpatient (CLI) | payer MEDICARE, BC, SELFPAY ==
[2024-01-27 15:52] LABS: Anion Gap 4 (5-15); BUN 11 mg/dL (7-18); Calcium,Total 9.2 mg/dL (8.5-10.1); Chloride 108 mmol/L (98-107); Creatinine, Serum 0.73 mg/dL (0.70-1.30); EST Glomerular Filtration Rate 111 mL/min (>60); Est Glom Filt Rate - Afr Amer 134 mL/min (>60); Glucose 90 mg/dL (74-106); Potassium 4.3 mmol/L (3.5-5.1); Sodium Level 138 mmol/L (136-145)
== END | disposition home or self-care (01) ==
LOC: MFPLAB 11:44
PROVIDERS: PCP Family Medicine; Visit Provider Family Medicine
DX: E87.6 Hypokalemia (principal)
CPT/HCPCS: 36415; 80048

== ENCOUNTER 2024-02-01 12:21 | Day surgery (SDC) | payer MEDICARE, BC, SELFPAY ==
[2024-02-01] VITALS (14 sets, daily range): BP systolic 74–143; BP diastolic 57–84; PULSE 60–78; RESP 12–16; TEMP 36.2–36.8; O2SAT 91–100; BMI 19.3
--- NOTE | 2024-02-01 12:28 | PRE.ANES_ITS ---
ASA Classification* ASA Classification ASA Classification: 2 Assessment & Plan Anesthesia* Anesthesia Assessment Anesthesia Assessment: Discussed sedation and/or anesthesia options, risks, benefits, and alternatives with patient/parents/legal guardian/POA. Questions invited. The patient/parents/legal guardian/POA seems to understand and agrees to proceed with anesthesia plan. Reviewed the physical assessment, medical history, allergy history and patient home medications list prior to surgery/procedure/anesthetic and documented any changes. Performed airway and anesthesia risk assessments. Anesthesia Type Anesthesia Type: General Pre-Assessment Diagnosis/Proposed Procedure Planned Operative Procedure(s): TURP Anesthesia History Anesthesia History - intermediate designer: Anesthesia History - intermediate designer Hx Hospitalization Yes: [facility] 08/2023, 01/04/24 14:09 BLADDER AND KIDNEY ISSUES 2023 Any Problems With Anesthesia Yes: SLOW TO AWAKEN 01/04/24 14:09 Cholinesterase deficiency No 01/04/24 14:09 You/Your Family Experience No 01/04/24 14:09 fever (hyperthermia) with Relationship Recent Exposure to Contagious No 03/14/18 07:28 Disease Does patient have nerve No 01/04/24 14:09 stimulator Patient instructed to have device shut off --Does patient have Pacemaker or ICD? When Was Last Pacemaker Check QUESTION #4 FULL TEXT: You/Your Family Experience fever (hyperthermia) with Anesthesia Last Oral Intake Last Oral intake: Last Oral Intake NPO since Meds taken in AM with sips of water? Meds patient instructed to take am of surgery PONV PONV - intermediate designer: PONV - intermediate designer Female No 01/04/24 14:09 HX of Motion Sickness No 01/04/24 14:09 HX of N/V After Surgery No 01/04/24 14:09 Non-Smoker Yes 01/04/24 14:09 Duration of Surgery greater Yes 01/04/24 14:09 than 60 minutes Number of Risk Factors 2 01/04/24 14:09 PONV Score Moderate Risk 01/04/24 14:09 Height & Weight Height & Weight: Anesthesia: Height & Weight Height 1.8 m 12/05/23 15:16 Weight: 65.771 kg 01/31/24 09:01 Respiratory Assessment Respiratory Assessment - intermediate designer: Respiratory Tract Infection Hx - intermediate designer Hx Respiratory Tract Infection No 01/04/24 14:09 STOP Sleep Apnea STOP Sleep Apnea - intermediate designer: STOP Sleep Apnea - intermediate designer Hx Hypertension No 01/04/24 14:09 Hx Sleep Apnea No 01/04/24 14:09 CPAP BIPAP Do you snore loudly (louder No 01/04/24 14:09 than talking or can be heard Do you often feel tired/ Yes 01/04/24 14:09 fatigued/ sleepy during daytime? Has anyone observed you stop No 01/04/24 14:09 breathing during sleep? STOP Results Negative 01/04/24 14:09 QUESTION #5 FULL TEXT : Do you snore loudly (louder than talking or can be heard through closed doors)? 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 Specify any problems Hx of Preganancy in last 3 N/A 01/04/24 14:09 Months Nurse Filling Out Transfusion DSCHRIBER 01/04/24 14:09 & Questions: Date: 01/04/24 01/04/24 14:09 Time: 14:11 01/04/24 14:09 Patient unable to answer at this time (ie. confused, unrespo /Reproduction History /Reproductive History - intermediate designer: /Reproductive Hx- intermediate designer Hx Now No 01/04/24 14:09 Gestational Age (in weeks): EDC: Hx Hx Para Hx Section SAB No 01/04/24 14:09 Active Medications Active Medications: Current Medications Generic Name Dose Route Start Last Admin Trade Name Freq PRN Reason Stop Dose Admin Cefazolin Sodium 2 gm/ Sodium 110 mls @ 150 mls/hr 02/01/24 14:15 Chloride IV 02/01/24 14:58 PREOP ONE Anesthesia Focused Assessment* Airway Assessment Mouth opens (cm): 3 Mallampati Score: II Focused Labs Anesthesia Preop lab: CBC WBC 4.8 K/mm3 (4.4-11.0) 01/17/24 05:20 RBC 3.69 M/mm3 (4.6-6.2) L 01/17/24 05:20 Hgb 12.2 g/dL (13.0-16.5) L 01/17/24 05:20 Hct 37.7 % (40-54) L 01/17/24 05:20 Plt Count 265 K/mm3 (150-450) 01/17/24 05:20 CHEMISTRY Potassium 4.3 mmol/L (3.5-5.1) 01/27/24 11:44 Sodium 138 mmol/L (136-145) 01/27/24 11:44 Magnesium 2.1 mg/dL (1.6-2.6) 01/03/24 06:50 Phosphorus 2.0 mg/dL (2.5-4.9) L 12/06/23 07:14 BUN 11 mg/dL (7-18) 01/27/24 11:44 Creatinine 0.73 mg/dL (0.70-1.30) 01/27/24 11:44 Glucose 90 mg/dL (74-106) 01/27/24 11:44 TSH 1.08 uIU/mL (0.358-3.74) 10/13/21 14:13 COAG PT 14.4 SECONDS (11.7-14.9) 09/15/23 23:22 Review of Systems (Anesthesia) ROS Narrative System reviewed and no additional complaints, except as documented. 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) Wears hearing aid Wears glasses Depression Anxiety Dementia Alcohol use Walker as ambulation aid Rheumatoid arthritis Bladder disease Prostate disease Indwelling urethral catheter present Back pain Injury of head and neck Dietary restriction History of IBS Former smoker History of edema History of irregular heartbeat Lives in alf COPD (chronic obstructive pulmonary disease) Alzheimer disease Hemorrhoids Weight loss Rheumatoid arthritis Gout HTN (hypertension) Home Medications ?Medication ?Instructions ?Recorded ?Last Taken ?Type metoprolol tartrate 25 mg tablet 25 mg PO BID htn 03/24/14 12/04/23 History folic acid 1 mg tablet 1 mg PO BID vitamin 06/17/17 12/04/23 History leucovorin calcium 15 mg tablet 15 mg PO Q7D RA 06/17/17 12/01/23 History donepezil 23 mg tablet 23 mg PO QHS dementia 09/15/23 12/04/23 History aspirin 81 mg chewable tablet 81 mg PO QODAY@0800 #0 tabs 10/03/23 12/04/23 Rx hydroxychloroquine 200 mg tablet 200 mg PO DAILY 12/05/23 12/03/23 History acetaminophen 325 mg tablet 650 mg (2 x 325 mg) PO Q6H PRN PRN 12/08/23 Unknown Rx Pain 1-10 Or Fever>100.7 #0 tabs melatonin 3 mg tablet 3 mg PO QHS PRN PRN Insomnia #0 12/08/23 Unknown Rx tabs sennosides 8.6 mg-docusate sodium 2 tab PO BID PRN PRN Constipation 12/08/23 Unknown Rx 50 mg tablet (Stool #0 tabs Softener-Stimulant Laxative) tamsulosin 0.4 mg capsule 0.4 mg PO DAILY@1730 #0 caps 12/08/23 Unknown Rx food supplemt, lactose-reduced 120 ml PO BID 01/05/24 Unknown History loratadine 10 mg tablet 10 mg PO DAILY 01/05/24 Unknown History lorazepam 0.5 mg tablet (Ativan) 0.5 mg PO Q12H 01/05/24 Unknown History magnesium oxide 125 mg PO DAILY 01/05/24 Unknown History methotrexate sodium 2.5 mg tablet 20 mg PO WE 01/05/24 Unknown History potassium chloride 20 mEq 20 meq PO QHS 01/05/24 Unknown History tablet,extended release potassium chloride 20 mEq 40 meq PO DAILY 01/05/24 Unknown History tablet,extended release(part/cryst) zinc oxide 20 % topical ointment 1 applic topical TID 01/05/24 Unknown History Allergy/AdvReac Type Severity Reaction Status Date / Time No Known Allergies Allergy Verified 01/04/24 14:09 Family History Father Colon cancer CVA (cerebral vascular accident) Hypertension Heart disease Sister CAD (coronary artery disease) Hypertension Heart disease Mother Cancer Surgical History (Updated 01/04/24 @ 14:24 by Keely Larkin) History of stapedectomy Hx of tonsillectomy S/P colonoscopy Social History household members: spouse Smoking Status: Former smoker alcohol intake: never substance use type: does not use
[2024-02-01] MEDS: Lactated Ringers 1,000 ML 15 ML IV ×2 (12:54→16:39)
--- NOTE | 2024-02-01 14:15 | PROS_PTH ---
PATIENT: EDWIN ODONNELL LOC: [facility] [place] U#:[id number] AGE/SX: 73/M ROOM: RE02/01/[address]: Dr. Obey Parker MD : 1950 BED: DIS: 02/02/2024 SPEC #: [id number] RECD: 02/01/24 16:26 STATUS: JERRY LEATHA #: [id number] ASH: 02/01/24 14:[address]: Obey Parker DEPT: SURGICAL PATHOLOGY RECD BY: Mavis Fuller ENTERED: 02/02/24 07:11 SP TYPE: TURP OTHR DR: Dr. Casimiro Duncan MD Tissues: Prostate, NOS Procedures: Surgery Specimen Level IV HEADER OPERATION: Transurethral resection prostate PRE-OP DIAGNOSIS: BPH with lower urinary tract symptoms, retention of urine TISSUE SUBMITTED: Prostate tissue MICROSCOPIC DIAGNOSIS Prostate tissue, transurethral resection: Benign prostatic hyperplasia, glandular and stromal type. Focal acute and chronic inflammation. SJ/mr 02/03/2024 MICROSCOPIC DESCRIPTION Slides are reviewed. GROSS DESCRIPTION Received is one container labeled with the patient's name and designated prostate tissue. The specimen consists of multiple irregular fragments of pink-chicas, rubbery, soft tissue that in aggregate weigh 8.5 gm and measure in aggregate 4.0 x 4.0 x 2.0 cm. The entire specimen is submitted in 10 cassettes. JOEL/ 02/02/2024 TC:5 CPT: 78423
[2024-02-01] MEDS: Cefazolin 2 GM in 0.9% Normal Saline (100mL Bag) 100 ML IV (15:11)
--- NOTE | 2024-02-01 15:48 | PCM.HP.STD ---
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) Wears hearing aid Wears glasses Depression Anxiety Dementia Alcohol use Walker as ambulation aid Rheumatoid arthritis Bladder disease Prostate disease Indwelling urethral catheter present Back pain Injury of head and neck Dietary restriction History of IBS Former smoker History of edema History of irregular heartbeat Lives in fpc COPD (chronic obstructive pulmonary disease) Alzheimer disease Hemorrhoids Weight loss Rheumatoid arthritis Gout HTN (hypertension) Home Medications ?Medication ?Instructions ?Recorded ?Last Taken ?Type metoprolol tartrate 25 mg tablet 25 mg PO BID htn 03/24/14 02/01/24 History folic acid 1 mg tablet 1 mg PO BID vitamin 06/17/17 12/04/23 History leucovorin calcium 15 mg tablet 15 mg PO Q7D RA 06/17/17 01/18/24 History donepezil 23 mg tablet 23 mg PO QHS dementia 09/15/23 02/01/24 History aspirin 81 mg chewable tablet 81 mg PO QODAY@0800 #0 tabs 10/03/23 12/04/23 Rx hydroxychloroquine 200 mg tablet 200 mg PO DAILY 12/05/23 02/01/24 History acetaminophen 325 mg tablet 650 mg (2 x 325 mg) PO Q6H PRN PRN 12/08/23 Unknown Rx Pain 1-10 Or Fever>100.7 #0 tabs melatonin 3 mg tablet 3 mg PO QHS PRN PRN Insomnia #0 12/08/23 01/31/24 Rx tabs sennosides 8.6 mg-docusate sodium 2 tab PO BID PRN PRN Constipation 12/08/23 Unknown Rx 50 mg tablet (Stool #0 tabs Softener-Stimulant Laxative) tamsulosin 0.4 mg capsule 0.4 mg PO DAILY@1730 #0 caps 12/08/23 01/31/24 Rx loratadine 10 mg tablet 10 mg PO DAILY 01/05/24 01/31/24 History lorazepam 0.5 mg tablet (Ativan) 0.5 mg PO Q12H 01/05/24 02/01/24 History magnesium oxide 125 mg PO DAILY 01/05/24 01/31/24 History methotrexate sodium 2.5 mg tablet 20 mg PO WE 01/05/24 01/25/24 History potassium chloride 20 mEq 20 meq PO QHS 01/05/24 01/31/24 History tablet,extended release potassium chloride 20 mEq 40 meq PO DAILY 01/05/24 01/31/24 History tablet,extended release(part/cryst) zinc oxide 20 % topical ointment 1 applic topical TID 01/05/24 Unknown History quetiapine 25 mg tablet 25 mg PO QHS 02/01/24 01/31/24 History Allergy/AdvReac Type Severity Reaction Status Date / Time No Known Allergies Allergy Verified 02/01/24 12:46 Family History Father Colon cancer CVA (cerebral vascular accident) Hypertension Heart disease Sister CAD (coronary artery disease) Hypertension Heart disease Mother Cancer Surgical History (Updated 01/04/24 @ 14:24 by Keely Larkin) History of stapedectomy Hx of tonsillectomy S/P colonoscopy Social History household members: spouse Smoking Status: Former smoker alcohol intake: never substance use type: does not use Vital Signs Vital Signs Vital Signs: 02/01/24 12:50 02/01/24 12:50 Temperature 98.2 F Temperature Source Temporal Pulse Rate 76 Respiratory Rate 16 Respiratory Pattern Normal Blood Pressure 134/79 H Blood Pressure Mean 97 Blood Pressure Source Monitor Blood Pressure Position Semi-Fowlers Blood Pressure Location Right Arm Pulse Ox 97 Oxygen Delivery Method Room Air Weight Weight: 63 kg Body Mass Index (BMI) 19.3
--- NOTE | 2024-02-01 15:49 | OP.PCM_ITS ---
Report of Operation Date of Procedure: 02/01/24 Pre-Operative Diagnosis: BPH with retention of urine Post-Operative Diagnosis: The same Surgery/Procedure Performed:: Transurethral section of prostate Description of Surgical Findings:: This is a 74-year-old male who has a BPH with obstruction is developed retention of urine with a catheter organ to proceed with a transurethral resection of the prostate he has multiple medical problems I told the patient and the family cannot guarantee that he will urinate after surgery but will get do a TURP and give him a voiding trial and see if this could be successful he is failed medical therapy. Patient was taken back to the operating room at a smooth induction of anesthesia he was placed in dorsolithotomy position. The penis and testicles were prepped and draped in usual sterile fashion went in the bladder with a 24 [place] noncontinuous Olympus bipolar resectoscope identified bilateral hypertrophy and a small median lobe I then proceeded with the resection resected the median lobe down to the verumontanum resected the right lobe of the prostate the left lobe of the prostate and also resected the apical tissue in the anterior tissue of the prostate. After the resection was completed and I cauterized extensively to get hemostasis I put a 22 [place]uan catheter in the bladder on continuous irrigation the patient's anesthetic was reversed and taken back to the PACU in good condition of the at the end I did a flow test he had a nice wide open flow and sphincter was intact. Patient was extubated and taken back to PACU in stable condition minimal blood loss. Surgeon: Obey Parker Type of Anesthesia: General Drains: [address] Admit VTE Documentation VTE Present on Admission: No VTE Mechan Device Prophylaxis: SCD's VTE Pharm Prophylaxis ordered?: No
--- NOTE | 2024-02-01 15:49 | PCM.DC ---
Discharge Instructions Diet Discharge Diet: No restrictions Activity Discharge Activity: Return to Normal Activity and May Not Drive (while taking narcotic pain medications.) Dressing / Incision Call your doctor if you observe: Fever of 101 or Higher Follow Up Care Please Follow Up With: Obey Parker MD When: Call [phone] for an appointment Test Results: Test results from this visit will be discussed in further detail at your follow-up appointment, if applicable. Discharge Plan Admission Primary Reason for Your Visit: turp Attending Provider: Obey Parker Primary Care Provider: Casimiro Duncan Instructions Print Language: Malaysian Discharge Orders/Prescriptions Prescriptions: Continued metoprolol tartrate 25 MG tablet 25 mg PO BID donepezil 23 mg tablet 23 mg PO QHS Patient Comments: take 1 tablet by mouth once daily magnesium oxide 250 mg magnesium tablet 125 mg PO DAILY loratadine 10 mg tablet 10 mg PO DAILY zinc oxide 20 % ointment 1 applic topical TID potassium chloride 20 mEq tablet extended release 20 meq PO QHS lorazepam [Ativan] 0.5 mg tablet 0.5 mg PO Q12H potassium chloride 20 mEq Tablet,Er Particles/Crystals 40 meq PO DAILY quetiapine 25 mg tablet 25 mg PO QHS Patient Comments: only takes one at night hydroxychloroquine 200 mg Tablet 200 mg PO DAILY acetaminophen 325 mg Tablet 650 mg PO Q6H PRN PRN (Reason: Pain 1-10 Or Fever>100.7) Qty: 0 0RF sennosides-docusate sodium [Stool Softener-Stimulant Laxat] 8.6-50 mg Tablet 2 tab PO BID PRN PRN (Reason: Constipation) Qty: 0 0RF melatonin 3 mg Tablet 3 mg PO QHS PRN PRN (Reason: Insomnia) Qty: 0 0RF tamsulosin 0.4 mg Capsule 0.4 mg PO DAILY@1730 Qty: 0 0RF leucovorin calcium 15 MG tablet 15 mg PO Q7D Patient Comments: TAKES ON TUESDAY MORNING folic acid 1 MG tablet 1 mg PO BID Held aspirin 81 mg Tablet,Chewable 81 mg PO QODAY@0800 Qty: 0 0RF Hold Instructions: Resume on 02/15/24. methotrexate sodium 2.5 mg Tablet 20 mg PO WE Hold Instructions: Resume on 02/08/24. Referrals / Follow Up: Obey Parker MD [Med Staff - Active Staff] - Casimiro Duncan MD [Primary Care Provider] - Disposition Disposition (needs filled in before D/C Order can be placed): Home, Self Care
--- NOTE | 2024-02-01 15:55 | PCM.POST.ANE ---
Anesthesia: Postop Eval I Current Vital Signs Temperature: 97.3 F Pulse Rate: 60 Blood Pressure: 105/61 Respiratory Rate: 14 Pulse Ox: 94 Oxygen Delivery Method: Room Air Assessment Airway patent: Yes Spontaneous unlabored respirations: Yes Mental status: Asleep nausea: No Vomiting: No Anesthesia Complication: No Fluid Hydration Crystalloid volume administer (ml): 800 Total IV fluid infused: 800 Progress Note Anesthesia document: Postop Eval 1 completed: Yes
--- NOTE | 2024-02-01 16:48 | PCM.POSTANE2 ---
Anesthesia Postop Eval I Sum Postop Eval Completion status Anesthesia document: Postop Eval 1 completed: Yes Anesthesia Postop Eval I Summary Anesthesia Postop Eval I Summary: Anesthesia Postop Eval I: Assessment Summary Airway patent Yes 02/01/24 16:14 [email or web address] Spontaneous unlabored Yes 02/01/24 16:14 [email or web address] respirations Mental status Asleep 02/01/24 16:14 [email or web address] nausea No 02/01/24 16:14 [email or web address] Vomiting No 02/01/24 16:14 [email or web address] Anesthesia Postop Eval I: Fluid Summary Crystalloid volume administer 800 02/01/24 16:14 [email or web address] (ml) Colloids volume administered ( ml) Blood Product volume administered (ml) Total IV fluid infused 800 02/01/24 16:18 [email or web address] Anesthesia Postop Eval I: Summary Notes Anesthesia Complication No 02/01/24 16:14 [email or web address] Anesthesia Complication Comment: Post-operative progress note Anesthesia: Postop Eval II Evaluation Mental status: Awake Pain Level: 0 nausea: No Vomiting: No Complications Anesthesia Complication: No
[2024-02-01] MEDS: Tamsulosin HCl 0.4 MG Capsule PO (19:52)
[2024-02-01] MEDS: Methotrexate 2.5 MG Tablet 20 MG PO (19:52)
[2024-02-01] MEDS: Folic Acid 1 MG Tablet PO (19:52)
[2024-02-01] MEDS: 0.9% Normal Saline (1000mL) 1,000 ML 75 ML IV (20:38)
[2024-02-01] MEDS: Docusate Sodium 100 MG Capsule 200 MG PO (20:43)
[2024-02-01] MEDS: Metoprolol Tartrate 25 MG Tablet PO (20:44)
[2024-02-01] MEDS: QUEtiapine 25 MG Tablet PO (20:47)
[2024-02-01] MEDS: Potassium Chloride Oral Tablet 20 MEQ PO (20:47)
[2024-02-01] MEDS: Acetaminophen 325 MG Tablet 650 MG PO (20:53)
[2024-02-01] MEDS: LORazepam 0.5 MG Tablet PO (20:53)
[2024-02-01] MEDS: DONEPEZIL HCL 23 MG PO (20:54)
[2024-02-01] MEDS: MELATONIN 3 MG TABLET PO (20:55)
[2024-02-01] MEDS: Ciprofloxacin 400 MG/200 ML BAG 200 MG IV (21:05)
[2024-02-02 00:48] VITALS: BP 114/71; PULSE 69; RESP 16; TEMP 36.2; O2SAT 95
[2024-02-02 04:26] VITALS: BP 129/66; PULSE 69; RESP 16; TEMP 36.3; O2SAT 94
--- NOTE | 2024-02-02 07:30 | PCM.PN.GU ---
Subjective Subjective Status post TURP urine is crystal clear we can remove the catheter today for voiding trial and go home after he voids Objective Data Objective Data Vital Signs: Vital Signs Temp Pulse Resp BP Pulse Ox O2 Del Method O2 Flow Rate 97.4 F L 69 16 129/66 H 94 Room Air 2 02/02/24 04:26 02/02/24 04:26 02/02/24 04:26 02/02/24 04:26 02/02/24 04:26 02/02/24 04:26 02/01/24 16:15 Oxygen Flow Rate (L/min) 2 Oxygen Delivery Method Room Air Weight: 63 kg Body Mass Index (BMI) 19.3 Intake & Output: Intake and Output for Last 24 Hours 01/31/24 02/01/24 02/02/24 23:59 23:59 23:59 Intake Total 1360.25 / 1360.25 Output Total 1999 Balance -639.75 / -639.75
[2024-02-02 08:03] VITALS: BP 139/71; PULSE 65; RESP 18; TEMP 36.3; O2SAT 92
--- NOTE | 2024-02-02 09:36 | PHA.DC.MR.R ---
Pharmacy [facility] Med Reconciliation Pharmacy Service has performed discharge medication reconciliation for this patient. No new medications at time of discharge medication list review. Medications reviewed are from previously reported home medications. The patient's discharge medication list was reviewed for discrepancies and discrepancies were resolved. Medications at Discharge Home Medications metoprolol tartrate 25 mg tablet 25 mg PO BID htn 03/24/14 folic acid 1 mg tablet 1 mg PO BID vitamin 06/17/17 leucovorin calcium 15 mg tablet 15 mg PO Q7D RA 06/17/17 donepezil 23 mg tablet 23 mg PO QHS dementia 09/15/23 aspirin 81 mg chewable tablet 81 mg PO QODAY@0800 #0 tabs 10/03/23 hydroxychloroquine 200 mg tablet 200 mg PO DAILY 12/05/23 acetaminophen 325 mg tablet 650 mg (2 x 325 mg) PO Q6H PRN PRN Pain 1-10 Or Fever>100.7 #0 tabs 12/08/23 melatonin 3 mg tablet 3 mg PO QHS PRN PRN Insomnia #0 tabs 12/08/23 sennosides 8.6 mg-docusate sodium 50 mg tablet (Stool Softener-Stimulant Laxative) 2 tab PO BID PRN PRN Constipation #0 tabs 12/08/23 tamsulosin 0.4 mg capsule 0.4 mg PO DAILY@1730 #0 caps 12/08/23 loratadine 10 mg tablet 10 mg PO DAILY 01/05/24 lorazepam 0.5 mg tablet (Ativan) 0.5 mg PO Q12H 01/05/24 magnesium oxide 125 mg PO DAILY 01/05/24 methotrexate sodium 2.5 mg tablet 20 mg PO WE 01/05/24 potassium chloride 20 mEq tablet,extended release 20 meq PO QHS 01/05/24 potassium chloride 20 mEq tablet,extended release(part/cryst) 40 meq PO DAILY 01/05/24 zinc oxide 20 % topical ointment 1 applic topical TID 01/05/24 quetiapine 25 mg tablet 25 mg PO QHS 02/01/24
[2024-02-02] MEDS: LORazepam 0.5 MG Tablet PO (09:50)
[2024-02-02] MEDS: Potassium Chloride Oral Tablet 20 MEQ 40 MEQ PO (09:50)
[2024-02-02] MEDS: Magnesium Chloride 64 MG Delay Rel.Tablet 128 MG PO (09:50)
[2024-02-02] MEDS: Loratadine 10 MG Tablet PO (09:50)
[2024-02-02 09:51] VITALS: PULSE 65
[2024-02-02] MEDS: Ciprofloxacin 400 MG/200 ML BAG 200 MG IV (09:51)
[2024-02-02] MEDS: Hydroxychloroquine 200 MG Tablet PO (09:51)
[2024-02-02] MEDS: Docusate Sodium 100 MG Capsule 200 MG PO (09:51)
[2024-02-02] MEDS: 0.9% Normal Saline (1000mL) 1,000 ML 75 ML IV (09:51)
[2024-02-02] MEDS: Folic Acid 1 MG Tablet PO (09:51)
[2024-02-02] MEDS: Metoprolol Tartrate 25 MG Tablet PO (09:51)
--- NOTE | 2024-02-02 10:08 | CASEMGMT ---
IRMA ROBB into pt room, introduced self and role at [facility]. Pt sitting up in bed in no distress. Discussed HHC options with pt, he is already established with [facility] and would like to resume his care with them, denies wanting a list of agencies. Pt oriented to location, does not recall month. Asked pt if IRMA ROBB can call to discuss DC plan, pt agreeable. IRMA ROBB TC to pt , she also would like to resume care with [facility]. Informed that [facility] will start tomorrow, and added to DC plan. Stated she will be picking pt up after lunch today. Denies any concerns or needs with bringing pt home at this time.
--- NOTE | 2024-02-02 11:51 | NURSING ---
Espinosa catheter removed at 0745 this AM s/p TURP w Dr Parker. Pt was unable to void and bladder scanned for 643ml. This RN contacted Dr Parker and Dr Parker ordered for a 18 omani catheter to be placed. Pt to discharge home with espinosa catheter.
[2024-02-02 14:45] VITALS: BP 132/69; PULSE 70; RESP 18; TEMP 36.3; O2SAT 92
== END 2024-02-02 15:04 | disposition home or self-care (01) ==
LOC: SDC 12:22 → AC 12:25 → MS3 15:39
PROVIDERS: PCP Family Medicine; Referring Provider Urology; Visit Provider Urology
PROC: (CPT 52601; principal; 2024-02-01 14:05)
DX: N40.1 Benign prostatic hyperplasia with lower urinary tract symptoms (principal); G30.9 Alzheimer's disease, unspecified; F02.80 Dementia in other diseases classified elsewhere, unspecified severity, without behavioral disturbance, psychotic disturbance, mood disturbance, and anxiety; J44.9 Chronic obstructive pulmonary disease, unspecified; R33.9 Retention of urine, unspecified; I10 Essential (primary) hypertension; Z87.891 Personal history of nicotine dependence; Z79.82 Long term (current) use of aspirin; Z79.899 Other long term (current) drug therapy
CPT/HCPCS: 52601; 00914; 51702; 88305; J7030; J7120; J0744; J2405; J8610

== ENCOUNTER → 2024-02-28 | Outpatient (CLI) | payer MEDICARE, BC, SELFPAY ==
[2024-02-28 17:22] LABS: Color, Urine Yellow (Yellow); Glucose, Dipstick Normal (Normal); Ketone-Dipstick Negative (Negative); Leukocyte Esterase-Dipstick 500 /ul (Negative); Nitrite-Dipstick Positive (Negative); Occult Blood-Urine 250 /ul (Negative); Protein-Dipstick 100 mg/dl (Negative); Urine Bilirubin Dipstick Negative (Negative); Urine Clarity Turbid (Clear); Urine Urobilinogen Normal (Normal)
[2024-02-29 04:09] LABS: Mucous, Urine 0 SEEN /hpf (<or=2+)
[2024-02-29 04:24] LABS: Bacteria 3+ /hpf (None Seen); Red Blood Cells-Urine 10-25 SEEN /hpf (0-5); Squamous Epithelial Cells - UA 5-10 SEEN /hpf (0-5); White Blood Cells 50-100 SEEN /hpf (0-5)
== END | disposition home or self-care (01) ==
LOC: LABSPEC 16:40
PROVIDERS: PCP Family Medicine; Referring Provider Family Medicine; Visit Provider Family Medicine
DX: R30.0 Dysuria (principal)
CPT/HCPCS: 81002; 87077; 87086; 87088; 87186

== ENCOUNTER → 2024-04-11 | Outpatient (CLI) | payer MEDICARE, BC, SELFPAY ==
[2024-04-11 12:20] LABS: Absolute Lymphocyte Count 1.34 X10^3/uL (0.83-4.51); Absolute Neutrophil Count 4.5 X10^3/uL (2.0-7.7); Basophil# 0.07 X10^3/uL; Eosinophil# 0.23 X10^3/uL; Eosinophils% 3.4 % (0-5); Hematocrit 49.8 % (40-54); Hemoglobin 16.4 g/dL (13.0-16.5); Lymphocyte # 1.34 X10^3/ul (0.83-4.51); Lymphocyte % 19.8 % (19-41); Mean Corp Hgb Conc 32.9 g/dL (32-36); Mean Corpuscular Hgb 31.1 pg (27.0-32.0); Mean Corpuscular Volume 94.5 fL (80-94); Mean Platelet Vol. 9.3 fl (6.2-12.0); Monocyte% 8.9 % (0-10); NRBC Flagged by Analyzer 0 % (0-5); Neutrophil # 4.49 X10^3/uL (2.7-7.7); Neutrophil % 66.5 % (47-70); Platelet Count 251 K/mm3 (150-450); Red Blood Count 5.27 M/mm3 (4.6-6.2); White Blood Count 6.8 K/mm3 (4.4-11.0)
[2024-04-11 12:54] LABS: AST(SGOT) 17 U/L (15-37); Alanine Aminotransfer ALT/SGPT 21 U/L (16-61); Albumin, Serum 3.2 g/dL (3.2-5.0); Alkaline Phosphatase 78 U/L (45-117); Anion Gap 4 (5-15); BUN 13 mg/dL (7-18); BUN/Creat Ratio 15.4 RATIO (10-20); Calcium,Total 9.5 mg/dL (8.5-10.1); Chloride 103 mmol/L (98-107); Creatinine, Serum 0.84 mg/dL (0.70-1.30); EST Glomerular Filtration Rate 95 mL/min (>60); Est Glom Filt Rate - Afr Amer 114 mL/min (>60); Globulin 3.2 g/dL (2.2-4.2); Glucose 119 mg/dL (74-106); Potassium 3.7 mmol/L (3.5-5.1); Protein, Total 6.4 g/dL (6.4-8.2); Sodium Level 140 mmol/L (136-145)
== END | disposition home or self-care (01) ==
LOC: MTLAB 09:31
PROVIDERS: PCP Family Medicine; Referring Provider Internal Medicine Rheumatology; Visit Provider Internal Medicine Rheumatology
DX: M06.4 Inflammatory polyarthropathy (principal); Z79.899 Other long term (current) drug therapy
CPT/HCPCS: 36415; 80053; 85025

== ENCOUNTER 2024-06-03 15:06 | Inpatient (IN) | payer MEDICARE, BC, SELFPAY ==
[2024-06-03 15:07] VITALS: BP 153/61; PULSE 78; RESP 18; TEMP 36.4; O2SAT 94
--- NOTE | 2024-06-03 15:52 | CT_ITS ---
STUDY: CT BRAIN WITHOUT CONTRAST REASON FOR EXAM: Male, 73 years old. fall Individualized dose optimization techniques were used for this CT. TECHNIQUE: Transaxial CT imaging of the brain was performed without administration of intravenous contrast material. COMPARISON: 09.26.23 FINDINGS: There are calcifications around the carotid artery. These are noted in the cavernous carotid arteries. Normal calvarium. Normal soft tissues. There is mild cerebral atrophy with widening of the extra-axial spaces and ventricular dilatation. There are areas of decreased attenuation within the white matter tracts of the supratentorial brain, consistent with microvascular disease changes. Normal basal ganglia and thalami. Normal brainstem. There is mild cerebellar atrophy. There is no intracranial hemorrhage. There are no findings of an acute ischemic infarction. Right mastoid air cell fluid. ASPECTS Score for Acute Strokes: 05/31 CT/Brain/Head without Contrast IMPRESSION: There are no acute findings. Chronic involutional changes of the brain. Electronically Signed: Peter Vences MD at 17:40 EDT ,
--- NOTE | 2024-06-03 15:52 | CT_ITS ---
EXAM: CT SPINE - CERVICAL WITHOUT IV REASON FOR EXAM: Male, 73 years old. NECK PAIN fall HISTORY: NECK PAIN fall Individualized dose optimization techniques were used for this CT. TECHNIQUE: Multiplanar images were obtained of the cervical spine. IV contrast was not utilized. COMPARISON: None. FINDINGS: The vertebral bodies do maintain their height. The odontoid process is intact. Right mastoid air cell sinus disease. No pre-vertebral soft tissue swelling is seen. The intravertebral disc height is lost. There are scattered lymph nodes in the neck. There are degenerative changes of the osseous structures. There is bilateral facet arthropathy. There are scattered levels of foraminal stenosis. There are vascular calcifications. CT/Spine Cervical without Contras IMPRESSION: Degenerative changes of the cervical spine. There are no acute findings. Electronically Signed: Peter Vences MD at 18:01 EDT ,
--- NOTE | 2024-06-03 15:52 | CT_ITS ---
EXAM: CT CHEST, ABDOMEN AND PELVIS WITHOUT INTRAVENOUS CONTRAST CLINICAL INDICATION: fall -- left rib pain TECHNIQUE: Helically acquired images were obtained of the chest, abdomen and pelvis without intravenous contrast. This CT exam was performed using one or more of the following dose reduction techniques: automated exposure control, adjustment of the mA and/or kV according to patient size, and/or use of iterative reconstruction technique. RADIATION DOSE: CTDIvol = 12.93 mGy, DLP = 1181.87 mGy-cm COMPARISON: 12.05.23 FINDINGS: CHEST: LUNGS AND PLEURAL SPACES: There is no pneumothorax. Small right pleural effusion. No mass. HEART: There are calcifications of the coronary arteries. Heart size is normal. No pericardial effusion. MEDIASTINUM: Unremarkable. No mediastinal or hilar adenopathy. Esophagus is unremarkable. No hiatal hernia. THYROID: Unremarkable. No thyroid lesions. ABDOMEN: LIVER: Normal liver. GALLBLADDER AND BILE DUCTS: Unremarkable. No calcified gallstones. No gallbladder distention or wall edema. No intra- or extrahepatic biliary ductal dilation. Normal gallbladder and extrahepatic biliary system. PANCREAS: Unremarkable. No focal cystic mass. Normal pancreas. SPLEEN: Unremarkable. Normal spleen. ADRENALS: Unremarkable. Normal bilateral adrenal glands. KIDNEYS AND URETERS: Non obstructive 6mm right renal parenchymal stones. Normal renal size and position. No acute findings of the left kidney. STOMACH AND BOWEL: Large amount of stool in the rectal vault can suggest constipation. No stomach or bowel distention. No focal inflammatory change. Normal visualized stomach. Normal small intestine. PELVIS: APPENDIX: There is non-visualization of the appendix. BLADDER: Urinary bladder wall has wall thickening. This can be related to a partially contractile state. However, a cystitis is not excluded. Urinalysis should be performed in an effort to exclude cystitis. There is a Marina balloon catheter in the urinary bladder. REPRODUCTIVE: Unremarkable as visualized. No mass. CHEST, ABDOMEN and PELVIS: INTRAPERITONEAL SPACE: Unremarkable. No ascites or other fluid collection. No free air. BONES/JOINTS: Acute impacted left subcapital fracture. Since the prior study, there has been development of compression deformity of L5. Stable L1 compression deformity. There are degenerative changes of the shoulders. There are multi-level degenerative changes of the thoracic spine. There are diffuse degenerative changes of the visualized lumbar spine. Healed right inferior pubic ramus fracture. No suspicious lytic or blastic abnormality. SOFT TISSUES: Unremarkable. No discrete abdominal or pelvic wall hernia. Normal abdominal wall. VASCULATURE: There is atherosclerotic calcification of the aortic arch with tortuosity and elongation of the aortic arch and descending thoracic aorta. There are calcifications of the abdominal aorta. This is consistent for atherosclerotic disease. There is no abdominal aortic aneurysm. Normal pulmonary arteries. LYMPH NODES: Unremarkable. No enlarged lymph nodes. CT/CT Chest, Abd, Pelvis WO Cont IMPRESSION: 1. Large amount of stool in the rectal vault can suggest constipation. 2. Acute impacted left subcapital fracture. 3. Urinary bladder wall has wall thickening. This can be related to a partially contractile state. However, a cystitis is not excluded. Urinalysis should be performed in an effort to exclude cystitis. 4. Since the prior study, there has been development of compression deformity of L5. 5. Small right pleural effusion. Electronically Signed: Peter Vences MD at 18:10 EDT ,
--- NOTE | 2024-06-03 15:53 | EKG12_ITS ---
Test Reason : Blood Pressure : / mmHG Vent. Rate : 073 BPM Atrial Rate : 073 BPM P-R Int : 172 ms QRS Dur : 088 ms QT Int : 380 ms P-R-T Axes : 085 013 097 degrees QTc Int : 418 ms Normal sinus rhythm Low voltage QRS Abnormal QRS-T angle, consider primary T wave abnormality Abnormal ECG Confirmed by Gerard Barnes ([id number]), copy editor DASIA MAJANO ([id number]) on 06/05/2024 7:53:13 AM Referred By: Confirmed By:Gerard Barnes
--- NOTE | 2024-06-03 15:56 | EDS_ITS ---
HPI HPI - Fall History of Present Illness Chief Complaint: Fall Informant: patient and spouse/S.O. Narrative Narrative: Mechanical fall 1 PM today coming in from the car. History of Alzheimer's dementia, ambulates with a walker. Spouse states has porch built to accommodate a walker. He is going up the steps when he lost his balance falling onto his left side. Pain to his left hip. Pain to the left rib. Unclear of any head injuries. Denies any anticoagulants. He had a pelvic fracture this past August nonsurgical management. While at hard time getting him in the home, she fed him. States he is bearing weight more on his right side as she got him in. Prior similar symptoms: Yes PFSH PFSH Medical History Wears hearing aid Wears glasses Depression Anxiety Dementia Alcohol use Walker as ambulation aid Rheumatoid arthritis Bladder disease Prostate disease Indwelling urethral catheter present Back pain Injury of head and neck Dietary restriction History of IBS Former smoker History of edema History of irregular heartbeat Lives in long-term COPD (chronic obstructive pulmonary disease) Alzheimer disease Hemorrhoids Weight loss Rheumatoid arthritis Gout HTN (hypertension) Home Medications ?Medication ?Instructions ?Recorded ?Last Taken ?Type metoprolol tartrate 25 mg tablet 25 mg PO BID htn 03/24/14 02/01/24 History folic acid 1 mg tablet 1 mg PO BID vitamin 06/17/17 12/04/23 History leucovorin calcium 15 mg tablet 15 mg PO Q7D RA 06/17/17 01/18/24 History donepezil 23 mg tablet 23 mg PO QHS dementia 09/15/23 02/01/24 History hydroxychloroquine 200 mg tablet 200 mg PO DAILY 12/05/23 02/01/24 History acetaminophen 325 mg tablet 650 mg (2 x 325 mg) PO Q6H PRN PRN 12/08/23 Unknown Rx Pain 1-10 Or Fever>100.7 #0 tabs sennosides 8.6 mg-docusate sodium 2 tab PO BID PRN PRN Constipation 12/08/23 Unknown Rx 50 mg tablet (Stool #0 tabs Softener-Stimulant Laxative) tamsulosin 0.4 mg capsule 0.4 mg PO DAILY@1730 #0 caps 12/08/23 01/31/24 Rx lorazepam 0.5 mg tablet (Ativan) 0.5 mg PO Q12H 01/05/24 02/01/24 History methotrexate sodium 2.5 mg tablet 20 mg PO WE 01/05/24 01/25/24 History quetiapine 25 mg tablet 25 mg PO QHS 02/01/24 01/31/24 History Allergy/AdvReac Type Severity Reaction Status Date / Time No Known Allergies Allergy Verified 06/03/24 15:07 Family History Father Colon cancer CVA (cerebral vascular accident) Hypertension Heart disease Sister CAD (coronary artery disease) Hypertension Heart disease Mother Cancer Surgical History History of stapedectomy Hx of tonsillectomy S/P colonoscopy Social History household members: spouse Smoking Status: Former smoker alcohol intake: never substance use type: does not use ROS ROS ED Constitutional Constitutional ED: Denies chills, fever(s) or sweats Eyes Eyes: Denies change in vision ENT ENT ED: Denies dysphagia or sore throat Cardiovascular Cardiovascular: Denies chest pain, leg edema, palpitations or racing heartbeat Respiratory/Chest Respiratory/Chest: Denies cough, dyspnea or dyspnea on exertion Gastrointestinal Gastrointestinal: Denies abdominal pain, diarrhea, nausea or vomiting Genitourinary Genitourinary ED: Denies dysuria, hematuria or urinary frequency Musculoskeletal Musculoskeletal: Reports extremity pain; Denies back pain or neck pain Integumentary Denies rash or wounds Neurologic Neurologic: Denies headache(s), paresthesias or weakness EXAM Physical Exam Const Vital Signs: 06/03/24 15:07 06/03/24 19:18 06/03/24 19:43 Temperature 97.6 F L 97.6 F L Temperature Source Temporal Pulse Rate 78 77 77 Respiratory Rate 18 14 14 Blood Pressure 153/61 H 145/77 H 145/77 H Blood Pressure Mean 91 99 99 Pulse Ox 94 93 93 Oxygen Delivery Method Room Air Room Air 06/03/24 19:44 Temperature Temperature Source Pulse Rate 75 Respiratory Rate 16 Blood Pressure Blood Pressure Mean Pulse Ox 95 Oxygen Delivery Method Room Air Positive well nourished and well developed Constitutional Narrative: Nontoxic, baseline per spouse with knowing his name. General Appearance ED: well developed and NAD HEENT Reports moist mucous membranes normocephalic and atraumatic Eyes EOMs intact bilaterally and conjunctivae normal General Eye ED: Yes normal appearance of both eyes Neck no lymphadenopathy and supple General: Negative for tenderness Chest Wall Chest Narrative: Tender palpation left lateral ribs with no crepitus. Chest: tenderness Resp normal respiratory effort and normal air movement Resp Narrative: Symmetric breath sounds Effort and Inspection: symmetric chest movement; Negative for respiratory distress Cardio regular rate, regular rhythm and no murmurs Peripheral Pulses: pulses 2+ throughout GI normal to inspection, nondistended, normoactive bowel sounds and non-tender Palpation: Negative for guarding or rebound tenderness present Back/Spine no CVA tenderness and no thoracic nor lumbar tenderness Extremity normal to inspection Extremity Narrative: Upper extremities: Full range of motion without any tenderness. Right lower extremity negative logroll nontender. Left lower extremity: No shortening or rotation however positive logroll with pain into the groin region. No contusion of the hip region. General Extremety ED: Negative for edema or tenderness General Extremity: Negative for edema Neuro no sensory deficits noted Neuro Narrative: Alert to person, baseline Sensorium / Orientation: awake and alert Skin no rashes or lesions noted and no wounds MDM MDM MDM Narrative Medical decision making narrative: Interventions / MDM: Differential diagnosis: Closed left hip fracture, closed head injury, dementia Diagnosis considered but do not suspect: Intracranial hemorrhage however CT negative. My EKG interpretation: Sinus rate of 73, no ST changes. Bimodal T waves in the lateral leads. Imaging independently reviewed and interpreted by myself: Left hip and pelvis 3 views: Concerns for subcapital fracture. No displacement. CT brain/cervical spine: No acute process. CT chest abdomen pelvis noncontrast. No rib fractures noted. No pneumothorax. Slight L5 compression fracture new from previous. Subcapital nondisplaced femoral head fracture. Also read by radiology. External documents reviewed: N/A Test considered but not ordered:N/A ED course: Concerns for clinical hip fracture left side with mechanical fall. Also pain in left ribs on exam. Unclear if he hit his head. Trauma scans head neck with noncontrast chest abdomen pelvis. Dedicated hip films will be obtained. EKG labs. IV fentanyl for pain control. 1845: CT scans reviewed no rib fractures, there is noted subcapital femoral head fracture nondisplaced. Also slight new L5 compression fracture. Reevaluation he was tender in this area. Symptom controlled with rest. X-ray hip and pelvis confirmed similar findings. 190: I discussed with orthopedist Dr. Stone who will plan inpatient management. Awaiting callback from hospitalist. I discussed with hospitalist Dr. Gillespie for admission. Re-evaluation: stable Disposition discussed with patient/family/significant other: Patient and family Case discussed with consulting clinician: Orthopedics, hospitalist This note was generated with [employer] dictation software. It may contain incorrect words, spelling, and punctuation that were not noted in checking the note before signing. Lab Data Attestation: I reviewed the patient's lab results. Labs: Laboratory Results - last 24 hr 06/03/24 16:30 WBC 10.6 RBC 5.68 Hgb 17.6 H Hct 53.2 MCV 93.7 MCH 31.0 MCHC 33.1 RDW Std Deviation 48.8 H RDW Coeff of Narciso 14.2 Plt Count 249 MPV 8.8 Immature Gran % (Auto) 0.500 Neut % (Auto) 84.2 H Lymph % (Auto) 8.2 L Gooding % (Auto) 5.6 Eos % (Auto) 1.1 Baso % (Auto) 0.4 Absolute Neuts (auto) 8.9 H Absolute Lymphs (auto) 0.87 Nucleated RBC % 0 PT 14.7 INR 1.2 APTT 30.6 Sodium 139 Potassium 3.7 Chloride 105 Carbon Dioxide 30.0 Anion Gap 4 L BUN 15 Creatinine 0.97 Estim Creat Clear Calc 69.93 Est GFR (MDRD) Af Amer 98 Est GFR (MDRD) Non-Af 81 BUN/Creatinine Ratio 15.5 Glucose 114 H Calcium 9.8 Blood Type O POSITIVE Antibody Screen NEGATIVE Radiography Diagnostic Testing: Clinical Impression(s) from Imaging Studies Brain CT 06/03/24 15:52 IMPRESSION: There are no acute findings. Chronic involutional changes of the brain. Electronically Signed: Peter Vences MD at 17:40 EDT , Cervical Spine CT 06/03/24 15:52 IMPRESSION: Degenerative changes of the cervical spine. There are no acute findings. Electronically Signed: Peter Vences MD at 18:01 EDT , Chest/Abdomen/Pelvis CT 06/03/24 15:52 IMPRESSION: 1. Large amount of stool in the rectal vault can suggest constipation. 2. Acute impacted left subcapital fracture. 3. Urinary bladder wall has wall thickening. This can be related to a partially contractile state. However, a cystitis is not excluded. Urinalysis should be performed in an effort to exclude cystitis. 4. Since the prior study, there has been development of compression deformity of L5. 5. Small right pleural effusion. Electronically Signed: Peter Vences MD at 18:10 EDT , Hip/Pelvis X-Ray 06/03/24 17:22 IMPRESSION: Abnormal contour of the left subcapital region consistent for an impacted left subcapital hip fracture. Electronically Signed: Peter Vences MD at 18:05 EDT , Discharge Plan Dx/Rx/DC Orders Clinical Impression: Closed fracture of left hip, Compression fracture of L5 vertebra, Fall, Dementia, Chest wall contusion Disposition Disposition: Acute Care Hospital [facility] Discharge Date/Time: 06/03/24 22:02
[2024-06-03 16:24] VITALS: BMI 22.7
[2024-06-03] MEDS: fentaNYL 100 MCG/2 ML Ampul 50 MCG IV (16:34)
[2024-06-03] MEDS: Ondansetron 4 MG/2 ML Vial IV (16:34)
[2024-06-03 16:45] LABS: Absolute Lymphocyte Count 0.87 X10^3/uL (0.83-4.51); Absolute Neutrophil Count 8.9 X10^3/uL (2.0-7.7); Basophil# 0.04 X10^3/uL; Basophil% 0.4 % (0-1); Eosinophil# 0.12 X10^3/uL; Eosinophils% 1.1 % (0-5); Hematocrit 53.2 % (40-54); Hemoglobin 17.6 g/dL (13.0-16.5); Lymphocyte # 0.87 X10^3/ul (0.83-4.51); Lymphocyte % 8.2 % (19-41); Mean Corp Hgb Conc 33.1 g/dL (32-36); Mean Corpuscular Volume 93.7 fL (80-94); Mean Platelet Vol. 8.8 fl (6.2-12.0); Monocyte# 0.59 X10^3/uL; Monocyte% 5.6 % (0-10); NRBC Flagged by Analyzer 0 % (0-5); Neutrophil # 8.88 X10^3/uL (2.7-7.7); Neutrophil % 84.2 % (47-70); Platelet Count 249 K/mm3 (150-450); RBC Distribution Width CV 14.2 % (11.6-14.6); RBC Distribution Width SD 48.8 fl (35.1-43.9); Red Blood Count 5.68 M/mm3 (4.6-6.2); White Blood Count 10.6 K/mm3 (4.4-11.0)
[2024-06-03 16:50] LABS: International Normalized Ratio 1.2; Prothrombin Time (Protime)PT. 14.7 SECONDS (11.7-14.9)
[2024-06-03 16:51] LABS: Partial Thromboplast Time 30.6 Seconds (24.1-36.2)
[2024-06-03 17:04] LABS: Anion Gap 4 (5-15); BUN 15 mg/dL (7-18); BUN/Creat Ratio 15.5 RATIO (10-20); Calcium,Total 9.8 mg/dL (8.5-10.1); Chloride 105 mmol/L (98-107); Creatinine, Serum 0.97 mg/dL (0.70-1.30); EST Glomerular Filtration Rate 81 mL/min (>60); Est Glom Filt Rate - Afr Amer 98 mL/min (>60); Estimated Creatinine Clearance 69.93 ml/min; Glucose 114 mg/dL (74-106); Potassium 3.7 mmol/L (3.5-5.1); Sodium Level 139 mmol/L (136-145)
--- NOTE | 2024-06-03 17:22 | RAD_ITS ---
EXAM: XR LEFT HIP WITH PELVIS WHEN PERFORMED, 2 OR 3 VIEWS CLINICAL INDICATION: fall TECHNIQUE: Two or three views of the left hip with pelvis when performed. COMPARISON: No relevant prior studies available. FINDINGS: BONES/JOINTS: Abnormal contour of the left subcapital region consistent for an impacted left subcapital hip fracture. Degenerative changes in the lumbar spine. No destructive or sclerotic lesions. Note that overlapping bowel shadows may however obscure fine detail. Sacroiliac joint is unremarkable. No widening of the pubic symphysis. SOFT TISSUES: Unremarkable. No soft tissue swelling or gas. GASTROINTESTINAL TRACT: Stool in the rectal vault suggesting constipation. RAD/HIP, UNI W/ Pelvis 2-3 Views IMPRESSION: Abnormal contour of the left subcapital region consistent for an impacted left subcapital hip fracture. Electronically Signed: Peter Vences MD at 18:05 EDT ,
[2024-06-03 19:18] VITALS: BP 145/77; PULSE 77; RESP 14; O2SAT 93
--- NOTE | 2024-06-03 19:29 | NURSING ---
Hospitalist paged for Dr Helms.
[2024-06-03 19:43] VITALS: BP 145/77; PULSE 77; RESP 14; TEMP 36.4; O2SAT 93
[2024-06-03 19:44] VITALS: PULSE 75; RESP 16; O2SAT 95
[2024-06-03] MEDS: QUEtiapine 25 MG Tablet PO (20:02)
[2024-06-03] MEDS: LORazepam 0.5 MG Tablet PO (20:02)
--- NOTE | 2024-06-03 20:04 | NURSING ---
Hospitalist paged again for admit.
--- NOTE | 2024-06-03 20:59 | PCM.HP.STD ---
[facility] - General General Date of Admission: 06/03/24 Date of Service: 06/03/24 Chief Complaint: Mechanical Fall with Left Hip Fracture. HPI Narrative EDWIN ODONNELL, is a 73 M with a past medical history of essential hypertension, previous tobacco abuse (quit 46 years ago); with subsequent COPD, RA; on hydroxychloroquine and leucovorin followed by Dr. Sandoval, generalized anxiety, chronic Alzheimer's dementia; on donepezil, RLS; on quetiapine, BPH; with chronic Marina, history of IBS; of constipation-type on Senna, gout, history of Fall in August 2023; with associated pelvic fracture that was managed nonsurgically and OA; with chronic back pain with patient ambulating with walker at baseline who presents to [facility] ER complaining of mechanical fall with subsequent Left hip pain and inability to ambulate. Mr. Odonnell reports his symptoms began approximately 13:00 hours earlier today when he was going up steps when he suddenly lost his balance and fell onto his Left side. He immediately felt severe pain in his Left hip and his Left lower rib cage. He denies significant head trauma or LOC with his fall. He denies related fever, chills, nausea, vomiting, abdominal pain, chest pain, LE edema or other recent illness. In the ER he was noted to have radiographic evidence of a Closed Subcapital Left Hip Fracture in addition to a slight L5 Compression Fracture after Mechanical Fall complicated by a UA grossly positive Acute Cystitis; without hematuria due to Chronic Marina and he was then admitted to the general medical floor for ongoing care for a stay that is expected to extend beyond 2 midnights. [facility] Medical History Wears hearing aid Wears glasses Depression Anxiety Dementia Alcohol use Walker as ambulation aid Rheumatoid arthritis Bladder disease Prostate disease Indwelling urethral catheter present Back pain Injury of head and neck Dietary restriction History of IBS Former smoker History of edema History of irregular heartbeat Lives in care home COPD (chronic obstructive pulmonary disease) Alzheimer disease Hemorrhoids Weight loss Rheumatoid arthritis Gout HTN (hypertension) Home Medications ?Medication ?Instructions ?Recorded ?Last Taken ?Type metoprolol tartrate 25 mg tablet 25 mg PO BID htn 03/24/14 02/01/24 History folic acid 1 mg tablet 1 mg PO BID vitamin 06/17/17 12/04/23 History leucovorin calcium 15 mg tablet 15 mg PO Q7D RA 06/17/17 01/18/24 History donepezil 23 mg tablet 23 mg PO QHS dementia 09/15/23 02/01/24 History hydroxychloroquine 200 mg tablet 200 mg PO DAILY 12/05/23 02/01/24 History acetaminophen 325 mg tablet 650 mg (2 x 325 mg) PO Q6H PRN PRN 12/08/23 Unknown Rx Pain 1-10 Or Fever>100.7 #0 tabs sennosides 8.6 mg-docusate sodium 2 tab PO BID PRN PRN Constipation 12/08/23 Unknown Rx 50 mg tablet (Stool #0 tabs Softener-Stimulant Laxative) tamsulosin 0.4 mg capsule 0.4 mg PO DAILY@1730 #0 caps 12/08/23 01/31/24 Rx lorazepam 0.5 mg tablet (Ativan) 0.5 mg PO Q12H 01/05/24 02/01/24 History methotrexate sodium 2.5 mg tablet 20 mg PO WE 01/05/24 01/25/24 History quetiapine 25 mg tablet 25 mg PO QHS 02/01/24 01/31/24 History Allergy/AdvReac Type Severity Reaction Status Date / Time No Known Allergies Allergy Verified 06/03/24 15:07 Family History Father Colon cancer CVA (cerebral vascular accident) Hypertension Heart disease Sister CAD (coronary artery disease) Hypertension Heart disease Mother Cancer Surgical History History of stapedectomy Hx of tonsillectomy S/P colonoscopy Social History household members: spouse Smoking Status: Former smoker alcohol intake: never substance use type: does not use ROS ROS Narrative Review of Systems: Constitutional: Patient denies fever or chills. Eyes: Patient denies changes in vision or discharge from eyes. ENT: Patient denies runny nose, sore throat or ear pain. Resp: Patient denies SOB or cough. CV: Patient denies chest pain, palpitations or heart racing. GI: Patient admits to chronic constipation but he denies abdominal pain, nausea or vomiting. : Patient denies dysuria or hematuria with chronic Marina for BPH as per HPI. MSK: Patient admits to severe pain in his Left hip that is made worse with movement. Skin: Patient denies rash, abscess or jaundice. Psych: Patient denies symptoms of uncontrolled depression or anxiety. Neuro: Patient denies headache, paresthesias or focal neurologic weakness. Hematology: Patient denies easy bleeding or easy bruisability. Endocrinology: Patient denies polyuria, polydipsia or polyphagia. 14 point ROS otherwise negative except for positives noted above in HPI. Vital Signs Vital Signs Vital Signs: 06/03/24 15:07 06/03/24 19:18 06/03/24 19:43 Temperature 97.6 F L 97.6 F L Temperature Source Temporal Pulse Rate 78 77 77 Respiratory Rate 18 14 14 Blood Pressure 153/61 H 145/77 H 145/77 H Blood Pressure Mean 91 99 99 Pulse Ox 94 93 93 Oxygen Delivery Method Room Air Room Air 06/03/24 19:44 Temperature Temperature Source Pulse Rate 75 Respiratory Rate 16 Blood Pressure Blood Pressure Mean Pulse Ox 95 Oxygen Delivery Method Room Air Weight Weight: 163 lb 2.273 oz Body Mass Index (BMI) 22.7 Physical Exam Const alert and no apparent distress Constitutional Narrative: Patient is mildly confused and appears chronically ill. General Appearance: cooperative Orientation / Consciousness: confused HEENT normocephalic, head/scalp atraumatic, hearing grossly normal bilaterally and moist oral mucous membranes Eyes PERRL and EOMs intact bilaterally Neck no lymphadenopathy and supple Resp normal respiratory effort, no retractions, no use of accessory muscles and clear to auscultation bilaterally Cardio regular rate and regular rhythm GI normal to inspection, nondistended, normoactive bowel sounds, soft to palpation, non-tender and non-distended Extremity Extremity Narrative: LLE shortened and externally rotated with no signs of vascular compromise. Skin Skin Narrative: Patient has no evidence of rash, abscess or jaundice. Neuro CN's II-XII intact bilaterally, moves all extremities and no focal motor deficits Sensorium / Orientation: awake, alert, oriented to person and oriented to place Speech: speech normal Psych affect normal Results Medical Records Data Attestation: I reviewed the patient's medical records Lab / Micro Data Attestation: I reviewed the patient's lab results. 06/04/24 05:58 10/14/24 05:58 Labs: Laboratory Results - last 24 hr 06/03/24 16:30: WBC 10.6, RBC 5.68, Hgb 17.6 H, Hct 53.2, MCV 93.7, MCH 31.0, MCHC 33.1, RDW Std Deviation 48.8 H, RDW Coeff of Narciso 14.2, Plt Count 249, MPV 8.8, Immature Gran % (Auto) 0.500, Neut % (Auto) 84.2 H, Lymph % (Auto) 8.2 L, Desha % (Auto) 5.6, Eos % (Auto) 1.1, Baso % (Auto) 0.4, Absolute Neuts (auto) 8.9 H, Absolute Lymphs (auto) 0.87, Nucleated RBC % 0, PT 14.7, INR 1.2, APTT 30.6, Sodium 139, Potassium 3.7, Chloride 105, Carbon Dioxide 30.0, Anion Gap 4 L, BUN 15, Creatinine 0.97, Estim Creat Clear Calc 69.93, Est GFR (MDRD) Af Amer 98, Est GFR (MDRD) Non-Af 81, BUN/Creatinine Ratio 15.5, Glucose 114 H, Calcium 9.8, Blood Type O POSITIVE, Antibody Screen NEGATIVE Imaging Radiology Impression Brain CT 06/03/24 15:52 IMPRESSION: There are no acute findings. Chronic involutional changes of the brain. Electronically Signed: Peter Vences MD at 17:40 EDT , Cervical Spine CT 06/03/24 15:52 IMPRESSION: Degenerative changes of the cervical spine. There are no acute findings. Electronically Signed: Peter Vences MD at 18:01 EDT , Chest/Abdomen/Pelvis CT 06/03/24 15:52 IMPRESSION: 1. Large amount of stool in the rectal vault can suggest constipation. 2. Acute impacted left subcapital fracture. 3. Urinary bladder wall has wall thickening. This can be related to a partially contractile state. However, a cystitis is not excluded. Urinalysis should be performed in an effort to exclude cystitis. 4. Since the prior study, there has been development of compression deformity of L5. 5. Small right pleural effusion. Electronically Signed: Peter Vences MD at 18:10 EDT , Hip/Pelvis X-Ray 06/03/24 17:22 IMPRESSION: Abnormal contour of the left subcapital region consistent for an impacted left subcapital hip fracture. Electronically Signed: Peter Vences MD at 18:05 EDT Reading Location ID and State: [facility] / [place] , Service support , Assessment & Plan Assessment/Plan (1) Closed fracture of left hip: QUALIFIERS: Encounter type: initial encounter Qualified Code(s): S72.002A - Fracture of unspecified part of neck of left femur, initial encounter for closed fracture (2) Compression fracture of L5 vertebra: QUALIFIERS: Encounter type: initial encounter Qualified Code(s): S32.050A - Wedge compression fracture of fifth lumbar vertebra, initial encounter for closed fracture (3) Chest wall contusion: QUALIFIERS: Encounter type: initial encounter Laterality: left Qualified Code(s): S20.212A - Contusion of left front wall of thorax, initial encounter (4) Fall: QUALIFIERS: Encounter type: initial encounter Qualified Code(s): W19.XXXA - Unspecified fall, initial encounter (5) Acute cystitis without hematuria: (6) Dementia: QUALIFIERS: Alzheimer's disease onset: unspecified onset Dementia behavioral or psychological symptom: without behavioral, psychotic, or mood disturbance or anxiety Dementia severity: unspecified severity Dementia type: Alzheimer's Qualified Code(s): G30.9 - Alzheimer's disease, unspecified; F02.80 - Dementia in other diseases classified elsewhere, unspecified severity, without behavioral disturbance, psychotic disturbance, mood disturbance, and anxiety (7) Alzheimer disease: (8) Rheumatoid arthritis: QUALIFIERS: Rheumatoid arthritis location: unspecified site Rheumatoid factor presence: unspecified presence Qualified Code(s): M06.9 - Rheumatoid arthritis, unspecified PLAN: Plan 1. Closed Subcapital Left Hip Fracture in addition to a slight L5 Compression Fracture after Mechanical Fall - Admit to general medical floor. Keep NPO for impeding ORIF. Replace Marina and monitor strict I's & O's. Give Tylenol prn for [id number] (level 1-5/10) pain or fever. Give IV Morphine prn for severe (level 6-10/10) pain. Finally, we will consult Dr. Stone of orthopedic surgery to see patient on-rounds in the AM for further recommendations regarding ORIF with help appreciated in advance. 2. Acute Cystitis; without hematuria due to Chronic Marina complicating #1 - Change Marina and start empiric IV Rocephin and then await culture and sensitivity data. This may have likely have been instrumental in causing #1. 3. Chronic Alzheimer's dementia; on donepezil compounding #1 & #2 - Resume home regimen as previous. Patient may need SNF with trend of decreasing mobility and balance. 4. History of Fall in August 2023; with associated pelvic fracture that was managed nonsurgically and OA; with chronic back pain with patient ambulating with walker at baseline - Noted. 5. RA; on hydroxychloroquine and leucovorin followed by Dr. Sandoval - Continue home medications as before. 6. BPH; with chronic Marina - Stable. Replace Marina. 7. Essential hypertension - Resume home medications plus give prn IV Hydralazine for systolic blood pressure > 160 mmHg. 8. Previous tobacco abuse (quit 46 years ago); with subsequent COPD - Stable with no evidence of acute flare. 9. Generalized anxiety - Resume prn lorazepam as previous. 10. RLS; on quetiapine - Continue quetiapine as previous. 11. History of IBS; of constipation-type on Senna - Senna to be maintained as previous. 12. Gout - Stable with no evidence of acute flare. 13. DVT prophylaxis - Place SCD's on RLE. We will avoid preoperative blood thinners in cases of traumatic fracture due to increased risk of potential bleeding complications. Orthopod to decide upon postoperative DVT prophylaxis regimen. Total time: Approximately 75 minutes. Charges/Coding Visit Charges Inpatient E&M: 79443 Init Hosp L3
[2024-06-03 22:22] VITALS: BMI 22.5
[2024-06-03 22:36] VITALS: BP 133/66; PULSE 78; RESP 18; TEMP 36.4; O2SAT 87; O2SAT 94
[2024-06-03 23:20] VITALS: O2SAT 94
[2024-06-04] VITALS (17 sets, daily range): BP systolic 115–154; BP diastolic 65–80; PULSE 53–82; RESP 16–22; TEMP 36.4–37.3; O2SAT 92–100; BMI 23.0; BMI 23.6
[2024-06-04] MEDS: 0.9% Normal Saline (1000mL) 1,000 ML 70 ML IV (00:06)
[2024-06-04] MEDS: DONEPEZIL HCL 23 MG PO ×2 (00:11→22:48)
[2024-06-04] MEDS: Folic Acid 1 MG Tablet PO (00:12)
[2024-06-04] MEDS: Metoprolol Tartrate 25 MG Tablet PO ×2 (00:13→22:49)
[2024-06-04 01:09] LABS: Mucous, Urine 0 SEEN /hpf (<or=2+); Squamous Epithelial Cells - UA 0 SEEN /hpf (0-5)
[2024-06-04 01:12] LABS: Color, Urine Yellow (Yellow); Glucose, Dipstick Normal (Normal); Ketone-Dipstick Negative (Negative); Leukocyte Esterase-Dipstick 500 /ul (Negative); Nitrite-Dipstick Positive (Negative); Occult Blood-Urine 50 /ul (Negative); Protein-Dipstick 30 mg/dl (Negative); Urine Bilirubin Dipstick Negative (Negative); Urine Clarity Cloudy (Clear); Urine Urobilinogen Normal (Normal)
[2024-06-04] MEDS: Ceftriaxone 1 GM/50 ML BAG IV (01:28)
[2024-06-04 02:48] LABS: Bacteria 3+ /hpf (None Seen); Red Blood Cells-Urine 0-5 SEEN /hpf (0-5); White Blood Cells 25-50 SEEN /hpf (0-5)
[2024-06-04] MEDS: Menthol/Lanolin/Calamine/Znox 113 GM Tube 1 APPLIC TOPICAL ×2 (04:59→22:48)
[2024-06-04] MEDS: Nystatin Powder 15gm Bottle 1 APPLIC TOPICAL ×2 (05:00→22:48)
[2024-06-04 06:20] LABS: Absolute Lymphocyte Count 0.91 X10^3/uL (0.83-4.51); Absolute Neutrophil Count 6.5 X10^3/uL (2.0-7.7); Basophil# 0.05 X10^3/uL; Basophil% 0.6 % (0-1); Eosinophil# 0.21 X10^3/uL; Eosinophils% 2.5 % (0-5); Hematocrit 43.7 % (40-54); Hemoglobin 14.9 g/dL (13.0-16.5); Lymphocyte # 0.91 X10^3/ul (0.83-4.51); Lymphocyte % 10.6 % (19-41); Mean Corp Hgb Conc 34.1 g/dL (32-36); Mean Corpuscular Hgb 31.6 pg (27.0-32.0); Mean Corpuscular Volume 92.8 fL (80-94); Monocyte# 0.86 X10^3/uL; NRBC Flagged by Analyzer 0 % (0-5); Neutrophil % 75.9 % (47-70); Platelet Count 212 K/mm3 (150-450); RBC Distribution Width CV 14.3 % (11.6-14.6); RBC Distribution Width SD 48.2 fl (35.1-43.9); Red Blood Count 4.71 M/mm3 (4.6-6.2); White Blood Count 8.6 K/mm3 (4.4-11.0)
[2024-06-04 06:58] LABS: AST(SGOT) 13 U/L (15-37); Alanine Aminotransfer ALT/SGPT 20 U/L (16-61); Albumin, Serum 2.8 g/dL (3.2-5.0); Alkaline Phosphatase 59 U/L (45-117); Anion Gap 7 (5-15); BUN 12 mg/dL (7-18); BUN/Creat Ratio 14.1 RATIO (10-20); Calcium,Total 8.9 mg/dL (8.5-10.1); Chloride 107 mmol/L (98-107); Creatinine, Serum 0.85 mg/dL (0.70-1.30); EST Glomerular Filtration Rate 93 mL/min (>60); Est Glom Filt Rate - Afr Amer 113 mL/min (>60); Estimated Creatinine Clearance 78.73 ml/min; Globulin 2.9 g/dL (2.2-4.2); Glucose 104 mg/dL (74-106); Phosphorus 3.1 mg/dL (2.5-4.9); Protein, Total 5.7 g/dL (6.4-8.2); Sodium Level 138 mmol/L (136-145); Thyroid Stim Hormone (TSH) 0.696 uIU/mL (0.358-3.740)
--- NOTE | 2024-06-04 11:01 | CASEMGMT ---
IRMA ROBB Assessment: Face to Face with pt for initial transition planning/care coordination assessment. RN CLARISSE introduced self and role at [facility], pt voices understanding and consents to assessment. Pt is A&O x1. Pt agreeable to RN CM calling to discuss DC planning needs. RN CM called to obtain information. Care providers, pharmacy, and demographics verified/updated. Strata: 2 Admitting Dx: L Hip Fracture after fall PCP: Bucky Specialists: Lori RN; Jerome, Urologist; Kim Rehabilitation Physician. Preferred Pharm[facility]: [facility]: yes LNOK: [place] . Living Arrangements: Pt lives with in a 2 story home with a ramp to enter. ADLs: Pt requires assistance at home. Pt states has a caregiveer that comes every / from - and a second caregive that comes -Tuesday 3-5. Transportation: Pt provides transportation. DME: walker, wc, shower chair, hand rails, toilet seat, chair lift. HHC/SNF: Previously went to TCU and W, family requested pt go to TCU if therapy recommends SNF after surgery. Pt would like to continue with [facility] HHC if pt would go home with HHC services. Pt states no concerns with going home at time of dc. Pt states no further concerns/needs. CM to follow. Advised pt to ask CM if any further question/concerns/needs arise, voices understanding. Pt Goal: TBD Plan: TBD, follow therapy for recommendations. Sophie SOLIS CM
--- NOTE | 2024-06-04 11:55 | PN_ITS ---
Subjective Subjective Patient seen and examined. He was admitted with a complaint of mechanical fall and found to have left hip fracture. He is due for surgery today. Patient had no complaints today. He denied any pain. Patient does appear to be confused and is only alert and oriented to himself. It is therefore to do review of systems due to his confusion. He has remained hemodynamically stable and is on 2 L of oxygen. Objective Data Objective Data Vital Signs: Vital Signs Temp Pulse Resp BP Pulse Ox O2 Del Method O2 Flow Rate 97.9 F 82 20 H 131/73 H 93 Nasal Cannula 2 06/04/24 08:30 06/04/24 08:30 06/04/24 08:30 06/04/24 08:30 06/04/24 06:53 06/04/24 10:21 06/04/24 10:21 Oxygen Flow Rate (L/min) 2 Oxygen Delivery Method Nasal Cannula Weight: 164 lb 7.437 oz Body Mass Index (BMI) 23.0 Intake & Output: Intake and Output for Last 24 Hours 06/02/24 06/03/24 06/04/24 23:59 23:59 23:59 Intake Total 750.00 / 750.00 Output Total 200 / 200 350 / 350 Balance -200 / -200 400.00 / 400.00 Lab / Micro Data 06/04/24 05:58 06/04/24 05:58 Labs: Laboratory Results - last 24 hr 06/03/24 16:30: WBC 10.6, RBC 5.68, Hgb 17.6 H, Hct 53.2, MCV 93.7, MCH 31.0, MCHC 33.1, RDW Std Deviation 48.8 H, RDW Coeff of Narciso 14.2, Plt Count 249, MPV 8.8, Immature Gran % (Auto) 0.500, Neut % (Auto) 84.2 H, Lymph % (Auto) 8.2 L, [place] % (Auto) 5.6, Eos % (Auto) 1.1, Baso % (Auto) 0.4, Absolute Neuts (auto) 8.9 H, Absolute Lymphs (auto) 0.87, Nucleated RBC % 0, PT 14.7, INR 1.2, APTT 30.6, Sodium 139, Potassium 3.7, Chloride 105, Carbon Dioxide 30.0, Anion Gap 4 L, BUN 15, Creatinine 0.97, Estim Creat Clear Calc 69.93, Est GFR (MDRD) Af Amer 98, Est GFR (MDRD) Non-Af 81, BUN/Creatinine Ratio 15.5, Glucose 114 H, Calcium 9.8, Blood Type O POSITIVE, Antibody Screen NEGATIVE 06/03/24 23:20: Urine Color Yellow, Urine Clarity Cloudy, Urine pH 7.0, Ur Specific [place] 1.010, Urine Protein 30 H, Urine Glucose (UA) Normal, Urine Ketones Negative, Urine Occult Blood 50 H, Urine Nitrite Positive H, Urine Bilirubin Negative, Urine Urobilinogen Normal, Ur Leukocyte Esterase 500 H, Urine RBC 0-5 SEEN, Urine WBC 25-50 SEEN, Ur Squamous Epith Cells 0 SEEN, Urine Bacteria 3+, Urine Mucus 0 SEEN 06/04/24 05:58: WBC 8.6, RBC 4.71, Hgb 14.9, Hct 43.7, MCV 92.8, MCH 31.6, MCHC 34.1, RDW Std Deviation 48.2 H, RDW Coeff of Narciso 14.3, Plt Count 212, MPV 9.0, Immature Gran % (Auto) 0.400, Neut % (Auto) 75.9 H, Lymph % (Auto) 10.6 L, [place]rill % (Auto) 10.0, Eos % (Auto) 2.5, Baso % (Auto) 0.6, Absolute Neuts (auto) 6.5, Absolute Lymphs (auto) 0.91, Nucleated RBC % 0, Sodium 138, Potassium 4.0, Chloride 107, Carbon Dioxide 25.0, Anion Gap 7, BUN 12, Creatinine 0.85, Estim Creat Clear Calc 78.73, Est GFR (MDRD) Af Amer 113, Est GFR (MDRD) Non-Af 93, BUN/Creatinine Ratio 14.1, Glucose 104, Calcium 8.9, Phosphorus 3.1, Magnesium 2.0, Total Bilirubin 0.80, AST 13 L, ALT 20, Alkaline Phosphatase 59, Total Protein 5.7 L, Albumin 2.8 L, Globulin 2.9, Albumin/Globulin Ratio 1.0, TSH 0.696 Radiography Diagnostic Testing: Radiology Impression Brain CT 06/03/24 15:52 IMPRESSION: There are no acute findings. Chronic involutional changes of the brain. Electronically Signed: Peter Vences MD at 17:40 EDT , Cervical Spine CT 06/03/24 15:52 IMPRESSION: Degenerative changes of the cervical spine. There are no acute findings. Electronically Signed: Peter Vences MD at 18:01 EDT , Chest/Abdomen/Pelvis CT 06/03/24 15:52 IMPRESSION: 1. Large amount of stool in the rectal vault can suggest constipation. 2. Acute impacted left subcapital fracture. 3. Urinary bladder wall has wall thickening. This can be related to a partially contractile state. However, a cystitis is not excluded. Urinalysis should be performed in an effort to exclude cystitis. 4. Since the prior study, there has been development of compression deformity of L5. 5. Small right pleural effusion. Electronically Signed: Peter Vences MD at 18:10 EDT , Hip/Pelvis X-Ray 06/03/24 17:22 IMPRESSION: Abnormal contour of the left subcapital region consistent for an impacted left subcapital hip fracture. Electronically Signed: Peter Vences MD at 18:05 EDT , Physical Exam Const alert Constitutional Narrative: flat affect Orientation / Consciousness: confused HEENT normocephalic and head/scalp atraumatic Mouth: dry mucous membranes Eyes PERRL and EOMs intact bilaterally Neck no lymphadenopathy, supple and no JVD Lymph Lymphatic: no lymphadenopathy noted Resp Resp Narrative: mildly diminshed breath sounds bibasally, no wheezes or crackles. On 2L of oxygen by nasal canula Cardio regular rate, regular rhythm, S1 normal heart sound, S2 normal heart sound and no murmurs GI normal to inspection, nondistended, normoactive bowel sounds, soft to palpation, non-tender and non-distended Extremity Extremity Narrative: LLE slightly shortened and externally rotated. Skin General Skin Exam: no breakdown Neuro CN's II-XII intact bilaterally Motor Exam: general weakness Psych Psych Narrative: confused Mood & Affect: flat affect Assessment & Plan Assessment/Plan (1) Closed fracture of left hip: QUALIFIERS: Encounter type: initial encounter Qualified Code(s): S72.002A - Fracture of unspecified part of neck of left femur, initial encounter for closed fracture (2) Acute cystitis without hematuria: PLAN: Plan #Left hip fracture due to mechanical fall * admitted after he had a mechanical fall at home and landed on his left hip. * imaging showed a closed left hip subcapital fracture as well as a slight L5 compression fracture * on PO tylenol, IV morphine and PO oxycodone prn for pain * EKG showed no acute ST changes * ucrrently NPO, for surgery today * NSQIP risk stratification:he is at average risk of serious complication and below average risk for cardiac complication * #UTI * does have a chronic indwelling Marina catheter * Marina catheter was changed and patient started on IV Rocephin. Urine cultures pending. #Debility due to chronic Alzheimer's dementia * on donepezil. * PT/OT on board * #Rheumatoid arthritis: on hydroxychloriquine and leucovorin. Follow with rheumatology on outpatient basis #BPh with obstructive symptoms: has chronic Marina catheter in situ. Marina catheter replaced #COPD: not in exacerbation. On breathing treatment with bronchodilators #Generalised anxiety: on lorazepam prn #Restless leg syndrome: on seroquel #History of gout: stable DVT prophylaxis: SCDs for now. Start blood thinners after surgery Charges/Coding Visit Charges Inpatient E&M: 13337 Subs Hosp L2
--- NOTE | 2024-06-04 12:41 | CASEMGMT ---
[facility] Elle, as primary agent; Sanket, son, and daughter, Sophy, as alternate agents. MILES Medina
--- NOTE | 2024-06-04 13:10 | NURSING ---
pt off floor for surgery
[2024-06-04] MEDS: Lactated Ringers 1,000 ML 15 ML IV ×2 (13:48→18:23)
--- NOTE | 2024-06-04 13:56 | CONS.ORTHO ---
HPI Consult Data Date of Consult: 06/04/24 HPI Narrative Reason for Consultation: Left hip pain HPI Narrative: EDWIN ODONNELL, is a 73 M who presents with left hip pain status post a fall. Patient's notes that he uses walker and wheelchair at home. He has significant dementia. Has a history of previous urinary tract infections and was noted to have 1 today. Is a chronic catheter. Patient was trying to walk up the steps with his walker when he fell onto his left side. He is unable to bear weight. He is unable to tell me if he has any concurrent back pain. Patient does not give reasonable answers. His is at bedside and provides majority of available history. Patient's pain is notably worsened with motion better with immobilization. [facility] Medical History Wears hearing aid Wears glasses Depression Anxiety Dementia Alcohol use Walker as ambulation aid Rheumatoid arthritis Bladder disease Prostate disease Indwelling urethral catheter present Back pain Injury of head and neck Dietary restriction History of IBS Former smoker History of edema History of irregular heartbeat Lives in [facility] COPD (chronic obstructive pulmonary disease) Alzheimer disease Hemorrhoids Weight loss Rheumatoid arthritis Gout HTN (hypertension) Medical History unable to obtain Home Medications ?Medication ?Instructions ?Recorded ?Last Taken ?Type metoprolol tartrate 25 mg tablet 25 mg PO BID htn 03/24/14 02/01/24 History folic acid 1 mg tablet 1 mg PO BID vitamin 06/17/17 12/04/23 History leucovorin calcium 15 mg tablet 15 mg PO Q7D RA 06/17/17 01/18/24 History donepezil 23 mg tablet 23 mg PO QHS dementia 09/15/23 02/01/24 History hydroxychloroquine 200 mg tablet 200 mg PO DAILY 12/05/23 02/01/24 History acetaminophen 325 mg tablet 650 mg (2 x 325 mg) PO Q6H PRN PRN 12/08/23 Unknown Rx Pain 1-10 Or Fever>100.7 #0 tabs sennosides 8.6 mg-docusate sodium 2 tab PO BID PRN PRN Constipation 12/08/23 Unknown Rx 50 mg tablet (Stool #0 tabs Softener-Stimulant Laxative) tamsulosin 0.4 mg capsule 0.4 mg PO DAILY@1730 #0 caps 12/08/23 01/31/24 Rx lorazepam 0.5 mg tablet (Ativan) 0.5 mg PO Q12H 01/05/24 02/01/24 History methotrexate sodium 2.5 mg tablet 20 mg PO WE 01/05/24 01/25/24 History quetiapine 25 mg tablet 25 mg PO QHS 02/01/24 01/31/24 History Allergy/AdvReac Type Severity Reaction Status Date / Time No Known Allergies Allergy Verified 06/03/24 15:07 Family History Father Colon cancer CVA (cerebral vascular accident) Hypertension Heart disease Sister CAD (coronary artery disease) Hypertension Heart disease Mother Cancer Surgical History History of stapedectomy Hx of tonsillectomy S/P colonoscopy Surgical History unable to obtain Social History household members: spouse Smoking Status: Former smoker alcohol intake: never substance use type: does not use ROS Review of Systems ROS Unobtainable: due to mental status Vital Signs Vital Signs Vital Signs: 06/03/24 15:07 06/03/24 19:18 06/03/24 19:43 Temperature 97.6 F L 97.6 F L Temperature Source Temporal Pulse Rate 78 77 77 Pulse Strength Respiratory Rate 18 14 14 Respiratory Effort Respiratory Depth Respiratory Pattern Blood Pressure 153/61 H 145/77 H 145/77 H Blood Pressure Mean 91 99 99 Blood Pressure Source Blood Pressure Position Blood Pressure Location Pulse Ox 94 93 93 Oxygen Delivery Method Room Air Room Air Oxygen Flow Rate (L/min) 06/03/24 19:44 06/03/24 22:36 06/03/24 22:36 Temperature 97.5 F L Temperature Source Temporal Pulse Rate 75 78 Pulse Strength Respiratory Rate 16 18 Respiratory Effort Respiratory Depth Respiratory Pattern Blood Pressure 133/66 H Blood Pressure Mean 88 Blood Pressure Source Monitor Blood Pressure Position Semi-Fowlers Blood Pressure Location Left Arm Pulse Ox 95 87 94 Oxygen Delivery Method Room Air Room Air Nasal Cannula Oxygen Flow Rate (L/min) 2 06/03/24 22:40 06/03/24 23:20 06/04/24 00:13 Temperature Temperature Source Pulse Rate 74 Pulse Strength Respiratory Rate Respiratory Effort Normal Respiratory Depth Normal Respiratory Pattern Normal Blood Pressure 119/65 Blood Pressure Mean Blood Pressure Source Blood Pressure Position Blood Pressure Location Pulse Ox 94 Oxygen Delivery Method Nasal Cannula Nasal Cannula Oxygen Flow Rate (L/min) 2 2 06/04/24 01:29 06/04/24 04:35 06/04/24 05:23 Temperature 99 F Temperature Source Temporal Pulse Rate 74 70 Pulse Strength Respiratory Rate 17 Respiratory Effort Normal Respiratory Depth Respiratory Pattern Blood Pressure 119/66 Blood Pressure Mean 83 Blood Pressure Source Monitor Blood Pressure Position Supine Blood Pressure Location Left Arm Pulse Ox 95 95 Oxygen Delivery Method Nasal Cannula Room Air Nasal Cannula Oxygen Flow Rate (L/min) 2 2 06/04/24 06:53 06/04/24 08:30 06/04/24 10:00 Temperature 97.9 F Temperature Source Oral Pulse Rate 82 Pulse Strength Normal (2+) Respiratory Rate 20 H Respiratory Effort Respiratory Depth Respiratory Pattern Blood Pressure 131/73 H Blood Pressure Mean 92 Blood Pressure Source Blood Pressure Position Blood Pressure Location Pulse Ox 93 Oxygen Delivery Method Nasal Cannula Nasal Cannula Oxygen Flow Rate (L/min) 2 2 06/04/24 10:21 Temperature Temperature Source Pulse Rate Pulse Strength Respiratory Rate Respiratory Effort Normal Non-Labored Respiratory Depth Normal Respiratory Pattern Normal Blood Pressure Blood Pressure Mean Blood Pressure Source Blood Pressure Position Blood Pressure Location Pulse Ox Oxygen Delivery Method Nasal Cannula Oxygen Flow Rate (L/min) 2 Weight Weight: 164 lb 7.437 oz Body Mass Index (BMI) 23.6 Physical Exam Const alert Constitutional Narrative: Does not answer questions appropriately. HEENT normocephalic and head/scalp atraumatic Eyes PERRL Neck no JVD Resp normal respiratory effort Cardio Cardio Narrative: Regular pulse rate distally GI non-distended Extremity Extremity Narrative: Left lower extremity: Skin clean, dry, and intact. Limb is externally rotated Motor is intact dorsiflexion, EHL and plantar flexion. Sensation is intact to light touch saphenous, mili,l superficial peroneal, deep peroneal and tibial distributions. Calves are soft and supple. Skin no rashes or lesions noted Neuro moves all extremities Psych Memory / Cognition: cognition impaired Medical Records Data Attestation: I reviewed the patient's medical records Lab / Micro Data Attestation: I reviewed the patient's lab results. 06/04/24 05:58 06/04/24 05:58 Labs: Laboratory Results - last 24 hr 06/03/24 16:30: WBC 10.6, RBC 5.68, Hgb 17.6 H, Hct 53.2, MCV 93.7, MCH 31.0, MCHC 33.1, RDW Std Deviation 48.8 H, RDW Coeff of Narciso 14.2, Plt Count 249, MPV 8.8, Immature Gran % (Auto) 0.500, Neut % (Auto) 84.2 H, Lymph % (Auto) 8.2 L, [place] % (Auto) 5.6, Eos % (Auto) 1.1, Baso % (Auto) 0.4, Absolute Neuts (auto) 8.9 H, Absolute Lymphs (auto) 0.87, Nucleated RBC % 0, PT 14.7, INR 1.2, APTT 30.6, Sodium 139, Potassium 3.7, Chloride 105, Carbon Dioxide 30.0, Anion Gap 4 L, BUN 15, Creatinine 0.97, Estim Creat Clear Calc 69.93, Est GFR (MDRD) Af Amer 98, Est GFR (MDRD) Non-Af 81, BUN/Creatinine Ratio 15.5, Glucose 114 H, Calcium 9.8, Blood Type O POSITIVE, Antibody Screen NEGATIVE 06/03/24 23:20: Urine Color Yellow, Urine Clarity Cloudy, Urine pH 7.0, Ur Specific [place] 1.010, Urine Protein 30 H, Urine Glucose (UA) Normal, Urine Ketones Negative, Urine Occult Blood 50 H, Urine Nitrite Positive H, Urine Bilirubin Negative, Urine Urobilinogen Normal, Ur Leukocyte Esterase 500 H, Urine RBC 0-5 SEEN, Urine WBC 25-50 SEEN, Ur Squamous Epith Cells 0 SEEN, Urine Bacteria 3+, Urine Mucus 0 SEEN 06/04/24 05:58: WBC 8.6, RBC 4.71, Hgb 14.9, Hct 43.7, MCV 92.8, MCH 31.6, MCHC 34.1, RDW Std Deviation 48.2 H, RDW Coeff of Narciso 14.3, Plt Count 212, MPV 9.0, Immature Gran % (Auto) 0.400, Neut % (Auto) 75.9 H, Lymph % (Auto) 10.6 L, [place] % (Auto) 10.0, Eos % (Auto) 2.5, Baso % (Auto) 0.6, Absolute Neuts (auto) 6.5, Absolute Lymphs (auto) 0.91, Nucleated RBC % 0, Sodium 138, Potassium 4.0, Chloride 107, Carbon Dioxide 25.0, Anion Gap 7, BUN 12, Creatinine 0.85, Estim Creat Clear Calc 78.73, Est GFR (MDRD) Af Amer 113, Est GFR (MDRD) Non-Af 93, BUN/Creatinine Ratio 14.1, Glucose 104, Calcium 8.9, Phosphorus 3.1, Magnesium 2.0, Total Bilirubin 0.80, AST 13 L, ALT 20, Alkaline Phosphatase 59, Total Protein 5.7 L, Albumin 2.8 L, Globulin 2.9, Albumin/Globulin Ratio 1.0, TSH 0.696 Imaging Radiology Impression Brain CT 06/03/24 15:52 IMPRESSION: There are no acute findings. Chronic involutional changes of the brain. Electronically Signed: Peter Vences MD at 17:40 EDT , Cervical Spine CT 06/03/24 15:52 IMPRESSION: Degenerative changes of the cervical spine. There are no acute findings. Electronically Signed: Peter Vences MD at 18:01 EDT , Chest/Abdomen/Pelvis CT 06/03/24 15:52 IMPRESSION: 1. Large amount of stool in the rectal vault can suggest constipation. 2. Acute impacted left subcapital fracture. 3. Urinary bladder wall has wall thickening. This can be related to a partially contractile state. However, a cystitis is not excluded. Urinalysis should be performed in an effort to exclude cystitis. 4. Since the prior study, there has been development of compression deformity of L5. 5. Small right pleural effusion. Electronically Signed: Peter Vences MD at 18:10 EDT , Hip/Pelvis X-Ray 06/03/24 17:22 IMPRESSION: Abnormal contour of the left subcapital region consistent for an impacted left subcapital hip fracture. Electronically Signed: Peter Vences MD at 18:05 EDT Reading Location ID and State: [address] [place] [address] , Service support , Assessment & Plan Assessment/Plan (1) Closed fracture of left hip: QUALIFIERS: Encounter type: initial encounter Qualified Code(s): S72.002A - Fracture of unspecified part of neck of left femur, initial encounter for closed fracture PLAN: Natural history of the disease process was discussed with the patient and primarily his who is his main historian and caregiver. Available treatment options including closed duction percutaneous pinning versus hemiarthroplasty versus total hip replacement. Ultimately we do not recommend nonoperative treatment based on patient's further immobilization and current health today. I did recommend a close reduction percutaneous pinning based on the fracture pattern noted on the CT scan and x-ray which shows minimal impaction and displacement. Risk of the procedure were discussed the patient clued but not limited to blood loss, DVTs, PEs, nervous damage confession, the risk of anesthesia, loss of life. We also discussed hardware failure, malunion, nonunion and further degeneration of the hip joint. Patient's demonstrates an understanding and wishes to move forward. They are able to sign informed consent at this time. Antibiotics ordered on-call to the operating room. Plan is to proceed with surgery today. (2) Compression fracture of L5 vertebra: QUALIFIERS: Encounter type: initial encounter Qualified Code(s): S32.050A - Wedge compression fracture of fifth lumbar vertebra, initial encounter for closed fracture PLAN: Difficult to assess whether or not this is acute or chronic finding. Would recommend consultation with back specialist especially if patient requires long-term follow-up. While this is an orthopedic injury, my practice does not include spine fracture care.
--- NOTE | 2024-06-04 14:15 | PCM.PRE.AN2 ---
ASA Classification* ASA Classification ASA Classification: 3 and E Assessment & Plan Anesthesia* Anesthesia Assessment Anesthesia Assessment: Discussed sedation and/or anesthesia options, risks, benefits, and alternatives with patient/parents/legal guardian/POA. Questions invited. The patient/parents/legal guardian/POA seems to understand and agrees to proceed with anesthesia plan. Reviewed the physical assessment, medical history, allergy history and patient home medications list prior to surgery/procedure/anesthetic and documented any changes. Performed airway and anesthesia risk assessments. Anesthesia Type Anesthesia Type: General History Source History Obtained from:: Patient, Chart and Significant Other Anesthesia Focused Assessment* Temperature: 97.9 F Pulse Rate: 82 Blood Pressure: 131/73 Respiratory Rate: 20 Pulse Ox: 93 Oxygen Delivery Method: Nasal Cannula Airway Assessment Mouth opens: >3 cm Mallampati Score: IV Teeth Condition: Intact Neck Range of motion (ROM): Limited ROM Pertinent Findings EKG Pertinent Findings:: June 03, 2024. Normal sinus rhythm. Abnormal QRS T angle, consider primary T wave abnormality. Focused Labs Anesthesia Preop lab: CBC WBC 8.6 K/mm3 (4.4-11.0) 06/04/24 05:58 RBC 4.71 M/mm3 (4.6-6.2) 06/04/24 05:58 Hgb 14.9 g/dL (13.0-16.5) 06/04/24 05:58 Hct 43.7 % (40-54) 06/04/24 05:58 Plt Count 212 K/mm3 (150-450) 06/04/24 05:58 CHEMISTRY Potassium 4.0 mmol/L (3.5-5.1) 06/04/24 05:58 Sodium 138 mmol/L (136-145) 06/04/24 05:58 Magnesium 2.0 mg/dL (1.6-2.6) 06/04/24 05:58 Phosphorus 3.1 mg/dL (2.5-4.9) 06/04/24 05:58 BUN 12 mg/dL (7-18) 06/04/24 05:58 Creatinine 0.85 mg/dL (0.70-1.30) 06/04/24 05:58 Glucose 104 mg/dL (74-106) 06/04/24 05:58 TSH 0.696 uIU/mL (0.358-3.740) 06/04/24 05:58 COAG PT 14.7 SECONDS (11.7-14.9) 06/03/24 16:30 Pre-Assessment Diagnosis/Proposed Procedure Planned Operative Procedure(s): Left hip pinning and insertion of cannulated screws. 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 When Was Last Pacemaker Check QUESTION #4 FULL TEXT: You/Your Family Experience fever (hyperthermia) with Anesthesia Last Oral Intake Last Oral intake: Last Oral Intake NPO since 00:00 06/04/24 12:00 Meds taken in AM with sips of No 06/04/24 12:00 water? Meds patient instructed to take am of surgery PONV PONV - base engineer: PONV - base engineer Female HX of Motion Sickness HX of N/V After Surgery Non-Smoker Duration of Surgery greater than 60 minutes Number of Risk Factors PONV Score Height & Weight Height & Weight: Anesthesia: Height & Weight Height 5 ft 10 in 06/04/24 12:00 Weight: 74.6 kg 06/04/24 12:00 Body Mass Index (BMI) 23.6 06/04/24 12:00 Respiratory Assessment Respiratory Assessment - base engineer: Respiratory Tract Infection Hx - base engineer Hx Respiratory Tract Infection No 06/04/24 03:28 STOP Sleep Apnea STOP Sleep Apnea - base engineer: STOP Sleep Apnea - base engineer Hx Hypertension No 06/03/24 22:10 Hx Sleep Apnea No 06/03/24 22:10 CPAP BIPAP Do you snore loudly (louder No 06/03/24 22:10 than talking or can be heard Do you often feel tired/ No 06/03/24 22:10 fatigued/ sleepy during daytime? Has anyone observed you stop No 06/03/24 22:10 breathing during sleep? STOP Results Negative 06/03/24 22:10 QUESTION #5 FULL TEXT : Do you snore loudly (louder than talking or can be heard through closed doors)? Tobacco Use History Tobacco Use History - base engineer: Tobacco Use History - base engineer Tobacco Use Smoking Status Former smoker 06/03/24 22:10 Hx Tobacco Use No 06/03/24 22:10 Years Smoking Packs Smoked per Day Smoking Cessation Date was No - quit smoking greater 06/03/24 22:10 within the last 15 years than 15 years ago Hx Smoking Cessation Date Hx Smoking Cessation No 06/03/24 22:10 Counseling Hematologic Medial History Hematologic Hx - base engineer: Hematologic Medical Hx - respiratory care specialist Hx of Blood Transfusion Hx of Transfusion in last 3 Months Date of Last Transfusion (if within last 3 months) Ever experience any problems with transfusion(s)? Specify any problems Hx of Preganancy in last 3 Months Nurse Filling Out Transfusion & Questions: Date: Time: Patient unable to answer at Yes 06/03/24 22:10 this time (ie. confused, unrespo /Reproduction History /Reproductive History - base engineer: /Reproductive Hx- base engineer Hx Now No 06/04/24 03:28 Gestational Age (in weeks): EDC: Hx Hx Para Hx Section SAB No 06/04/24 03:28 Active Medications Active Medications: Current Medications Generic Name Dose Route Start Last Admin Trade Name Freq PRN Reason Stop Dose Admin Acetaminophen 650 mg 06/03/24 22:42 Acetaminophen 325 Mg Tablet PO Q6H PRN PRN Pain 1-5/10 Or Fever>100.7 Calamine/Phenol 1 applic 06/04/24 10:00 06/04/24 04:59 Menthol/Lanolin/Calamine/Znox 113 Gm Tube TOPICAL 1 applic BID ISAIAS Administration Protocol Donepezil HCl 23 mg 06/03/24 22:42 06/04/24 00:11 Donepezil Hcl 23 Mg Tablet PO 23 mg QHS ISAIAS Administration Folic Acid 1 mg 06/03/24 22:42 06/04/24 07:58 Folic Acid 1 Mg Tablet [facility] Hydroxychloroquine Sulfate 200 mg 06/04/24 08:00 06/04/24 07:58 Hydroxychloroquine 200 Mg Tablet PO Not Given DAILYCM [facility] Sodium Chloride 100 mls @ 15 mls/hr 06/03/24 22:50 IV .Q6H40M PRN Saline Flush Sodium Chloride 100 mls @ 15 mls/hr 06/03/24 22:50 IV .Q6H40M PRN Additional IVPB Infusion Ceftriaxone Sodium 1 gm in 50 mls @ 100 mls/hr 06/04/24 01:05 06/04/24 03:42 Rocephin IV Infused 2200 ISAIAS Infusion Cefazolin Sodium 2 gm/ N/A 20 mls @ 400 mls/hr 06/04/24 15:45 IV 06/04/24 15:47 PREOP ONE Lactated Ringer's 1,000 mls @ 15 mls/hr 06/04/24 13:30 06/04/24 13:48 IV 06/07/24 08:09 15 mls/hr .Q48H [facility] Administration Protocol Lorazepam 0.5 mg 06/03/24 22:42 06/04/24 07:58 Lorazepam 0.5 Mg Tablet PO Not Given Q12 [facility] Magnesium Hydroxide 30 ml 06/03/24 22:42 Magnesium Hydroxide 30 Ml Udc PO DAILY PRN PRN Constipation Melatonin 3 mg 06/03/24 22:42 Melatonin 3 Mg Tablet PO QHS PRN PRN INSOMNIA Methotrexate 20 mg 06/06/24 10:00 Methotrexate 2.5 Mg Tablet PO We@1000 [facility] Metoprolol Tartrate 25 mg 06/03/24 22:42 06/04/24 07:58 Metoprolol Tartrate 25 Mg Tablet PO Not Given BID [facility] Protocol Morphine Sulfate 2 mg 06/03/24 22:42 Morphine 2 Mg/Ml Syringe IV Q4H PRN PRN Pain Score 6-10 Nystatin 1 applic 06/04/24 10:00 06/04/24 05:00 Nystatin Powder 15gm Bottle TOPICAL 1 applic BID [facility] Administration Protocol Promethazine HCl 25 mg 06/03/24 22:42 Promethazine 25 Mg/Ml Syringe IM Q6H PRN PRN Breakthrough nausea/vomiting Quetiapine Fumarate 25 mg 06/03/24 22:00 06/03/24 20:02 Quetiapine 25 Mg Tablet PO 25 mg QHS [facility] Administration Protocol Senna/Docusate Sodium 2 tablet 06/03/24 22:42 Senna/Docusate Sodium 1 Tablet PO BID PRN PRN Constipation Sodium Chloride 10 - 40 ml 06/03/24 22:50 0.9% Saline Lock 10 Ml Syringe IV UD PRN SALINE FLUSH Tamsulosin HCl 0.4 mg 06/04/24 17:30 Tamsulosin Hcl 0.4 Mg Capsule PO DAILY@1730 [facility] Medical History Wears hearing aid Wears glasses Depression Anxiety Dementia Alcohol use Walker as ambulation aid Rheumatoid arthritis Bladder disease Prostate disease Indwelling urethral catheter present Back pain Injury of head and neck Dietary restriction History of IBS Former smoker History of edema History of irregular heartbeat Lives in [facility] COPD (chronic obstructive pulmonary disease) Alzheimer disease Hemorrhoids Weight loss Rheumatoid arthritis Gout HTN (hypertension) Medical History unable to obtain Home Medications ?Medication ?Instructions ?Recorded ?Last Taken ?Type metoprolol tartrate 25 mg tablet 25 mg PO BID htn 03/24/14 02/01/24 History folic acid 1 mg tablet 1 mg PO BID vitamin 06/17/17 12/04/23 History leucovorin calcium 15 mg tablet 15 mg PO Q7D RA 06/17/17 01/18/24 History donepezil 23 mg tablet 23 mg PO QHS dementia 09/15/23 02/01/24 History hydroxychloroquine 200 mg tablet 200 mg PO DAILY 12/05/23 02/01/24 History acetaminophen 325 mg tablet 650 mg (2 x 325 mg) PO Q6H PRN PRN 12/08/23 Unknown Rx Pain 1-10 Or Fever>100.7 #0 tabs sennosides 8.6 mg-docusate sodium 2 tab PO BID PRN PRN Constipation 12/08/23 Unknown Rx 50 mg tablet (Stool #0 tabs Softener-Stimulant Laxative) tamsulosin 0.4 mg capsule 0.4 mg PO DAILY@1730 #0 caps 12/08/23 01/31/24 Rx lorazepam 0.5 mg tablet (Ativan) 0.5 mg PO Q12H anxiety 01/05/24 06/03/24 History methotrexate sodium 2.5 mg tablet 20 mg PO WE 01/05/24 01/25/24 History quetiapine 25 mg tablet 25 mg PO QHS 02/01/24 01/31/24 History Allergy/AdvReac Type Severity Reaction Status Date / Time No Known Allergies Allergy Verified 06/03/24 15:07 Family History Father Colon cancer CVA (cerebral vascular accident) Hypertension Heart disease Sister CAD (coronary artery disease) Hypertension Heart disease Mother Cancer Surgical History History of stapedectomy Hx of tonsillectomy S/P colonoscopy Surgical History unable to obtain Social History household members: spouse Smoking Status: Former smoker alcohol intake: never substance use type: does not use Review of Systems (Anesthesia) ROS Narrative System reviewed and no additional complaints, except as documented.
[2024-06-04] MEDS: Cefazolin 2 GM in Syringe IV (16:43)
--- NOTE | 2024-06-04 17:05 | RAD_ITS ---
INDICATION: FX EXAMINATION/TECHNIQUE: X-RAY - intraoperative fluoroscopic spot films left hip COMPARISON: Prior study dated: Left hip series 06/03/2024 FINDINGS: 12 intraoperative fluoroscopic spot films were obtained during ORIF left hip fracture. For details of procedure please refer to the operative notes. Total fluoroscopic time 73.4 seconds RAD/Hip 1 view with Pelvis IMPRESSION: Status post ORIF left hip fracture. Electronically Signed: Andrez Alvarado MD at 16:04 EDT ,
--- NOTE | 2024-06-04 17:32 | OP.PCM_ITS ---
Report of Operation Date of Procedure: 06/04/24 Pre-Operative Diagnosis: Left hip impacted subcapital femoral neck fracture Post-Operative Diagnosis: Left hip impacted subcapital femoral neck fracture Surgery/Procedure Performed:: Closed reduction percutaneous pinning left hip Surgeon: Chris Stone solar tech: Fred Norman Type of Anesthesia: General Anesthesiologist: Jer James Special Medications: Ancef Estimated Blood Loss (mL): 75 Fluids Replaced: 500 mL crystalloid Description of Procedure: Components: 3 Synthes 7.3 mm cannulated screws. 90 mm, 85 mm, 85 mm On the date of procedure patient's left lower extremity is was marked in the preoperative area. The patient was then taken back to the operating room where they were placed on the fracture table in the supine position. All bony prominences were identified a well-padded. Anesthesia assumed control of the C- spine and airway and remained controlled throughout the remainder of the procedure. A perineal post was placed and the pts legs were positioned for appropriate fluoroscopic views. The left lower extremity was prepped in a sterile fashion using chlorhexidine. The surgeon scrubbed at this time. Upon reentering the room the left extremity was draped in a standard orthopedic fashi on. A timeout was then called and everyone agreed upon the side, the site, the procedure to be performed, patient's identity and antibiotics given. Fluoroscopy was used to verify the starting position of the initial pin which was above the level of the lesser trochanter. The initial pin was inserted percutaneously placed and the pin team otr truck driver was used to drive the inferior pin using fluoroscopic guidance into the appropriate position. The appropriate position was verified on the AP we then confirmed it on the lateral. Once we're happy with the position of our initial pin an incision was made in line with the pin and the parallel pin guide were used to place the 2 superior pins along the anterior and posterior cortex of the femoral neck. Once all 3 pins were placed just beneath the subchondral bone of the femoral head the depth gauge was used to measure the length. The inferior screw was 90 mm, the anterior-superior screws was 85 mm and the posterior-superior screws was 85 mm . The drill was then used to perforate the lateral cortex. All 3 screws were then placed under fluoroscopic guidance and final tightening was done by hand. Final x-rays were then taken to verify the position of the screws and the final reduction. Copious irrigation was then used to irrigate out the wound. The wound was closed using 2-0 Vicryl and 4-0 Monocryl with Steri-Strips. A sterile dressing was placed w [facility]. Patient was then awakened by anesthesia and transferred to the PACU for recovery. Post op plan PT: WBAT DVT ppx: Xarelto 10 mg daily for 2 weeks followed by aspirin 81 mg p.o. twice d aily for 2 weeks Follow up: 2 weeks for wound check Complications No intraoperative complications Admit VTE Documentation VTE Present on Admission: No VTE Mechan Device Prophylaxis: SCD's and Thigh High PHOEBE Hose VTE Pharm Prophylaxis ordered?: Yes
--- NOTE | 2024-06-04 17:56 | PCM.POST.ANE ---
Anesthesia: Postop Eval I Current Vital Signs Temperature: 97.7 F Pulse Rate: 61 Blood Pressure: 115/68 Respiratory Rate: 16 Pulse Ox: 97 Oxygen Delivery Method: Nasal Cannula Oxygen Flow Rate (L/min): 2 Assessment Airway patent: Yes Spontaneous unlabored respirations: Yes nausea: No Vomiting: No Anesthesia Complication: No Fluid Hydration Crystalloid volume administer (ml): 300 Total IV fluid infused: 300 Progress Note Anesthesia document: Postop Eval 1 completed: Yes
--- NOTE | 2024-06-04 17:57 | PCM.POSTANE2 ---
Anesthesia Postop Eval I Sum Postop Eval Completion status Anesthesia document: Postop Eval 1 completed: Yes Anesthesia Postop Eval I Summary Anesthesia Postop Eval I Summary: Anesthesia Postop Eval I: Assessment Summary Airway patent Yes 06/04/24 17:57 Spontaneous unlabored Yes 06/04/24 17:57 respirations Mental status nausea No 06/04/24 17:57 Vomiting No 06/04/24 17:57 Anesthesia Postop Eval I: Fluid Summary Crystalloid volume administer 300 06/04/24 17:57 (ml) Colloids volume administered ( ml) Blood Product volume administered (ml) Total IV fluid infused 300 06/04/24 17:57 Anesthesia Postop Eval I: Summary Notes Anesthesia Complication No 06/04/24 17:57 Anesthesia Complication Comment: Post-operative progress note Anesthesia: Postop Eval II Evaluation Mental status: Awake and Confused Pain Level: 0 nausea: No Vomiting: No
[2024-06-04] MEDS: QUEtiapine 25 MG Tablet PO (22:48)
[2024-06-04] MEDS: LORazepam 0.5 MG Tablet PO (22:49)
[2024-06-04] MEDS: Acetaminophen 325 MG Tablet 650 MG PO (23:03)
[2024-06-05] VITALS (10 sets, daily range): BP systolic 123–139; BP diastolic 64–75; PULSE 64–78; RESP 16–18; TEMP 36.4–37.1; O2SAT 93–98; BMI 23.8
[2024-06-05] MEDS: Acetaminophen 325 MG Tablet 650 MG PO ×2 (05:41→21:07)
[2024-06-05] MEDS: Rivaroxaban 10 MG Tablet PO (05:53)
[2024-06-05 06:48] LABS: Absolute Lymphocyte Count 1.03 X10^3/uL (0.83-4.51); Absolute Neutrophil Count 5.1 X10^3/uL (2.0-7.7); Basophil# 0.06 X10^3/uL; Basophil% 0.8 % (0-1); Eosinophil# 0.24 X10^3/uL; Eosinophils% 3.3 % (0-5); Hematocrit 46.3 % (40-54); Hemoglobin 15.4 g/dL (13.0-16.5); Lymphocyte # 1.03 X10^3/ul (0.83-4.51); Lymphocyte % 14.1 % (19-41); Mean Corp Hgb Conc 33.3 g/dL (32-36); Mean Corpuscular Hgb 31.4 pg (27.0-32.0); Mean Corpuscular Volume 94.5 fL (80-94); Mean Platelet Vol. 9.4 fl (6.2-12.0); Monocyte# 0.82 X10^3/uL; Monocyte% 11.2 % (0-10); NRBC Flagged by Analyzer 0 % (0-5); Neutrophil # 5.11 X10^3/uL (2.7-7.7); Neutrophil % 70.2 % (47-70); POSITIVE MORPHOLOGY YES; Platelet Count 197 K/mm3 (150-450); RBC Distribution Width CV 14.6 % (11.6-14.6); RBC Distribution Width SD 50.5 fl (35.1-43.9); White Blood Count 7.3 K/mm3 (4.4-11.0)
[2024-06-05 07:08] LABS: Anion Gap 4 (5-15); BUN 10 mg/dL (7-18); BUN/Creat Ratio 11.5 RATIO (10-20); Chloride 106 mmol/L (98-107); Creatinine, Serum 0.87 mg/dL (0.70-1.30); EST Glomerular Filtration Rate 91 mL/min (>60); Est Glom Filt Rate - Afr Amer 110 mL/min (>60); Estimated Creatinine Clearance 76.92 ml/min; Glucose 91 mg/dL (74-106); Magnesium 1.9 mg/dL (1.6-2.6); Phosphorus 3.1 mg/dL (2.5-4.9); Potassium 3.9 mmol/L (3.5-5.1); Sodium Level 139 mmol/L (136-145)
[2024-06-05 07:14] LABS: Differential Indicated SCAN CRITERIA MET
[2024-06-05 07:35] LABS: Atypical Lymphocyte 1+ %; Differential Comment SCANNED
[2024-06-05] MEDS: Folic Acid 1 MG Tablet PO ×2 (08:37→17:39)
[2024-06-05] MEDS: Ensure Surgery 237 ML LIQUID PO ×2 (08:37→17:39)
[2024-06-05] MEDS: Metoprolol Tartrate 25 MG Tablet PO ×2 (08:37→21:14)
[2024-06-05] MEDS: Hydroxychloroquine 200 MG Tablet PO (08:37)
--- NOTE | 2024-06-05 09:33 | PN.ORTHO_ITS ---
Subjective Subjective The patient was sitting in bed upon examination. Patient does have history of dementia but was able to answer questions today. Patient denies any chest pain, shortness of breath, dizziness, lightheadedness, nausea or vomiting, or calf pain. Pain is controlled on medications. No adverse overnight events. Objective Data Objective Data Vital Signs: Vital Signs Temp Pulse Resp BP Pulse Ox O2 Del Method O2 Flow Rate 97.5 F L 65 17 139/69 H 96 Nasal Cannula 2 06/05/24 05:35 06/05/24 08:37 06/05/24 05:35 06/05/24 08:37 06/05/24 08:00 06/05/24 08:00 06/05/24 08:00 Oxygen Flow Rate (L/min) 2 Oxygen Delivery Method Nasal Cannula Weight: 75.4 kg Body Mass Index (BMI) 23.8 Intake & Output: Intake and Output for Last 24 Hours 06/03/24 06/04/24 06/05/24 23:59 23:59 23:59 Intake Total 2160.25 / 2160.25 300 / 300 Output Total 200 / 200 2100 / 2100 650 / 650 Balance -200 / -200 60.25 / 60.25 -350 / -350 Lab / Micro Data 06/05/24 05:58 06/05/24 05:58 Labs: Laboratory Results - last 24 hr 06/05/24 05:58: WBC 7.3, RBC 4.90, Hgb 15.4, Hct 46.3, MCV 94.5 H, MCH 31.4, MCHC 33.3, RDW Std Deviation 50.5 H, RDW Coeff of Narciso 14.6, Plt Count 197, MPV 9.4, Immature Gran % (Auto) 0.400, Neut % (Auto) 70.2 H, Lymph % (Auto) 14.1 L, [place] % (Auto) 11.2 H, Eos % (Auto) 3.3, Baso % (Auto) 0.8, Absolute Neuts (auto) 5.1, Absolute Lymphs (auto) 1.03, Nucleated RBC % 0, Differential Comment SCANNED, Atypical Lymphocytes 1+, Sodium 139, Potassium 3.9, Chloride 106, Carbon Dioxide 29.0, Anion Gap 4 L, BUN 10, Creatinine 0.87, Estim Creat Clear Calc 76.92, Est GFR (MDRD) Af Amer 110, Est GFR (MDRD) Non-Af 91, BUN/Creatinine Ratio 11.5, Glucose 91, Calcium 9.0, Phosphorus 3.1, Magnesium 1.9 Physical Exam Narrative Vital signs stable and afebrile. Left thigh is soft and supple Patient is able to plantarflex and dorsiflex actively. Sensation is intact to light touch to saphenous, sural, superficial and deep peroneal, and tibial distribution. Dressing is clean dry and intact. Negative Homans bilaterally, negative signs and symptoms of DVT. Const alert and no apparent distress Assessment & Plan Assessment/Plan (1) Closed fracture of left hip: QUALIFIERS: Encounter type: initial encounter Qualified Code(s): S72.002A - Fracture of unspecified part of neck of left femur, initial encounter for closed fracture PLAN: 1. S/P closed reduction percutaneous pinning left hip POD #1 2. Continue Pain Medications: Tylenol and tramadol. I would ultimately defer to medicine for continued pain medication upon discharge 3. DVT Prophylaxis: Recommend Xarelto 10 mg daily for 2 weeks postoperatively followed by aspirin 81 mg twice daily for an additional 2 weeks. 4. PT/OT: Weightbearing as tolerated with walker. Appreciate recommendations from physical therapy for appropriate discharge planning 5. H & H: 15.4/46.3, asymptomatic. Labs have been reviewed and stable 6. Encouraged Incentive Spirometry 7. Patient is aware of postoperative constipation that can occur from 1-3 days postoperatively. Will continue with senna 2 tablets twice daily until first bowel movement. Patient was advised if not having a bowel movement after day 3 she is to contact orthopedics so appropriate change can be made. Patient voiced understanding. 8. Continue postoperative medical treatment per medicine 9. Disposition: Patient overall appears to be stable from an orthopedic standpoint. Discharge planning with case management involved. Appreciate recommendations from physical therapy. Okay for discharge from orthopedic standpoint once medically stable. Patient should continue on oral pain medications and DVT prophylaxis medications above. Continue with physical therapy upon discharge weightbearing as tolerated with walker. Dressing can stay on for 7 days postoperatively. Plan will be for follow-up with orthopedics in 2 weeks with repeat x-rays of the left hip and suture/staple removal. Please contact orthopedics with any concerns or questions. At this time orthopedics will sign off and please contact us if needed. Appreciate consultation. This dictation was created using voice recognition software. Phonetic and/or grammatical errors may exist.
[2024-06-05] MEDS: LORazepam 0.5 MG Tablet PO ×2 (10:20→21:07)
[2024-06-05] MEDS: traMADol 50 MG Tablet PO (10:20)
[2024-06-05] MEDS: Nystatin Powder 15gm Bottle 1 APPLIC TOPICAL ×2 (10:21→21:07)
[2024-06-05] MEDS: Menthol/Lanolin/Calamine/Znox 113 GM Tube 1 APPLIC TOPICAL ×2 (10:21→21:07)
--- NOTE | 2024-06-05 12:01 | PN_ITS ---
Subjective Subjective Patient seen and examined. He has no complaints. Pain is well controlled. He had left hip cl.osed reduction and percutaneous pinning. Today is POD 1. He does seem to still have some baseline confusion. Review of systems is otherwise negative. Objective Data Objective Data Vital Signs: Vital Signs Temp Pulse Resp BP Pulse Ox O2 Del Method O2 Flow Rate 98.3 F 64 18 139/69 H 98 Room Air 2 06/05/24 09:00 06/05/24 09:00 06/05/24 09:00 06/05/24 09:00 06/05/24 09:00 06/05/24 11:00 06/05/24 08:00 Oxygen Flow Rate (L/min) 2 Oxygen Delivery Method Room Air Weight: 166 lb 3.657 oz Body Mass Index (BMI) 23.8 Intake & Output: Intake and Output for Last 24 Hours 06/03/24 06/04/24 06/05/24 23:59 23:59 23:59 Intake Total 2160.25 / 2160.25 300 / 300 Output Total 200 / 200 2100 / 2100 650 / 650 Balance -200 / -200 60.25 / 60.25 -350 / -350 Lab / Micro Data 06/05/24 05:58 06/05/24 05:58 Labs: Laboratory Results - last 24 hr 06/05/24 05:58: WBC 7.3, RBC 4.90, Hgb 15.4, Hct 46.3, MCV 94.5 H, MCH 31.4, MCHC 33.3, RDW Std Deviation 50.5 H, RDW Coeff of Narciso 14.6, Plt Count 197, MPV 9.4, Immature Gran % (Auto) 0.400, Neut % (Auto) 70.2 H, Lymph % (Auto) 14.1 L, [place] % (Auto) 11.2 H, Eos % (Auto) 3.3, Baso % (Auto) 0.8, Absolute Neuts (auto) 5.1, Absolute Lymphs (auto) 1.03, Nucleated RBC % 0, Differential Comment SCANNED, Atypical Lymphocytes 1+, Sodium 139, Potassium 3.9, Chloride 106, Carbon Dioxide 29.0, Anion Gap 4 L, BUN 10, Creatinine 0.87, Estim Creat Clear Calc 76.92, Est GFR (MDRD) Af Amer 110, Est GFR (MDRD) Non-Af 91, BUN/Creatinine Ratio 11.5, Glucose 91, Calcium 9.0, Phosphorus 3.1, Magnesium 1.9 Micro: Microbiology 06/03/24 23:20 Urine Catheter - Catheter Urine Culture - Preliminary 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 Gram negative reese Physical Exam Const alert and no apparent distress Constitutional Narrative: flat affect General Appearance: cooperative Orientation / Consciousness: confused HEENT normocephalic, head/scalp atraumatic, hearing grossly normal bilaterally and moist oral mucous membranes Eyes PERRL and EOMs intact bilaterally Neck no lymphadenopathy, supple and no JVD Lymph Lymphatic: no lymphadenopathy noted Resp normal respiratory effort, no retractions, no use of accessory muscles and clear to auscultation bilaterally Resp Narrative: mildly diminished breath sounds bibasally, no wheezes or crackles. On room air. Cardio regular rate, regular rhythm, S1 normal heart sound, S2 normal heart sound and no murmurs GI normal to inspection, nondistended, normoactive bowel sounds, soft to palpation, non-tender and non-distended Extremity normal capillary refill and no clubbing, cyanosis or edema General Extremity: no tenderness to palpation of joints or extremities Skin Skin Narrative: intact dressing over left hip General Skin Exam: no breakdown Neuro CN's II-XII intact bilaterally, moves all extremities and no focal motor deficits Sensorium / Orientation: awake Speech: speech normal Motor Exam: general weakness Psych Psych Narrative: confused Mood & Affect: flat affect Assessment & Plan Assessment/Plan (1) Closed fracture of left hip: QUALIFIERS: Encounter type: initial encounter Qualified Code(s): S72.002A - Fracture of unspecified part of neck of left femur, initial encounter for closed fracture (2) Acute cystitis without hematuria: PLAN: Plan #Left hip fracture due to mechanical fall * admitted after he had a mechanical fall at home and landed on his left hip. * imaging showed a closed left hip subcapital fracture as well as a slight L5 compression fracture * s/p left hip closed reduction and percutaneous pinning. * on PO tylenol, IV morphine and PO oxycodone prn for pain * EKG showed no acute ST changes * #UTI * does have a chronic indwelling Marina catheter * Marina catheter was changed and patient started on IV Rocephin. Urine cultures pending. #Debility due to chronic Alzheimer's dementia * on donepezil. * PT/OT on board * #Rheumatoid arthritis: on hydroxychloriquine and leucovorin. Follow with rheumatology on outpatient basis #BPh with obstructive symptoms: has chronic Marina catheter in situ. Marina catheter replaced #COPD: not in exacerbation. On breathing treatment with bronchodilators #Generalised anxiety: on lorazepam prn #Restless leg syndrome: on seroquel #History of gout: stable DVT prophylaxis: started on xarelto 10mg daily per orthopedics Disposition: will benefit from placement. Case management on board. Charges/Coding Visit Charges Inpatient E&M: 44649 Subs Hosp L2
--- NOTE | 2024-06-05 12:03 | CASEMGMT ---
Social Work- Pt requests referral to TCU, SW provided referral. MILES Medina
--- NOTE | 2024-06-05 12:53 | CHAPLAIN ---
Type of Pastoral Visit _x__ Initial Visit ___ Follow-up Visit ___ On-call Visit ___ General Patient Visit ___ Spiritual Assessment ___ Family Conference ___ Bereavement ___ Rapid Response ___ Code Blue ___ Other (describe below) Pastoral Care Referral From ___ Patient ___ Family ___ Nurse ___ Physician ___ Structural Designer ___ Fuel Cell Engineer _x__ Other (describe below) Sacrament/Intervention _x__ Active listening ___ Anointing ___ Hindu ___ Bereavement ___ Communion ___ [place] exploration ___ ___ Life review _x__ Prayer ___ Reconciliation ___ Sacrament of Sick _x__ Supportive presence ___ Wedding ___ Other (describe below) Pastoral Comments 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
--- NOTE | 2024-06-05 13:44 | CASEMGMT ---
Addendum entered by Roxie Dorado 06/05/24 13:48: (SW had to leave voicemail and requested a return call) MILES Medina Original Note: Social Work- SW called pt to advise that TCU is unable to accept referral. SW remains available to follow. MILES Medina
--- NOTE | 2024-06-05 14:21 | CASEMGMT ---
Social Work- SW met with pt and pt in pt room. SW advised of TCU declination. Pt declined a list of SNF providers, citing [facility] as second choice. DCA notified of referral request. [facility] remains available to follow. MILES Medina
--- NOTE | 2024-06-05 14:36 | CASEMGMT ---
Addendum entered by Rosy Stovall 06/05/24 15:32: [facility] has accepted. Rosy Stovall DC Planning Asst. Original Note: Discharge Planning Referral sent to [facility] via [facility]. Rosy Stovall DC Planning Asst.
[2024-06-05] MEDS: Tamsulosin HCl 0.4 MG Capsule PO (17:39)
[2024-06-05] MEDS: 0.9% Saline Lock 10 ML Syringe IV (21:08)
[2024-06-05] MEDS: Ceftriaxone 1 GM/50 ML BAG IV (21:09)
[2024-06-05] MEDS: QUEtiapine 25 MG Tablet PO (21:14)
[2024-06-05] MEDS: DONEPEZIL HCL 23 MG PO (21:14)
[2024-06-06 04:57] VITALS: BP 132/75; PULSE 64; RESP 16; TEMP 36.8; O2SAT 93
[2024-06-06] MEDS: Rivaroxaban 10 MG Tablet PO (05:04)
[2024-06-06] MEDS: traMADol 50 MG Tablet PO (05:04)
[2024-06-06 05:50] VITALS: BMI 23.8
[2024-06-06 06:05] LABS: Absolute Lymphocyte Count 1.31 X10^3/uL (0.83-4.51); Absolute Neutrophil Count 4.4 X10^3/uL (2.0-7.7); Basophil# 0.07 X10^3/uL; Eosinophil# 0.27 X10^3/uL; Eosinophils% 3.9 % (0-5); Hematocrit 44.4 % (40-54); Hemoglobin 15.1 g/dL (13.0-16.5); Lymphocyte # 1.31 X10^3/ul (0.83-4.51); Mean Corpuscular Hgb 31.8 pg (27.0-32.0); Mean Corpuscular Volume 93.5 fL (80-94); Mean Platelet Vol. 9.3 fl (6.2-12.0); Monocyte# 0.81 X10^3/uL; Monocyte% 11.7 % (0-10); NRBC Flagged by Analyzer 0 % (0-5); Neutrophil # 4.41 X10^3/uL (2.7-7.7); POSITIVE MORPHOLOGY YES; Platelet Count 194 K/mm3 (150-450); RBC Distribution Width CV 14.4 % (11.6-14.6); RBC Distribution Width SD 49.7 fl (35.1-43.9); Red Blood Count 4.75 M/mm3 (4.6-6.2); White Blood Count 6.9 K/mm3 (4.4-11.0)
[2024-06-06 06:29] LABS: Anion Gap 5 (5-15); BUN 12 mg/dL (7-18); BUN/Creat Ratio 16.7 RATIO (10-20); Chloride 106 mmol/L (98-107); Creatinine, Serum 0.72 mg/dL (0.70-1.30); EST Glomerular Filtration Rate 113 mL/min (>60); Est Glom Filt Rate - Afr Amer 137 mL/min (>60); Estimated Creatinine Clearance 83.65 ml/min; Glucose 94 mg/dL (74-106); Potassium 3.8 mmol/L (3.5-5.1); Sodium Level 139 mmol/L (136-145)
[2024-06-06 06:47] LABS: Differential Comment SCANNED; Differential Indicated SCAN CRITERIA MET
[2024-06-06 08:12] VITALS: O2SAT 95
--- NOTE | 2024-06-06 09:10 | DS.PCM_ITS ---
Providers Date of Admission: 06/03/24 Date of Discharge: 06/06/24 Primary Care Physician: Dr. Casimiro Duncan MD Consultations 06/04/24 01:31 Consult: Orthopedics Routine Consulting Provider: Chris Stone Reason for Consult: Left Hip Fracture after Fall. EMERGENT Consult: No MD Notified: Yes Date Notified: 06/03/24 Time Notified: 22:00 Method of Notification: ED Physician Initiated Reason For Visit: LEFT HIP FRACTURE AFTER FALL Diagnosis Discharge Diagnosis (1) Closed fracture of left hip: Status: Acute Code(s): S72.002A - Fracture of unspecified part of neck of left femur, initial encounter for closed fracture Qualifiers: Encounter type: initial encounter Qualified Code(s): S72.002A - Fracture of unspecified part of neck of left femur, initial encounter for closed fracture (2) Acute cystitis without hematuria: Status: Acute Code(s): N30.00 - Acute cystitis without hematuria (3) Compression fracture of L5 vertebra: Status: Acute Code(s): S32.050A - Wedge compression fracture of fifth lumbar vertebra, initial encounter for closed fracture Qualifiers: Encounter type: initial encounter Qualified Code(s): S32.050A - Wedge compression fracture of fifth lumbar vertebra, initial encounter for closed fracture Plan #Left hip fracture due to mechanical fall * admitted after he had a mechanical fall at home and landed on his left hip. * imaging showed a closed left hip subcapital fracture as well as a slight L5 compression fracture * s/p left hip closed reduction and percutaneous pinning. * on PO tylenol, IV morphine and PO oxycodone prn for pain * EKG showed no acute ST changes * #UTI * does have a chronic indwelling Marina catheter * Marina catheter was changed and patient started on IV Rocephin. Urine cultures pending. #Debility due to chronic Alzheimer's dementia * on donepezil. * PT/OT on board * #Rheumatoid arthritis: on hydroxychloriquine and leucovorin. Follow with rheumatology on outpatient basis #BPh with obstructive symptoms: has chronic Marina catheter in situ. Marina catheter replaced #COPD: not in exacerbation. On breathing treatment with bronchodilators #Generalised anxiety: on lorazepam prn #Restless leg syndrome: on seroquel #History of gout: stable DVT prophylaxis: started on xarelto 10mg daily per orthopedics Disposition: will benefit from placement. Case management on board. Medications at Discharge Home Medications metoprolol tartrate 25 mg tablet 25 mg PO BID htn 03/24/14 folic acid 1 mg tablet 1 mg PO BID vitamin 06/17/17 leucovorin calcium 15 mg tablet 15 mg PO Q7D RA 06/17/17 donepezil 23 mg tablet 23 mg PO QHS dementia 09/15/23 hydroxychloroquine 200 mg tablet 200 mg PO DAILY 12/05/23 acetaminophen 325 mg tablet 650 mg (2 x 325 mg) PO Q6H PRN PRN Pain 1-10 Or Fever>100.7 #0 tabs 12/08/23 sennosides 8.6 mg-docusate sodium 50 mg tablet (Stool Softener-Stimulant Laxative) 2 tab PO BID PRN PRN Constipation #0 tabs 12/08/23 tamsulosin 0.4 mg capsule 0.4 mg PO DAILY@1730 #0 caps 12/08/23 lorazepam 0.5 mg tablet (Ativan) 0.5 mg PO Q12H anxiety 01/05/24 methotrexate sodium 2.5 mg tablet 20 mg PO WE 01/05/24 quetiapine 25 mg tablet 25 mg PO QHS 02/01/24 aspirin 81 mg tablet,delayed release 81 mg PO BID 2 weeks #28 tabs 06/06/24 cefdinir 300 mg capsule 300 mg PO BID #10 caps 06/06/24 oxycodone 5 mg tablet 5 mg PO Q6H PRN pain 3 days #18 tabs 06/06/24 rivaroxaban 10 mg tablet (Xarelto) 10 mg PO DAILY@0600 14 days #14 tabs 06/06/24 Hospital Course Operations - (left hip closed reduction and percutaneous pinning) Procedures None Summary of Care Provided Minutes Spent on Discharge: 48 Hospital Course: Patient is a 73-year-old male with an extensive past medical history as outlined was admitted through the ED on 06/03/2024 with a complaint of mechanical fall. He was going up the steps and lost his balance and fell on his left side. He felt severe pain in his left hip and his left lower rib cage. He denied hitting his head and denied any loss of consciousness. Review of symptoms otherwise negative. Imaging done showed a closed subcapital left hip fracture in addition to a slight L5 compression fracture due to mechanical fall. Urinalysis also showed evidence of UTI. He did have a chronic Marina catheter in place. Orthopedic surgery was consulted and he was admitted and managed for left hip fracture due to mechanical fall as well as UTI. He was started on IV ceftriaxone. He had left hip closed reduction with percutaneous pinning on 06/04/2024. He was started on Xarelto. For DVT prophylaxis. He was also placed on pain meds and pain was well-controlled. Postop course was not complicated. Urine cultures grew gram-negative rods with lactose environmental intern. [facility] He was discharged on p.o. Xarelto 10 mg daily for total of 2weeks, then to be followed by PO aspirin 81mg bid x 2 weeks for DVT prophylaxis. Was also discharged on p.o. cefdinir for 5 days for UTI. Patient seen and examined prior to discharge. He felt well and had no complaints. Pain was well-controlled. Review of systems otherwise negative. Labs and vitals reviewed. Home medication reviewed and reconciled. Physical Exam Const alert and no apparent distress Constitutional Narrative: flat affect General Appearance: cooperative Orientation / Consciousness: awake Exam Limitations: no limitations HEENT normocephalic, head/scalp atraumatic, hearing grossly normal bilaterally and moist oral mucous membranes Mouth: oral and palatal mucosa normal Eyes PERRL and EOMs intact bilaterally Neck no lymphadenopathy, supple and no JVD Lymph Lymphatic: no lymphadenopathy noted Resp normal respiratory effort, no retractions, no use of accessory muscles and clear to auscultation bilaterally Resp Narrative: mildly diminished breath sounds bibasally, no wheezes or crackles. On room air. Cardio regular rate, regular rhythm, S1 normal heart sound, S2 normal heart sound and no murmurs GI normal to inspection, nondistended, normoactive bowel sounds, soft to palpation, non-tender and non-distended Extremity normal to inspection, normal capillary refill and no clubbing, cyanosis or edema General Extremity: no tenderness to palpation of joints or extremities Skin Skin Narrative: intact dressing over left hip General Skin Exam: no breakdown Neuro CN's II-XII intact bilaterally, moves all extremities and no focal motor deficits Sensorium / Orientation: awake and alert Speech: speech normal Motor Exam: general weakness Psych affect normal Mood & Affect: flat affect Weight / BMI Weight Weight: 166 lb 3.657 oz Body Mass Index (BMI) 23.8 ABG / Lab / Microbiology Data 06/06/24 04:55 06/06/24 04:55 Laboratory: Laboratory Results - last 24 hr 06/06/24 04:55: WBC 6.9, RBC 4.75, Hgb 15.1, Hct 44.4, MCV 93.5, MCH 31.8, MCHC 34.0, RDW Std Deviation 49.7 H, RDW Coeff of Narciso 14.4, Plt Count 194, MPV 9.3, Immature Gran % (Auto) 0.400, Neut % (Auto) 64.0, Lymph % (Auto) 19.0, [place] % (Auto) 11.7 H, Eos % (Auto) 3.9, Baso % (Auto) 1.0, Absolute Neuts (auto) 4.4, Absolute Lymphs (auto) 1.31, Nucleated RBC % 0, Differential Comment SCANNED, Sodium 139, Potassium 3.8, Chloride 106, Carbon Dioxide 28.0, Anion Gap 5, BUN 12, Creatinine 0.72, Estim Creat Clear Calc 83.65, Est GFR (MDRD) Af Amer 137, Est GFR (MDRD) Non-Af 113, BUN/Creatinine Ratio 16.7, Glucose 94, Calcium 9.0 Microbiology: Microbiology 06/03/24 23:20 Urine Catheter - Catheter Urine Culture - Preliminary GNR lactose environmental intern Gram negative reese Radiography Diagnostic Testing: Radiology Impression Hip/Pelvis X-Ray 06/04/24 17:05 IMPRESSION: Status post ORIF left hip fracture. Electronically Signed: Andrez Alvarado MD at 16:04 EDT , D/C Instructions Discharge Diet: Low fat / Low cholesterol Discharge Activity: Return to Normal Activity Weight Bearing Status: Weight bearing as tolerated Call your doctor if you observe: Fever of 101 or Higher, Shortness of breath, Dizziness, Swelling in the ankles and Chest pain Meaningful Use Info Meaningful Use Meaningful Use Diagnoses (Choose all that apply): None applicable Ischemic Stroke Statin Dosing Therapy Reference: STATIN DOSE THERAPY REFERENCE: * Patients > 75 years receive moderate or high dose statin therapy. * Patients 75 years or YOUNGER should receive HIGH intensity statin dose unless contraindicated. You will be required to document reason for non-treatment if statin daily dose does not meet guidelines. HIGH DOSE STATIN THERAPY DAILY Atorvastatin > than or = to 40 mg Rosuvastatin > than or = to 20 mg Amlodipine + Atorvastatin > than or = to 2.5/40 mg Ezetimibe + Simvastatin 10/80 mg Simvastatin 80mg Discharge Plan Admission Admit Date/Time: 06/03/24 21:31 Primary Reason for Your Visit: left hip fracture due to mechanical fall, UTI Attending Provider: Kindra Turner Primary Care Provider: Casimiro Duncan Consulting Providers: Chris Stone; Dirk Colon Instructions Patient Instructions: Urinary Tract Infections in Men, Hip Fracture Surgery ... Discharge Orders/Prescriptions Prescriptions: New Xarelto 10 mg Tablet 10 mg PO DAILY@0600 14 Days Qty: 14 0RF aspirin 81 mg tablet,delayed release (DR/EC) 81 mg PO BID 14 Days Qty: 28 0RF Rx Instructions: start on 06/20/2024, after you complete the xarelto 10mg daily for 2 weeks for DVT prophylaxis cefdinir 300 mg capsule 300 mg PO BID Qty: 10 0RF oxycodone 5 mg tablet 5 mg PO Q6H PRN (Reason: pain) 3 Days Qty: 18 0RF Continued metoprolol tartrate 25 MG tablet 25 mg PO BID donepezil 23 mg tablet 23 mg PO QHS Patient Comments: take 1 tablet by mouth once daily lorazepam [Ativan] 0.5 mg tablet 0.5 mg PO Q12H methotrexate sodium 2.5 mg Tablet 20 mg PO WE quetiapine 25 mg tablet 25 mg PO QHS Patient Comments: only takes one at night hydroxychloroquine 200 mg Tablet 200 mg PO DAILY acetaminophen 325 mg Tablet 650 mg PO Q6H PRN PRN (Reason: Pain 1-10 Or Fever>100.7) Qty: 0 0RF sennosides-docusate sodium [Stool Softener-Stimulant Laxat] 8.6-50 mg Tablet 2 tab PO BID PRN PRN (Reason: Constipation) Qty: 0 0RF tamsulosin 0.4 mg Capsule 0.4 mg PO DAILY@1730 Qty: 0 0RF leucovorin calcium 15 MG tablet 15 mg PO Q7D Patient Comments: TAKES ON TUESDAY MORNING folic acid 1 MG tablet 1 mg PO BID Referrals / Follow Up: Casimiro Duncan MD [Primary Care Provider] - Within 1 Week Disposition Disposition (needs filled in before D/C Order can be placed): [facility] Charges/Coding Visit Charges Inpatient E&M: 95700 Disch Hosp >30min
--- NOTE | 2024-06-06 09:23 | TREXTCAR_ITS ---
Diet Diet Order/Speech Therapy: 06/05/24 04:57 Diet: Regular - General Routine Orders/Code Status Enema Type: Fleetz Enema Frequency: Daily PRN Suppository Frequency: Daily PRN O2 Frequency: PRN Keep PO Greater than or Equal to (%): 90 Wound(s) LEFT HIP: Wound Type: Surgical Incision Therapies Weight Bearing: Weight bearing as tolerated Physical Therapy: Eval and Treat Occupational Therapy: Eval and Treat Problem/Diagnosis (1) Closed fracture of left hip: Status: Acute Code(s): S72.002A - Fracture of unspecified part of neck of left femur, initial encounter for closed fracture (2) Acute cystitis without hematuria: Status: Acute Code(s): N30.00 - Acute cystitis without hematuria (3) Compression fracture of L5 vertebra: Status: Acute Code(s): S32.050A - Wedge compression fracture of fifth lumbar vertebra, initial encounter for closed fracture Plan #Left hip fracture due to mechanical fall * admitted after he had a mechanical fall at home and landed on his left hip. * imaging showed a closed left hip subcapital fracture as well as a slight L5 compression fracture * s/p left hip closed reduction and percutaneous pinning. * on PO tylenol, IV morphine and PO oxycodone prn for pain * EKG showed no acute ST changes * #UTI * does have a chronic indwelling Marina catheter * Marina catheter was changed and patient started on IV Rocephin. Urine cultures pending. #Debility due to chronic Alzheimer's dementia * on donepezil. * PT/OT on board * #Rheumatoid arthritis: on hydroxychloriquine and leucovorin. Follow with rheumatology on outpatient basis #BPh with obstructive symptoms: has chronic Marina catheter in situ. Marina catheter replaced #COPD: not in exacerbation. On breathing treatment with bronchodilators #Generalised anxiety: on lorazepam prn #Restless leg syndrome: on seroquel #History of gout: stable DVT prophylaxis: started on xarelto 10mg daily per orthopedics Disposition: will benefit from placement. Case management on board. Allergies/Procedures Done in Hospital Allergies No Known Allergies Allergy (Verified 06/03/24 15:07) Procedures: None Type of Care/Length of Stay Estimated LOS: Convalescent Care Less Than 30 days Type of Care Needed: Skilled Rehab Potential: Fair Prognosis: Fair Additional Orders/Day of Discharge Day of Discharge: 06/06/24 Discharge Plan Admission Admit Date/Time: 06/03/24 21:31 Primary Reason for Your Visit: left hip fracture due to mechanical fall, UTI Attending Provider: Kindra Turner Primary Care Provider: Casimiro Duncan Consulting Providers: Chris Stone; Dirk Colon Instructions Patient Instructions: Urinary Tract Infections in Men, Hip Fracture Surgery ... Additional Instructions / Restrictions: to take xarelto 10mg daily x 2 weeks, followed by PO aspirin 81mg bid for DVT prophylaxis Discharge Orders/Prescriptions Prescriptions: New Xarelto 10 mg Tablet 10 mg PO DAILY@0600 14 Days Qty: 14 0RF aspirin 81 mg tablet,delayed release (DR/EC) 81 mg PO BID 14 Days Qty: 28 0RF Rx Instructions: start on 06/20/2024, after you complete the xarelto 10mg daily for 2 weeks for DVT prophylaxis cefdinir 300 mg capsule 300 mg PO BID Qty: 10 0RF oxycodone 5 mg tablet 5 mg PO Q6H PRN (Reason: pain) 3 Days Qty: 18 0RF Continued metoprolol tartrate 25 MG tablet 25 mg PO BID donepezil 23 mg tablet 23 mg PO QHS Patient Comments: take 1 tablet by mouth once daily lorazepam [Ativan] 0.5 mg tablet 0.5 mg PO Q12H methotrexate sodium 2.5 mg Tablet 20 mg PO WE quetiapine 25 mg tablet 25 mg PO QHS Patient Comments: only takes one at night hydroxychloroquine 200 mg Tablet 200 mg PO DAILY acetaminophen 325 mg Tablet 650 mg PO Q6H PRN PRN (Reason: Pain 1-10 Or Fever>100.7) Qty: 0 0RF sennosides-docusate sodium [Stool Softener-Stimulant Laxat] 8.6-50 mg Tablet 2 tab PO BID PRN PRN (Reason: Constipation) Qty: 0 0RF tamsulosin 0.4 mg Capsule 0.4 mg PO DAILY@1730 Qty: 0 0RF leucovorin calcium 15 MG tablet 15 mg PO Q7D Patient Comments: TAKES ON TUESDAY MORNING folic acid 1 MG tablet 1 mg PO BID Referrals / Follow Up: Casimiro Duncan MD [Primary Care Provider] - Within 1 Week Disposition Disposition (needs filled in before D/C Order can be placed): Longterm Facility (1) Closed fracture of left hip Qualifiers: Encounter type: initial encounter Qualified Code(s): S72.002A - Fracture of unspecified part of neck of left femur, initial encounter for closed fracture (3) Compression fracture of L5 vertebra Qualifiers: Encounter type: initial encounter Qualified Code(s): S32.050A - Wedge compression fracture of fifth lumbar vertebra, initial encounter for closed fracture
[2024-06-06 09:26] VITALS: PULSE 79
[2024-06-06] MEDS: Hydroxychloroquine 200 MG Tablet PO (09:26)
[2024-06-06] MEDS: Metoprolol Tartrate 25 MG Tablet PO (09:26)
[2024-06-06] MEDS: Folic Acid 1 MG Tablet PO (09:26)
[2024-06-06] MEDS: Menthol/Lanolin/Calamine/Znox 113 GM Tube 1 APPLIC TOPICAL (09:27)
[2024-06-06] MEDS: Methotrexate 2.5 MG Tablet 20 MG PO (09:27)
[2024-06-06] MEDS: LORazepam 0.5 MG Tablet PO (09:27)
--- NOTE | 2024-06-06 09:37 | CASEMGMT ---
Social Work Per physician, pt is ready for discharge today. Pt ready for discharge to [facility]. 7000 exemption form completed in [facility]. DC social services assistant updated and to complete dc. Disposition: [facility], Skilled level of care under convalescent stay MILES Martinez
--- NOTE | 2024-06-06 09:53 | CASEMGMT ---
Discharge Planning Discharge orders, signed med list, and transport time sent via [facility] to [facility]. Physicians will transport patient by cot at 11a. Nursing and SW updated. VM left for pts . Rosy Stovall DC Planning Asst.
[2024-06-06 10:10] VITALS: BP 115/65; PULSE 79; RESP 18; TEMP 36.5; O2SAT 94
--- NOTE | 2024-06-06 10:20 | NURSING ---
Report called to Donna Weller at [facility] [phone]. Pt to be picked up at 11am
== END 2024-06-06 11:10 | disposition skilled nursing facility (03) | DRG 481 ==
LOC: ED 21:06 → MS3 21:44
PROVIDERS: Specialist; Admitting Provider Internal Medicine; Emergency Provider Emergency Medicine; PCP Family Medicine; Visit Provider Student in an Organized Health Care Education/Training Program
PROC: 0QH734Z Insertion of Internal Fixation Device into Left Upper Femur, Percutaneous Approach (ICD-10-PCS; principal; 2024-06-04 15:15)
DX: S72.002A Fracture of unspecified part of neck of left femur, initial encounter for closed fracture (principal); S32.050A Wedge compression fracture of fifth lumbar vertebra, initial encounter for closed fracture; T83.511A Infection and inflammatory reaction due to indwelling urethral catheter, initial encounter; N13.8 Other obstructive and reflux uropathy; N30.00 Acute cystitis without hematuria; S20.212A Contusion of left front wall of thorax, initial encounter; F02.80 Dementia in other diseases classified elsewhere, unspecified severity, without behavioral disturbance, psychotic disturbance, mood disturbance, and anxiety; J44.9 Chronic obstructive pulmonary disease, unspecified; M06.9 Rheumatoid arthritis, unspecified; I10 Essential (primary) hypertension; G25.81 Restless legs syndrome; G30.9 Alzheimer's disease, unspecified; M10.9 Gout, unspecified; M47.812 Spondylosis without myelopathy or radiculopathy, cervical region; Z87.891 Personal history of nicotine dependence; R53.81 Other malaise; N40.1 Benign prostatic hyperplasia with lower urinary tract symptoms; Z87.440 Personal history of urinary (tract) infections; F41.1 Generalized anxiety disorder
CPT/HCPCS: 36415; 70450; 71250; 72125; 73501; 73502; 74176; 76000; 80048; 80053; 81001; 83735; 84100; 84443; 85025; 85610; 85730; 86850; 86900; 86901; 87077; 87086; 87088; 87186; 93005; 94668; 97162; 97166; 97530; 99252; 99284; C1713; J7030; J7120; A4216; G0463; J2405; J8610

== ENCOUNTER 2024-06-23 02:27 | Emergency (ER) | payer MEDICARE, BC, SELFPAY ==
[2024-06-23 02:28] VITALS: BP 114/70; PULSE 82; RESP 18; TEMP 36.4; O2SAT 93; BMI 22.3
[2024-06-23 02:34] VITALS: O2SAT 95
--- NOTE | 2024-06-23 03:24 | EDS_ITS ---
HPI HPI - Fall History of Present Illness Chief Complaint: Fall Informant: patient Occured/Mechanism Occurred: Today Narrative: Patient fell out of bed Pain/Injury Pain Location: head and upper extremity (Left forearm) Quality of Pain: Dull Worsened by: Nothing Relieved by: Nothing Associated Symptoms Associated Symptoms: Negative for Parasthesias, Weakness, Loss of function, Inability to ambulate, Loss of consciousness or Amnesia Narrative Narrative: Patient presents after a fall tonight. Patient states he was trying to put his pants on and he fell out of bed. Patient hit the right side of his head. Patient also complains of pain over his left forearm. Patient is unsure if he had any loss of consciousness. Patient has a history of dementia and is a poor informant. Patient denies any paresthesias or weakness. Patient denies any other injuries. [facility] Medical History Chest wall contusion Dementia Fall Compression fracture of L5 vertebra Closed fracture of left hip Wears hearing aid Wears glasses Depression Anxiety Dementia Alcohol use Walker as ambulation aid Rheumatoid arthritis Bladder disease Prostate disease Indwelling urethral catheter present Back pain Injury of head and neck Dietary restriction History of IBS Former smoker History of edema History of irregular heartbeat Lives in [facility] COPD (chronic obstructive pulmonary disease) Alzheimer disease Hemorrhoids Weight loss Rheumatoid arthritis Gout HTN (hypertension) Home Medications ?Medication ?Instructions ?Recorded ?Last Taken ?Type metoprolol tartrate 25 mg tablet 25 mg PO BID htn 03/24/14 02/01/24 History folic acid 1 mg tablet 1 mg PO BID vitamin 06/17/17 12/04/23 History leucovorin calcium 15 mg tablet 15 mg PO Q7D RA 06/17/17 01/18/24 History donepezil 23 mg tablet 23 mg PO QHS dementia 09/15/23 02/01/24 History hydroxychloroquine 200 mg tablet 200 mg PO DAILY 12/05/23 02/01/24 History acetaminophen 325 mg tablet 650 mg (2 x 325 mg) PO Q6H PRN PRN 12/08/23 Unknown Rx Pain 1-10 Or Fever>100.7 #0 tabs sennosides 8.6 mg-docusate sodium 2 tab PO BID PRN PRN Constipation 12/08/23 Unknown Rx 50 mg tablet (Stool #0 tabs Softener-Stimulant Laxative) tamsulosin 0.4 mg capsule 0.4 mg PO DAILY@1730 #0 caps 12/08/23 01/31/24 Rx lorazepam 0.5 mg tablet (Ativan) 0.5 mg PO Q12H anxiety 01/05/24 06/03/24 History methotrexate sodium 2.5 mg tablet 20 mg PO WE 01/05/24 01/25/24 History quetiapine 25 mg tablet 25 mg PO QHS 02/01/24 01/31/24 History aspirin 81 mg tablet,delayed 81 mg PO BID 2 weeks #28 tabs 06/06/24 Unknown Rx release cefdinir 300 mg capsule 300 mg PO BID #10 caps 06/06/24 Unknown Rx oxycodone 5 mg tablet 5 mg PO Q6H PRN pain 3 days #18 06/06/24 Unknown Rx tabs rivaroxaban 10 mg tablet (Xarelto) 10 mg PO DAILY@0600 14 days #14 06/06/24 Unknown Rx tabs Allergy/AdvReac Type Severity Reaction Status Date / Time No Known Allergies Allergy Verified 06/23/24 02:34 Family History Father Colon cancer CVA (cerebral vascular accident) Hypertension Heart disease Sister CAD (coronary artery disease) Hypertension Heart disease Mother Cancer Surgical History History of stapedectomy Hx of tonsillectomy S/P colonoscopy Social History household members: spouse Smoking Status: Former smoker alcohol intake: never substance use type: does not use ROS ROS ED Constitutional Constitutional ED: Denies chills or fever(s) Eyes Eyes: Denies blurry vision or change in vision ENT ENT ED: Denies rhinorrhea or sore throat Cardiovascular Cardiovascular: Denies chest pain or palpitations Respiratory/Chest Respiratory/Chest: Denies cough or dyspnea Gastrointestinal Gastrointestinal: Denies nausea or vomiting Genitourinary Genitourinary ED: Denies dysuria or hematuria Musculoskeletal Musculoskeletal: Denies back pain or neck pain Integumentary Denies abscess or rash Neurologic Neurologic: Reports headache(s); Denies weakness Allergic/Immunologic Allergic/Immunologic ED: Denies mouth swelling or urticaria EXAM Physical Exam Const Vital Signs: 06/23/24 02:28 06/23/24 02:34 06/23/24 04:27 Temperature 97.5 F L Temperature Source Temporal Pulse Rate 82 79 Respiratory Rate 18 16 Respiratory Effort Normal Respiratory Depth Normal Respiratory Pattern Normal Blood Pressure 114/70 142/85 H Blood Pressure Mean 84 104 Pulse Ox 93 95 96 Oxygen Delivery Method Room Air Room Air Room Air Positive well nourished and well developed General Appearance ED: well developed and NAD HEENT HEENT Narrative: There is a hematoma over the right frontal/parietal scalp. There is no active bleeding noted. There is no bony crepitance or step-off noted. trauma and hematoma Neck full ROM and supple Resp normal respiratory effort and clear to auscultation bilaterally Cardio regular rate and regular rhythm GI non-tender and non-distended Palpation: soft Neuro CN's II-XII intact bilaterally, moves all extremities, no focal motor deficits and no sensory deficits noted Sensorium / Orientation: alert Motor Exam: strength 5/5 throughout Psych mental status grossly normal MDM MDM MDM Narrative Medical decision making narrative: Differential diagnosis includes closed head injury, intracranial bleeding, scalp contusion, left forearm contusion, fracture, and sprain. CT scan of the brain will be obtained to assess for intracranial bleeding. X-rays of the left forearm will be obtained to assess for fracture. Radiography Diagnostic Testing: Clinical Impression(s) from Imaging Studies Brain CT 06/23/24 03:28 IMPRESSION: There are no acute findings. Chronic involutional changes of the brain. Electronically Signed: Micah Bob MD at 4:53 EDT , CT scan of the brain was obtained. There is no acute intracranial abnormality. There are chronic involutional changes. This was interpreted by the radiologist and was also independently reviewed by myself. X-rays of the left forearm were obtained. There are 2 views. On my independent interpretation, there is no acute fracture. There is no soft tissue swelling. Radiologist also interpreted the x-rays and agrees. Treatment and Re-Evaluation Narrative: Patient was advised of his findings. Patient was instructed use ice to the area. Patient was instructed to follow-up with his primary care physician in 5 to 7 days. Patient understood and was agreeable with the plan. All questions were answered. Discharge Plan Triage Chief Complaint: Fall ED Provider: Matt Connors Dx/Rx/DC Orders Clinical Impression: Fall, Contusion of left forearm, initial encounter, Closed head injury Instructions: ED Soft Tissue Contusion, ED Head Injury (Adult) Prescriptions: No Action metoprolol tartrate 25 MG tablet 25 mg PO BID donepezil 23 mg tablet 23 mg PO QHS Patient Comments: take 1 tablet by mouth once daily lorazepam [Ativan] 0.5 mg tablet 0.5 mg PO Q12H methotrexate sodium 2.5 mg Tablet 20 mg PO WE quetiapine 25 mg tablet 25 mg PO QHS Patient Comments: only takes one at night Xarelto 10 mg Tablet 10 mg PO DAILY@0600 14 Days Qty: 14 0RF aspirin 81 mg tablet,delayed release (DR/EC) 81 mg PO BID 14 Days Qty: 28 0RF Rx Instructions: start on 06/20/2024, after you complete the xarelto 10mg daily for 2 weeks for DVT prophylaxis cefdinir 300 mg capsule 300 mg PO BID Qty: 10 0RF oxycodone 5 mg tablet 5 mg PO Q6H PRN (Reason: pain) 3 Days Qty: 18 0RF hydroxychloroquine 200 mg Tablet 200 mg PO DAILY acetaminophen 325 mg Tablet 650 mg PO Q6H PRN PRN (Reason: Pain 1-10 Or Fever>100.7) Qty: 0 0RF sennosides-docusate sodium [Stool Softener-Stimulant Laxat] 8.6-50 mg Tablet 2 tab PO BID PRN PRN (Reason: Constipation) Qty: 0 0RF tamsulosin 0.4 mg Capsule 0.4 mg PO DAILY@1730 Qty: 0 0RF leucovorin calcium 15 MG tablet 15 mg PO Q7D Patient Comments: TAKES ON TUESDAY MORNING folic acid 1 MG tablet 1 mg PO BID Primary Care Provider: Casimiro Duncan Referrals: Casimiro Duncan MD [Primary Care Provider] - 5-7 Days Print Language: Ukrainian Disposition Disposition: [facility] Facility Discharge Location: [facility]
--- NOTE | 2024-06-23 03:28 | CT_ITS ---
INDICATION: Injury/Pain EXAMINATION: CT BRAIN - CT Head or Brain W/O Contrast Injection TECHNIQUE: Multiple axial images were obtained of the head without intravenous contrast. The protocol utilizes one or more of the following dose reduction techniques: automated exposure control, adjustment of mA and/or kV according to patient size,and/or use of iterative reconstruction technique. IV Contrast dosage and agent: None. RADIATION DOSAGE (If Supplied By Facility): CTDIvol = ( 44.99 ) mGy, DLP = ( 846.73 ) mGycm COMPARISON: CT BrainOct 2023 5:12pm FINDINGS: There are calcifications around the carotid artery. These are noted in the cavernous carotid arteries. Normal calvarium. Normal soft tissues. There is mild cerebral atrophy with widening of the extra-axial spaces and ventricular dilatation. There are areas of decreased attenuation within the white matter tracts of the supratentorial brain, consistent with microvascular disease changes. Normal basal ganglia and thalami. Normal brainstem. There is mild cerebellar atrophy. There is no intracranial hemorrhage. There are no findings of an acute ischemic infarction. Right mastoid air cell fluid. CT/Brain/Head without Contrast IMPRESSION: There are no acute findings. Chronic involutional changes of the brain. Electronically Signed: Micah Bob MD at 4:53 EDT ,
--- NOTE | 2024-06-23 03:50 | RAD_ITS ---
INDICATION: Injury/Pain EXAMINATION/TECHNIQUE: X-RAY - LEFT XR Forearm 2 Views 2 VIEWS COMPARISON: No relevant prior comparison study available FINDINGS: SOFT TISSUES: No soft tissue swelling or gas. No radiopaque foreign body. BONES/JOINTS: No acute fracture or subluxation.. Normal alignment. Preservation of the joint space.. No sclerotic or destructive changes observed. RAD/Forearm 2 Views IMPRESSION: Negative. Electronically Signed: Micah Bob MD at 5:46 EDT ,
[2024-06-23 04:27] VITALS: BP 142/85; PULSE 79; RESP 16; O2SAT 96
--- NOTE | 2024-06-23 05:40 | ED.RN ---
This RN called [facility] to update nurse on pt's visit and dispo status
[2024-06-23 06:00] VITALS: BP 151/88; PULSE 86; RESP 18; O2SAT 98
[2024-06-23 06:49] VITALS: BP 151/88; PULSE 86; RESP 18; TEMP 36.4; O2SAT 98
[2024-06-23 08:00] VITALS: PULSE 87; RESP 16; O2SAT 97
== END 2024-06-23 08:55 | disposition skilled nursing facility (03) ==
PROVIDERS: Emergency Provider Emergency Medicine; PCP Family Medicine; Visit Provider Emergency Medicine
DX: S09.90XA Unspecified injury of head, initial encounter (principal); F03.90 Unspecified dementia, unspecified severity, without behavioral disturbance, psychotic disturbance, mood disturbance, and anxiety; J44.9 Chronic obstructive pulmonary disease, unspecified; S50.12XA Contusion of left forearm, initial encounter; Z87.891 Personal history of nicotine dependence; I10 Essential (primary) hypertension; W06.XXXA Fall from bed, initial encounter; Z79.899 Other long term (current) drug therapy; F41.9 Anxiety disorder, unspecified; F32.A Depression, unspecified; Z79.82 Long term (current) use of aspirin
CPT/HCPCS: 70450; 73090; 99284

== ENCOUNTER → 2024-07-30 | Outpatient (CLI) | payer MEDICARE, BC, SELFPAY ==
[2024-07-30 15:45] LABS: Anion Gap 6 (5-15); BUN 15 mg/dL (7-18); BUN/Creat Ratio 18.7 RATIO (10-20); Calcium,Total 9.6 mg/dL (8.5-10.1); Chloride 106 mmol/L (98-107); EST Glomerular Filtration Rate 100 mL/min (>60); Est Glom Filt Rate - Afr Amer 121 mL/min (>60); Glucose 74 mg/dL (74-106); Potassium 3.9 mmol/L (3.5-5.1); Sodium Level 138 mmol/L (136-145)
== END | disposition home or self-care (01) ==
LOC: MFPLAB 12:16
PROVIDERS: PCP Family Medicine; Referring Provider Family Medicine; Visit Provider Family Medicine
DX: I10 Essential (primary) hypertension (principal)
CPT/HCPCS: 36415; 80048

== ENCOUNTER 2024-08-09 11:23 | Emergency (ER) | payer MEDICARE, BC, SELFPAY ==
[2024-08-09 11:24] VITALS: BP 137/85; PULSE 86; RESP 16; TEMP 36.6; O2SAT 94
--- NOTE | 2024-08-09 11:42 | EDS_ITS ---
HPI History of Present Illness Chief Complaint: Nausea/Vomiting Informant: patient and spouse/S.O. Onset/Context/Timing Onset: Today and Yesterday Context: Gradual Onset Timing: Continuous Current Severity: Mild Maximum Severity: Mild Narrative Narrative: 73-year-old male history dimension COPD. Chronic Marina catheter due to urinary retention. states that around 4:00 yesterday started having nausea and vomiting. No diarrhea. He has been generally weak. With dark urine. No abdominal pain. Today he was able to hold down oatmeal and some aniyah gurvinder. had similar nausea and vomiting symptoms on Tuesday. Currently he has no complaints. Denies abdominal pain. Prior similar symptoms: Yes Recent Illness/Hospitalization: No PFSH PFSH Medical History Chest wall contusion Dementia Fall Compression fracture of L5 vertebra Closed fracture of left hip Wears hearing aid Wears glasses Depression Anxiety Dementia Alcohol use Walker as ambulation aid Rheumatoid arthritis Bladder disease Prostate disease Indwelling urethral catheter present Back pain Injury of head and neck Dietary restriction History of IBS Former smoker History of edema History of irregular heartbeat Lives in halfway COPD (chronic obstructive pulmonary disease) Alzheimer disease Hemorrhoids Weight loss Rheumatoid arthritis Gout HTN (hypertension) Home Medications ?Medication ?Instructions ?Recorded ?Last Taken ?Type metoprolol tartrate 25 mg tablet 25 mg PO BID htn 03/24/14 02/01/24 History folic acid 1 mg tablet 1 mg PO BID vitamin 06/17/17 12/04/23 History leucovorin calcium 15 mg tablet 15 mg PO Q7D RA 06/17/17 01/18/24 History donepezil 23 mg tablet 23 mg PO QHS dementia 09/15/23 02/01/24 History hydroxychloroquine 200 mg tablet 200 mg PO DAILY 12/05/23 02/01/24 History acetaminophen 325 mg tablet 650 mg (2 x 325 mg) PO Q6H PRN PRN 12/08/23 Unknown Rx Pain 1-10 Or Fever>100.7 #0 tabs sennosides 8.6 mg-docusate sodium 2 tab PO BID PRN PRN Constipation 12/08/23 Unknown Rx 50 mg tablet (Stool #0 tabs Softener-Stimulant Laxative) tamsulosin 0.4 mg capsule 0.4 mg PO DAILY@1730 #0 caps 12/08/23 01/31/24 Rx lorazepam 0.5 mg tablet (Ativan) 0.5 mg PO Q12H anxiety 01/05/24 06/03/24 History methotrexate sodium 2.5 mg tablet 20 mg PO WE 01/05/24 01/25/24 History quetiapine 25 mg tablet 25 mg PO QHS 02/01/24 01/31/24 History aspirin 81 mg tablet,delayed 81 mg PO BID 2 weeks #28 tabs 06/06/24 Unknown Rx release cefdinir 300 mg capsule 300 mg PO BID #10 caps 06/06/24 Unknown Rx oxycodone 5 mg tablet 5 mg PO Q6H PRN pain 3 days #18 06/06/24 Unknown Rx tabs rivaroxaban 10 mg tablet (Xarelto) 10 mg PO DAILY@0600 14 days #14 06/06/24 Unknown Rx tabs Allergy/AdvReac Type Severity Reaction Status Date / Time No Known Allergies Allergy Verified 08/09/24 11:26 Family History Father Colon cancer CVA (cerebral vascular accident) Hypertension Heart disease Sister CAD (coronary artery disease) Hypertension Heart disease Mother Cancer Surgical History History of stapedectomy Hx of tonsillectomy S/P colonoscopy Social History household members: spouse Smoking Status: Former smoker alcohol intake: never substance use type: does not use ROS ROS ED ROS Narrative Nausea and vomiting. Constitutional Constitutional ED: Denies chills or fever(s) Eyes Eyes: Denies blurry vision ENT ENT ED: Denies ear pain Cardiovascular Cardiovascular: Denies chest pain Respiratory/Chest Respiratory/Chest: Denies cough Gastrointestinal Gastrointestinal: Reports nausea and vomiting; Denies abdominal pain, constipation, diarrhea or melena Genitourinary Genitourinary ED: Denies dysuria or hematuria Musculoskeletal Musculoskeletal: Denies arthralgias Integumentary Denies abscess Neurologic Neurologic: Denies headache(s) or paresthesias Psychiatric Psychiatric: Denies anxiety Endocrine Endocrinology: Denies cold intolerance Hematologic/Lymphatic Hematologic/Lymphatic: Reports none Allergic/Immunologic Allergic/Immunologic ED: Denies mouth swelling, tongue swelling or urticaria EXAM Physical Exam Narrative Exam Narrative: 69 [place] male vital signs are stable he is afebrile he does not look septic toxic. He does appear mildly dehydrated. Sitting upright in bed. H EENT exam pupils round reactive light. No facial droop. No trauma. Mildly dry mucous membranes. Neck nontender no lymphadenopathy. Lungs clear to auscultation bilaterally. Heart regular rate and rhythm rate about 85 no murmur. Abdomen is soft, nontender, nondistended normal bowel sounds without peritoneal signs. No obstruction. Completely nontender. Chronic indwelling Marina catheter needs changed. Dark urine. Moving all 4 extremities. Nontender no edema. Normal strength. Back nontender. He is awake. He really does not say much is a limited informant due to his dementia. is at bedside. Const Vital Signs: 08/09/24 11:24 08/09/24 13:23 08/09/24 15:00 Temperature 97.8 F Temperature Source Oral Pulse Rate 86 68 79 Respiratory Rate 16 17 20 H Blood Pressure 137/85 H 104/57 L 132/69 H Blood Pressure Mean 102 72 90 Pulse Ox 94 95 94 Oxygen Delivery Method Room Air Room Air Room Air Positive well nourished and well developed; Negative for obese, cachectic, contractures or unkempt General Appearance ED: well developed and NAD; Negative for unkempt, cachectic, contractures, cyanotic, diaphoretic or pallor Nutritional Appearance: Negative for cachectic or obese HEENT Reports dry mucous membranes; Denies moist mucous membranes Negative for trauma or tenderness Mouth ED: Yes dry mucous membranes Mouth: dry mucous membranes Eyes PERRL and EOMs intact bilaterally General Eye ED: Negative for pale conjunctiva or scleral icterus Neck no lymphadenopathy, supple and no JVD General: Negative for tenderness Lymph Lymphatic: Negative for other Chest Wall inspection of chest normal and palpation of chest normal Chest: Negative for other Resp normal respiratory effort and clear to auscultation bilaterally Effort and Inspection: Negative for retractions Auscultation: Negative for rales, rhonchi, wheezes or diminished lung sounds Cardio regular rate, regular rhythm, S1 normal heart sound, S2 normal heart sound and no murmurs Palpation: Negative for palpable S3 or palpable S4 Rate: Negative for bradycardia or tachycardic Rhythm: Negative for abnormal rhythm GI normal to inspection, nondistended, normoactive bowel sounds, non-tender, non- distended and no masses Inspection: Negative for abdominal distention Auscultation: normoactive bowel sounds Palpation: soft; Negative for tender, guarding or rebound tenderness present Back/Spine no CVA tenderness General Back: Negative for CVA tenderness Cervical Spine: Negative for cervical spine tenderness Thoracic Spine / Upper Back: Negative for thoracic spinal tenderness or paraspinal muscle tenderness Lumbar Spine / Lower Back: Negative for lumbar spinal tenderness Extremity normal to inspection General Extremety ED: Negative for edema or tenderness General Extremity: Negative for edema Neuro oriented x3 and CN's II-XII intact bilaterally Sensorium / Orientation: alert; Negative for orientation impaired, lethargic or stuporous Motor Exam: strength 5/5 throughout Psych mental status grossly normal Appearance: Negative for unkempt Attitude: No agitated Mood & Affect: Negative for depressed, anxious or tearful Skin no rashes or lesions noted and no wounds General Skin Exam: Negative for jaundice or pallor Lesions: No lesion noted Rashes: No rashes noted Wounds: Negative for wounds noted MDM MDM MDM Narrative Medical decision making narrative: Demented 73-year-old male with nausea and vomiting clinically looks dehydrated. To receive IV fluids. Zofran for nausea. No changes Marina send a UA and screening labs. Abdomen is benign I do not think he needs a CAT scan of his abdomen or any abdominal and imaging at this time. Repeat exam at 12:18 PM patient doing well. Awaiting urinalysis. Repeat exam at 3 PM patient doing well. at bedside. They both feel comfortable with him being discharged home. We went over his test results and suspected UTI. He will be discharged home with prescription of Cipro twice daily for 10 days. Urine culture sent. Zofran as needed for nausea. We discussed all his test results. Outpatient follow-up. History & Record Review Discussion w/independent historian: Patient and Family Additional record(s) reviewed:: Prior inpatient record, Prior outpatient record, Prior ED visit and Prior labs Lab Data Attestation: I reviewed the patient's lab results. Lab results narrative: CBC shows a white 11.2. H&H is 16.8 and 48. Platelets 263. Electrolytes show a gap of 6. BUN of 25 creatinine of 1 consistent with mild dehydration. Glucose 134. UA is positive for nitrates has 5-10 red cells 25-50 white cells and 1+ bacteria. Will be treated as UTI culture will be sent. Labs: Laboratory Results - last 24 hr 08/09/24 08/09/24 11:50 14:00 WBC 11.2 H RBC 5.34 Hgb 16.8 H Hct 48.8 MCV 91.4 MCH 31.5 MCHC 34.4 RDW Std Deviation 50.4 H RDW Coeff of Narciso 15.1 H Plt Count 263 MPV 8.7 Immature Gran % (Auto) 0.400 Neut % (Auto) 87.4 H Lymph % (Auto) 5.0 L [place] % (Auto) 6.6 Eos % (Auto) 0.1 Baso % (Auto) 0.5 Absolute Neuts (auto) 9.8 H Absolute Lymphs (auto) 0.56 L Nucleated RBC % 0 Sodium 136 Potassium 3.8 Chloride 104 Carbon Dioxide 26.0 Anion Gap 6 BUN 25 H Creatinine 1.09 Est GFR (MDRD) Af Amer 85 Est GFR (MDRD) Non-Af 70 BUN/Creatinine Ratio 22.9 H Glucose 134 H Calcium 9.2 Urine Color Yellow Urine Clarity Sl. Cloudy Urine pH 6.0 Ur Specific [place] 1.025 Urine Protein 100 H Urine Glucose (UA) Normal Urine Ketones Negative Urine Occult Blood 150 H Urine Nitrite Positive H Urine Bilirubin Negative Urine Urobilinogen 1 H Ur Leukocyte Esterase 500 H Urine RBC 5-10 SEEN Urine WBC 25-50 SEEN Ur Squamous Epith Cells 0 SEEN Urine Bacteria 1+ Urine Mucus 0 SEEN Discharge Plan Triage Chief Complaint: Nausea/Vomiting ED Provider: Rick Munguia Dx/Rx/DC Orders Prescriptions: No Action metoprolol tartrate 25 MG tablet 25 mg PO BID donepezil 23 mg tablet 23 mg PO QHS Patient Comments: take 1 tablet by mouth once daily lorazepam [Ativan] 0.5 mg tablet 0.5 mg PO Q12H methotrexate sodium 2.5 mg Tablet 20 mg PO WE quetiapine 25 mg tablet 25 mg PO QHS Patient Comments: only takes one at night Xarelto 10 mg Tablet 10 mg PO DAILY@0600 14 Days Qty: 14 0RF aspirin 81 mg tablet,delayed release (DR/EC) 81 mg PO BID 14 Days Qty: 28 0RF Rx Instructions: start on 06/20/2024, after you complete the xarelto 10mg daily for 2 weeks for DVT prophylaxis cefdinir 300 mg capsule 300 mg PO BID Qty: 10 0RF oxycodone 5 mg tablet 5 mg PO Q6H PRN (Reason: pain) 3 Days Qty: 18 0RF hydroxychloroquine 200 mg Tablet 200 mg PO DAILY acetaminophen 325 mg Tablet 650 mg PO Q6H PRN PRN (Reason: Pain 1-10 Or Fever>100.7) Qty: 0 0RF sennosides-docusate sodium [Stool Softener-Stimulant Laxat] 8.6-50 mg Tablet 2 tab PO BID PRN PRN (Reason: Constipation) Qty: 0 0RF tamsulosin 0.4 mg Capsule 0.4 mg PO DAILY@1730 Qty: 0 0RF leucovorin calcium 15 MG tablet 15 mg PO Q7D Patient Comments: TAKES ON TUESDAY MORNING folic acid 1 MG tablet 1 mg PO BID Primary Care Provider: Casimiro Duncan Referrals: Casimiro Duncan MD [Primary Care Provider] - Print Language: Chinese
[2024-08-09 11:57] LABS: Absolute Lymphocyte Count 0.56 X10^3/uL (0.83-4.51); Absolute Neutrophil Count 9.8 X10^3/uL (2.0-7.7); Basophil# 0.06 X10^3/uL; Basophil% 0.5 % (0-1); Eosinophil# 0.01 X10^3/uL; Eosinophils% 0.1 % (0-5); Hematocrit 48.8 % (40-54); Hemoglobin 16.8 g/dL (13.0-16.5); Lymphocyte # 0.56 X10^3/ul (0.83-4.51); Mean Corp Hgb Conc 34.4 g/dL (32-36); Mean Corpuscular Hgb 31.5 pg (27.0-32.0); Mean Corpuscular Volume 91.4 fL (80-94); Mean Platelet Vol. 8.7 fl (6.2-12.0); Monocyte# 0.74 X10^3/uL; Monocyte% 6.6 % (0-10); NRBC Flagged by Analyzer 0 % (0-5); Neutrophil # 9.78 X10^3/uL (2.7-7.7); Neutrophil % 87.4 % (47-70); POSITIVE DIFFERENTIAL YES; Platelet Count 263 K/mm3 (150-450); RBC Distribution Width CV 15.1 % (11.6-14.6); RBC Distribution Width SD 50.4 fl (35.1-43.9); Red Blood Count 5.34 M/mm3 (4.6-6.2); White Blood Count 11.2 K/mm3 (4.4-11.0)
[2024-08-09 12:06] LABS: Anion Gap 6 (5-15); BUN 25 mg/dL (7-18); BUN/Creat Ratio 22.9 RATIO (10-20); Calcium,Total 9.2 mg/dL (8.5-10.1); Chloride 104 mmol/L (98-107); Creatinine, Serum 1.09 mg/dL (0.70-1.30); EST Glomerular Filtration Rate 70 mL/min (>60); Est Glom Filt Rate - Afr Amer 85 mL/min (>60); Glucose 134 mg/dL (74-106); Potassium 3.8 mmol/L (3.5-5.1); Sodium Level 136 mmol/L (136-145)
[2024-08-09] MEDS: Ondansetron 4 MG/2 ML Vial IV (12:10)
[2024-08-09] MEDS: 0.9% Normal Saline (1000mL) 1,000 ML 1000 ML IV (12:10)
[2024-08-09 13:23] VITALS: BP 104/57; PULSE 68; RESP 17; O2SAT 95
[2024-08-09 14:04] LABS: Mucous, Urine 0 SEEN /hpf (<or=2+); Squamous Epithelial Cells - UA 0 SEEN /hpf (0-5)
[2024-08-09 14:06] LABS: Color, Urine Yellow (Yellow); Glucose, Dipstick Normal (Normal); Ketone-Dipstick Negative (Negative); Leukocyte Esterase-Dipstick 500 /ul (Negative); Nitrite-Dipstick Positive (Negative); Occult Blood-Urine 150 /ul (Negative); Protein-Dipstick 100 mg/dl (Negative); Specific Gravity, Urine 1.025 (1.002-1.030); Urine Bilirubin Dipstick Negative (Negative); Urine Clarity Sl. Cloudy (Clear); Urine Urobilinogen 1 mg/dl (Normal)
[2024-08-09 14:19] LABS: White Blood Cells 25-50 SEEN /hpf (0-5)
[2024-08-09 14:20] LABS: Bacteria 1+ /hpf (None Seen); Red Blood Cells-Urine 5-10 SEEN /hpf (0-5)
[2024-08-09 15:00] VITALS: BP 132/69; PULSE 79; RESP 20; O2SAT 94
[2024-08-09 15:09] VITALS: BP 132/69; PULSE 79; RESP 20; TEMP 36.8; O2SAT 94
[2024-08-09] MEDS: Ciprofloxacin 500 MG Tablet PO (15:13)
--- NOTE | 2024-08-09 15:14 | CM.ED ---
Social Work SW was able to verify that patient has both HPOA and Living Will on record at [facility]. Kayleigh Fortune, NUTRITION SERVICES ASSISTANT, GEOTHERMAL POWERPLANT MECHANIC HELPER
--- NOTE | 2024-08-09 15:18 | CM.ED ---
Social Work SW was able to verify that patient has both a Living Will and HPOA on file at [facility]. Kayleigh Fortune, LASTING MACHINE OPERATOR HAND METHOD, SENIOR SQL SERVER DBA
== END 2024-08-09 15:25 | disposition home or self-care (01) ==
PROVIDERS: Emergency Provider Emergency Medicine; PCP Family Medicine; Visit Provider Emergency Medicine
DX: R11.2 Nausea with vomiting, unspecified (principal); J44.9 Chronic obstructive pulmonary disease, unspecified; I10 Essential (primary) hypertension; R33.9 Retention of urine, unspecified; Z87.891 Personal history of nicotine dependence
CPT/HCPCS: 51702; 80048; 81001; 85025; 87077; 87086; 87088; 87186; 96361; 96374; 99284; A4216; J2405

== ENCOUNTER 2024-08-18 13:02 | Inpatient (IN) | payer MEDICARE, BC, SELFPAY ==
[2024-08-18] VITALS (9 sets, daily range): BP systolic 109–135; BP diastolic 65–88; PULSE 68–89; RESP 16–21; TEMP 36.7–37.4; O2SAT 93–97; BMI 21.2; BMI 20.7
--- NOTE | 2024-08-18 13:28 | EKG12_ITS ---
Test Reason : CONFUSION Blood Pressure : */* mmHG Vent. Rate : 78 BPM Atrial Rate : 78 BPM P-R Int : 166 ms QRS Dur : 82 ms QT Int : 384 ms P-R-T Axes : 32 -39 58 degrees QTcB Int : 437 ms Normal sinus rhythm with sinus arrhythmia Left axis deviation Inferior infarct , age undetermined Abnormal ECG Confirmed by NATE POTTS, JENNA ([id number]), primer expeditor and drier DASIA MAJANO ([id number]) on 08/20/2024 8:38:12 AM Referred By: Confirmed By: JENNA SULLIVAN MD
[2024-08-18 13:41] LABS: Mucous, Urine 0 SEEN /hpf (<or=2+)
[2024-08-18 13:45] LABS: Absolute Lymphocyte Count 0.81 X10^3/uL (0.83-4.51); Absolute Neutrophil Count 6.6 X10^3/uL (2.0-7.7); Basophil# 0.07 X10^3/uL; Basophil% 0.8 % (0-1); Eosinophil# 0.11 X10^3/uL; Eosinophils% 1.3 % (0-5); Hemoglobin 16.1 g/dL (13.0-16.5); Lymphocyte # 0.81 X10^3/ul (0.83-4.51); Lymphocyte % 9.8 % (19-41); Mean Corp Hgb Conc 34.3 g/dL (32-36); Mean Corpuscular Hgb 31.3 pg (27.0-32.0); Mean Corpuscular Volume 91.3 fL (80-94); Mean Platelet Vol. 8.6 fl (6.2-12.0); Monocyte# 0.64 X10^3/uL; Monocyte% 7.7 % (0-10); NRBC Flagged by Analyzer 0 % (0-5); Neutrophil % 79.7 % (47-70); Platelet Count 373 K/mm3 (150-450); RBC Distribution Width CV 14.3 % (11.6-14.6); RBC Distribution Width SD 48.1 fl (35.1-43.9); Red Blood Count 5.15 M/mm3 (4.6-6.2); White Blood Count 8.3 K/mm3 (4.4-11.0)
[2024-08-18 13:47] LABS: Color, Urine Yellow (Yellow); Glucose, Dipstick Normal (Normal); Ketone-Dipstick Negative (Negative); Leukocyte Esterase-Dipstick 500 /ul (Negative); Nitrite-Dipstick Positive (Negative); Occult Blood-Urine 250 /ul (Negative); Protein-Dipstick 100 mg/dl (Negative); Specific Gravity, Urine 1.025 (1.002-1.030); Urine Bilirubin Dipstick Negative (Negative); Urine Clarity Cloudy (Clear); Urine Urobilinogen Normal (Normal)
[2024-08-18 13:55] LABS: Bacteria 4+ /hpf (None Seen); Red Blood Cells-Urine 50-100 SEEN /hpf (0-5); Renal Epithelial Cells 10-25 SEEN /hpf (0-5); Squamous Epithelial Cells - UA 10-25 SEEN /hpf (0-5); White Blood Cells >100 SEEN /hpf (0-5)
--- NOTE | 2024-08-18 13:55 | RAD_ITS ---
EXAM: XR CHEST, 1 VIEW CLINICAL INDICATION: AMS TECHNIQUE: Frontal view of the chest. COMPARISON: No relevant prior studies available. FINDINGS: LUNGS AND PLEURAL SPACES: Unremarkable. No consolidation or edema. No pneumothorax. No effusion. HEART: Unremarkable. Cardiac silhouette not enlarged. MEDIASTINUM: Central airways and mediastinal contour are unremarkable. BONES/JOINTS: Unremarkable. No acute fracture. SOFT TISSUES: Unremarkable. RAD/Chest 1 View (Portable) IMPRESSION: No radiographic evidence of acute cardiopulmonary disease. Electronically Signed: Peter Love MD at 15:45 EST ,
[2024-08-18 14:01] LABS: AST(SGOT) 13 U/L (15-37); Alanine Aminotransfer ALT/SGPT 16 U/L (16-61); Albumin, Serum 3.3 g/dL (3.2-5.0); Alkaline Phosphatase 79 U/L (45-117); Anion Gap 7 (5-15); BUN 13 mg/dL (7-18); BUN/Creat Ratio 13.7 RATIO (10-20); Chloride 105 mmol/L (98-107); Creatinine, Serum 0.95 mg/dL (0.70-1.30); EST Glomerular Filtration Rate 82 mL/min (>60); Est Glom Filt Rate - Afr Amer 99 mL/min (>60); Estimated Creatinine Clearance 64.86 ml/min; Globulin 3.3 g/dL (2.2-4.2); Glucose 115 mg/dL (74-106); Potassium 3.6 mmol/L (3.5-5.1); Protein, Total 6.6 g/dL (6.4-8.2); Sodium Level 138 mmol/L (136-145)
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
--- NOTE | 2024-08-18 15:02 | EDS_ITS ---
HPI History of Present Illness Chief Complaint: Alt LOC Informant: spouse/S.O. Limited: dementia Narrative Narrative: Patient is a 73-year-old male with history of COPD, hypertension, chronic indwelling Marina catheter with recent UTI (started on ciprofloxacin on 08/09) presenting from home via EMS for increased agitation and aggression. states that he became acutely more agitated today. He was trying to leave the house. For the past few weeks he has been saying that he has a baby. Today he thought someone had taken the baby need to go look for it. No report of any recent change in urine output or hematuria. No report of any fevers. No report of any falls or injuries. states she does not know what to do with him anymore and is very overwhelmed. No other complaints or concerns reported at this time. [facility] Medical History History of ESBL E. coli infection Chest wall contusion Dementia Fall Compression fracture of L5 vertebra Closed fracture of left hip Wears hearing aid Wears glasses Depression Anxiety Dementia Alcohol use Walker as ambulation aid Rheumatoid arthritis Bladder disease Prostate disease Indwelling urethral catheter present Back pain Injury of head and neck Dietary restriction History of IBS Former smoker History of edema History of irregular heartbeat Lives in alf COPD (chronic obstructive pulmonary disease) Alzheimer disease Hemorrhoids Weight loss Rheumatoid arthritis Gout HTN (hypertension) Home Medications ?Medication ?Instructions ?Recorded ?Last Taken ?Type metoprolol tartrate 25 mg tablet 25 mg PO BID htn 03/24/14 02/01/24 History folic acid 1 mg tablet 2 mg PO DAILY vitamin 06/17/17 12/04/23 History leucovorin calcium 15 mg tablet 15 mg PO Q7D RA 06/17/17 01/18/24 History donepezil 23 mg tablet 23 mg PO QHS dementia 09/15/23 02/01/24 History hydroxychloroquine 200 mg tablet 200 mg PO DAILY 12/05/23 02/01/24 History acetaminophen 325 mg tablet 650 mg (2 x 325 mg) PO Q6H PRN PRN 12/08/23 Unknown Rx Pain 1-10 Or Fever>100.7 #0 tabs sennosides 8.6 mg-docusate sodium 2 tab PO BID PRN PRN Constipation 12/08/23 Unknown Rx 50 mg tablet (Stool #0 tabs Softener-Stimulant Laxative) tamsulosin 0.4 mg capsule 0.4 mg PO DAILY@1730 #0 caps 12/08/23 01/31/24 Rx lorazepam 0.5 mg tablet (Ativan) 0.5 mg PO Q12H anxiety 01/05/24 06/03/24 History methotrexate sodium 2.5 mg tablet 20 mg PO WE 01/05/24 01/25/24 History quetiapine 25 mg tablet 25 mg PO QHS 02/01/24 01/31/24 History aspirin 81 mg tablet,delayed 81 mg PO BID 2 weeks #28 tabs 06/06/24 Unknown Rx release ciprofloxacin HCl 500 mg tablet 500 mg PO BID 10 days #20 tabs 08/09/24 Unknown Rx (Cipro) Allergy/AdvReac Type Severity Reaction Status Date / Time No Known Allergies Allergy Verified 08/09/24 11:26 Family History Father Colon cancer CVA (cerebral vascular accident) Hypertension Heart disease Sister CAD (coronary artery disease) Hypertension Heart disease Mother Cancer Surgical History History of stapedectomy Hx of tonsillectomy S/P colonoscopy Social History household members: spouse Smoking Status: Former smoker alcohol intake: never substance use type: does not use ROS ROS ED Review of Systems ROS Unobtainable: due to mental status EXAM Physical Exam Const Vital Signs: 08/18/24 13:03 08/18/24 13:07 08/18/24 14:07 Temperature 98.8 F 98.8 F 98.9 F Temperature Source Temporal Oral Oral Pulse Rate 89 84 74 Respiratory Rate 18 19 H 19 H Blood Pressure 114/84 H 109/71 135/88 H Blood Pressure Mean 94 83 103 Pulse Ox 93 95 Oxygen Delivery Method Room Air Room Air 08/18/24 15:02 08/18/24 16:00 08/18/24 16:35 Temperature 98.4 F 98.1 F 98.1 F Temperature Source Oral Oral Pulse Rate 68 87 87 Respiratory Rate 16 19 H 19 H Blood Pressure 121/68 H 135/71 H 135/71 H Blood Pressure Mean 85 92 92 Pulse Ox 96 96 96 Oxygen Delivery Method Room Air Room Air Positive well nourished and well developed General Appearance ED: well developed HEENT Reports moist mucous membranes Negative for trauma Eyes PERRL Neck supple Chest Wall inspection of chest normal Resp normal respiratory effort and clear to auscultation bilaterally Cardio regular rate and regular rhythm GI normal to inspection, nondistended, normoactive bowel sounds and non-tender Narrative: Indwelling Marina catheter in place Back/Spine no CVA tenderness Extremity normal to inspection General Extremety ED: Negative for edema General Extremity: Negative for edema Neuro Neuro Narrative: No focal deficits appreciated, normal tone throughout, confused Sensorium / Orientation: alert and orientation impaired; Negative for lethargic or stuporous Psych Psych Narrative: Cooperative the emergency room. Repeatedly tells me that he has a baby boy but cannot find him. Skin no rashes or lesions noted and no wounds MDM MDM MDM Narrative Medical decision making narrative: Patient is evaluated for acute agitation and worsening delirium/dementia. Patient is hemodynamically stable in the emergency room. Concern for worsening infection or failure of outpatient treatment For catheter associated UTI. No report of any trauma or signs of trauma. Do not think patient requires CT of the brain at this time. Infectious workup is obtained including CBC, CMP and urinalysis. Blood work largely normal. Urinalysis is concerning for urinary tract infection with 4+ bacteria and greater than 100 white blood cells. Positive nitrates. Urine culture sent. Urine culture reviewed from 08/09 which grew 80-100,000 ESBL E. coli and 1000- 10,000 Enterococcus faecalis. The ESBL was resistant to Cipro however the Enterococcus was sensitive to it. Given the patient's mental status change in the (his caregiver's), hesitancy and concerned about taking him home patient remitted for IV antibiotics with gentamicin as both bacteria were susceptible to it. Case discussed with hospitalist, Dr. Richardson and is admitted. Lab Data Attestation: I reviewed the patient's lab results. Labs: Laboratory Results - last 24 hr 08/18/24 08/18/24 13:28 13:30 WBC 8.3 RBC 5.15 Hgb 16.1 Hct 47.0 MCV 91.3 MCH 31.3 MCHC 34.3 RDW Std Deviation 48.1 H RDW Coeff of Narciso 14.3 Plt Count 373 MPV 8.6 Immature Gran % (Auto) 0.700 Neut % (Auto) 79.7 H Lymph % (Auto) 9.8 L [place] % (Auto) 7.7 Eos % (Auto) 1.3 Baso % (Auto) 0.8 Absolute Neuts (auto) 6.6 Absolute Lymphs (auto) 0.81 L Nucleated RBC % 0 Sodium 138 Potassium 3.6 Chloride 105 Carbon Dioxide 25.0 Anion Gap 7 BUN 13 Creatinine 0.95 Estim Creat Clear Calc 64.86 Est GFR (MDRD) Af Amer 99 Est GFR (MDRD) Non-Af 82 BUN/Creatinine Ratio 13.7 Glucose 115 H Calcium 9.0 Total Bilirubin 0.80 AST 13 L ALT 16 Alkaline Phosphatase 79 Total Protein 6.6 Albumin 3.3 Globulin 3.3 Albumin/Globulin Ratio 1.0 Urine Color Yellow Urine Clarity Cloudy Urine pH 6.0 Ur Specific [place] 1.025 Urine Protein 100 H Urine Glucose (UA) Normal Urine Ketones Negative Urine Occult Blood 250 H Urine Nitrite Positive H Urine Bilirubin Negative Urine Urobilinogen Normal Ur Leukocyte Esterase 500 H Urine RBC 50-100 SEEN Urine WBC >100 SEEN Ur Squamous Epith Cells 10-25 SEEN Ur Renal Epithelial Cell 10-25 SEEN Urine Bacteria 4+ Urine Mucus 0 SEEN Radiography Diagnostic Testing: Clinical Impression(s) from Imaging Studies Chest X-Ray 08/18/24 13:55 IMPRESSION: No radiographic evidence of acute cardiopulmonary disease. Electronically Signed: Peter Love MD at 15:45 EST Reading Location ID and State: [address] [place] [address] Tel , Service support , Management Discussion w/another healthcare provider: Hospitalist Discharge Plan Triage Chief Complaint: Alt LOC ED Provider: Maria Newton Dx/Rx/DC Orders Clinical Impression: Catheter-associated urinary tract infection, Dementia with behavioral disturbance, Failure of outpatient treatment Prescriptions: No Action metoprolol tartrate 25 MG tablet 25 mg PO BID donepezil 23 mg tablet 23 mg PO QHS Patient Comments: take 1 tablet by mouth once daily lorazepam [Ativan] 0.5 mg tablet 0.5 mg PO Q12H methotrexate sodium 2.5 mg Tablet 20 mg PO WE quetiapine 25 mg tablet 25 mg PO QHS Patient Comments: only takes one at night aspirin 81 mg tablet,delayed release (DR/EC) 81 mg PO BID 14 Days Qty: 28 0RF Rx Instructions: start on 06/20/2024, after you complete the xarelto 10mg daily for 2 weeks for DVT prophylaxis hydroxychloroquine 200 mg Tablet 200 mg PO DAILY acetaminophen 325 mg Tablet 650 mg PO Q6H PRN PRN (Reason: Pain 1-10 Or Fever>100.7) Qty: 0 0RF sennosides-docusate sodium [Stool Softener-Stimulant Laxat] 8.6-50 mg Tablet 2 tab PO BID PRN PRN (Reason: Constipation) Qty: 0 0RF tamsulosin 0.4 mg Capsule 0.4 mg PO DAILY@1730 Qty: 0 0RF ciprofloxacin HCl [Cipro] 500 mg tablet 500 mg PO BID 10 Days Qty: 20 0RF leucovorin calcium 15 MG tablet 15 mg PO Q7D Patient Comments: TAKES ON TUESDAY MORNING folic acid 1 MG tablet 2 mg PO DAILY Primary Care Provider: Casimiro Duncan Referrals: Casimiro Duncan MD [Primary Care Provider] - Print Language: Syriac Disposition Disposition: Acute Care Hospital [facility]
--- NOTE | 2024-08-18 15:20 | CASEMGMT ---
Care Management Face to Face with patient for initial transition planning/care coordination assessment.? This card writer hand introduced self and role at [facility]. Patient lying in bed, alert not fully oriented. Patient?s willing to participate in assessment and is able to answer all questions appropriately.? Care providers, pharmacy, and demographics verified. Admitting Diagnosis: ESBL UT with worsening mentation Other diagnosis history: Including but not limited to: Dementia, Depression, Anxiety, Rheumatoid Arthritis, Bladder Disease, Prostate Disease, History of IBS, HTN, COPD, and Alzheimer?s. PCP: Dr. Casimiro Hastings Specialists: Oncology Rep Specialist, Dr. Sandoval, Neurologist, Dr. Huynh, and Dr. Stone when patient broke his hip. [facility] Insurance: Medicare Part and B. Prescription Benefit:? No Living Will/HPOA: Yes; patient?s , Namrata Jimenez, and [facility] is said to have a copy on file. LNOK: Patient and his have been for 48 years and do not have any children together.? Patient?s has 2 children from a previous relationship, son Sanket, age 61 and daughter Sophy, age 60.? Neither live local.? Sanket resides in [place], [place] and Sophy resides in [place], [place]. Patient?s reported she has living brothers and sisters who are extremely supportive. Living Arrangements: Patient and his Namrata live alone in a ranch with no identified barriers. Transportation: Both patient and patient?s are licensed drivers however patient hasn?t driven since he broke his hip.? Patient and his have a reliable vehicle to get to and from appointments.? Patient?s drives them everywhere they need to go. DME/HHC: Patient currently has a standard cane, walker, wheelchair, transport wheelchair, shower chair, grab bars in bathroom, toilet seat with handles, lift chair and a wheelchair ramp. SNF/Rehab: 2023: [facility] PCU for 6 weeks following a pelvis fracture, [facility], 6 weeks in November due to a severe bladder infection and 6 weeks at [facility] around April when patient broke his hip. Community Resources: [facility] ([facility]). Patient has two private home health aides ([employer]).? One comes out to the home every and most ?s for 2 hours each morning and one [employer] who comes out every Tue-, 2 hours each day in the afternoon. Patient has a PT through [facility] who comes out 2 days a week for roughly 30 minutes each day and a nurse who comes out, also through [facility] once a week for 15-30 minutes. Behavioral Health History:? Alzheimer?s, Dementia, Depression and Anxiety. Patient goals: Patient wishes to discharge home. Patient?s was tearful on this date, stated patient presented with increased agitation today, was ambulating without his walker or wheelchair and ripped down the curtains in the house which frightened her.? Patient?s stated patient has been walking around asking why ?they? took his boy away and keeps saying he has a baby.? Patient?s stated he hasn?t been recognizing her and asked her where his was which patient was also struggling with. CM to follow for discharge planning needs that may arise. Disposition Plan: Home with . Handoff to Care Management Team on acute floors who will follow for support and discharge planning as indicated. Charley Campoverde, COUNTER POCKET SEWER, [employer]
--- NOTE | 2024-08-18 16:26 | PCM.HP.STD ---
HPI - General General Date of Admission: 08/18/24 Date of Service: 08/18/24 Chief Complaint: Worsening agitation and aggression HPI Narrative EDWIN ODONNELL, is a 73 M who presented to [facility] ED on 08/18/2024 with worsening agitation and aggression. Patient has history of Alzheimer's dementia, lives at home with . Also has medical history significant for chronic indwelling Espinosa catheter. He initially came to the ED on 08/09 with nausea/vomiting, weakness and dark urine. UA was consistent with UTI. He was otherwise stable and was able to be sent home from the ED on ciprofloxacin. However, urine culture grew ESBL E. coli and E faecalis that were resistant to Cipro. brought him back to the ED today as he was having worsening agitation with aggression at home. UA today appeared significantly worse than previous. Patient otherwise had no significant lab findings and was hemodynamically stable on room air. However given his worsening agitation and multidrug-resistant UTI, hospitalist was contacted for admission. I saw the patient at bedside in the ED. unfortunately was not present when I saw him. Patient was sitting up comfortably in bed and in no distress during my encounter with him. He was able to tell me his name and denied any pain or discomfort. However he was unable to answer any other questions appropriately for me. Will be admitted for further management. [facility] Medical History History of ESBL E. coli infection Chest wall contusion Dementia Fall Compression fracture of L5 vertebra Closed fracture of left hip Wears hearing aid Wears glasses Depression Anxiety Dementia Alcohol use Walker as ambulation aid Rheumatoid arthritis Bladder disease Prostate disease Indwelling urethral catheter present Back pain Injury of head and neck Dietary restriction History of IBS Former smoker History of edema History of irregular heartbeat Lives in care home COPD (chronic obstructive pulmonary disease) Alzheimer disease Hemorrhoids Weight loss Rheumatoid arthritis Gout HTN (hypertension) Home Medications ?Medication ?Instructions ?Recorded ?Last Taken ?Type metoprolol tartrate 25 mg tablet 25 mg PO BID htn 03/24/14 02/01/24 History folic acid 1 mg tablet 2 mg PO DAILY vitamin 06/17/17 12/04/23 History leucovorin calcium 15 mg tablet 15 mg PO Q7D RA 06/17/17 01/18/24 History donepezil 23 mg tablet 23 mg PO QHS dementia 09/15/23 02/01/24 History hydroxychloroquine 200 mg tablet 200 mg PO DAILY 12/05/23 02/01/24 History acetaminophen 325 mg tablet 650 mg (2 x 325 mg) PO Q6H PRN PRN 12/08/23 Unknown Rx Pain 1-10 Or Fever>100.7 #0 tabs sennosides 8.6 mg-docusate sodium 2 tab PO BID PRN PRN Constipation 12/08/23 Unknown Rx 50 mg tablet (Stool #0 tabs Softener-Stimulant Laxative) tamsulosin 0.4 mg capsule 0.4 mg PO DAILY@1730 #0 caps 12/08/23 01/31/24 Rx lorazepam 0.5 mg tablet (Ativan) 0.5 mg PO Q12H anxiety 01/05/24 06/03/24 History methotrexate sodium 2.5 mg tablet 20 mg PO WE 01/05/24 01/25/24 History quetiapine 25 mg tablet 25 mg PO QHS 02/01/24 01/31/24 History aspirin 81 mg tablet,delayed 81 mg PO BID 2 weeks #28 tabs 06/06/24 Unknown Rx release ciprofloxacin HCl 500 mg tablet 500 mg PO BID 10 days #20 tabs 08/09/24 Unknown Rx (Cipro) Allergy/AdvReac Type Severity Reaction Status Date / Time No Known Allergies Allergy Verified 08/09/24 11:26 Family History Father Colon cancer CVA (cerebral vascular accident) Hypertension Heart disease Sister CAD (coronary artery disease) Hypertension Heart disease Mother Cancer Surgical History History of stapedectomy Hx of tonsillectomy S/P colonoscopy Social History household members: spouse Smoking Status: Former smoker alcohol intake: never substance use type: does not use ROS Review of Systems ROS Unobtainable: due to mental condition Vital Signs Vital Signs Vital Signs: 08/18/24 13:03 08/18/24 13:07 08/18/24 14:07 Temperature 98.8 F 98.8 F 98.9 F Temperature Source Temporal Oral Oral Pulse Rate 89 84 74 Respiratory Rate 18 19 H 19 H Blood Pressure 114/84 H 109/71 135/88 H Blood Pressure Mean 94 83 103 Pulse Ox 93 95 Oxygen Delivery Method Room Air Room Air 08/18/24 15:02 Temperature 98.4 F Temperature Source Oral Pulse Rate 68 Respiratory Rate 16 Blood Pressure 121/68 H Blood Pressure Mean 85 Pulse Ox 96 Oxygen Delivery Method Room Air Weight Weight: 67.222 kg Body Mass Index (BMI) 21.2 Physical Exam Const alert and no apparent distress Constitutional Narrative: Elderly male, somewhat thin and chronically ill-appearing, alert and oriented x 1 to person, otherwise sitting up fairly comfortably in bed and in no acute distress. Was cooperative on exam. General Appearance: cooperative HEENT normocephalic, head/scalp atraumatic, hearing grossly normal bilaterally and nasal mucous membranes and turbinates normal Eyes PERRL, EOMs intact bilaterally and conjunctivae normal Neck full ROM Chest inspection of chest normal Resp normal respiratory effort, normal air movement, no use of accessory muscles and clear to auscultation bilaterally Cardio regular rate, regular rhythm, no murmurs and peripheral pulses 2+ throughout GI normal to inspection, nondistended, normoactive bowel sounds, soft to palpation, non-tender and non-distended Back/Spine normal ROM Extremity normal to inspection, full ROM and no pedal edema Skin no rashes or lesions noted Neuro moves all extremities and no focal motor deficits Results Lab / Micro Data 08/18/24 13:28 08/18/24 13:28 Labs: Laboratory Results - last 24 hr 08/18/24 13:28: WBC 8.3, RBC 5.15, Hgb 16.1, Hct 47.0, MCV 91.3, MCH 31.3, MCHC 34.3, RDW Std Deviation 48.1 H, RDW Coeff of Narciso 14.3, Plt Count 373, MPV 8.6, Immature Gran % (Auto) 0.700, Neut % (Auto) 79.7 H, Lymph % (Auto) 9.8 L, [place] % (Auto) 7.7, Eos % (Auto) 1.3, Baso % (Auto) 0.8, Absolute Neuts (auto) 6.6, Absolute Lymphs (auto) 0.81 L, Nucleated RBC % 0, Sodium 138, Potassium 3.6, Chloride 105, Carbon Dioxide 25.0, Anion Gap 7, BUN 13, Creatinine 0.95, Estim Creat Clear Calc 64.86, Est GFR (MDRD) Af Amer 99, Est GFR (MDRD) Non-Af 82, BUN/Creatinine Ratio 13.7, Glucose 115 H, Calcium 9.0, Total Bilirubin 0.80, AST 13 L, ALT 16, Alkaline Phosphatase 79, Total Protein 6.6, Albumin 3.3, Globulin 3.3, Albumin/Globulin Ratio 1.0 08/18/24 13:30: Urine Color Yellow, Urine Clarity Cloudy, Urine pH 6.0, Ur Specific [place] 1.025, Urine Protein 100 H, Urine Glucose (UA) Normal, Urine Ketones Negative, Urine Occult Blood 250 H, Urine Nitrite Positive H, Urine Bilirubin Negative, Urine Urobilinogen Normal, Ur Leukocyte Esterase 500 H, Urine RBC 50-100 SEEN, Urine WBC >100 SEEN, Ur Squamous Epith Cells 10-25 SEEN, Ur Renal Epithelial Cell 10-25 SEEN, Urine Bacteria 4+, Urine Mucus 0 SEEN Micro: Microbiology 08/18/24 13:30 Mucosa - Nose SARS-CoV-2, Influenza & RSV (PCR) - Final Imaging Radiology Impression Chest X-Ray 08/18/24 13:55 IMPRESSION: No radiographic evidence of acute cardiopulmonary disease. Electronically Signed: Peter Love MD at 15:45 EST , Assessment & Plan Assessment/Plan (1) Catheter-associated urinary tract infection: (2) Agitation: (3) Dementia with behavioral disturbance: PLAN: Plan Patient is a 73-year-old male who presented to [facility] ED on 08/18/2024 with worsening agitation and aggression. 1. Multidrug-resistant UTI, history of urinary retention s/p TURP with chronic Espinosa catheter ? Admit under inpatient status to [facility]. Patient follows with Dr. Parker, had TURP procedure done in January. Has had chronic espinosa catheter since then. UA on admit showed 500 leukocyte esterase, positive nitrates, greater than 100 WBCs, 4+ bacteria. Urine culture from 08/09 grew ESBL E. coli and E faecalis. Appears that both are susceptible to Unasyn but will conservatively treat with IV Zosyn for now. ID consulted. Renal and bladder ultrasound ordered. Continue home Flomax. 2. Worsened agitation and aggression in setting of Alzheimer's dementia ? Patient lives at home with . Unclear if worsening agitation and aggression is due to UTI versus progression of his underlying disease. Treating UTI as noted above and will monitor mental status. Continue home Ativan twice daily, Seroquel at night and donepezil. 3. Chronic debility with recent hip fracture ? PT/OT/case management consulted. Patient hospitalized here in May for fall with left hip fracture. Had close reduction with left hip pinning done with Dr. Stone. Was discharged to SNF after that hospitalization and most recently has been following with home health care. 4. Rheumatoid arthritis ? Stable. Continue home hydroxychloroquine. Will hold weekly methotrexate and leucovorin while inpatient. DVT prophylaxis: Lovenox CODE STATUS: DNR CCA, DNI. This was confirmed with patient's on recent admission in May. Expected disposition: Home, 2 to 3 days Total clinical time spent by myself addressing the patient's medical issues, reviewing all the data, and collaborating with patient's care team: 55 minutes. Charges/Coding Visit Charges Inpatient E&M: 86526 Init Hosp L2
[2024-08-18] MEDS: Gentamicin IV 350 MG in Dextrose 5%-Water (50mL Bag) 50 ML 115 MG IVPB (16:41)
--- NOTE | 2024-08-18 20:00 | NURSING ---
patient becoming more agitated and attempting to get out of bed. Patient grabbing at staff and yelling. Reoriented by this RN and given medication.
[2024-08-18] MEDS: LORazepam 0.5 MG Tablet PO (20:01)
[2024-08-18] MEDS: Acetaminophen 325 MG Tablet 650 MG PO (20:01)
[2024-08-18] MEDS: QUEtiapine 25 MG Tablet PO (20:06)
[2024-08-18] MEDS: Metoprolol Tartrate 25 MG Tablet PO (20:07)
[2024-08-18] MEDS: Piperacil/Tazobactam 3.375 GM in 0.9% Normal Saline (50mL MB+) 50 ML IV (21:45)
[2024-08-19] VITALS (7 sets, daily range): BP systolic 105–114; BP diastolic 63–68; PULSE 63–80; RESP 14–18; TEMP 36.8–37.4; O2SAT 93–96
[2024-08-19] MEDS: hydrOXYzine 50 MG/ML Vial 100 MG IM (03:02)
[2024-08-19 05:18] LABS: Hematocrit 46.1 % (40-54); Mean Corp Hgb Conc 34.7 g/dL (32-36); Mean Corpuscular Hgb 31.6 pg (27.0-32.0); Mean Corpuscular Volume 91.1 fL (80-94); Mean Platelet Vol. 8.5 fl (6.2-12.0); Platelet Count 331 K/mm3 (150-450); RBC Distribution Width CV 14.4 % (11.6-14.6); Red Blood Count 5.06 M/mm3 (4.6-6.2); White Blood Count 7.7 K/mm3 (4.4-11.0)
[2024-08-19] MEDS: Piperacil/Tazobactam 3.375 GM in 0.9% Normal Saline (50mL MB+) 50 ML IV ×3 (05:46→20:10)
[2024-08-19 06:59] LABS: Anion Gap 5 (5-15); BUN 11 mg/dL (7-18); BUN/Creat Ratio 12.5 RATIO (10-20); Calcium,Total 9.3 mg/dL (8.5-10.1); Chloride 107 mmol/L (98-107); Creatinine, Serum 0.88 mg/dL (0.70-1.30); EST Glomerular Filtration Rate 90 mL/min (>60); Est Glom Filt Rate - Afr Amer 109 mL/min (>60); Estimated Creatinine Clearance 68.23 ml/min; Glucose 90 mg/dL (74-106); Potassium 3.6 mmol/L (3.5-5.1); Sodium Level 139 mmol/L (136-145)
[2024-08-19] MEDS: Folic Acid 1 MG Tablet PO ×2 (08:38→17:11)
[2024-08-19] MEDS: FLU VACCINE **HIGH DOSE** TV 24-25 180 MCG/0.5 ML SYRINGE IM (10:05)
[2024-08-19] MEDS: Enoxaparin 40 MG/0.4 ML Syringe SC (10:05)
[2024-08-19] MEDS: Metoprolol Tartrate 25 MG Tablet PO ×2 (10:07→20:05)
[2024-08-19] MEDS: Hydroxychloroquine 200 MG Tablet PO (10:08)
--- NOTE | 2024-08-19 13:00 | PCM.PN.HOSP ---
Reason for Visit Reason for Visit: Diagnoses Unspecified dementia, unspecified severity, with other behavioral disturbance (08/18/24) Urinary tract infection, site not specified (08/18/24) Restlessness and agitation (08/18/24) Infection and inflammatory reaction due to indwelling urethral catheter, initial encounter (08/18/24) Objective Data Objective Data Vital Signs: Vital Signs Temp Pulse Resp BP Pulse Ox O2 Del Method 99.4 F H 80 16 114/68 93 Room Air 08/19/24 08:27 08/19/24 10:07 08/19/24 08:27 08/19/24 08:27 08/19/24 08:39 08/19/24 08:39 Oxygen Delivery Method Room Air Weight: 144 lb 6.444 oz Body Mass Index (BMI) 20.7 Intake & Output: Intake and Output for Last 24 Hours 08/17/24 08/18/24 08/19/24 23:59 23:59 23:59 Intake Total 58.75 / 58.75 100 / 100 Output Total 100 / 500 900 / 900 Balance -41.25 / -441.25 -800 / -800 Lab / Micro Data 08/19/24 04:57 08/19/24 04:57 Labs: Laboratory Results - last 24 hr 08/18/24 13:28: WBC 8.3, RBC 5.15, Hgb 16.1, Hct 47.0, MCV 91.3, MCH 31.3, MCHC 34.3, RDW Std Deviation 48.1 H, RDW Coeff of Narciso 14.3, Plt Count 373, MPV 8.6, Immature Gran % (Auto) 0.700, Neut % (Auto) 79.7 H, Lymph % (Auto) 9.8 L, [place] % (Auto) 7.7, Eos % (Auto) 1.3, Baso % (Auto) 0.8, Absolute Neuts (auto) 6.6, Absolute Lymphs (auto) 0.81 L, Nucleated RBC % 0, Sodium 138, Potassium 3.6, Chloride 105, Carbon Dioxide 25.0, Anion Gap 7, BUN 13, Creatinine 0.95, Estim Creat Clear Calc 64.86, Est GFR (MDRD) Af Amer 99, Est GFR (MDRD) Non-Af 82, BUN/Creatinine Ratio 13.7, Glucose 115 H, Calcium 9.0, Total Bilirubin 0.80, AST 13 L, ALT 16, Alkaline Phosphatase 79, Total Protein 6.6, Albumin 3.3, Globulin 3.3, Albumin/Globulin Ratio 1.0 08/18/24 13:30: Urine Color Yellow, Urine Clarity Cloudy, Urine pH 6.0, Ur Specific [place] 1.025, Urine Protein 100 H, Urine Glucose (UA) Normal, Urine Ketones Negative, Urine Occult Blood 250 H, Urine Nitrite Positive H, Urine Bilirubin Negative, Urine Urobilinogen Normal, Ur Leukocyte Esterase 500 H, Urine RBC 50-100 SEEN, Urine WBC >100 SEEN, Ur Squamous Epith Cells 10-25 SEEN, Ur Renal Epithelial Cell 10-25 SEEN, Urine Bacteria 4+, Urine Mucus 0 SEEN 08/19/24 04:57: WBC 7.7, RBC 5.06, Hgb 16.0, Hct 46.1, MCV 91.1, MCH 31.6, MCHC 34.7, RDW Std Deviation 48.0 H, RDW Coeff of Narciso 14.4, Plt Count 331, MPV 8.5, Sodium 139, Potassium 3.6, Chloride 107, Carbon Dioxide 27.0, Anion Gap 5, BUN 11, Creatinine 0.88, Estim Creat Clear Calc 68.23, Est GFR (MDRD) Af Amer 109, Est GFR (MDRD) Non-Af 90, BUN/Creatinine Ratio 12.5, Glucose 90, Calcium 9.3 Micro: Microbiology 08/18/24 13:30 Urine Catheter - Espinosa Urine Culture - Preliminary Presumptive E. coli 08/18/24 13:30 Mucosa - Nose SARS-CoV-2, Influenza & RSV (PCR) - Final Radiography Diagnostic Testing: Radiology Impression Chest X-Ray 08/18/24 13:55 IMPRESSION: No radiographic evidence of acute cardiopulmonary disease. Electronically Signed: Peter Love MD at 15:45 EST , Physical Exam Narrative Seen and examined. Patient admitted for disorganized behavior, agitation and aggression. Has chronic Espinosa catheter and recently completed antibiotic. History is unobtainable as patient does not understand and is disoriented Physical exam General: Alert, disoriented to time place and person cooperative, does not know month, his age, year, or simple day or night orientation HEENT: Atraumatic, PERRLA, EOMI, Normocephalic Oral: Oral mucosa dry. No Gingival or Mucosal Lesions/ Ulcerations Neck: Supple, No JVD, Negative Carotid Bruits Chest wall/Lungs: Air entry diminished in bilateral lung bases. No crepitation/rhonchi Cardiovascular: Regular rate, Regular Rhythm, Normal S1, Normal S2, No M/G/R Abdomen: Bowel Sounds Present, Soft, Non Tender, Non-Distended : Indwelling Espinosa catheter. No renal angle tenderness. No suprapubic tenderness. Extremities: No edema, Capillary Refill Less than 3 Seconds Skin: No rashes, No breakdown Musculoskeletal: No Tenderness to Palpation of Joints or Extremities Neurological: Cranial nerves II-XII grossly intact, DTR 2+/4. No acute focal neurological deficit. Psych/Mental Status: Quite for now. Seems advanced dementia. Cognitive deficit with little insight and understanding. Assessment & Plan Assessment/Plan (1) Catheter-associated urinary tract infection: (2) Agitation: (3) Dementia with behavioral disturbance: PLAN: Plan Patient is a 73-year-old male who presented to [facility] ED on 08/18/2024 with worsening agitation and aggression. He has chronic indwelling Espinosa catheter with recent UTI started on Cipro on 08/09. Patient having incoherent speech and is stated he had a baby and someone taken his baby away and used to look for it. No recent change in urine output continue 1. Multidrug-resistant UTI, history of urinary retention s/p TURP with chronic Espinosa catheter ? Admit under inpatient status to [facility]. Patient follows with Dr. Parker, had TURP procedure done in January. Has had chronic espinosa catheter since then. UA on admit showed 500 leukocyte esterase, positive nitrates, greater than 100 WBCs, 4+ bacteria. Urine culture from 08/09 grew ESBL E. coli and E faecalis.ID consulted. Renal and bladder ultrasound ordered. Continue home Flomax. 08/19: Urine culture shows presumptive E. coli more than 100,000 colonies. Sensitivity pending. Continue IV Zosyn empirically. 2. Worsened agitation and aggression possible acute encephalopathy in setting of Alzheimer's dementia ? Patient lives at home with . I think disorganized behavior, poor memory, amnesia and disorientation was due to advanced dementia with mild bilateral contribution from UTI or encephalopathy Continue home Ativan twice daily, Seroquel at night and donepezil. 3. Chronic debility with recent hip fracture ? PT/OT/case management consulted. Patient hospitalized here in May for fall with left hip fracture. Had close reduction with left hip pinning done with Dr. Stone. Was discharged to SNF after that hospitalization and most recently has been following with home health care. 4. Rheumatoid arthritis ? Stable. Continue home hydroxychloroquine. hold weekly methotrexate and leucovorin while inpatient. DVT prophylaxis: Lovenox CODE STATUS: DNR CCA, DNI. This was confirmed with patient's on recent admission in May. Expected disposition: Home, 2 to 3 days Charges/Coding Visit Charges Inpatient E&M: 65191 Subs Hosp L2
[2024-08-19] MEDS: Senna/Docusate Sodium 1 Tablet 2 TABLET PO (14:05)
[2024-08-19] MEDS: Tamsulosin HCl 0.4 MG Capsule PO (17:11)
[2024-08-19] MEDS: QUEtiapine 25 MG Tablet PO (20:04)
[2024-08-19] MEDS: LORazepam 0.5 MG Tablet 0.25 MG PO (20:04)
[2024-08-19] MEDS: Donepezil HCl 10 MG Tablet PO (20:09)
[2024-08-20] VITALS (9 sets, daily range): BP systolic 96–148; BP diastolic 71–95; PULSE 58–84; RESP 16–18; TEMP 36.6–36.8; O2SAT 94–99
[2024-08-20] MEDS: Piperacil/Tazobactam 3.375 GM in 0.9% Normal Saline (50mL MB+) 50 ML IV (05:30)
--- NOTE | 2024-08-20 06:00 | US_ITS ---
STUDY: RENAL ULTRASOUND - COMPLETE REASON FOR EXAM: Male, 73 years old. UTI, eval for pyelonephritis TECHNIQUE: Ultrasound evaluation of the kidneys was performed with real-time and static moy-scale imaging. COMPARISON: None. FINDINGS: RIGHT KIDNEY: Normal location of the right kidney, which is normal in size. The right kidney measures 9.5 cm. Increased echogenicity renal cortex consistent with advanced age. The renal cortex measures 1.3 cm. There is no right renal mass or cyst. There are no right renal calculi. There is no right hydronephrosis. DISTAL RIGHT URETER: There is non-visualization of the distal right ureter. There is no demonstrated right ureterovesical junction calculus. There is a visualized right ureteral jet. LEFT KIDNEY: Normal location of the left kidney, which is normal in size. The left kidney measures 10.1 cm. Increased echogenicity renal cortex consistent with advanced age. The renal cortex measures 1.1 cm. 2 cm cyst in the lower pole left kidney. There are no left renal calculi. There is no left hydronephrosis. DISTAL LEFT URETER: There is non-visualization of the distal left ureter. There is no demonstrated left ureterovesical junction calculus. There is a visualized left ureteral jet. BLADDER: Nondistended with a Marina catheter.. US/Kidney and Bladder IMPRESSION: No hydronephrosis to suggest obstruction. Electronically Signed: Jeremías Forbes MD at 8:56 EST ,
[2024-08-20] MEDS: Folic Acid 1 MG Tablet PO ×2 (09:29→17:18)
[2024-08-20] MEDS: Enoxaparin 40 MG/0.4 ML Syringe SC (09:32)
[2024-08-20] MEDS: Hydroxychloroquine 200 MG Tablet PO (09:32)
--- NOTE | 2024-08-20 14:07 | PCM.CONS.GEN ---
Assessment & Plan Assessment/Plan (1) History of dementia: PLAN: Patient with bacteriuria when ESBL producing organism. Patient does have a chronic indwelling Marina catheter and therefore bacteriuria is quite common. No signs of systemic infection. At this point we will discontinue meropenem and observe off antibiotic therapy. HPI Consult Data Date of Consult: 08/20/24 HPI Narrative Reason for Consultation: ESBL producing organisms in the urine culture HPI Narrative: EDWIN ODONNELL, is a 73 M who presents past medical history of dementia for the past 1 to 2 years, BPH with a history of a TURP and has had a chronic indwelling Marina since earlier this year who presented with agitation. No documented fevers. Patient was treated with ciprofloxacin earlier this month for suspected urinary tract infection at that time. Currently responsive but very vague and difficult historian. History is obtained through talking to the patient's at the bedside. Appears comfortable clinically. Indwelling Marina catheter is in place. Currently on meropenem. [facility], [facility] Medical History History of ESBL E. coli infection Chest wall contusion Dementia Fall Compression fracture of L5 vertebra Closed fracture of left hip Wears hearing aid Wears glasses Depression Anxiety Dementia Alcohol use Walker as ambulation aid Rheumatoid arthritis Bladder disease Prostate disease Indwelling urethral catheter present Back pain Injury of head and neck Dietary restriction History of IBS Former smoker History of edema History of irregular heartbeat Lives in senior care COPD (chronic obstructive pulmonary disease) Alzheimer disease Hemorrhoids Weight loss Rheumatoid arthritis Gout HTN (hypertension) Home Medications ?Medication ?Instructions ?Recorded ?Last Taken ?Type metoprolol tartrate 25 mg tablet 25 mg PO BID htn 03/24/14 02/01/24 History folic acid 1 mg tablet 2 mg PO DAILY vitamin 06/17/17 12/04/23 History leucovorin calcium 15 mg tablet 15 mg PO Q7D RA 06/17/17 01/18/24 History donepezil 23 mg tablet 23 mg PO QHS dementia 09/15/23 02/01/24 History hydroxychloroquine 200 mg tablet 200 mg PO DAILY 12/05/23 02/01/24 History acetaminophen 325 mg tablet 650 mg (2 x 325 mg) PO Q6H PRN PRN 12/08/23 Unknown Rx Pain 1-10 Or Fever>100.7 #0 tabs sennosides 8.6 mg-docusate sodium 2 tab PO BID PRN PRN Constipation 12/08/23 Unknown Rx 50 mg tablet (Stool #0 tabs Softener-Stimulant Laxative) tamsulosin 0.4 mg capsule 0.4 mg PO DAILY@1730 #0 caps 12/08/23 01/31/24 Rx lorazepam 0.5 mg tablet (Ativan) 0.5 mg PO Q12H anxiety 01/05/24 06/03/24 History methotrexate sodium 2.5 mg tablet 20 mg PO WE 01/05/24 01/25/24 History quetiapine 25 mg tablet 25 mg PO QHS 02/01/24 01/31/24 History ciprofloxacin HCl 500 mg tablet 500 mg PO BID 10 days #20 tabs 08/09/24 Unknown Rx (Cipro) aspirin 81 mg tablet,delayed 81 mg PO QODAY dvt 08/19/24 Unknown History release Allergy/AdvReac Type Severity Reaction Status Date / Time No Known Allergies Allergy Verified 08/09/24 11:26 Family History Father Colon cancer CVA (cerebral vascular accident) Hypertension Heart disease Sister CAD (coronary artery disease) Hypertension Heart disease Mother Cancer Surgical History History of stapedectomy Hx of tonsillectomy S/P colonoscopy Social History household members: spouse Smoking Status: Former smoker alcohol intake: never substance use type: does not use ROS ROS Narrative As stated in history of present illness others negative Physical Exam Narrative Responsive in no acute distress lungs are clear heart exam S1-S2 abdomen soft nontender. Indwelling Marina catheter is in place Lab / Micro Data 08/19/24 04:57 08/19/24 04:57 Micro: Microbiology 08/18/24 13:30 Urine Catheter - Marina Urine Culture - Preliminary ESBL Escherichia coli Imaging Radiology Impression Renal Ultrasound 08/20/24 06:00 IMPRESSION: No hydronephrosis to suggest obstruction. Electronically Signed: Jeremías Forbes MD at 8:56 EST ,
--- NOTE | 2024-08-20 14:08 | CASEMGMT ---
Social Work- SW met with pt and pt . Pt was non-verbal throughout duration of SW visit. Pt reports that pt is X1A with gait belt at home and is understanding that pt is X2 Max A currently. Pt reports that her preference is for pt to d/c home with resumption of [facility]. Pt reports that pt had six more visits, which occur twice per week. Pt reports that they have private aides daily each afternoon, as well as Tuesday and mornings as well. If pt needs SNF, pt would be open to [facility] or [facility]. Pt advised that pt would need medical treatment for two more nights for SNF coverage; pt expressed understanding. Pt reiterated that she prefers home with HHC if appropriate. SW will remain available to follow. MILES Medina
[2024-08-20] MEDS: 0.9% Saline Lock 10 ML Syringe IV (14:22)
[2024-08-20] MEDS: Meropenem 1 GM in 0.9% Normal Saline (100mL MB+) 100 ML IV (14:22)
--- NOTE | 2024-08-20 14:57 | CASEMGMT ---
Per ID, pt to be observed off of antibiotics. RN CM to follow how pt does with therapy tomorrow for dc plan. [facility] aware pt is inpatient. Pt active with SN and PT services.
--- NOTE | 2024-08-20 16:15 | PCM.PN.HOSP ---
Reason for Visit Reason for Visit: Diagnoses Unspecified dementia, unspecified severity, with other behavioral disturbance (08/19/24) Urinary tract infection, site not specified (08/19/24) Restlessness and agitation (08/19/24) Infection and inflammatory reaction due to indwelling urethral catheter, initial encounter (08/19/24) Personal history of other mental and behavioral disorders (08/19/24) Objective Data Objective Data Vital Signs: Vital Signs Temp Pulse Resp BP Pulse Ox O2 Del Method 97.8 F 76 16 96/71 96 Room Air 08/20/24 11:41 08/20/24 11:41 08/20/24 11:41 08/20/24 11:41 08/20/24 11:48 08/20/24 11:41 Oxygen Delivery Method Room Air Weight: 144 lb 6.444 oz Body Mass Index (BMI) 20.7 Intake & Output: Intake and Output for Last 24 Hours 08/18/24 08/19/24 08/20/24 23:59 23:59 23:59 Intake Total 58.75 / 58.75 150 / 150 500 / 500 Output Total 100 / 500 2150 / 2150 500 / 500 Balance -41.25 / -441.25 -2000 / -2000 0 / 0 Lab / Micro Data 08/19/24 04:57 08/19/24 04:57 Micro: Microbiology 08/18/24 13:30 Urine Catheter - Espinosa Urine Culture - Preliminary ESBL Escherichia coli 08/18/24 13:30 Mucosa - Nose SARS-CoV-2, Influenza & RSV (PCR) - Final Radiography Diagnostic Testing: Radiology Impression Renal Ultrasound 08/20/24 06:00 IMPRESSION: No hydronephrosis to suggest obstruction. Electronically Signed: Jeremías Forbes MD at 8:56 EST , Physical Exam Narrative Seen and examined. ESBL producing organism in the urine culture. Patient admitted for disorganized behavior, agitation and aggression. Has chronic Espinosa catheter and recently completed antibiotic. History is unobtainable as patient does not understand and is disoriented Physical exam General: Alert, disoriented to time place and person cooperative, does not know month, his age, year, or simple day or night orientation HEENT: Atraumatic, PERRLA, EOMI, Normocephalic Oral: Oral mucosa dry. No Gingival or Mucosal Lesions/ Ulcerations Neck: Supple, No JVD, Negative Carotid Bruits Chest wall/Lungs: Air entry diminished in bilateral lung bases. No crepitation/rhonchi Cardiovascular: Regular rate, Regular Rhythm, Normal S1, Normal S2, No M/G/R Abdomen: Bowel Sounds Present, Soft, Non Tender, Non-Distended : Indwelling Espinosa catheter. No renal angle tenderness. No suprapubic tenderness. Extremities: No edema, Capillary Refill Less than 3 Seconds Skin: No rashes, No breakdown Musculoskeletal: No Tenderness to Palpation of Joints or Extremities Neurological: Cranial nerves II-XII grossly intact, DTR 2+/4. No acute focal neurological deficit. Psych/Mental Status: Quite for now. Seems advanced dementia. Cognitive deficit with little insight and understanding. Assessment & Plan Assessment/Plan (1) Catheter-associated urinary tract infection: (2) Agitation: (3) Dementia with behavioral disturbance: PLAN: Plan Patient is a 73-year-old male who presented to [facility] ED on 08/18/2024 with worsening agitation and aggression. He has chronic indwelling Espinosa catheter with recent UTI started on Cipro on 08/09. Patient having incoherent speech and is stated he had a baby and someone taken his baby away and used to look for it. No recent change in urine output continue 1. ESBL E. coli colonization/asymptomatic bacteriuria with history of multidrug-resistant UTI, history of urinary retention s/p TURP with chronic Espinosa catheter ? Admit under inpatient status to [facility]. Patient follows with Dr. Parker, had TURP procedure done in January. Has had chronic espinosa catheter since then. UA on admit showed 500 leukocyte esterase, positive nitrates, greater than 100 WBCs, 4+ bacteria. Urine culture from 08/09 grew ESBL E. coli and E faecalis.ID consulted. Renal and bladder ultrasound ordered. Continue home Flomax. 08/19: Urine culture shows presumptive E. coli more than 100,000 colonies. Sensitivity pending. Continue IV Zosyn empirically. 08/20: ID saw the patient. Most likely ESBL producing asymptomatic bacteriuria with chronic indwelling Espinosa catheter and bacteriuria is common. No signs of systemic infection. Meropenem discontinued and observe off antibiotic. 2. Worsened agitation and aggression possible acute encephalopathy in setting of Alzheimer's dementia ? Patient lives at home with . I think disorganized behavior, poor memory, amnesia and disorientation was due to advanced dementia with mild bilateral contribution from UTI or encephalopathy Continue home Ativan twice daily, Seroquel at night and donepezil. 3. Chronic debility with recent hip fracture ? PT/OT/case management consulted. Patient hospitalized here in May for fall with left hip fracture. Had close reduction with left hip pinning done with Dr. Stone. Was discharged to SNF after that hospitalization and most recently has been following with home health care. 4. Rheumatoid arthritis ? Stable. Continue home hydroxychloroquine. hold weekly methotrexate and leucovorin while inpatient. DVT prophylaxis: Lovenox CODE STATUS: DNR CCA, DNI. This was confirmed with patient's on recent admission in May. Expected disposition: Home, 2 to 3 days Charges/Coding Visit Charges Inpatient E&M: 41199 Subs Hosp L2
[2024-08-20] MEDS: Tamsulosin HCl 0.4 MG Capsule PO (17:18)
[2024-08-20] MEDS: QUEtiapine 25 MG Tablet PO (19:40)
[2024-08-20] MEDS: Donepezil HCl 10 MG Tablet PO (21:37)
[2024-08-20] MEDS: Metoprolol Tartrate 25 MG Tablet PO (21:37)
[2024-08-21 05:22] VITALS: BP 146/86; PULSE 77; RESP 18; TEMP 36.3; O2SAT 97
[2024-08-21 10:04] VITALS: PULSE 75
[2024-08-21] MEDS: Metoprolol Tartrate 25 MG Tablet PO (10:04)
[2024-08-21] MEDS: Folic Acid 1 MG Tablet PO (10:04)
[2024-08-21] MEDS: Hydroxychloroquine 200 MG Tablet PO (10:05)
[2024-08-21] MEDS: Enoxaparin 40 MG/0.4 ML Syringe SC (10:05)
[2024-08-21 10:15] VITALS: BP 118/69; PULSE 75; RESP 17; TEMP 36.8; O2SAT 100
[2024-08-21 15:15] VITALS: BP 117/71; PULSE 71; RESP 17; TEMP 36.7; O2SAT 96
--- NOTE | 2024-08-21 15:49 | CASEMGMT ---
Addendum entered by Jennyfer Fernandez 08/21/24 16:02: Pt to dc home this date. IRMA ROBB into make pt aware. She states she will go home and get pt clothes. She is aware that should pt not do well at home that he was not hospitalized this hospitalization for 3 MN and therefore would not qualify for a SNF. She verbalizes understanding. TC to [facility], left on intake line that pt is dc'ing today. Pt to resume aide services. Pt denies further needs at this time. Original Note: IRMA ROBB into pt room, pt had therapy. Pt sitting up in chair and at bedside. Pt states that she observed pt with therapy. Discussed therapy notes with her and assistance needed. Pt states she disagrees with the therapist. She states she feels she can manage pt at home. She states she has SN and PT through [facility] and also aides for two hours a day 6 days a week. She states pt is up every 2 hours at home and she feels this is more than what he would get at a facility. She states the aides also do exercises daily with pt. Updated hospitalist.
--- NOTE | 2024-08-21 15:50 | DCINST_ITS ---
Discharge Instructions Diet Discharge Diet: No restrictions DC O2, CPAP, BIPAP needs Home O2 Discharge instructions: No Dressing / Incision Discharge Activity: Return to Normal Activity Weight Bearing Status: Weight bearing as tolerated Dressing / Incision Call your doctor if you observe: Fever of 101 or Higher, Coldness, Increased Pain, Numbness or Tingling, Change in Color, Inability to urinate, Inability to have a bowel movement, Shortness of breath, Dizziness, Fainting spells, Swelling in the ankles, Chest pain, Prolonged hiccupping, Increased palpitations (irregular heartbeat) and Calf discomfort Follow Up Care When: IN 2 WEEKS Test Results: Test results from this visit will be discussed in further detail at your follow- up appointment, if applicable. Discharge Plan Admission Admit Date/Time: 08/19/24 14:04 Primary Reason for Your Visit: Asymptomatic bacteriuria. UTI ruled out Attending Provider: Jose Edwards Primary Care Provider: Casimiro Duncan Consulting Providers: lEton Richardson; Rm Agee Discharge Orders/Prescriptions Prescriptions: Continued metoprolol tartrate 25 MG tablet 25 mg PO BID donepezil 23 mg tablet 23 mg PO QHS Patient Comments: take 1 tablet by mouth once daily lorazepam [Ativan] 0.5 mg tablet 0.5 mg PO Q12H methotrexate sodium 2.5 mg Tablet 20 mg PO WE quetiapine 25 mg tablet 25 mg PO QHS Patient Comments: only takes one at night hydroxychloroquine 200 mg Tablet 200 mg PO DAILY acetaminophen 325 mg Tablet 650 mg PO Q6H PRN PRN (Reason: Pain 1-10 Or Fever>100.7) Qty: 0 0RF sennosides-docusate sodium [Stool Softener-Stimulant Laxat] 8.6-50 mg Tablet 2 tab PO BID PRN PRN (Reason: Constipation) Qty: 0 0RF tamsulosin 0.4 mg Capsule 0.4 mg PO DAILY@1730 Qty: 0 0RF leucovorin calcium 15 MG tablet 15 mg PO Q7D Patient Comments: TAKES ON TUESDAY MORNING folic acid 1 MG tablet 2 mg PO DAILY Changed aspirin 81 mg tablet,delayed release (DR/EC) 81 mg PO QODAY 30 Days Qty: 0 0RF Discontinued ciprofloxacin HCl [Cipro] 500 mg tablet 500 mg PO BID 10 Days Qty: 20 0RF Referrals / Follow Up: Casimiro Duncan MD [Primary Care Provider] - Disposition Disposition (needs filled in before D/C Order can be placed): Home Health Service
--- NOTE | 2024-08-21 15:53 | PCM.DC.SUM ---
Providers Date of Admission: 08/19/24 Date of Discharge: 08/21/24 Primary Care Physician: Dr. Casimiro Duncan MD Consultations 08/18/24 19:11 Consult: Infectious Disease Routine Consulting Provider: Rm Agee Reason for Consult: ESBL UTI EMERGENT Consult: No MD Notified: Yes Date Notified: 08/20/24 Time Notified: 08:30 Method of Notification: Answering Service Reason For Visit: ESBL UTI W/WORSENING MENTATION Diagnosis Discharge Diagnosis (1) Catheter-associated urinary tract infection: Status: Acute Code(s): T83.511A - Infection and inflammatory reaction due to indwelling urethral catheter, initial encounter; N39.0 - Urinary tract infection, site not specified (2) Agitation: Status: Acute Code(s): R45.1 - Restlessness and agitation (3) Dementia with behavioral disturbance: Status: Acute Code(s): F03.918 - Unspecified dementia, unspecified severity, with other behavioral disturbance Plan Patient is a 73-year-old male who presented to [facility] ED on 08/18/2024 with worsening agitation and aggression. He has chronic indwelling Espinosa catheter with recent UTI started on Cipro on 08/09. Patient having incoherent speech and is stated he had a baby and someone taken his baby away and used to look for it. No recent change in urine output continue 1. ESBL E. coli colonization/asymptomatic bacteriuria with history of multidrug-resistant UTI, history of urinary retention s/p TURP with chronic Espinosa catheter ? Admit under inpatient status to [facility]. Patient follows with Dr. Parker, had TURP procedure done in January. Has had chronic espinosa catheter since then. UA on admit showed 500 leukocyte esterase, positive nitrates, greater than 100 WBCs, 4+ bacteria. Urine culture from 08/09 grew ESBL E. coli and E faecalis.ID consulted. Renal and bladder ultrasound ordered. Continue home Flomax. 08/19: Urine culture shows presumptive E. coli more than 100,000 colonies. Sensitivity pending. Continue IV Zosyn empirically. 08/20: ID saw the patient. Most likely ESBL producing asymptomatic bacteriuria with chronic indwelling Espinosa catheter and bacteriuria is common. No signs of systemic infection. Meropenem discontinued and observe off antibiotic. 08/21: Patient was monitored off antibiotic for 1 day. Patient did not had any fever or tachycardia or systemic signs of infection. Asymptomatic bacteriuria. Acute cystitis/UTI ruled out 2. Worsened agitation and aggression possible acute encephalopathy in setting of Alzheimer's dementia ? Patient lives at home with . I think disorganized behavior, poor memory, amnesia and disorientation was due to advanced dementia with mild bilateral contribution from UTI or encephalopathy Continue home Ativan twice daily, Seroquel at night and donepezil. 08/21: Patient did not had agitation. Acute encephalopathy resolved. 3. Chronic debility with recent hip fracture ? PT/OT/case management consulted. Patient hospitalized here in May for fall with left hip fracture. Had close reduction with left hip pinning done with Dr. Stone. Was discharged to SNF after that hospitalization and most recently has been following with home health care. 4. Rheumatoid arthritis ? Stable. Continue home hydroxychloroquine. hold weekly methotrexate and leucovorin while inpatient. DVT prophylaxis: Lovenox CODE STATUS: DNR CCA, DNI. This was confirmed with patient's on recent admission in May. Discharged home with home health care. The patient's believes that he will do better at home and get more therapy at home as he is up every 2 hours then if he went to a facility. He has therapist at home and aides 2 hours a day 6 days a week. Discharge medication reconciliation done. Discharge follow-up instructions completed. Discharge process discussed with the patient and all questions were answered to patient's satisfaction. Follow with PCP in 1 to 2 weeks Total time spent, exact 35 minutes on discharge meds reconciliation, examination, coordination of care with nurses and ancillary staff, review of imaging and blood test and discussion with the patient on follow-up instructions. Medications at Discharge Home Medications metoprolol tartrate 25 mg tablet 25 mg PO BID htn 03/24/14 folic acid 1 mg tablet 2 mg PO DAILY vitamin 06/17/17 leucovorin calcium 15 mg tablet 15 mg PO Q7D RA 06/17/17 donepezil 23 mg tablet 23 mg PO QHS dementia 09/15/23 hydroxychloroquine 200 mg tablet 200 mg PO DAILY 12/05/23 acetaminophen 325 mg tablet 650 mg (2 x 325 mg) PO Q6H PRN PRN Pain 1-10 Or Fever>100.7 #0 tabs 12/08/23 sennosides 8.6 mg-docusate sodium 50 mg tablet (Stool Softener-Stimulant Laxative) 2 tab PO BID PRN PRN Constipation #0 tabs 12/08/23 tamsulosin 0.4 mg capsule 0.4 mg PO DAILY@1730 #0 caps 12/08/23 lorazepam 0.5 mg tablet (Ativan) 0.5 mg PO Q12H anxiety 01/05/24 methotrexate sodium 2.5 mg tablet 20 mg PO WE 01/05/24 quetiapine 25 mg tablet 25 mg PO QHS 02/01/24 aspirin 81 mg tablet,delayed release 81 mg PO QODAY dvt 30 days #0 tabs 08/21/24 Physical Exam Narrative Seen and examined. Patient admitted for disorganized behavior, agitation and aggression. Has chronic Espinosa catheter and recently completed antibiotic. History is unobtainable as patient does not understand and is disoriented Physical exam General: Alert, disoriented to time place and person cooperative, advanced dementia. Does not know month, his age, year, or simple day or night orientation HEENT: Atraumatic, PERRLA, EOMI, Normocephalic Oral: Oral mucosa dry. No Gingival or Mucosal Lesions/ Ulcerations Neck: Supple, No JVD, Negative Carotid Bruits Chest wall/Lungs: Air entry diminished in bilateral lung bases. No crepitation/rhonchi Cardiovascular: Regular rate, Regular Rhythm, Normal S1, Normal S2, No M/G/R Abdomen: Bowel Sounds Present, Soft, Non Tender, Non-Distended : Indwelling Espinosa catheter. No renal angle tenderness. No suprapubic tenderness. Extremities: No edema, Capillary Refill Less than 3 Seconds Skin: No rashes, No breakdown Musculoskeletal: No Tenderness to Palpation of Joints or Extremities Neurological: Cranial nerves II-XII grossly intact, DTR 2+/4. No acute focal neurological deficit. Psych/Mental Status: Quite for now. Advanced dementia. Cognitive deficit with little insight and understanding. Weight / BMI Weight Weight: 144 lb 6.444 oz Body Mass Index (BMI) 20.7 ABG / Lab / Microbiology Data 08/19/24 04:57 08/19/24 04:57 Microbiology: Microbiology 08/18/24 13:30 Urine Catheter - Espinosa Urine Culture - Final ESBL Escherichia coli 08/18/24 13:30 Mucosa - Nose SARS-CoV-2, Influenza & RSV (PCR) - Final D/C Instructions Discharge Diet: No restrictions Weight Bearing Status: Weight bearing as tolerated Call your doctor if you observe: Fever of 101 or Higher, Coldness, Increased Pain, Numbness or Tingling, Change in Color, Inability to urinate, Inability to have a bowel movement, Shortness of breath, Dizziness, Fainting spells, Swelling in the ankles, Chest pain, Prolonged hiccupping, Increased palpitations (irregular heartbeat) and Calf discomfort DC O2, CPAP, BIPAP Needs Home O2 Discharge instructions: No When: IN 2 WEEKS Meaningful Use Info Meaningful Use Meaningful Use Diagnoses (Choose all that apply): None applicable Ischemic Stroke Statin Dosing Therapy Reference: STATIN DOSE THERAPY REFERENCE: * Patients > 75 years receive moderate or high dose statin therapy. * Patients 75 years or YOUNGER should receive HIGH intensity statin dose unless contraindicated. You will be required to document reason for non-treatment if statin daily dose does not meet guidelines. HIGH DOSE STATIN THERAPY DAILY Atorvastatin > than or = to 40 mg Rosuvastatin > than or = to 20 mg Amlodipine + Atorvastatin > than or = to 2.5/40 mg Ezetimibe + Simvastatin 10/80 mg Simvastatin 80mg Discharge Plan Admission Admit Date/Time: 08/19/24 14:04 Primary Reason for Your Visit: Asymptomatic bacteriuria. UTI ruled out Attending Provider: Jose Edwards Primary Care Provider: Casimiro Duncan Consulting Providers: Elton Richardson; Rm Agee Discharge Orders/Prescriptions Prescriptions: Continued metoprolol tartrate 25 MG tablet 25 mg PO BID donepezil 23 mg tablet 23 mg PO QHS Patient Comments: take 1 tablet by mouth once daily lorazepam [Ativan] 0.5 mg tablet 0.5 mg PO Q12H methotrexate sodium 2.5 mg Tablet 20 mg PO WE quetiapine 25 mg tablet 25 mg PO QHS Patient Comments: only takes one at night hydroxychloroquine 200 mg Tablet 200 mg PO DAILY acetaminophen 325 mg Tablet 650 mg PO Q6H PRN PRN (Reason: Pain 1-10 Or Fever>100.7) Qty: 0 0RF sennosides-docusate sodium [Stool Softener-Stimulant Laxat] 8.6-50 mg Tablet 2 tab PO BID PRN PRN (Reason: Constipation) Qty: 0 0RF tamsulosin 0.4 mg Capsule 0.4 mg PO DAILY@1730 Qty: 0 0RF leucovorin calcium 15 MG tablet 15 mg PO Q7D Patient Comments: TAKES ON TUESDAY MORNING folic acid 1 MG tablet 2 mg PO DAILY Changed aspirin 81 mg tablet,delayed release (DR/EC) 81 mg PO QODAY 30 Days Qty: 0 0RF Discontinued ciprofloxacin HCl [Cipro] 500 mg tablet 500 mg PO BID 10 Days Qty: 20 0RF Referrals / Follow Up: Casimiro Duncan MD [Primary Care Provider] - Disposition Disposition (needs filled in before D/C Order can be placed): Home Health Service Charges/Coding Visit Charges Inpatient E&M: 85349 Disch Hosp >30min
--- NOTE | 2024-08-21 17:31 | NURSING ---
It took this RN and another RN to get pt dressed and into the wheelchair then 2 of us to get him in the car. Patients asked several times how she was going to get her inside the house byherself. Oh I'll be fine. states there will be no one at home to help her get him in the house but stated, I can do it.
== END 2024-08-21 17:12 | disposition home health service (06) | DRG 696 ==
LOC: ED 16:55 → MS3 17:23
PROVIDERS: Admitting Provider Hospitalist; Emergency Provider Emergency Medicine; PCP Family Medicine; Visit Provider Internal Medicine
DX: R82.71 Bacteriuria (principal); G93.40 Encephalopathy, unspecified; F02.811 Dementia in other diseases classified elsewhere, unspecified severity, with agitation; Z16.12 Extended spectrum beta lactamase (ESBL) resistance; Z66 Do not resuscitate; J44.9 Chronic obstructive pulmonary disease, unspecified; M06.9 Rheumatoid arthritis, unspecified; I10 Essential (primary) hypertension; G30.9 Alzheimer's disease, unspecified; B95.2 Enterococcus as the cause of diseases classified elsewhere; R53.81 Other malaise; Z87.891 Personal history of nicotine dependence; B96.20 Unspecified Escherichia coli [E. coli] as the cause of diseases classified elsewhere; Z79.82 Long term (current) use of aspirin; Z87.440 Personal history of urinary (tract) infections; Z86.59 Personal history of other mental and behavioral disorders
CPT/HCPCS: 36415; 71045; 76770; 80048; 80053; 81001; 85025; 85027; 87086; 87088; 87186; 87631; 90662; 93005; 97162; 97166; 97530; 97535; 99285; J2185; A4216

== ENCOUNTER 2024-08-27 19:49 | Inpatient (IN) | payer MEDICARE, BC, SELFPAY ==
[2024-08-27 19:52] VITALS: BP 109/71; PULSE 84; RESP 15; TEMP 36.8; O2SAT 95; BMI 30.4
[2024-08-27 19:55] VITALS: BP 109/71; PULSE 81; RESP 21; TEMP 36.8; O2SAT 94
--- NOTE | 2024-08-27 20:20 | RAD_ITS ---
INDICATION: Weakness and confusion EXAMINATION/TECHNIQUE: X-RAY - portable upright AP chest x-ray COMPARISON: 08/18/2024 FINDINGS: LINES/DEVICES: None. LUNGS: No consolidation, edema or effusion. No pneumothorax. MEDIASTINUM AND CARDIOVASCULAR STRUCTURES: Cardiac silhouette stable within normal limits. BONES AND SOFT TISSUES: No acute changes. Stable scoliosis. RAD/Chest 1 View (Portable) IMPRESSION: No radiographic evidence of acute cardiopulmonary disease. Electronically Signed: Andrez Alvarado MD at 21:54 EST ,
--- NOTE | 2024-08-27 20:20 | EKG12_ITS ---
Test Reason : DYSRHYTHMIA Blood Pressure : */* mmHG Vent. Rate : 82 BPM Atrial Rate : * BPM P-R Int : * ms QRS Dur : 80 ms QT Int : 358 ms P-R-T Axes : * 0 61 degrees QTcB Int : 418 ms Normal sinus rhythm Low voltage QRS Septal infarct , age undetermined Abnormal ECG Confirmed by Gerard Barnes ([id number]), market editor FORD CHAN ([id number]) on 08/28/2024 1:29:40 PM Referred By: Tacos Stallings Confirmed By: Gerard Barnes
--- NOTE | 2024-08-27 20:22 | EX.ED.DYSGE1 ---
HPI History of Present Illness Chief Complaint: Weakness Informant: patient, family and EMS Narrative Narrative: 73-year-old male with advanced Alzheimer's dementia with weakness more so than usual to the point of having falls. Recently has had home health for about a week now since being discharged from this hospital, but family states they are not there 14/03 and they are concerned that they cannot care for him in this way. Patient denies any acute complaints at this time, history very limited from him due to confusion. [facility] Medical History History of ESBL E. coli infection Chest wall contusion Dementia Fall Compression fracture of L5 vertebra Closed fracture of left hip Wears hearing aid Wears glasses Depression Anxiety Dementia Alcohol use Walker as ambulation aid Rheumatoid arthritis Bladder disease Prostate disease Indwelling urethral catheter present Back pain Injury of head and neck Dietary restriction History of IBS Former smoker History of edema History of irregular heartbeat Lives in half-way COPD (chronic obstructive pulmonary disease) Alzheimer disease Hemorrhoids Weight loss Rheumatoid arthritis Gout HTN (hypertension) Home Medications ?Medication ?Instructions ?Recorded ?Last Taken ?Type metoprolol tartrate 25 mg tablet 25 mg PO BID htn 03/24/14 02/01/24 History folic acid 1 mg tablet 2 mg PO DAILY vitamin 06/17/17 12/04/23 History leucovorin calcium 15 mg tablet 15 mg PO Q7D RA 06/17/17 01/18/24 History donepezil 23 mg tablet 23 mg PO QHS dementia 09/15/23 02/01/24 History hydroxychloroquine 200 mg tablet 200 mg PO DAILY 12/05/23 02/01/24 History acetaminophen 325 mg tablet 650 mg (2 x 325 mg) PO Q6H PRN PRN 12/08/23 Unknown Rx Pain 1-10 Or Fever>100.7 #0 tabs sennosides 8.6 mg-docusate sodium 2 tab PO BID PRN PRN Constipation 12/08/23 Unknown Rx 50 mg tablet (Stool #0 tabs Softener-Stimulant Laxative) tamsulosin 0.4 mg capsule 0.4 mg PO DAILY@1730 #0 caps 12/08/23 01/31/24 Rx lorazepam 0.5 mg tablet (Ativan) 0.5 mg PO Q12H anxiety 01/05/24 06/03/24 History methotrexate sodium 2.5 mg tablet 20 mg PO WE 01/05/24 01/25/24 History quetiapine 25 mg tablet 25 mg PO QHS 02/01/24 01/31/24 History aspirin 81 mg tablet,delayed 81 mg PO QODAY dvt 30 days #0 tabs 08/21/24 Unknown Rx release Allergy/AdvReac Type Severity Reaction Status Date / Time No Known Allergies Allergy Verified 08/27/24 19:51 Family History Father Colon cancer CVA (cerebral vascular accident) Hypertension Heart disease Sister CAD (coronary artery disease) Hypertension Heart disease Mother Cancer Surgical History History of stapedectomy Hx of tonsillectomy S/P colonoscopy Social History household members: spouse Smoking Status: Former smoker alcohol intake: never substance use type: does not use ROS ROS ED Review of Systems ROS Unobtainable: due to mental status EXAM Physical Exam Const Vital Signs: 08/27/24 19:52 08/27/24 19:52 08/27/24 19:55 Temperature 98.2 F 98.2 F Temperature Source Oral Oral Pulse Rate 84 81 Respiratory Rate 15 21 H Respiratory Effort Normal Respiratory Pattern Normal Blood Pressure 109/71 109/71 Blood Pressure Mean 83 83 Pulse Ox 95 94 Oxygen Delivery Method Room Air Room Air 08/27/24 20:55 Temperature 98.4 F Temperature Source Oral Pulse Rate 78 Respiratory Rate 16 Respiratory Effort Respiratory Pattern Blood Pressure 121/73 H Blood Pressure Mean 89 Pulse Ox 98 Oxygen Delivery Method Room Air Positive well nourished and well developed General Appearance ED: well developed and NAD HEENT Reports moist mucous membranes HEENT Narrative: Active rhinorrhea, no epistaxis normocephalic and atraumatic Eyes PERRL and EOMs intact bilaterally Neck full ROM and supple Resp normal respiratory effort and clear to auscultation bilaterally Cardio regular rate and regular rhythm Rate: Negative for tachycardic GI non-tender and non-distended Auscultation: normoactive bowel sounds Palpation: soft Narrative: Marina catheter in place with about 200 cc of dark yellow urine in bag, no blood Back/Spine no CVA tenderness General Back: other FROM Extremity normal to inspection General Extremety ED: Negative for edema, pulses abnormal or tenderness General Extremity: Negative for edema or pulses abnormal Neuro CN's II-XII intact bilaterally and no sensory deficits noted Neuro Narrative: Moving all 4 extremities equally and purposefully. Able to follow some commands. Very confused. No overt psychomotor agitation. Sensorium / Orientation: awake, alert and orientation impaired Motor Exam: general weakness Skin no rashes or lesions noted and no wounds Skin Narrative: No obvious signs of trauma. MDM MDM MDM Narrative Medical decision making narrative: Patient recently here and diagnosed with ESBL E. coli urine infection, but it appears that discharged today ruled out acute UTI and it does not appear he was sent home on any antibiotics. His urine is consistent with infection now, I am sending a culture since he has an indwelling Marina, certainly colonization is in the differential, but given his recent culture greater than 100,000 CFU per mL, I am giving him meropenem to cover ESBL E. coli. It seems a week ago or so he had a negative COVID/influenza/RSV test, but since he has active rhinorrhea and cannot give me history of decided to repeat it. He is positive for COVID. Chest x-ray 1 view on my interpretation shows no acute pneumonia, since he has had several recent falls with details unknown, I obtained a head CT, on my interpretation shows no acute traumatic abnormality, radiology in agreement. His relative lack of white blood count is consistent with having COVID. His lactate is barely abnormal nonspecifically at 2.1, however his vital signs of remained stable and clinically does not appear septic. However given his condition, plan will be to admit him to the hospital for further care and empiric antibiotics for the possible urine infection. History & Record Review Additional record(s) reviewed:: Prior inpatient record Lab Data Attestation: I reviewed the patient's lab results. Labs: Laboratory Results - last 24 hr 08/27/24 08/27/24 08/27/24 19:47 20:10 20:32 WBC 6.9 RBC 4.80 Hgb 14.9 Hct 43.8 MCV 91.3 MCH 31.0 MCHC 34.0 RDW Std Deviation 49.9 H RDW Coeff of Narciso 14.8 H Plt Count 258 MPV 9.1 Immature Gran % (Auto) 0.700 Neut % (Auto) 77.6 H Lymph % (Auto) 7.5 L [place] % (Auto) 13.2 H Eos % (Auto) 0.1 Baso % (Auto) 0.9 Absolute Neuts (auto) 5.4 Absolute Lymphs (auto) 0.52 L Nucleated RBC % 0 PT 14.7 INR 1.1 APTT 33.1 Sodium 132 L Potassium 3.9 Chloride 99 Carbon Dioxide 25.0 Anion Gap 8 BUN 11 Creatinine 0.89 Estim Creat Clear Calc 84.83 Est GFR (MDRD) Af Amer 108 Est GFR (MDRD) Non-Af 89 BUN/Creatinine Ratio 12.4 Glucose 103 Lactic Acid 2.1 H* Calcium 8.6 Total Bilirubin 0.90 AST 14 L ALT 14 L Alkaline Phosphatase 72 Troponin I High Sens 10 Total Protein 6.7 Albumin 3.1 L Globulin 3.6 Albumin/Globulin Ratio 0.9 Urine Color Straw Urine Clarity Sl. Cloudy Urine pH 6.0 Ur Specific [place] 1.030 Urine Protein 100 H Urine Glucose (UA) Normal Urine Ketones Negative Urine Occult Blood 250 H Urine Nitrite Positive H Urine Bilirubin 1 H Urine Urobilinogen 1 H Ur Leukocyte Esterase 500 H Urine RBC 10-25 SEEN Urine WBC 50-100 SEEN Ur Squamous Epith Cells 0-5 SEEN Urine Bacteria 2+ Hyaline Casts 0-5 SEEN Urine Mucus 0 SEEN Radiography Diagnostic Testing: Clinical Impression(s) from Imaging Studies Chest X-Ray 08/27/24 20:20 IMPRESSION: No radiographic evidence of acute cardiopulmonary disease. Electronically Signed: Andrez Alvarado MD at 21:54 EST Reading Location ID and State: [facility] / [place] Tel , Service support , Brain CT 08/27/24 20:57 IMPRESSION: Volume loss with chronic white matter changes. No acute intracranial findings. Electronically Signed: Andrez Alvarado MD at 21:58 EST Reading Location ID and State: [facility] / [place] Tel , Service support , Rhythm Strip Rhythm Strip: Sinus Rhythm Rate: 82 Ectopy: None EKG Initial EKG: Attestation: I personally reviewed and interpreted this EKG as follows: Interpretation: Sinus Rhythm and No Acute Injury Pattern Comments: Nml axis & intervals; nml EKG other than low voltage; no electrical alternans Management Discussion w/another healthcare provider: Hospitalist Discharge Plan Dx/Rx/DC Orders Clinical Impression: COVID-19, History of dementia, Debility, Catheter-associated urinary tract infection Disposition Disposition: Acute Care Hospital [facility]
[2024-08-27] MEDS: 0.9% Normal Saline (500mL Bag) 500 ML 999 ML IV (20:42)
[2024-08-27 20:51] LABS: Lactic Acid 2.1 mmol/L (0.4-1.9)
[2024-08-27 20:55] VITALS: BP 121/73; PULSE 78; RESP 16; TEMP 36.9; O2SAT 98
--- NOTE | 2024-08-27 20:57 | CT_ITS ---
INDICATION: altered MS EXAMINATION: CT BRAIN - CT Head or Brain W/O Contrast Injection TECHNIQUE: Multiple axial images were obtained of the head without intravenous contrast. A radiation dose optimization technique was used for this scan. IV Contrast dosage and agent: None. COMPARISON: 06/23/2024 FINDINGS: BRAIN PARENCHYMA: No intra- or extra-axial hemorrhage. No evidence of acute infarct. No intracranial mass or mass effect. There is preservation of the peraza/white matter interface. Posterior fossa structures are unremarkable. Stable volume loss with low attenuation of the periventricular white matter typical of chronic small vessel disease. CSF SPACES: Stable No hydrocephalus. Basal cisterns are patent. CALVARIUM, SKULL BASE, PARANASAL SINUSES AND MASTOID AIR CELLS: Scattered mild mucoperiosteal thickening. No discrete lytic or blastic abnormalities. CT/Brain/Head without Contrast IMPRESSION: Volume loss with chronic white matter changes. No acute intracranial findings. Electronically Signed: Andrez Alvarado MD at 21:58 EST ,
[2024-08-27 20:59] LABS: Mucous, Urine 0 SEEN /hpf (<or=2+)
[2024-08-27 21:04] LABS: Color, Urine Straw (Yellow); Glucose, Dipstick Normal (Normal); Ketone-Dipstick Negative (Negative); Leukocyte Esterase-Dipstick 500 /ul (Negative); Nitrite-Dipstick Positive (Negative); Occult Blood-Urine 250 /ul (Negative); Protein-Dipstick 100 mg/dl (Negative); Urine Clarity Sl. Cloudy (Clear); Urine Urobilinogen 1 mg/dl (Normal)
[2024-08-27 21:13] LABS: Urine Bilirubin Dipstick 1 mg/dL (Negative)
[2024-08-27 21:16] LABS: ALB/GLOB Ratio 0.9 RATIO (0.9-2.4); AST(SGOT) 14 U/L (15-37); Alanine Aminotransfer ALT/SGPT 14 U/L (16-61); Albumin, Serum 3.1 g/dL (3.2-5.0); Alkaline Phosphatase 72 U/L (45-117); Anion Gap 8 (5-15); BUN 11 mg/dL (7-18); BUN/Creat Ratio 12.4 RATIO (10-20); Calcium,Total 8.6 mg/dL (8.5-10.1); Chloride 99 mmol/L (98-107); Creatinine, Serum 0.89 mg/dL (0.70-1.30); EST Glomerular Filtration Rate 89 mL/min (>60); Est Glom Filt Rate - Afr Amer 108 mL/min (>60); Estimated Creatinine Clearance 84.83 ml/min; Globulin 3.6 g/dL (2.2-4.2); Glucose 103 mg/dL (74-106); Potassium 3.9 mmol/L (3.5-5.1); Protein, Total 6.7 g/dL (6.4-8.2); Sodium Level 132 mmol/L (136-145); Troponin-I HS 10 pg/mL (3.0-78.0)
[2024-08-27 21:21] LABS: Bacteria 2+ /hpf (None Seen); Hyaline Cast 0-5 SEEN /lpf (0-5); Red Blood Cells-Urine 10-25 SEEN /hpf (0-5); Squamous Epithelial Cells - UA 0-5 SEEN /hpf (0-5); White Blood Cells 50-100 SEEN /hpf (0-5)
[2024-08-27 21:23] LABS: International Normalized Ratio 1.1; Prothrombin Time (Protime)PT. 14.7 SECONDS (11.7-14.9)
[2024-08-27 21:24] LABS: Partial Thromboplast Time 33.1 Seconds (24.1-36.2)
[2024-08-27 21:26] LABS: Absolute Lymphocyte Count 0.52 X10^3/uL (0.83-4.51); Absolute Neutrophil Count 5.4 X10^3/uL (2.0-7.7); Basophil# 0.06 X10^3/uL; Basophil% 0.9 % (0-1); Eosinophil# 0.01 X10^3/uL; Eosinophils% 0.1 % (0-5); Hematocrit 43.8 % (40-54); Hemoglobin 14.9 g/dL (13.0-16.5); Lymphocyte # 0.52 X10^3/ul (0.83-4.51); Lymphocyte % 7.5 % (19-41); Mean Corpuscular Volume 91.3 fL (80-94); Mean Platelet Vol. 9.1 fl (6.2-12.0); Monocyte# 0.91 X10^3/uL; Monocyte% 13.2 % (0-10); NRBC Flagged by Analyzer 0 % (0-5); Neutrophil # 5.35 X10^3/uL (2.7-7.7); Neutrophil % 77.6 % (47-70); POSITIVE DIFFERENTIAL YES; Platelet Count 258 K/mm3 (150-450); RBC Distribution Width CV 14.8 % (11.6-14.6); RBC Distribution Width SD 49.9 fl (35.1-43.9); White Blood Count 6.9 K/mm3 (4.4-11.0)
[2024-08-27 22:00] VITALS: BP 173/76; PULSE 89; RESP 16; TEMP 37; O2SAT 98
--- NOTE | 2024-08-27 22:08 | PCM.HP.STD ---
HPI - General General Date of Admission: 08/27/24 Date of Service: 08/27/24 Chief Complaint: Worsening weakness HPI Narrative EDWIN ODONNELL, is a 73 M who presented to [facility] ED on 08/27/2024 with worsening weakness. Patient has history of advanced Alzheimer's dementia. He was hospitalized here from 08/18-08/21 for a similar presentation. Has chronic indwelling Marina catheter and it was thought a UTI could be causing his weakness. However, ID saw him and noted that it was likely chronic colonization and recommended observation off of antibiotics. He had poor therapy scores and recommendation was for SNF versus long-term placement, but family noted that they had home health aides coming into see him daily and they could manage them at home. They brought him back in today noting that he had worsening weakness with some small falls and they felt like they could not take care of him at home any longer. In the ED patient was hemodynamically stable on room air. Labs notable for sodium 132 and lactate 2.1, were otherwise unremarkable. UA looked similar to previous UA from 08/18 with slight improvement in urine bacteria from 4+ down to 2+. Chest x-ray and CT brain were unremarkable. Given his failure to thrive, hospitalist was contacted for admission. I saw the patient at bedside in the ED, no other family was present. Patient was laying back comfortably in bed and in no acute distress. He was fatigued appearing but did attempt to answer questions for me. He stated he was at [facility] and the year was 1973. He denied any pain or discomfort. Denied any shortness of breath and he was breathing comfortably on room air. No other acute concerns at this time. [facility] Medical History History of ESBL E. coli infection Chest wall contusion Dementia Fall Compression fracture of L5 vertebra Closed fracture of left hip Wears hearing aid Wears glasses Depression Anxiety Dementia Alcohol use Walker as ambulation aid Rheumatoid arthritis Bladder disease Prostate disease Indwelling urethral catheter present Back pain Injury of head and neck Dietary restriction History of IBS Former smoker History of edema History of irregular heartbeat Lives in group home COPD (chronic obstructive pulmonary disease) Alzheimer disease Hemorrhoids Weight loss Rheumatoid arthritis Gout HTN (hypertension) Home Medications ?Medication ?Instructions ?Recorded ?Last Taken ?Type metoprolol tartrate 25 mg tablet 25 mg PO BID htn 03/24/14 02/01/24 History folic acid 1 mg tablet 2 mg PO DAILY vitamin 06/17/17 12/04/23 History leucovorin calcium 15 mg tablet 15 mg PO Q7D RA 06/17/17 01/18/24 History donepezil 23 mg tablet 23 mg PO QHS dementia 09/15/23 02/01/24 History hydroxychloroquine 200 mg tablet 200 mg PO DAILY 12/05/23 02/01/24 History acetaminophen 325 mg tablet 650 mg (2 x 325 mg) PO Q6H PRN PRN 12/08/23 Unknown Rx Pain 1-10 Or Fever>100.7 #0 tabs sennosides 8.6 mg-docusate sodium 2 tab PO BID PRN PRN Constipation 12/08/23 Unknown Rx 50 mg tablet (Stool #0 tabs Softener-Stimulant Laxative) tamsulosin 0.4 mg capsule 0.4 mg PO DAILY@1730 #0 caps 12/08/23 01/31/24 Rx lorazepam 0.5 mg tablet (Ativan) 0.5 mg PO Q12H anxiety 01/05/24 06/03/24 History methotrexate sodium 2.5 mg tablet 20 mg PO WE 01/05/24 01/25/24 History quetiapine 25 mg tablet 25 mg PO QHS 02/01/24 01/31/24 History aspirin 81 mg tablet,delayed 81 mg PO QODAY dvt 30 days #0 tabs 08/21/24 Unknown Rx release Allergy/AdvReac Type Severity Reaction Status Date / Time No Known Allergies Allergy Verified 08/27/24 19:51 Family History Father Colon cancer CVA (cerebral vascular accident) Hypertension Heart disease Sister CAD (coronary artery disease) Hypertension Heart disease Mother Cancer Surgical History History of stapedectomy Hx of tonsillectomy S/P colonoscopy Social History household members: spouse Smoking Status: Former smoker alcohol intake: never substance use type: does not use ROS Constitutional Constitutional: Reports fatigue and weakness; Denies chills or fever(s) Cardiovascular Cardiovascular: Denies chest pain Respiratory/Chest Respiratory/Chest: Denies cough or shortness of breath at rest Gastrointestinal Gastrointestinal: Denies abdominal pain Vital Signs Vital Signs Vital Signs: 08/27/24 19:52 08/27/24 19:52 08/27/24 19:55 Temperature 98.2 F 98.2 F Temperature Source Oral Oral Pulse Rate 84 81 Respiratory Rate 15 21 H Respiratory Effort Normal Respiratory Pattern Normal Blood Pressure 109/71 109/71 Blood Pressure Mean 83 83 Pulse Ox 95 94 Oxygen Delivery Method Room Air Room Air 08/27/24 20:55 Temperature 98.4 F Temperature Source Oral Pulse Rate 78 Respiratory Rate 16 Respiratory Effort Respiratory Pattern Blood Pressure 121/73 H Blood Pressure Mean 89 Pulse Ox 98 Oxygen Delivery Method Room Air Weight Weight: 96.4 kg Body Mass Index (BMI) 30.4 Physical Exam Const alert and no apparent distress Constitutional Narrative: Elderly male, obese, fatigued appearing, alert and oriented x 1 to person but otherwise laying back comfortably in bed and in no acute distress. General Appearance: cooperative and comfortable HEENT normocephalic, head/scalp atraumatic, hearing grossly normal bilaterally and nasal mucous membranes and turbinates normal HEENT Narrative: Dry mucous membranes. Eyes PERRL, EOMs intact bilaterally and conjunctivae normal Neck full ROM Chest inspection of chest normal Resp normal respiratory effort, normal air movement, no use of accessory muscles and clear to auscultation bilaterally Cardio regular rate, regular rhythm, no murmurs and peripheral pulses 2+ throughout GI normal to inspection, nondistended, normoactive bowel sounds, soft to palpation, non-tender and non-distended Back/Spine normal ROM Extremity normal to inspection and no pedal edema Skin no rashes or lesions noted Neuro moves all extremities and no focal motor deficits Results Lab / Micro Data 08/27/24 20:10 08/27/24 20:10 Labs: Laboratory Results - last 24 hr 08/27/24 19:47: Lactic Acid 2.1 H* 08/27/24 20:10: WBC 6.9, RBC 4.80, Hgb 14.9, Hct 43.8, MCV 91.3, MCH 31.0, MCHC 34.0, RDW Std Deviation 49.9 H, RDW Coeff of Narciso 14.8 H, Plt Count 258, MPV 9.1, Immature Gran % (Auto) 0.700, Neut % (Auto) 77.6 H, Lymph % (Auto) 7.5 L, [place] % (Auto) 13.2 H, Eos % (Auto) 0.1, Baso % (Auto) 0.9, Absolute Neuts (auto) 5.4, Absolute Lymphs (auto) 0.52 L, Nucleated RBC % 0, PT 14.7, INR 1.1, APTT 33.1, Sodium 132 L, Potassium 3.9, Chloride 99, Carbon Dioxide 25.0, Anion Gap 8, BUN 11, Creatinine 0.89, Estim Creat Clear Calc 84.83, Est GFR (MDRD) Af Amer 108, Est GFR (MDRD) Non-Af 89, BUN/Creatinine Ratio 12.4, Glucose 103, Calcium 8.6, Total Bilirubin 0.90, AST 14 L, ALT 14 L, Alkaline Phosphatase 72, Troponin I High Sens 10, Total Protein 6.7, Albumin 3.1 L, Globulin 3.6, Albumin/Globulin Ratio 0.9 08/27/24 20:32: Urine Color Straw, Urine Clarity Sl. Cloudy, Urine pH 6.0, Ur Specific [place] 1.030, Urine Protein 100 H, Urine Glucose (UA) Normal, Urine Ketones Negative, Urine Occult Blood 250 H, Urine Nitrite Positive H, Urine Bilirubin 1 H, Urine Urobilinogen 1 H, Ur Leukocyte Esterase 500 H, Urine RBC 10-25 SEEN, Urine WBC 50-100 SEEN, Ur Squamous Epith Cells 0-5 SEEN, Urine Bacteria 2+, Hyaline Casts 0-5 SEEN, Urine Mucus 0 SEEN Micro: Microbiology 08/27/24 20:32 Mucosa - Nose SARS-CoV-2, Influenza & RSV (PCR) - Final Rhythm Strip Rhythm Strip: Sinus Rhythm Rate: 82 Ectopy: None Imaging Radiology Impression Chest X-Ray 08/27/24 20:20 IMPRESSION: No radiographic evidence of acute cardiopulmonary disease. Electronically Signed: Andrez Alvarado MD at 21:54 EST , Brain CT 08/27/24 20:57 IMPRESSION: Volume loss with chronic white matter changes. No acute intracranial findings. Electronically Signed: Andrez Alvarado MD at 21:58 EST Reading Location ID and State: [facility] / [place] Tel , Service support , Assessment & Plan Assessment/Plan (1) Adult failure to thrive: (2) Dementia with behavioral disturbance: (3) COVID-19: PLAN: Plan Patient is a 73-year-old male who presented [facility] ED on 08/27/2024 with worsening weakness. 1. Adult failure to thrive in setting of advanced Alzheimer's dementia with behavioral disturbances ? Admit under inpatient status to [facility]. PT/OT/case management consulted. Patient had poor therapy scores during recent admission and recommendation was for SNF versus long-term care but family wished for patient to be discharged home with assistance from private aides. May have slight worsening of weakness due to COVID-19 but suspect he is close to baseline. Will need 3 midnight stay prior to discharge to any facility. Continue home donepezil, Ativan, and Seroquel. 2. COVID-19 positive ? COVID-19 positive in the ED. Breathing comfortably on room air and chest x-ray unremarkable. Per family has apparently had some rhinorrhea and slight worsening of weakness recently but patient is otherwise minimally symptomatic. With patient on room air, no need for steroids or remdesivir. Symptomatic management. 3. Chronic urinary retention with chronic Marina catheter and recent concern for multidrug-resistant UTI ? ID followed during recent previous admission and noted that as bacteriuria is common with indwelling Marina catheter and patient had no systemic signs of infection, had no need for further antibiotics. UA here appears slightly improved from last admission and patient remains afebrile and hemodynamically stable with normal WBC count. Will hold on any antibiotics at this time. 4. Rheumatoid arthritis ? Stable. Continue home hydroxychloroquine. Holding home methotrexate and leucovorin while inpatient. DVT prophylaxis: Lovenox CODE STATUS: DNR CCA, DNI. This was confirmed with patient's on recent admission in May. Expected disposition: SNF versus long-term care, 2 to 3 days Total clinical time spent by myself addressing the patient's medical issues, reviewing all the data, and collaborating with patient's care team: 55 minutes. Charges/Coding Visit Charges Inpatient E&M: 13532 Init Hosp L2
[2024-08-27] MEDS: Meropenem 1 GM in 0.9% Normal Saline (100mL MB+) 100 ML IV (22:26)
[2024-08-27 22:28] VITALS: BP 126/71; PULSE 86; RESP 18; TEMP 37.1; O2SAT 97
[2024-08-27 23:15] VITALS: BP 145/84; PULSE 86; RESP 14; TEMP 37.2; O2SAT 95
[2024-08-28] VITALS (9 sets, daily range): BP systolic 121–145; BP diastolic 69–84; PULSE 64–98; RESP 14–16; TEMP 36–37.2; O2SAT 94–99
[2024-08-28 00:25] LABS: Reflex Lactate? Y
[2024-08-28] MEDS: LORazepam 0.5 MG Tablet PO ×3 (00:55→20:21)
[2024-08-28] MEDS: Acetaminophen 325 MG Tablet 650 MG PO (00:55)
[2024-08-28 02:11] LABS: Lactic Acid 1.3 mmol/L (0.4-1.9)
--- NOTE | 2024-08-28 07:13 | PCM.PN.HOSP ---
Reason for Visit Reason for Visit: Diagnoses Unspecified dementia, unspecified severity, with other behavioral disturbance (08/27/24) Adult failure to thrive (08/27/24) COVID-19 (08/27/24) Subjective Subjective Patient is a 73-year-old male who presented [facility] ED on 08/27/2024 with worsening weakness. Patient tested positive for COVID Objective Data Objective Data Vital Signs: Vital Signs Temp Pulse Resp BP Pulse Ox O2 Del Method 96.8 F L 64 15 121/69 H 99 Room Air 08/28/24 06:00 08/28/24 06:00 08/28/24 06:00 08/28/24 06:00 08/28/24 06:00 08/28/24 06:00 Oxygen Delivery Method Room Air Weight: 65.5 kg Body Mass Index (BMI) 30.4 Intake & Output: Intake and Output for Last 24 Hours 08/26/24 08/27/24 08/28/24 23:59 23:59 23:59 Intake Total 620 / 620 Output Total 1250 / 1250 Balance 620 / -130 -1250 / -1250 Lab / Micro Data 08/27/24 20:10 08/27/24 20:10 Labs: Laboratory Results - last 24 hr 08/27/24 19:47: Lactic Acid 2.1 H* 08/27/24 20:10: WBC 6.9, RBC 4.80, Hgb 14.9, Hct 43.8, MCV 91.3, MCH 31.0, MCHC 34.0, RDW Std Deviation 49.9 H, RDW Coeff of Narciso 14.8 H, Plt Count 258, MPV 9.1, Immature Gran % (Auto) 0.700, Neut % (Auto) 77.6 H, Lymph % (Auto) 7.5 L, [place] % (Auto) 13.2 H, Eos % (Auto) 0.1, Baso % (Auto) 0.9, Absolute Neuts (auto) 5.4, Absolute Lymphs (auto) 0.52 L, Nucleated RBC % 0, PT 14.7, INR 1.1, APTT 33.1, Sodium 132 L, Potassium 3.9, Chloride 99, Carbon Dioxide 25.0, Anion Gap 8, BUN 11, Creatinine 0.89, Estim Creat Clear Calc 84.83, Est GFR (MDRD) Af Amer 108, Est GFR (MDRD) Non-Af 89, BUN/Creatinine Ratio 12.4, Glucose 103, Calcium 8.6, Total Bilirubin 0.90, AST 14 L, ALT 14 L, Alkaline Phosphatase 72, Troponin I High Sens 10, Total Protein 6.7, Albumin 3.1 L, Globulin 3.6, Albumin/Globulin Ratio 0.9 08/27/24 20:32: Urine Color Straw, Urine Clarity Sl. Cloudy, Urine pH 6.0, Ur Specific [place] 1.030, Urine Protein 100 H, Urine Glucose (UA) Normal, Urine Ketones Negative, Urine Occult Blood 250 H, Urine Nitrite Positive H, Urine Bilirubin 1 H, Urine Urobilinogen 1 H, Ur Leukocyte Esterase 500 H, Urine RBC 10-25 SEEN, Urine WBC 50-100 SEEN, Ur Squamous Epith Cells 0-5 SEEN, Urine Bacteria 2+, Hyaline Casts 0-5 SEEN, Urine Mucus 0 SEEN 08/28/24 01:34: Lactic Acid 1.3 Micro: Microbiology 08/27/24 20:32 Mucosa - Nose SARS-CoV-2, Influenza & RSV (PCR) - Final Radiography Diagnostic Testing: Radiology Impression Chest X-Ray 08/27/24 20:20 IMPRESSION: No radiographic evidence of acute cardiopulmonary disease. Electronically Signed: Andrez Alvarado MD at 21:54 EST Reading Location ID and State: [facility] / [place] Tel , Service support , Brain CT 08/27/24 20:57 IMPRESSION: Volume loss with chronic white matter changes. No acute intracranial findings. Electronically Signed: Andrez Alvarado MD at 21:58 EST , Rhythm Strip Rhythm Strip: Sinus Rhythm Rate: 82 Ectopy: None Physical Exam Narrative GENERAL: cooperative HEENT: Atraumatic; normocephalic EYES; Anicteric, Normal Conjunctiva NECK; supple, normal thyroid, RESPIRATORY: Diminished to auscultation CARDIOVASCULAR: Regular S1 S2, GI: soft, normoactive bowel sounds, : No Renal angle tenderness; EXTREMITIES: No edema, no clubbing, MUSCULOSKELETAL: no muscle wasting NEURO: Awake; no lateralizing signs. SKIN: No Rash PSYCH; Flat affect Assessment & Plan Assessment/Plan (1) Adult failure to thrive: (2) Dementia with behavioral disturbance: (3) COVID-19: PLAN: Plan Patient is a 73-year-old male who presented [facility] ED on 08/27/2024 with worsening weakness. Patient tested positive for COVID 1. Acute COVID-19 infection ? Patient admitted to regular nursing floor for symptom management. Patient did not require Decadron nor remdesivir since he was maintaining adequate saturation on room air 2. Acute complicated UTI with multidrug-resistant E. coli secondary to the presence of chronic indwelling Marina catheter ? Patient cultures from 08/08/2024 grew ESBL E. coli patient started on meropenem repeat cultures sent 3. Physical deconditioning ? Requested for PT OT eval and transition social worker to assist with discharge planning 4. Dementia with behavioral disturbance ? Thought to be precipitated by above will continue supportive care 5. Hyponatremia ? S suspected to be secondary to hypovolemic hyponatremia started on IV fluid with subsequent monitoring of electrolytes ordered 6. Hypertension - Blood pressure controlled, home medications continued with dose adjustment as needed 7. DVT prophylaxis ? Subcu heparin Time spent in the patient's overall evaluation,decision-making process, review of diagnostic data, adjustment of management, discussion with other providers, nursing nursing and ancillary staff involved in patient's care documentation, 52 minutes Charges/Coding Visit Charges Inpatient E&M: 83713 [facility] Hosp L3
--- NOTE | 2024-08-28 09:38 | CASEMGMT ---
Social Work SW participated in rounds this morning. It is anticipated pt may need prison placement. SW called pt's to discuss placement, message left. SW tried the second number listed, the number does not work. SW will speak w/ when she returns call. YAJAIRA Aguiar
[2024-08-28] MEDS: Folic Acid 1 MG Tablet 2 MG PO (10:01)
[2024-08-28] MEDS: Hydroxychloroquine 200 MG Tablet PO (10:01)
[2024-08-28] MEDS: Metoprolol Tartrate 25 MG Tablet PO ×2 (10:01→20:24)
[2024-08-28] MEDS: Enoxaparin 40 MG/0.4 ML Syringe SC (10:02)
--- NOTE | 2024-08-28 10:10 | CASEMGMT ---
Social Work Pt's called SW back in regard to discharge plan. SW explained pt is here observation, which means that Medicare will not pay for SNF placement. states she thinks pt needs to go [facility]. She did state they have a [facility] care policy. SW encouraged her to call the policy to find out the benefits, did explain to her that often with these plans the pt/family pays up front and then gets reimbursed. She is not familiar with the exact benefits of the policy. upset on phone, SW offered support. She states they have been for 49 years, they have two children, one in [place] and one in [place]. SW offered support. We discussed SNF options, SW offered to get a list. is sick herself, does not feel she is strong enough to drive to come in. However, she does have a facility in mind, she [facility], he has been there before. SW explained we will make the referral today, SW let her know the cost per day. states understanding. SW will make referral today. YAJAIRA Aguiar
[2024-08-28] MEDS: Meropenem 1 GM in 0.9% Normal Saline (100mL MB+) 100 ML IV ×2 (11:25→20:20)
--- NOTE | 2024-08-28 11:43 | CASEMGMT ---
Discharge Planning Referral sent to [facility]. Rosy Stovall DC Planning Asst.
--- NOTE | 2024-08-28 13:00 | CASEMGMT ---
Social Work [facility] cannot take pt due to pt having COVID. SW called pt's to let her know, asked her for other choices. SW also did let her know that pt is now inpt, but it is not certain how long he will need to be here. SW reviewed w/ the nursing homes in [place], pt would like a referral to [facility] and if they cannot take pt, then [facility]. SW explained will make the referral to [facility] and go from there. SW also encouraged to go to the doctor, as she does not feel well, nor does she sound well on the phone. states she did call the doctor. SW let d/c corporate planner Rosy know to try [facility] then [facility]. Pt does still have therapy pending, however. [facility] will want therapy notes, she will send the referral once pt has had PT/OT. SW will continue to follow. YAJAIRA Aguiar
--- NOTE | 2024-08-28 14:51 | CASEMGMT ---
Addendum entered by Rosy Stovall 08/28/24 16:07: [facility] has accepted. Pts updated. Rosy Stovall DC Planning Asst. Original Note: Discharge Planning Referral sent to [facility]. Rosy Stovall DC Planning Asst.
--- NOTE | 2024-08-28 15:05 | NURSING ---
Called spouse to give update.
--- NOTE | 2024-08-28 15:23 | CASEMGMT ---
Readmission Note: Index: 08/19/24-08/21/24. Dx: ESBL UTI with Worsening Mentation Readmission: 08/28/24. Dx: Adult FTT From index admission, the pt discharged home with his with HH through [facility] (SN and PT). On index admission, the pt RN CM discharging the pt made sure that the pt felt comfortable caring for the pt at home. See previous RN CM notes. The pt has a history of Alzheimer's and dementia. TC to the pt , [place]. The pt states that the pt was able to take all of his medications as prescribed. Pt states that the C was able to come to the home and provide care. Pt states that the pt was unable to f/u with the PCP d/t the appt date being this upcoming Tuesday. Pt states that they took good care of the pt chronic Marina catheter. Pt states that the pt oral intake was adequate. However, the pt re-presents to [facility] with worsening weakness and was admitted to the hospital for FTT. Moving forward, the plan is for the pt to attend a SNF. See SW notes. Pt denies further questions or concerns at this time. Care Management to continue to follow. Maikol SIEGEL RN, CM
[2024-08-28] MEDS: Tamsulosin HCl 0.4 MG Capsule PO (17:09)
[2024-08-28] MEDS: QUEtiapine 25 MG Tablet PO (20:21)
[2024-08-29] VITALS (9 sets, daily range): BP systolic 122–133; BP diastolic 54–108; PULSE 84–98; RESP 15–16; TEMP 36.8–37.2; O2SAT 93–98
--- NOTE | 2024-08-29 07:19 | PCM.PN.HOSP ---
Reason for Visit Reason for Visit: Diagnoses Unspecified dementia, unspecified severity, with other behavioral disturbance (08/28/24) Adult failure to thrive (08/28/24) COVID-19 (08/28/24) Subjective Subjective Patient seen continues to improve clinically. Patient apparently has no IV access requested for PICC line. Objective Data Objective Data Vital Signs: Vital Signs Temp Pulse Resp BP Pulse Ox O2 Del Method 99 F 98 15 133/72 H 94 Room Air 08/29/24 00:00 08/29/24 00:00 08/29/24 00:00 08/29/24 00:00 08/29/24 00:00 08/29/24 02:00 Oxygen Delivery Method Room Air Weight: 65.5 kg Body Mass Index (BMI) 30.4 Intake & Output: Intake and Output for Last 24 Hours 08/27/24 08/28/24 08/29/24 23:59 23:59 23:59 Intake Total 620 / 620 200 / 200 Output Total 2049 / 2049 Balance 620 / -130 -1850 / -1850 Lab / Micro Data 08/29/24 08:13 08/27/24 20:10 Micro: Microbiology 08/27/24 20:32 Mucosa - Nose SARS-CoV-2, Influenza & RSV (PCR) - Final SARS-CoV-2 (COVID 19 PCR) 08/27/24 20:32 Urine, Catheterized Urine Culture - Preliminary GNR lactose museum docent Rhythm Strip Rhythm Strip: Sinus Rhythm Rate: 82 Ectopy: None Physical Exam Narrative GENERAL: cooperative HEENT: Atraumatic; normocephalic EYES; Anicteric, Normal Conjunctiva NECK; supple, normal thyroid, RESPIRATORY: Diminished to auscultation CARDIOVASCULAR: Regular S1 S2, GI: soft, normoactive bowel sounds, : No Renal angle tenderness; EXTREMITIES: No edema, no clubbing, MUSCULOSKELETAL: no muscle wasting NEURO: Awake; no lateralizing signs. SKIN: No Rash PSYCH; Flat affect Assessment & Plan Assessment/Plan (1) Adult failure to thrive: (2) Dementia with behavioral disturbance: (3) COVID-19: PLAN: Plan Patient is a 73-year-old male who presented [facility] ED on 08/27/2024 with worsening weakness. Patient tested positive for COVID 1. Acute COVID-19 infection ? Patient admitted to regular nursing floor for symptom management. Patient did not require Decadron nor remdesivir since he was maintaining adequate saturation on room air ? 08/29/2024; patient continues to improve 2. Acute complicated UTI with multidrug-resistant E. coli secondary to the presence of chronic indwelling Marina catheter ? Patient cultures from 08/08/2024 grew ESBL E. coli patient started on meropenem repeat cultures sent 3. Physical deconditioning ? Requested for PT OT eval and social security assessor to assist with discharge planning 4. Dementia with behavioral disturbance ? Thought to be precipitated by above will continue supportive care 5. Hyponatremia ? suspected to be secondary to hypovolemic hyponatremia started on IV fluid with subsequent monitoring of electrolytes ordered ? 08/29/2024 awaiting a.m. labs prior to adjustments of patient therapy 6. Hypertension - Blood pressure controlled, home medications continued with dose adjustment as needed 7. DVT prophylaxis ? Subcu heparin Time spent in the patient's overall evaluation,decision-making process, review of diagnostic data, adjustment of management, discussion with other providers, nursing nursing and ancillary staff involved in patient's care documentation, 40 minutes Charges/Coding Visit Charges Inpatient E&M: 82249 Subs Hosp L2
[2024-08-29 08:23] LABS: Absolute Lymphocyte Count 0.81 X10^3/uL (0.83-4.51); Absolute Neutrophil Count 2.5 X10^3/uL (2.0-7.7); Basophil# 0.02 X10^3/uL; Basophil% 0.5 % (0-1); Eosinophil# 0.04 X10^3/uL; Hematocrit 45.4 % (40-54); Hemoglobin 15.2 g/dL (13.0-16.5); Lymphocyte # 0.81 X10^3/ul (0.83-4.51); Lymphocyte % 19.8 % (19-41); Mean Corp Hgb Conc 33.5 g/dL (32-36); Mean Corpuscular Volume 92.7 fL (80-94); Mean Platelet Vol. 8.7 fl (6.2-12.0); Monocyte# 0.69 X10^3/uL; Monocyte% 16.9 % (0-10); NRBC Flagged by Analyzer 0 % (0-5); Neutrophil # 2.52 X10^3/uL (2.7-7.7); Neutrophil % 61.6 % (47-70); Platelet Count 205 K/mm3 (150-450); RBC Distribution Width SD 50.8 fl (35.1-43.9); White Blood Count 4.1 K/mm3 (4.4-11.0)
[2024-08-29 09:07] LABS: Anion Gap 7 (5-15); BUN 15 mg/dL (7-18); BUN/Creat Ratio 19.4 RATIO (10-20); Chloride 102 mmol/L (98-107); Creatinine, Serum 0.77 mg/dL (0.70-1.30); EST Glomerular Filtration Rate 104 mL/min (>60); Est Glom Filt Rate - Afr Amer 126 mL/min (>60); Estimated Creatinine Clearance 75.05 ml/min; Glucose 90 mg/dL (74-106); Magnesium 2.2 mg/dL (1.6-2.6); Phosphorus 3.1 mg/dL (2.5-4.9); Potassium 3.8 mmol/L (3.5-5.1); Sodium Level 136 mmol/L (136-145)
[2024-08-29] MEDS: Metoprolol Tartrate 25 MG Tablet PO ×2 (09:37→23:22)
[2024-08-29] MEDS: Folic Acid 1 MG Tablet 2 MG PO (09:38)
[2024-08-29] MEDS: Aspirin E.C. 81 MG Tablet PO (09:38)
[2024-08-29] MEDS: Enoxaparin 40 MG/0.4 ML Syringe SC (09:39)
[2024-08-29] MEDS: Acetaminophen 325 MG Tablet 650 MG PO (09:42)
[2024-08-29] MEDS: LORazepam 0.5 MG Tablet PO ×2 (09:42→23:22)
[2024-08-29] MEDS: Hydroxychloroquine 200 MG Tablet PO (09:43)
--- NOTE | 2024-08-29 11:33 | RAD_ITS ---
EXAM: XR CHEST, 1 VIEW CLINICAL INDICATION: PICC Insertion TECHNIQUE: Frontal view of the chest. COMPARISON: 08/27/2024. FINDINGS: LUNGS AND PLEURAL SPACES: The lungs are clear. No pneumothorax. No effusion. HEART: Unremarkable. Cardiac silhouette not enlarged. MEDIASTINUM: Central airways and mediastinal contour are unremarkable. BONES/JOINTS: Unremarkable. No acute fracture. SOFT TISSUES: Unremarkable. VASCULATURE: Calcified plaques in the transverse thoracic aorta and descending thoracic aorta. TUBES, LINES AND DEVICES: Right PICC line catheter tip is kinked with a 1 cm long U-turn of the tip in the mid SVC. RAD/CXR for Line Placement IMPRESSION: 1. No acute findings in the chest. 2. Right PICC line catheter tip is kinked with a 1 cm U-turn of the tip in the mid SVC. Whether this PICC line kinking is causing obstruction or not is uncertain. Electronically Signed: Randy Overton MD at 13:38 EST ,
[2024-08-29] MEDS: Meropenem 1 GM in 0.9% Normal Saline (100mL MB+) 100 ML IV ×2 (14:24→23:23)
[2024-08-29] MEDS: Tamsulosin HCl 0.4 MG Capsule PO (19:10)
[2024-08-29] MEDS: Donepezil HCl 10 MG Tablet 20 MG PO (23:22)
[2024-08-29] MEDS: QUEtiapine 25 MG Tablet PO (23:22)
[2024-08-29] MEDS: 0.9% Saline Lock 10 ML Syringe IV (23:23)
[2024-08-30] VITALS (7 sets, daily range): BP systolic 113–131; BP diastolic 59–72; PULSE 75–80; RESP 15–18; TEMP 36.4–37.2; O2SAT 93–96
[2024-08-30] MEDS: Meropenem 1 GM in 0.9% Normal Saline (100mL MB+) 100 ML IV ×3 (05:43→21:18)
--- NOTE | 2024-08-30 08:31 | PN.HOSP_ITS ---
Reason for Visit Reason for Visit: Diagnoses Unspecified dementia, unspecified severity, with other behavioral disturbance (08/28/24) Adult failure to thrive (08/28/24) COVID-19 (08/28/24) Subjective Subjective Seen admit to improvement in his overall clinical condition. Do anticipate continuous progress with possible discharge in a.m. possibly to a intermediate facility Objective Data Objective Data Vital Signs: Vital Signs Temp Pulse Resp BP Pulse Ox O2 Del Method 98.9 F 76 15 131/66 H 95 Room Air 08/30/24 07:58 08/30/24 07:58 08/30/24 07:58 08/30/24 07:58 08/30/24 07:58 08/30/24 07:58 Oxygen Delivery Method Room Air Weight: 65.5 kg Body Mass Index (BMI) 30.4 Intake & Output: Intake and Output for Last 24 Hours 08/28/24 08/29/24 08/30/24 23:59 23:59 23:59 Intake Total 200 / 200 100 / 100 100 / 100 Output Total 2049 / 2049 175 / 175 800 / 800 Balance -1850 / -1850 -75 / -75 -700 / -700 Lab / Micro Data 08/30/24 08:15 08/30/24 08:15 Labs: Laboratory Results - last 24 hr 08/29/24 08:13: Sodium 136, Potassium 3.8, Chloride 102, Carbon Dioxide 27.0, Anion Gap 7, BUN 15, Creatinine 0.77, Estim Creat Clear Calc 75.05, Est GFR (MDRD) Af Amer 126, Est GFR (MDRD) Non-Af 104, BUN/Creatinine Ratio 19.4, Glucose 90, Calcium 9.0, Phosphorus 3.1, Magnesium 2.2 Micro: Microbiology 08/27/24 20:32 Urine, Catheterized Urine Culture - Final ESBL Escherichia coli 08/27/24 20:32 Mucosa - Nose SARS-CoV-2, Influenza & RSV (PCR) - Final SARS-CoV-2 (COVID 19 PCR) Radiography Diagnostic Testing: Radiology Impression Chest X-Ray 08/29/24 11:33 IMPRESSION: 1. No acute findings in the chest. 2. Right PICC line catheter tip is kinked with a 1 cm U-turn of the tip in the mid SVC. Whether this PICC line kinking is causing obstruction or not is uncertain. Electronically Signed: Randy Overton MD at 13:38 EST , Rhythm Strip Rhythm Strip: Sinus Rhythm Rate: 82 Ectopy: None Physical Exam Narrative GENERAL: cooperative HEENT: Atraumatic; normocephalic EYES; Anicteric, Normal Conjunctiva NECK; supple, normal thyroid, RESPIRATORY: Diminished to auscultation CARDIOVASCULAR: Regular S1 S2, GI: soft, normoactive bowel sounds, : No Renal angle tenderness; EXTREMITIES: No edema, no clubbing, MUSCULOSKELETAL: no muscle wasting NEURO: Awake; no lateralizing signs. SKIN: No Rash PSYCH; Flat affect Assessment & Plan Assessment/Plan (1) Adult failure to thrive: (2) COVID-19: PLAN: Plan Patient is a 73-year-old male who presented [facility] ED on 08/27/2024 with worsening weakness. Patient tested positive for COVID 1. Acute COVID-19 infection ? Patient admitted to regular nursing floor for symptom management. Patient did not require Decadron nor remdesivir since he was maintaining adequate saturation on room air ? 08/29/2024; patient continues to improve ? 08/30/2024; patient was transferred from intensive care unit to [facility] floor the day prior. Clinical condition continues to improve 2. Acute complicated UTI with multidrug-resistant E. coli secondary to the presence of chronic indwelling Marina catheter ? Patient cultures from 08/08/2024 grew ESBL E. coli patient started on meropenem repeat cultures sent 3. Physical deconditioning ? Requested for PT OT eval and clinical social work aide to assist with discharge planning ? 08/30/2024; do anticipate discharge to intermediate facility on 08/31/2024 4. Dementia with behavioral disturbance ? Thought to be precipitated by above will continue supportive care 5. Hyponatremia ? suspected to be secondary to hypovolemic hyponatremia started on IV fluid with subsequent monitoring of electrolytes ordered ? 08/29/2024 awaiting a.m. labs prior to adjustments of patient therapy 6. Hypertension - Blood pressure controlled, home medications continued with dose adjustment as needed 7. DVT prophylaxis ? Subcu heparin Time spent in the patient's overall evaluation,decision-making process, review of diagnostic data, adjustment of management, discussion with other providers, nursing nursing and ancillary staff involved in patient's care documentation, 36 minutes Charges/Coding Visit Charges Inpatient E&M: 13993 Subs Hosp L2
[2024-08-30 08:39] LABS: Absolute Lymphocyte Count 0.86 X10^3/uL (0.83-4.51); Absolute Neutrophil Count 1.9 X10^3/uL (2.0-7.7); Basophil# 0.02 X10^3/uL; Basophil% 0.6 % (0-1); Eosinophil# 0.09 X10^3/uL; Eosinophils% 2.6 % (0-5); Hematocrit 42.4 % (40-54); Hemoglobin 14.3 g/dL (13.0-16.5); Lymphocyte # 0.86 X10^3/ul (0.83-4.51); Lymphocyte % 25.1 % (19-41); Mean Corp Hgb Conc 33.7 g/dL (32-36); Mean Corpuscular Volume 91.8 fL (80-94); Mean Platelet Vol. 8.8 fl (6.2-12.0); Monocyte# 0.58 X10^3/uL; NRBC Flagged by Analyzer 0 % (0-5); Neutrophil # 1.86 X10^3/uL (2.7-7.7); Neutrophil % 54.4 % (47-70); POSITIVE MORPHOLOGY YES; Platelet Count 186 K/mm3 (150-450); RBC Distribution Width SD 49.7 fl (35.1-43.9); Red Blood Count 4.62 M/mm3 (4.6-6.2); White Blood Count 3.4 K/mm3 (4.4-11.0)
[2024-08-30 08:41] LABS: Differential Indicated SCAN CRITERIA MET
[2024-08-30 08:58] LABS: Anion Gap 4 (5-15); BUN 16 mg/dL (7-18); BUN/Creat Ratio 22.8 RATIO (10-20); Calcium,Total 8.8 mg/dL (8.5-10.1); Chloride 104 mmol/L (98-107); Differential Comment SCANNED; EST Glomerular Filtration Rate 116 mL/min (>60); Est Glom Filt Rate - Afr Amer 141 mL/min (>60); Estimated Creatinine Clearance 75.05 ml/min; Glucose 89 mg/dL (74-106); Potassium 3.4 mmol/L (3.5-5.1); Sodium Level 136 mmol/L (136-145)
[2024-08-30] MEDS: LORazepam 0.5 MG Tablet PO ×2 (11:07→21:09)
[2024-08-30] MEDS: Folic Acid 1 MG Tablet 2 MG PO (11:07)
[2024-08-30] MEDS: Hydroxychloroquine 200 MG Tablet PO (11:07)
[2024-08-30] MEDS: Metoprolol Tartrate 25 MG Tablet PO ×2 (11:07→21:10)
[2024-08-30] MEDS: Enoxaparin 40 MG/0.4 ML Syringe SC (11:07)
[2024-08-30] MEDS: Tamsulosin HCl 0.4 MG Capsule PO (18:16)
[2024-08-30] MEDS: Donepezil HCl 10 MG Tablet 20 MG PO (21:09)
[2024-08-30] MEDS: QUEtiapine 25 MG Tablet PO (21:10)
[2024-08-31 04:44] VITALS: BP 119/66; PULSE 88; RESP 15; TEMP 36.7; O2SAT 92
[2024-08-31] MEDS: Meropenem 1 GM in 0.9% Normal Saline (100mL MB+) 100 ML IV ×2 (04:55→12:56)
[2024-08-31 07:19] LABS: Absolute Lymphocyte Count 0.99 X10^3/uL (0.83-4.51); Absolute Neutrophil Count 3.6 X10^3/uL (2.0-7.7); Basophil# 0.03 X10^3/uL; Basophil% 0.6 % (0-1); Eosinophil# 0.07 X10^3/uL; Eosinophils% 1.3 % (0-5); Hematocrit 42.6 % (40-54); Hemoglobin 14.6 g/dL (13.0-16.5); Lymphocyte # 0.99 X10^3/ul (0.83-4.51); Lymphocyte % 18.9 % (19-41); Mean Corp Hgb Conc 34.3 g/dL (32-36); Mean Corpuscular Hgb 31.1 pg (27.0-32.0); Mean Corpuscular Volume 90.8 fL (80-94); Mean Platelet Vol. 8.8 fl (6.2-12.0); Monocyte# 0.56 X10^3/uL; Monocyte% 10.7 % (0-10); NRBC Flagged by Analyzer 0 % (0-5); Neutrophil # 3.57 X10^3/uL (2.7-7.7); Neutrophil % 68.1 % (47-70); Platelet Count 194 K/mm3 (150-450); RBC Distribution Width CV 14.6 % (11.6-14.6); RBC Distribution Width SD 48.7 fl (35.1-43.9); Red Blood Count 4.69 M/mm3 (4.6-6.2); White Blood Count 5.2 K/mm3 (4.4-11.0)
--- NOTE | 2024-08-31 07:29 | PCM.PN.HOSP ---
Reason for Visit Reason for Visit: Diagnoses Unspecified dementia, unspecified severity, with other behavioral disturbance (08/28/24) Adult failure to thrive (08/28/24) COVID-19 (08/28/24) Subjective Subjective Patient seen remains stable at rest patient will be assessed for discharge to [facility] Objective Data Objective Data Vital Signs: Vital Signs Temp Pulse Resp BP Pulse Ox O2 Del Method 98.0 F 88 15 119/66 92 Room Air 08/31/24 04:44 08/31/24 04:44 08/31/24 04:44 08/31/24 04:44 08/31/24 04:44 08/31/24 05:00 Oxygen Delivery Method Room Air Weight: 65.5 kg Body Mass Index (BMI) 30.4 Intake & Output: Intake and Output for Last 24 Hours 08/29/24 08/30/24 08/31/24 23:59 23:59 23:59 Intake Total 100 / 100 400 / 400 100 / 100 Output Total 175 / 175 2850 / 2850 Balance -75 / -75 -2450 / -2450 100 / 100 Lab / Micro Data 08/31/24 06:53 08/31/24 06:53 Labs: Laboratory Results - last 24 hr 08/30/24 08:15: WBC 3.4 L, RBC 4.62, Hgb 14.3, Hct 42.4, MCV 91.8, MCH 31.0, MCHC 33.7, RDW Std Deviation 49.7 H, RDW Coeff of Narciso 15.0 H, Plt Count 186, MPV 8.8, Immature Gran % (Auto) 0.300, Neut % (Auto) 54.4, Lymph % (Auto) 25.1, [place] % (Auto) 17.0 H, Eos % (Auto) 2.6, Baso % (Auto) 0.6, Absolute Neuts (auto) 1.9 L, Absolute Lymphs (auto) 0.86, Nucleated RBC % 0, Differential Comment SCANNED, Sodium 136, Potassium 3.4 L, Chloride 104, Carbon Dioxide 29.0, Anion Gap 4 L, BUN 16, Creatinine 0.70, Estim Creat Clear Calc 75.05, Est GFR (MDRD) Af Amer 141, Est GFR (MDRD) Non-Af 116, BUN/Creatinine Ratio 22.8 H, Glucose 89, Calcium 8.8 08/31/24 06:53: WBC 5.2, RBC 4.69, Hgb 14.6, Hct 42.6, MCV 90.8, MCH 31.1, MCHC 34.3, RDW Std Deviation 48.7 H, RDW Coeff of Narciso 14.6, Plt Count 194, MPV 8.8, Immature Gran % (Auto) 0.400, Neut % (Auto) 68.1, Lymph % (Auto) 18.9 L, [place] % (Auto) 10.7 H, Eos % (Auto) 1.3, Baso % (Auto) 0.6, Absolute Neuts (auto) 3.6, Absolute Lymphs (auto) 0.99, Nucleated RBC % 0 Micro: Microbiology 08/27/24 20:39 Blood Culture (Wb) - Right Hand Blood Culture - Preliminary No growth in 48 hours. 08/27/24 20:10 Blood Culture (Wb) - Anticubital Left Blood Culture - Preliminary No growth in 48 hours. 08/27/24 20:32 Urine, Catheterized Urine Culture - Final ESBL Escherichia coli 08/27/24 20:32 Mucosa - Nose SARS-CoV-2, Influenza & RSV (PCR) - Final SARS-CoV-2 (COVID 19 PCR) Rhythm Strip Rhythm Strip: Sinus Rhythm Rate: 82 Ectopy: None Physical Exam Narrative GENERAL: cooperative HEENT: Atraumatic; normocephalic EYES; Anicteric, Normal Conjunctiva NECK; supple, normal thyroid, RESPIRATORY: Diminished to auscultation CARDIOVASCULAR: Regular S1 S2, GI: soft, normoactive bowel sounds, : No Renal angle tenderness; EXTREMITIES: No edema, no clubbing, MUSCULOSKELETAL: no muscle wasting NEURO: Awake; no lateralizing signs. SKIN: No Rash PSYCH; Flat affect Assessment & Plan Assessment/Plan (1) Adult failure to thrive: (2) COVID-19: PLAN: Plan Patient is a 73-year-old male who presented [facility] ED on 08/27/2024 with worsening weakness. Patient tested positive for COVID 1. Acute COVID-19 infection ? Patient admitted to regular nursing floor for symptom management. Patient did not require Decadron nor remdesivir since he was maintaining adequate saturation on room air ? 08/29/2024; patient continues to improve ? 08/30/2024; patient was transferred from intensive care unit to [facility] floor the day prior. Clinical condition continues to improve 2. Acute complicated UTI with multidrug-resistant E. coli secondary to the presence of chronic indwelling Marina catheter ? Patient cultures from 08/08/2024 grew ESBL E. coli patient started on meropenem repeat cultures sent 3. Physical deconditioning ? Requested for PT OT eval and social service manager to assist with discharge planning ? 08/30/2024; do anticipate discharge to retirement facility on 08/31/2024 4. Dementia with behavioral disturbance ? Thought to be precipitated by above will continue supportive care 5. Hyponatremia ? suspected to be secondary to hypovolemic hyponatremia started on IV fluid with subsequent monitoring of electrolytes ordered ? 08/29/2024 awaiting a.m. labs prior to adjustments of patient therapy 6. Hypertension - Blood pressure controlled, home medications continued with dose adjustment as needed 7. DVT prophylaxis ? Subcu heparin Time spent in the patient's overall evaluation,decision-making process, review of diagnostic data, adjustment of management, discussion with other providers, nursing nursing and ancillary staff involved in patient's care documentation, 36 minutes
[2024-08-31 07:35] LABS: Anion Gap 5 (5-15); BUN 10 mg/dL (7-18); Calcium,Total 8.8 mg/dL (8.5-10.1); Chloride 107 mmol/L (98-107); Creatinine, Serum 0.62 mg/dL (0.70-1.30); EST Glomerular Filtration Rate 133 mL/min (>60); Est Glom Filt Rate - Afr Amer 161 mL/min (>60); Estimated Creatinine Clearance 75.05 ml/min; Glucose 87 mg/dL (74-106); Potassium 3.4 mmol/L (3.5-5.1); Sodium Level 138 mmol/L (136-145)
[2024-08-31] MEDS: Potassium Chloride Oral Tablet 20 MEQ 40 MEQ PO (08:45)
[2024-08-31] MEDS: LORazepam 0.5 MG Tablet PO (08:45)
[2024-08-31 08:46] VITALS: PULSE 83
[2024-08-31] MEDS: Aspirin E.C. 81 MG Tablet PO (08:46)
[2024-08-31] MEDS: Hydroxychloroquine 200 MG Tablet PO (08:46)
[2024-08-31] MEDS: Metoprolol Tartrate 25 MG Tablet PO (08:46)
[2024-08-31] MEDS: Folic Acid 1 MG Tablet 2 MG PO (08:46)
[2024-08-31] MEDS: Enoxaparin 40 MG/0.4 ML Syringe SC (08:46)
[2024-08-31 09:01] VITALS: BP 133/78; PULSE 83; RESP 16; TEMP 36.6; O2SAT 95
--- NOTE | 2024-08-31 11:14 | PCM.TXEXTCAR ---
Diet Diet Order/Speech Therapy: 08/27/24 23:12 Diet: Regular - General Food consistency:: Regular Liquid Consistency:: Regular/Thin Routine Orders/Code Status Code Status: DNRCC-A DC O2, CPAP, BIPAP needs Home O2 Discharge instructions: No Therapies Physical Therapy: Eval and Treat Occupational Therapy: Eval and Treat Problem/Diagnosis (1) Adult failure to thrive: Status: Acute Code(s): R62.7 - Adult failure to thrive (2) COVID-19: Status: Acute Code(s): U07.1 - COVID-19 Plan Patient is a 73-year-old male who presented [facility] ED on 08/27/2024 with worsening weakness. Patient tested positive for COVID 1. Acute COVID-19 infection ? Patient admitted to regular nursing floor for symptom management. Patient did not require Decadron nor remdesivir since he was maintaining adequate saturation on room air ? 08/29/2024; patient continues to improve ? 08/30/2024; patient was transferred from intensive care unit to [facility] floor the day prior. Clinical condition continues to improve 2. Acute complicated UTI with multidrug-resistant E. coli secondary to the presence of chronic indwelling Marina catheter ? Patient cultures from 08/08/2024 grew ESBL E. coli patient started on meropenem repeat cultures sent 3. Physical deconditioning ? Requested for PT OT eval and outreach and education social worker to assist with discharge planning ? 08/30/2024; do anticipate discharge to [facility]dc facility on 08/31/2024 4. Dementia with behavioral disturbance ? Thought to be precipitated by above will continue supportive care 5. Hyponatremia ? suspected to be secondary to hypovolemic hyponatremia started on IV fluid with subsequent monitoring of electrolytes ordered ? 08/29/2024 awaiting a.m. labs prior to adjustments of patient therapy 6. Hypertension - Blood pressure controlled, home medications continued with dose adjustment as needed 7. DVT prophylaxis ? Subcu heparin Time spent in the patient's overall evaluation,decision-making process, review of diagnostic data, adjustment of management, discussion with other providers, nursing nursing and ancillary staff involved in patient's care documentation, 36 minutes Allergies/Procedures Done in Hospital Allergies No Known Allergies Allergy (Verified 08/27/24 19:51) Type of Care/Length of Stay Estimated LOS: Convalescent Care Less Than 30 days Type of Care Needed: Skilled Rehab Potential: Good Prognosis: Good Additional Orders/Day of Discharge Day of Discharge: 08/31/24 Dietary and Speech Recommendations Dietitian Recommendations/Changes: Continue regular diet to optimize oral intakes. Will monitor weight as available. Discharge Plan Admission Admit Date/Time: 08/28/24 12:14 Attending Provider: Dirk Ennis Primary Care Provider: Casimiro Duncan Consulting Providers: Elton Richardson Discharge Orders/Prescriptions Prescriptions: New lorazepam 0.5 mg Tablet 0.5 mg PO BID Qty: 4 0RF Continued metoprolol tartrate 25 MG tablet 25 mg PO BID donepezil 23 mg tablet 23 mg PO QHS Patient Comments: take 1 tablet by mouth once daily methotrexate sodium 2.5 mg Tablet 20 mg PO WE quetiapine 25 mg tablet 25 mg PO QHS Patient Comments: only takes one at night hydroxychloroquine 200 mg Tablet 200 mg PO DAILY acetaminophen 325 mg Tablet 650 mg PO Q6H PRN PRN (Reason: Pain 1-10 Or Fever>100.7) Qty: 0 0RF sennosides-docusate sodium [Stool Softener-Stimulant Laxat] 8.6-50 mg Tablet 2 tab PO BID PRN PRN (Reason: Constipation) Qty: 0 0RF tamsulosin 0.4 mg Capsule 0.4 mg PO DAILY@1730 Qty: 0 0RF aspirin 81 mg tablet,delayed release (DR/EC) 81 mg PO QODAY 30 Days Qty: 0 0RF leucovorin calcium 15 MG tablet 15 mg PO Q7D Patient Comments: TAKES ON TUESDAY MORNING folic acid 1 MG tablet 2 mg PO DAILY Discontinued lorazepam [Ativan] 0.5 mg tablet 0.5 mg PO Q12H Referrals / Follow Up: Casimiro Duncan MD [Primary Care Provider] - Disposition Disposition (needs filled in before D/C Order can be placed): Detention Facility
--- NOTE | 2024-08-31 11:18 | DS.PCM_ITS ---
Providers Date of Admission: 08/28/24 Date of Discharge: 08/31/24 Primary Care Physician: Dr. Casiimro Duncan MD Reason For Visit: ADULT FAILURE TO THRIVE Diagnosis Discharge Diagnosis (1) Adult failure to thrive: Status: Acute Code(s): R62.7 - Adult failure to thrive (2) COVID-19: Status: Acute Code(s): U07.1 - COVID-19 Plan Patient is a 73-year-old male who presented [facility] ED on 08/27/2024 with worsening weakness. Patient tested positive for COVID 1. Acute COVID-19 infection ? Patient admitted to regular nursing floor for symptom management. Patient did not require Decadron nor remdesivir since he was maintaining adequate saturation on room air ? 08/29/2024; patient continues to improve ? 08/30/2024; patient was transferred from intensive care unit to [facility] floor the day prior. Clinical condition continues to improve 2. Acute complicated UTI with multidrug-resistant E. coli secondary to the presence of chronic indwelling Marina catheter ? Patient cultures from 08/08/2024 grew ESBL E. coli patient started on meropenem repeat cultures sent 3. Physical deconditioning ? Requested for PT OT eval and social worker to assist with discharge planning ? 08/30/2024; do anticipate discharge to longterm facility on 08/31/2024 4. Dementia with behavioral disturbance ? Thought to be precipitated by above will continue supportive care 5. Hyponatremia ? suspected to be secondary to hypovolemic hyponatremia started on IV fluid with subsequent monitoring of electrolytes ordered ? 08/29/2024 awaiting a.m. labs prior to adjustments of patient therapy 6. Hypertension - Blood pressure controlled, home medications continued with dose adjustment as needed 7. DVT prophylaxis ? Subcu heparin Time spent in the patient's overall evaluation,decision-making process, review of diagnostic data, adjustment of management, discussion with other providers, nursing nursing and ancillary staff involved in patient's care documentation, 36 minutes Medications at Discharge Home Medications metoprolol tartrate 25 mg tablet 25 mg PO BID htn 03/24/14 folic acid 1 mg tablet 2 mg PO DAILY vitamin 06/17/17 leucovorin calcium 15 mg tablet 15 mg PO Q7D RA 06/17/17 donepezil 23 mg tablet 23 mg PO QHS dementia 09/15/23 hydroxychloroquine 200 mg tablet 200 mg PO DAILY 12/05/23 acetaminophen 325 mg tablet 650 mg (2 x 325 mg) PO Q6H PRN PRN Pain 1-10 Or Fever>100.7 #0 tabs 12/08/23 sennosides 8.6 mg-docusate sodium 50 mg tablet (Stool Softener-Stimulant Laxative) 2 tab PO BID PRN PRN Constipation #0 tabs 12/08/23 tamsulosin 0.4 mg capsule 0.4 mg PO DAILY@1730 #0 caps 12/08/23 methotrexate sodium 2.5 mg tablet 20 mg PO WE 01/05/24 quetiapine 25 mg tablet 25 mg PO QHS 02/01/24 aspirin 81 mg tablet,delayed release 81 mg PO QODAY dvt 30 days #0 tabs 08/21/24 lorazepam 0.5 mg tablet 0.5 mg PO BID #4 tabs 08/31/24 Physical Exam Narrative GENERAL: cooperative HEENT: Atraumatic; normocephalic EYES; Anicteric, Normal Conjunctiva NECK; supple, normal thyroid, RESPIRATORY: Diminished to auscultation CARDIOVASCULAR: Regular S1 S2, GI: soft, normoactive bowel sounds, : No Renal angle tenderness; EXTREMITIES: No edema, no clubbing, MUSCULOSKELETAL: no muscle wasting NEURO: Awake; no lateralizing signs. SKIN: No Rash PSYCH; Flat affect Weight / BMI Weight Weight: 65.5 kg Body Mass Index (BMI) 30.4 ABG / Lab / Microbiology Data 08/31/24 06:53 08/31/24 06:53 Laboratory: Laboratory Results - last 24 hr 08/31/24 06:53: WBC 5.2, RBC 4.69, Hgb 14.6, Hct 42.6, MCV 90.8, MCH 31.1, MCHC 34.3, RDW Std Deviation 48.7 H, RDW Coeff of Narciso 14.6, Plt Count 194, MPV 8.8, Immature Gran % (Auto) 0.400, Neut % (Auto) 68.1, Lymph % (Auto) 18.9 L, [place] % (Auto) 10.7 H, Eos % (Auto) 1.3, Baso % (Auto) 0.6, Absolute Neuts (auto) 3.6, Absolute Lymphs (auto) 0.99, Nucleated RBC % 0, Sodium 138, Potassium 3.4 L, Chloride 107, Carbon Dioxide 27.0, Anion Gap 5, BUN 10, Creatinine 0.62 L, Estim Creat Clear Calc 75.05, Est GFR (MDRD) Af Amer 161, Est GFR (MDRD) Non-Af 133, BUN/Creatinine Ratio 16.0, Glucose 87, Calcium 8.8 Microbiology: Microbiology 08/27/24 20:39 Blood Culture (Wb) - Right Hand Blood Culture - Preliminary No growth in 48 hours. 08/27/24 20:10 Blood Culture (Wb) - Anticubital Left Blood Culture - Preliminary No growth in 48 hours. 08/27/24 20:32 Urine, Catheterized Urine Culture - Final ESBL Escherichia coli 08/27/24 20:32 Mucosa - Nose SARS-CoV-2, Influenza & RSV (PCR) - Final SARS-CoV-2 (COVID 19 PCR) D/C Instructions Discharge Diet: No restrictions Discharge Activity: Return to Normal Activity Call your doctor if you observe: Fever of 101 or Higher, Shortness of breath, Fainting spells and Chest pain DC O2, CPAP, BIPAP Needs Home O2 Discharge instructions: No Meaningful Use Info Meaningful Use Meaningful Use Diagnoses (Choose all that apply): None applicable Ischemic Stroke Statin Dosing Therapy Reference: STATIN DOSE THERAPY REFERENCE: * Patients > 75 years receive moderate or high dose statin therapy. * Patients 75 years or YOUNGER should receive HIGH intensity statin dose unless contraindicated. You will be required to document reason for non-treatment if statin daily dose does not meet guidelines. HIGH DOSE STATIN THERAPY DAILY Atorvastatin > than or = to 40 mg Rosuvastatin > than or = to 20 mg Amlodipine + Atorvastatin > than or = to 2.5/40 mg Ezetimibe + Simvastatin 10/80 mg Simvastatin 80mg Discharge Plan Admission Admit Date/Time: 08/28/24 12:14 Attending Provider: Dirk Ennis Primary Care Provider: Casimiro Duncan Consulting Providers: Elton Richardson Discharge Orders/Prescriptions Prescriptions: New lorazepam 0.5 mg Tablet 0.5 mg PO BID Qty: 4 0RF Continued metoprolol tartrate 25 MG tablet 25 mg PO BID donepezil 23 mg tablet 23 mg PO QHS Patient Comments: take 1 tablet by mouth once daily methotrexate sodium 2.5 mg Tablet 20 mg PO WE quetiapine 25 mg tablet 25 mg PO QHS Patient Comments: only takes one at night hydroxychloroquine 200 mg Tablet 200 mg PO DAILY acetaminophen 325 mg Tablet 650 mg PO Q6H PRN PRN (Reason: Pain 1-10 Or Fever>100.7) Qty: 0 0RF sennosides-docusate sodium [Stool Softener-Stimulant Laxat] 8.6-50 mg Tablet 2 tab PO BID PRN PRN (Reason: Constipation) Qty: 0 0RF tamsulosin 0.4 mg Capsule 0.4 mg PO DAILY@1730 Qty: 0 0RF aspirin 81 mg tablet,delayed release (DR/EC) 81 mg PO QODAY 30 Days Qty: 0 0RF leucovorin calcium 15 MG tablet 15 mg PO Q7D Patient Comments: TAKES ON TUESDAY MORNING folic acid 1 MG tablet 2 mg PO DAILY Discontinued lorazepam [Ativan] 0.5 mg tablet 0.5 mg PO Q12H Referrals / Follow Up: Casimiro Duncan MD [Primary Care Provider] - Within 2 Weeks Disposition Disposition (needs filled in before D/C Order can be placed): [facility] Facility Charges/Coding Visit Charges Inpatient E&M: 27232 Disch Hosp >30min
[2024-08-31 11:19] VITALS: BP 129/69; PULSE 75; RESP 16; TEMP 36.8; O2SAT 97
--- NOTE | 2024-08-31 11:41 | CASEMGMT ---
Social Work Physician updated and pt is ready for discharge today.? PASRR completed in [facility], DCA notified of discharge time. Final discharge arrangements and notification to patient/family as per discharge policy and planning manager.? Disposition:[facility], skilled level of care under convalescent stay. IMLES Medina
--- NOTE | 2024-08-31 12:10 | CASEMGMT ---
Discharge Planning Discharge orders, signed med list, and transport time sent to [facility] via [facility]. Physicians will transport patient by cot at 4p. Nursing, SW, and pts updated. Pts requested that [facility] call her daughter (pts step-daughter) for anything they may need. Pts is ill and her daughter is staying with her. This information along with name and phone number given to Juany @ [facility]. Rosy Stovall DC Planning Asst.
--- NOTE | 2024-08-31 14:53 | CASEMGMT ---
TC romero Yanez at [facility], she is aware that pt is dc'ing today to [facility].
[2024-08-31 17:35] VITALS: BP 136/65; PULSE 79; RESP 16; TEMP 37.7; O2SAT 96
[2024-08-31] MEDS: Tamsulosin HCl 0.4 MG Capsule PO (17:36)
--- NOTE | 2024-08-31 17:55 | NURSING ---
Kayleigh TAVERAS in ER phoned up to floor, states she spoke with the DON at [facility] and said they will be able to take pt tonight.
--- NOTE | 2024-08-31 20:30 | CASEMGMT ---
Social Work NITIN received call from Michelle from [facility] stating that [facility] called and stated they would no longer take patient this evening as transport was picking him up too late. SW called [facility] and asked to speak to plastics fabrication supervisor, staff member at [facility] stated she would have DON call. DON did return call and stated that they were short staffed and were having trouble keeping an admitting nurse past 6:00pm. NITIN explained that patient was ready for discharge and his orders were already written and asked DON if there was a way for patient to still come this evening. MAZIN stated that she would figure it out on her end and that patient could admit tonight. NITIN called Michelle on [facility] back and let her know patient was able to DC to [facility] this evening. Kayleigh Fortune, BRASS RECLAIMER, SAWMILLING OPERATOR
== END 2024-08-31 18:30 | disposition skilled nursing facility (03) | DRG 698 ==
LOC: ED 22:05 → ICU 22:55 → MS3 08-29 15:38
PROVIDERS: Admitting Provider Hospitalist; Emergency Provider Emergency Medicine; PCP Family Medicine; Referring Provider Emergency Medicine; Visit Provider Internal Medicine
DX: T83.511A Infection and inflammatory reaction due to indwelling urethral catheter, initial encounter (principal); U07.1 COVID-19; F02.818 Dementia in other diseases classified elsewhere, unspecified severity, with other behavioral disturbance; E87.1 Hypo-osmolality and hyponatremia; R62.7 Adult failure to thrive; J44.9 Chronic obstructive pulmonary disease, unspecified; M06.9 Rheumatoid arthritis, unspecified; I10 Essential (primary) hypertension; F32.A Depression, unspecified; G30.9 Alzheimer's disease, unspecified; F41.9 Anxiety disorder, unspecified; N39.0 Urinary tract infection, site not specified; Z87.891 Personal history of nicotine dependence; B96.20 Unspecified Escherichia coli [E. coli] as the cause of diseases classified elsewhere; Z79.899 Other long term (current) drug therapy; R33.9 Retention of urine, unspecified; R53.81 Other malaise
CPT/HCPCS: 36415; 70450; 71045; 80048; 80053; 81001; 83605; 83735; 84100; 84484; 85025; 85610; 85730; 87040; 87077; 87086; 87088; 87186; 87631; 93005; 97116; 97162; 97166; 97530; 97535; 99285; J2185; A4216

== ENCOUNTER 2024-10-19 12:13 | Emergency (ER) | payer MEDICARE, BC, SELFPAY ==
[2024-10-19 12:14] VITALS: BP 114/77; PULSE 129; RESP 32; TEMP 37.7; O2SAT 86; BMI 18.3
[2024-10-19 12:23] VITALS: BP 114/77; PULSE 128; RESP 30; TEMP 37.7; O2SAT 90
--- NOTE | 2024-10-19 12:37 | CT_ITS ---
EXAM: BRAIN/HEAD WITHOUT CONTRAST CLINICAL HISTORY: Altered mental status for several days. Dementia. COMPARISON: Comparison is made with prior study dated August 27, 2024. TECHNIQUE: Multiple axial tomographic images were obtained without intravenous contrast administration. Sagittal and coronal reconstruction was obtained as well. FINDINGS: Moderate degree of cerebral atrophy. Decreased attenuation in the bilateral periventricular distribution in keeping with chronic small-vessel disease. Cerebellar atrophy as well. Stable examination. Partial opacification of the ethmoid sinuses. Air-fluid level in the left sphenoid sinus as well as the left maxillary sinus. CT/Brain/Head without Contrast IMPRESSION: Stable examination with evidence of atrophy. Partial opacification of the ethmoid sinus as well as air-fluid level in the le ft sphenoid and left maxillary sinus. Reading Location: [id number]
--- NOTE | 2024-10-19 12:39 | CT_ITS ---
PROCEDURE: CT CHEST, ABD, PEL W/CONTRAST REASON FOR EXAM: History of COVID. Dementia. Recent UTI. TECHNIQUE: Chest CT with intravenous contrast and 3D reconstructions. Abdomen and pelvis CT using the same contrast dose. CONTRAST: COMPARISON: None. FINDINGS: CHEST: Lines and tubes: None. Mediastinum: No evidence of mediastinal hemorrhage. Heart: Normal heart size. No pericardial effusion. Coronary artery calcification. Thoracic Aorta: Atherosclerotic calcification of the aortic arch and descending thoracic aorta. Lungs and Airways: Dense consolidation in the right lower lobe. Patchy consolidation in the right upper lobe peripherally abutting the right major fissure. Focal irregular soft tissue density in the posterior aspect of the right upper lobe measuring 2.6 cm by 3.1 cm. A neoplastic process can not be excluded. A similar- appearing spiculated nodule is seen in the right upper lobe measuring 1.3 cm x 2.2 cm. Radiographic follow-up is recommended. The left lung is clear. Pleura: No significant pleural effusion is seen. Bones: Degenerative changes of the spine. ABDOMEN AND PELVIS: Liver: Unremarkable. Gallbladder: Mild distention of the gallbladder lumen with findings suggestive of sludge within the dependent portion of the gallbladder. Spleen: Unremarkable. Pancreas: Unremarkable. Adrenals: Unremarkable. Kidneys: Nonobstructive 7.5 mm calculus in the lower pole calyx of the right kidney. Bladder: A Marina catheter is seen within a decompressed urinary bladder. Reproductive Organs: Unremarkable. Bowel: Large amount of fecal material suggestive of fecal Mckenzie is seen within the rectosigmoid colon. Vasculature: Mild diffuse atherosclerotic calcifications of the abdominal aorta and the major visceral branches are noted. Peritoneum / Retroperitoneum: No free fluid. No free air. Bones: Degenerative changes of the spine. Prior or of a left intertrochanteric fracture. 20% loss of height of the superior endplate of the L1 and L5 vertebrae. CT/CT Chest, Abd, Pel w/Contrast IMPRESSION: Dense consolidation in the right lower lobe as well as in the posterior aspect of the right upper lobe with spiculated nodular densities in the right upper lobe as described. Radiographic follow-up recomme nded for further evaluation. Findings suggestive of sludge within a mildly distended gallbladder. One or more dose reduction techniques were used (e.g., Automated exposure contr ol, adjustment of the mA and/or kV according to patient size, use of iterative reconstruction technique). Reading Location: [facility]
[2024-10-19] MEDS: 0.9% Normal Saline (1000mL) 1,000 ML 999 ML IV (12:48)
[2024-10-19 12:56] LABS: Mucous, Urine 0 SEEN /hpf (<or=2+); Squamous Epithelial Cells - UA 0 SEEN /hpf (0-5)
--- NOTE | 2024-10-19 13:10 | RAD_ITS ---
PROCEDURE: CHEST PA AND LATERAL REASON FOR EXAM: Altered mental status. Declining the last several days. Tachypnea. TECHNIQUE: Frontal and lateral views of the chest. COMPARISON: 2024. FINDINGS: EEG electrodes are seen. There now is evidence of consolidation in the right lower lobe as well as in the right upper lobe. The left lung is clear. Radiographic follow-up recommended. Calcification of the aortic arch and tortuosity of the descending thoracic aorta. The heart is not enlarged. RAD/Chest PA and Lateral IMPRESSION: Consolidation in the right lower lobe as well as in the right upper lobe. Radi ographic follow-up recommended. Reading Location: [facility]
[2024-10-19 13:13] LABS: Color, Urine Yellow (Yellow); Glucose, Dipstick Normal (Normal); Ketone-Dipstick 5 mg/dl (Negative); Leukocyte Esterase-Dipstick 500 /ul (Negative); Nitrite-Dipstick Negative (Negative); Occult Blood-Urine 250 /ul (Negative); Protein-Dipstick 100 mg/dl (Negative); Specific Gravity, Urine 1.025 (1.002-1.030); Urine Clarity Sl. Cloudy (Clear); Urine Urobilinogen 1 mg/dl (Normal)
[2024-10-19 13:14] LABS: Urine Bilirubin Dipstick 1 mg/dL (Negative)
[2024-10-19 13:16] LABS: International Normalized Ratio 1.9; Prothrombin Time (Protime)PT. 21.9 SECONDS (11.7-14.9)
[2024-10-19 13:17] LABS: Partial Thromboplast Time 30.3 Seconds (24.1-36.2)
--- NOTE | 2024-10-19 13:21 | CM.ED ---
Social work Received call from Samantha RN at [facility] (ph: [phone]). Samantha stated there was a miscommunication between patient's facility and patient's family and Samantha requested that patient be sent back to patient's facility now due to patient's family already setting up hospice care for patient. Samantha asked to speak with a nurse, so this message was passed on to petroleum inspector supervisor La Nena who expressed intent to call Samantha back at the above number. Sakina Ramey, IRRIGATION TAX ASSESSOR COLLECTOR, BUSINESS RESILIENCY MANAGER
--- NOTE | 2024-10-19 13:30 | ED.RN ---
Per La Nena,RN wait to do any further testing or give any medications due to patients family wanting him to return to hospice.
[2024-10-19 13:36] LABS: ALB/GLOB Ratio 0.8 RATIO (0.9-2.4); AST(SGOT) 25 U/L (<=37); Alanine Aminotransfer ALT/SGPT 10 U/L (<=46); Albumin, Serum 3.3 g/dL (3.4-4.8); Alkaline Phosphatase 69 U/L (40-129); Anion Gap 18 (5-15); BUN/Creat Ratio 55.6 RATIO (10-20); Calcium 9.6 mg/dL (7.6-11.0); Chloride 119 mmol/L (96-108); Creatinine, Serum 2.23 mg/dL (0.70-1.20); EST Glomerular Filtration Rate 30 (>60); Estimated Creatinine Clearance 23.56 ml/min; Globulin 4.2 g/dL (2.2-4.2); Glucose 132 mg/dL (70-99); Potassium 4.1 mmol/L (3.3-5.1); Protein, Total 7.5 g/dL (5.9-8.4); Sodium Level 159 mmol/L (133-145); Total Bilirubin 0.83 mg/dL (0.00-1.30); Troponin T High Sensitivity 53 ng/L (<=22)
--- NOTE | 2024-10-19 13:36 | ED.RN ---
CALLED AND TALKED TO [facility] AT HOSPICE. SHE IS TALKING TO THE FAMILY. SHE WAS MADE AWARE THAT PT IS SEPTIC AND WE WERE GOING TO DO ANTIBIOTICS AND TYLENOL FOR PTS FEVER. SHE IS GOING TO TALK TO THE PATIENTS FAMILY AND CALL BACK WITH WHAT TO DO.
[2024-10-19 13:37] LABS: Lactic Acid 2.9 mmol/L (0.0-2.0)
[2024-10-19 13:42] VITALS: BP 127/75
[2024-10-19 13:44] LABS: Absolute Lymphocyte Count 0.82 X10^3/uL (0.83-4.51); Absolute Neutrophil Count 15.4 X10^3/uL (2.0-7.7); Basophil# 0.13 X10^3/uL; Basophil% 0.8 % (0-1); Hematocrit 55.3 % (40-54); Hemoglobin 17.6 g/dL (13.0-16.5); Lymphocyte # 0.82 X10^3/ul (0.83-4.51); Lymphocyte % 4.8 % (19-41); Mean Corp Hgb Conc 31.8 g/dL (32-36); Mean Corpuscular Hgb 31.4 pg (27.0-32.0); Mean Corpuscular Volume 98.6 fL (80-94); Mean Platelet Vol. 11.2 fl (6.2-12.0); Monocyte# 0.51 X10^3/uL; NRBC Flagged by Analyzer 0 % (0-5); Neutrophil # 15.41 X10^3/uL (2.7-7.7); Neutrophil % 90.6 % (47-70); Platelet Count 366 K/mm3 (150-450); RBC Distribution Width CV 16.9 % (11.6-14.6); RBC Distribution Width SD 59.5 fl (35.1-43.9); Red Blood Count 5.61 M/mm3 (4.6-6.2)
[2024-10-19 13:47] VITALS: BP 127/75; PULSE 87; RESP 21; TEMP 38.5; O2SAT 92
--- NOTE | 2024-10-19 13:49 | EX.ED.DYSGE1 ---
HPI History of Present Illness Chief Complaint: Alt LOC Narrative Narrative: Patient is a 74-year-old male with a past medical history of dementia, ESBL, depression anxiety, IBS, COPD, hypertension who presented to the Emergency Department chief complaint of altered mental status. History of present illness was not obtainable from the patient's secondary to his altered mental status therefore acute care caveat applies. Nurse practitioner from the facility called me and notified me that yesterday he was. Not be feeling well was able to open his eyes and when they checked on him today he was not opening his eyes she states that they ordered stat labs and sent him to the emergency department. [facility] Medical History Dementia with behavioral disturbance History of ESBL E. coli infection Chest wall contusion Dementia Fall Compression fracture of L5 vertebra Closed fracture of left hip Wears hearing aid Wears glasses Depression Anxiety Dementia Alcohol use Walker as ambulation aid Rheumatoid arthritis Bladder disease Prostate disease Indwelling urethral catheter present Back pain Injury of head and neck Dietary restriction History of IBS Former smoker History of edema History of irregular heartbeat Lives in skilled nursing COPD (chronic obstructive pulmonary disease) Alzheimer disease Hemorrhoids Weight loss Rheumatoid arthritis Gout HTN (hypertension) Home Medications ?Medication ?Instructions ?Recorded ?Last Taken ?Type metoprolol tartrate 25 mg tablet 25 mg PO BID htn 03/24/14 02/01/24 History folic acid 1 mg tablet 2 mg PO DAILY vitamin 06/17/17 12/04/23 History leucovorin calcium 15 mg tablet 15 mg PO Q7D RA 06/17/17 01/18/24 History donepezil 23 mg tablet 23 mg PO QHS dementia 09/15/23 02/01/24 History hydroxychloroquine 200 mg tablet 200 mg PO DAILY 12/05/23 02/01/24 History acetaminophen 325 mg tablet 650 mg (2 x 325 mg) PO Q6H PRN PRN 12/08/23 Unknown Rx Pain 1-10 Or Fever>100.7 #0 tabs sennosides 8.6 mg-docusate sodium 2 tab PO BID PRN PRN Constipation 12/08/23 Unknown Rx 50 mg tablet (Stool #0 tabs Softener-Stimulant Laxative) tamsulosin 0.4 mg capsule 0.4 mg PO DAILY@1730 #0 caps 12/08/23 01/31/24 Rx methotrexate sodium 2.5 mg tablet 20 mg PO WE 01/05/24 01/25/24 History quetiapine 25 mg tablet 25 mg PO QHS 02/01/24 01/31/24 History aspirin 81 mg tablet,delayed 81 mg PO QODAY dvt 30 days #0 tabs 08/21/24 Unknown Rx release lorazepam 0.5 mg tablet 0.5 mg PO BID #4 tabs 08/31/24 Unknown Rx Allergy/AdvReac Type Severity Reaction Status Date / Time No Known Allergies Allergy Verified 08/27/24 19:51 Family History Father Colon cancer CVA (cerebral vascular accident) Hypertension Heart disease Sister CAD (coronary artery disease) Hypertension Heart disease Mother Cancer Surgical History History of stapedectomy Hx of tonsillectomy S/P colonoscopy Social History household members: spouse Smoking Status: Former smoker alcohol intake: never substance use type: does not use ROS ROS ED ROS Narrative Review of systems unobtainable from the patient therefore acute care caveat applies EXAM Physical Exam Narrative Exam Narrative: General: Patient was lying in bed resting comfortably Head: Atraumatic, normocephalic Eyes: EOMI bilateral, no conjunctival injection noted Neck: Soft, trachea midline Cardiovascular: Patient tachycardic with a regular rhythm Respiratory: Diminished breath sounds bilaterally Abdomen: Soft, nondistended, diffuse tenderness palpation Genitourinary: Patient had purulent material coming from his urethra around the Marina catheter site no concern for Lisbeth's gangrene Extremities: Patient moving all extremities Neurological: Patient would localize and cross midline to sternal rub and pain is alert and oriented x 1 per staff Skin: Patient does have a small lesion noted on the tip of his penis as well as evidence of developing sacral decubitus ulcer Const Vital Signs: 10/19/24 12:14 10/19/24 12:23 10/19/24 12:37 Temperature 99.8 F H 99.8 F H Temperature Source Axillary Axillary Pulse Rate 129 H 128 H Respiratory Rate 32 H 30 H Blood Pressure 114/77 114/77 Blood Pressure Mean 89 89 Pulse Ox 86 90 Oxygen Delivery Method Room Air Nasal Cannula Nasal Cannula Oxygen Flow Rate (L/min) 5 10/19/24 13:42 Temperature Temperature Source Pulse Rate Respiratory Rate Blood Pressure 127/75 H Blood Pressure Mean 92 Pulse Ox Oxygen Delivery Method Oxygen Flow Rate (L/min) MDM MDM MDM Narrative Medical decision making narrative: Patient is a 74-year-old male who presented to the emergency department the chief complaint of altered mental status. Patient was noted to be hypoxic therefore he was placed on nasal cannula, he will have a workup performed 30 cc/kg bolus of IV fluids will be ordered as well as a 2 g Rocephin for your concern for UTI. Patient is a DNR CCA. Staff reached out to the family members and noted that they do not want any of this and they want him to be brought back to the facility on hospice. Hospice did reach out to social work team here and verified this. Patient will be discharged back to the facility on hospice. Family members were made aware and they are waiting on the patient to return. Patient's CBC was significant for leukocytosis of 17,000, hemoglobin 17.6, plate count was 9366. Patient INR normal at 1.9, PT of 21.9. Patient sodium noted be high at 159, potassium normal at 4.1, creatinine elevated 2.23 indicating acute kidney injury as his baseline is around 0.88. Patient lactic acidosis of 2.9, AST and ALT are 25 and 10 respectively. Patient's troponin elevated to 53, urinalysis showed 500 leukocyte esterase negative nitrates microscopic pending. Patient's chest x-ray reviewed by myself by radiology showed consolidation of the right lower lobe as well as the right upper lobe. Patient's CT chest abdomen pelvis with IV contrast showed dense consolidation in the right lower lobe as well as posterior aspect of the right upper lobe with spiculated nodular densities in the right upper lobe as described. Recommending radiographic follow-up finding suggestive sludge within a mildly distended gallbladder. Lab Data Labs: Laboratory Results - last 24 hr 10/19/24 10/19/24 12:25 12:27 WBC 17.0 H RBC 5.61 Hgb 17.6 H Hct 55.3 H MCV 98.6 H MCH 31.4 MCHC 31.8 L RDW Std Deviation 59.5 H RDW Coeff of Narciso 16.9 H Plt Count 366 MPV 11.2 Immature Gran % (Auto) 0.800 Neut % (Auto) 90.6 H Lymph % (Auto) 4.8 L [place] % (Auto) 3.0 Eos % (Auto) 0.0 Baso % (Auto) 0.8 Absolute Neuts (auto) 15.4 H Absolute Lymphs (auto) 0.82 L Nucleated RBC % 0 PT 21.9 H INR 1.9 APTT 30.3 Sodium 159 H Potassium 4.1 Chloride Direct 119 H Carbon Dioxide 22.0 Anion Gap 18 H BUN 124 H* Creatinine 2.23 H Estim Creat Clear Calc 23.56 Est GFR (MDRD) Non-Af 30 L BUN/Creatinine Ratio 55.6 H Glucose 132 H Lactic Acid 2.9 H* Calcium 9.6 Total Bilirubin 0.83 AST 25 ALT 10 Alkaline Phosphatase 69 Troponin T High Sens 53 H Total Protein 7.5 Albumin 3.3 L Globulin 4.2 Albumin/Globulin Ratio 0.8 L Urine Color Yellow Urine Clarity Sl. Cloudy Urine pH 5.0 Ur Specific Curtiss 1.025 Urine Protein 100 H Urine Glucose (UA) Normal Urine Ketones 5 H Urine Occult Blood 250 H Urine Nitrite Negative Urine Bilirubin 1 H Urine Urobilinogen 1 H Ur Leukocyte Esterase 500 H Radiography Diagnostic Testing: Clinical Impression(s) from Imaging Studies Brain CT 10/19/24 12:37 IMPRESSION: Stable examination with evidence of atrophy. Partial opacification of the ethmoid sinus as well as air-fluid level in the left sphenoid and left maxillary sinus. Reading Location: [id number] Chest/Abdomen/Pelvis CT 10/19/24 12:39 IMPRESSION: Dense consolidation in the right lower lobe as well as in the posterior aspect of the right upper lobe with spiculated nodular densities in the right upper lobe as described. Radiographic follow-up recommended for further evaluation. Findings suggestive of sludge within a mildly distended gallbladder. One or more dose reduction techniques were used (e.g., Automated exposure control, adjustment of the mA and/or kV according to patient size, use of iterative reconstruction technique). Reading Location: [id number] Chest X-Ray 02/28/25 13:10 IMPRESSION: Consolidation in the right lower lobe as well as in the right upper lobe. Radiographic follow-up recommended. Reading Location: [id number] Discharge Plan Triage Chief Complaint: Alt LOC ED Provider: Rome Munroe Dx/Rx/DC Orders Clinical Impression: Hypoxia, Pneumonia, Urinary tract infection Prescriptions: No Action metoprolol tartrate 25 MG tablet 25 mg PO BID donepezil 23 mg tablet 23 mg PO QHS Patient Comments: take 1 tablet by mouth once daily methotrexate sodium 2.5 mg Tablet 20 mg PO WE quetiapine 25 mg tablet 25 mg PO QHS Patient Comments: only takes one at night hydroxychloroquine 200 mg Tablet 200 mg PO DAILY acetaminophen 325 mg Tablet 650 mg PO Q6H PRN PRN (Reason: Pain 1-10 Or Fever>100.7) Qty: 0 0RF sennosides-docusate sodium [Stool Softener-Stimulant Laxat] 8.6-50 mg Tablet 2 tab PO BID PRN PRN (Reason: Constipation) Qty: 0 0RF tamsulosin 0.4 mg Capsule 0.4 mg PO DAILY@1730 Qty: 0 0RF aspirin 81 mg tablet,delayed release (DR/EC) 81 mg PO QODAY 30 Days Qty: 0 0RF lorazepam 0.5 mg Tablet 0.5 mg PO BID Qty: 4 0RF leucovorin calcium 15 MG tablet 15 mg PO Q7D Patient Comments: TAKES ON TUESDAY MORNING folic acid 1 MG tablet 2 mg PO DAILY Primary Care Provider: Casimiro Duncan Referrals: Casimiro Duncan MD [Primary Care Provider] - Print Language: Georgian Disposition Disposition: [facility]
--- NOTE | 2024-10-19 13:50 | ED.RN ---
PTS FAMILY DECIDED THAT THEY WANT HIM TO GO BACK TO [facility] WITH NO INTERVENTION. THEY ARE OK WITH TYLENOL AND O2 BUT NOTHING ELSE IS TO BE DONE. PHYSICIANS COMING TO GET PT AND WILL ARRIVE IN 30 MIN. HOSPICE NURSE IS AWARE AND WILL BE CALLING FAMILY TO LET THEM KNOW.
[2024-10-19] MEDS: Acetaminophen 650 MG Suppository RC (13:54)
[2024-10-19 13:55] LABS: White Blood Cells >100 SEEN /hpf (0-5)
[2024-10-19 13:56] LABS: Red Blood Cells-Urine 25-50 SEEN /hpf (0-5)
[2024-10-19 13:57] LABS: Bacteria 4+ /hpf (None Seen)
[2024-10-19 13:58] LABS: Coarse Granular Cast 10-25 SEEN /lpf (0-5 /lpf); Fine Granular Cast- Urine 0-5 SEEN /lpf (0-5); Hyaline Cast 10-25 SEEN /lpf (0-5)
[2024-10-19 14:32] VITALS: BP 127/75
[2024-10-23 05:24] LABS: BUN 124 mg/dL (4-19)
== END 2024-10-19 14:33 | disposition skilled nursing facility (03) ==
PROVIDERS: Emergency Provider Emergency Medicine; PCP Family Medicine; Visit Provider Emergency Medicine
DX: J18.9 Pneumonia, unspecified organism (principal); F03.90 Unspecified dementia, unspecified severity, without behavioral disturbance, psychotic disturbance, mood disturbance, and anxiety; J44.9 Chronic obstructive pulmonary disease, unspecified; R09.02 Hypoxemia; R41.82 Altered mental status, unspecified; N39.0 Urinary tract infection, site not specified; I10 Essential (primary) hypertension; Z87.891 Personal history of nicotine dependence; E87.20 Acidosis, unspecified; L89.159 Pressure ulcer of sacral region, unspecified stage; Z79.899 Other long term (current) drug therapy; Z82.49 Family history of ischemic heart disease and other diseases of the circulatory system; Z80.0 Family history of malignant neoplasm of digestive organs; G31.9 Degenerative disease of nervous system, unspecified; Z86.16 Personal history of COVID-19; R06.82 Tachypnea, not elsewhere classified
CPT/HCPCS: 70450; 71046; 71260; 74177; 80053; 81001; 83605; 84484; 85025; 85610; 85730; 87040; 87077; 87086; 87088; 87186; 87631; 96360; 99285; Q9967; A4216; J0696